=== PATIENT | female | born 1945 | race Caucasian/White ===

== ENCOUNTER → 2016-11-17 | Outpatient (REF) | payer MEDICARE ==
[~2016-11-17] MED LIST: ACET65TA OR; AGGR1CAP PO; AGGRCAP OR; ALBU83IN INH; ASCO25TA PO; ASPI81TA83 OR; Amlodipine Besylate PO; BISO10TA2 OR; BISO10TA6 PO; CALCIUM+VIT D PO; CALCTAB43 PO; CLAR1TAB2 PO; CLONIDINE PO; COLA100C PO; CRES20TA PO; DIOV160T5 OR; DIOV160T6 PO; DOXY100T OR; ECON0.05 TOP; FURO40TA2 OR; INSULADS SC; INSULANT SC; INVO300T PO; K-TA10TA2 PO; KLOR10TA OR; LASI20TA PO; LEVO175T19 PO; LEVO175T3 OR; LORATIDINE PO; MECL25CH PO; METFORMIN PO; NICO21DI4 TD; NORV5TAB OR; NORV5TAB PO; NYST10CR TOP; PRIL40CA OR; PRIL40CA PO; ROBIMIS PO; ROSU10TA OR; SPIR25TA2 PO
[2016-11-17 19:18] LABS: CALCIUM LEVEL 9.1 MG/DL (8.8-10.2); CREATININE FOR GFR 1.23 MG/DL (0.55-1.02); GLOMERULAR FILTRATION RATE 46.1 (>45); MAGNESIUM LEVEL 1.9 MG/DL (1.8-2.4); PHOSPHORUS LEVEL 3.4 MG/DL (2.5-4.9); POTASSIUM SERUM 3.9 MEQ/L (3.5-5.1)
[2016-11-17 19:59] LABS: MEAN CORPUSCULAR VOLUME 70.6 fl (80.0-96.0); RED CELL DISTRIBUTION WIDTH 19.1 % (11.5-14.5); WHITE BLOOD COUNT 10.4 K/mm3 (4.0-10.0)
[2016-11-18 15:23] LABS: FOLATE 19.7 NG/ML
== END ==
LOC: M LABDRAWC 16:46
PROVIDERS: ATTEND Physician Assistant
DX: D64.9 Anemia, unspecified (principal); I50.32 Chronic diastolic (congestive) heart failure; I48.0 Paroxysmal atrial fibrillation

== ENCOUNTER → 2016-11-19 | Outpatient (REF) | payer MEDICARE ==
[~2016-11-19] MED LIST changes: +ALBU17IN INH; +AMLO10TA PO; +ELIQ5TAB PO; +FURO40TA2 PO; +INSUHUMDS SC; +NITR4TASL SL; +NYST10CR EXT; +OMEP40CA2 PO; +ROBI30SU PO; +SYNT175T2 PO; +TOUJ1.2I SC; +TYLE500T78 PO
[2016-11-19 18:07] LABS: MEAN CORPUSCULAR HGB CONC 27.1 g/dl (32.0-36.5); MEAN CORPUSCULAR VOLUME 70.2 fl (80.0-96.0); RED CELL DISTRIBUTION WIDTH 19.6 % (11.5-14.5); RETIC HEMOGLOBIN CONTENT CHr 21.4 PG (24-36); RETICULOCYTE % ADVIA2120 3.2 % (0.5-1.5); WHITE BLOOD COUNT 8.7 K/mm3 (4.0-10.0)
[2016-11-19 18:56] LABS: FOLATE 23.6 NG/ML (>5.4)
[2016-11-19 18:58] LABS: PERCENT SATURATION 5.1 % (13.2-37.4)
== END ==
LOC: M SFHCCLAY 10:19
PROVIDERS: ATTEND Family Medicine
DX: D64.9 Anemia, unspecified (principal)

== ENCOUNTER → 2016-11-20 | Outpatient (CLI) | payer MEDICARE | LOC: M LAB 16:12 | PROVIDERS: ATTEND Family Medicine | DX: D50.0 Iron deficiency anemia secondary to blood loss (chronic) (principal) ==

== ENCOUNTER 2016-11-21 06:26 | Outpatient (CLI) | payer MEDICARE ==
[~2016-11-21 06:26] MED LIST changes: -ALBU17IN INH; -AMLO10TA PO; -ELIQ5TAB PO; -FURO40TA2 PO; -INSUHUMDS SC; -NITR4TASL SL; -NYST10CR EXT; -OMEP40CA2 PO; -ROBI30SU PO; -SYNT175T2 PO; -TOUJ1.2I SC; -TYLE500T78 PO
[2016-11-21] MEDS ORDERED: ACETAMINOPHEN TAB 650MG DOSE (2X325MG) PO SCH (07:01)
[2016-11-21] MEDS ORDERED: TOUJ1.2I SC (07:51)
[2016-11-21] MEDS ORDERED: INSUHUMDS SC (07:51)
[2016-11-21] MEDS ORDERED: diphenhydrAMINE 50 MG CAP PO ONE (09:00)
[2016-11-21] MEDS ORDERED: FUROSEMIDE 20 MG/2 ML VIAL (J1940) IV ONE (10:45)
[2016-11-22] MEDS ORDERED: FURO40TA2 PO (20:01)
[2016-11-22] MEDS ORDERED: SYNT175T2 PO (20:01)
[2016-11-22] MEDS ORDERED: TYLE500T78 PO (20:09)
[2016-11-22] MEDS ORDERED: NITR4TASL SL (20:09)
[2016-11-22] MEDS ORDERED: OMEP40CA2 PO (20:09)
[2016-11-22] MEDS ORDERED: ALBU17IN INH (20:09)
[2016-11-22] MEDS ORDERED: NYST10CR EXT (20:09)
[2016-11-22] MEDS ORDERED: ALBU83IN INH (20:09)
[2016-11-22] MEDS ORDERED: ELIQ5TAB PO (20:09)
[2016-11-22] MEDS ORDERED: ROBI30SU PO (20:09)
[2016-11-22] MEDS ORDERED: AMLO10TA PO (20:12)
== END 2016-11-21 13:15 | disposition home or self-care (01) ==
LOC: M INFU 06:26
PROVIDERS: ATTEND Family Medicine
DX: D50.0 Iron deficiency anemia secondary to blood loss (chronic) (principal); Z79.4 Long term (current) use of insulin; Z79.899 Other long term (current) drug therapy; Z88.8 Allergy status to other drugs, medicaments and biological substances; Z88.1 Allergy status to other antibiotic agents

== ENCOUNTER 2016-11-22 15:26 | Inpatient (IN) | payer MEDICARE ==
[~2016-11-22] VITALS: Ht 157.5 cm; Wt 100.8 kg
[~2016-11-22 15:26] MED LIST changes: +INSUHUMDS SC; +TOUJ1.2I SC
[2016-11-22 16:33] LABS: MEAN CORPUSCULAR HEMOGLOBIN 20.7 pg (27.0-33.0); MEAN CORPUSCULAR HGB CONC 28.8 g/dl (32.0-36.5); MEAN CORPUSCULAR VOLUME 71.7 fl (80.0-96.0); PLATELET COUNT, AUTOMATED 259 k/mm3 (150-450); RED CELL DISTRIBUTION WIDTH 20.5 % (11.5-14.5); WHITE BLOOD COUNT 10.8 K/mm3 (4.0-10.0)
[2016-11-22 16:49] LABS: CALCIUM LEVEL 8.3 MG/DL (8.8-10.2); CREATININE FOR GFR 1.39 MG/DL (0.55-1.02); GLOMERULAR FILTRATION RATE 39.9 (>39)
[2016-11-22 17:06] LABS: ANISOCYTOSIS 2+; HYPOCHROMASIA 1+; MICROCYTOSIS 3+
[2016-11-22 17:07] LABS: POIKILOCYTOSIS 1+; POLYCHROMASIA 1+
[2016-11-22] MEDS ORDERED: FUROSEMIDE 40 MG/4 ML VIAL (J1940) As Ordered ONE ×2 (18:42→22:32)
[2016-11-22] MEDS ORDERED: SYNT175T2 PO (20:01)
[2016-11-22] MEDS ORDERED: FURO40TA2 PO (20:01)
[2016-11-22] MEDS ORDERED: ALBU83IN INH (20:09)
[2016-11-22] MEDS ORDERED: NITR4TASL SL (20:09)
[2016-11-22] MEDS ORDERED: NYST10CR EXT (20:09)
[2016-11-22] MEDS ORDERED: OMEP40CA2 PO (20:09)
[2016-11-22] MEDS ORDERED: ELIQ5TAB PO (20:09)
[2016-11-22] MEDS ORDERED: ALBU17IN INH (20:09)
[2016-11-22] MEDS ORDERED: ROBI30SU PO (20:09)
[2016-11-22] MEDS ORDERED: TYLE500T78 PO (20:09)
[2016-11-22] MEDS ORDERED: AMLO10TA PO (20:12)
[2016-11-22] MEDS ORDERED: ONDANSETRON 4 MG TAB (S0181) PO PRN (20:15)
[2016-11-22] MEDS ORDERED: PERCOCET 5MG/325MG TAB PO PRN (20:15)
[2016-11-22] MEDS ORDERED: ONDANSETRON 4MG/2ML VIAL (J2405) IV PRN (20:15)
[2016-11-22] MEDS ORDERED: ACETAMINOPHEN TAB 650MG DOSE (2X325MG) PO PRN (20:15)
[2016-11-22 21:00] VITALS: BP 133/61
[2016-11-22] MEDS ORDERED: LORATADINE 10 MG TAB PO PRN (21:00)
[2016-11-22] MEDS ORDERED: ALBUTEROL SULFATE 2.5 MG/0.5 ML INH NEB SOLN INH PRN (21:00)
[2016-11-22] MEDS ORDERED: GLUCOSE 4 GM CHEW TABLET PO PRN (21:15)
[2016-11-22] MEDS ORDERED: GLUCAGON FOR INJ 1 MG VIAL (J1610) SC PRN (21:15)
[2016-11-22] MEDS ORDERED: DEXTROSE 50% 50 ML SYRINGE IV PRN (21:15)
[2016-11-22] MEDS ORDERED: DOCUSATE SODIUM 100 MG CAP As Ordered ONE (22:24)
[2016-11-22] MEDS ORDERED: OMEPRAZOLE 20 MG CAP As Ordered ONE (22:24)
[2016-11-22] MEDS ORDERED: APIXABAN 2.5 MG TAB (ELIQUIS) As Ordered ONE (22:25)
--- NOTE | 2016-11-22 22:28 | HPEPDOC ---
Medical History and Physical Date of Admission Nov 22, 2016 at 20:01 History and Physical HISTORY AND PHYSICAL Date of admission: 11/22/2016 PCP: Dr. Olivas Chief complaint: Just couldn't get a decent breath HPI: 71-year-old female with diabetes mellitus type 2, hypertension, diastolic CHF, possible COPD, obesity, hypothyroidism, hypercholesterolemia, history of Afib and bradycardia status post pacemaker who presented to the ER because she was having difficulty breathing. She states that she has been short of breath since last Thursday, and it keeps coming and going. She states that she was taking a nap today and laying on her right side and is quite comfortable; however, she then turned on her left side and noticed that she couldn't breathe. She attempted to use nitroglycerin and albuterol, but noticed that these did not help her breathing at all, so she decided to come to the emergency department. She states that she has noticed her breathing gets worse when she lays down, and also when she goes outside and windy situations. Additionally, any exertion seems to make her breathing more difficult. Many emergency department, she was noted to have O2 sats of 84 on room air. In addition to this shortness of breath, she has a recent history significant for new anemia. She states that she had had routine blood work with her material dispatcher this week, and got called into the office because her hemoglobin came back at 7.9. At that point, they decided to transfuse HER-2 units of PRBCs this past . She states that in between the units of blood, they gave her dose of Lasix. She says she has never previously had an issue with anemia or low blood count before. She also denies any current bleeding. She has not seen any blood, and also states that her stool has not been black or tarry- like. When asked if her breathing seemed to get worse after the blood transfusion, she stated that no, it wasn't good after the blood transfusion but was no worse than it was before. Past medical history: diabetes mellitus type 2, hypertension, diastolic CHF, possible COPD, obesity, hypothyroidism, hypercholesterolemia, history of Afib and bradycardia status post pacemaker Past surgical history: Pacemaker placement secondary to bradycardia, hysterectomy, cholecystectomy Family history: Her mother is over 90 years old and doing well. She does state that both her father and her brother suddenly of heart attacks in their 30s. Her children are both healthy. Social history: The patient quit smoking approximately 4 years ago. She denies drinking any alcohol, or using drugs. Allergies: Amlodipine, amiloride, erythromycin, gemfibrozil, by mouth glitazone , tetracycline Review of systems: General: Positive for chills. Negative for fevers Eyes:. Negative for Vision changes and ocular discharge ENT: Negative for sore throat and nose bleed Cardiovascular: Negative For chest pain and palpitations Respiratory: Positive for cough and shortness of breath GI: Positive for nausea. Negative for vomiting, diarrhea, constipation Musculoskeletal: Negative for neck and back pain Skin: Negative for rash Neuro: Negative for headache, dizziness, numbness, tingling Psych: Positive for depression. Negative for suicidal ideation. Endocrine: Positive for polyuria : Negative for dysuria. Positive for frequency Heme: Negative for bruising and bleeding Home meds: See below Physical exam: Vital signs: Blood pressure 129/60, HR 90s, temperature 98.2, O2 sat 95% on 2-1/ 2 L, RR 18 Gen.: awake, alert, no acute distress Eyes: Extraocular movements intact, normal sclera ENT: Moist mucous membranes Cardiovascular: RRR, no murmurs rubs or gallops Lungs: crackles at bilateral bases Abdomen: Soft, NT/ND, normal BS Musculoskeletal: normal range of motion Extremities: 1+ edema Neuro: alert and oriented 3, normal speech, no focal deficits Psych: Normal mood with congruent affect Labs and radiology: See below Creatinine 1.39 Hemoglobin 8.8 BNP 401 Troponin unremarkable Chest x-ray bilateral diffuse interstitial infiltrates EKG paced Assessment and plan: 71-year-old female with diabetes mellitus type 2, hypertension, diastolic CHF, possible COPD, obesity, hypothyroidism, hypercholesterolemia, history of Afib and bradycardia status post pacemaker who presented to the ER because she was having difficulty breathing. She is admitted with acute on chronic diastolic CHF , as well as anemia. 1. Acute on chronic diastolic CHF: The patient had an echo approximately 10 months ago that showed diastolic heart failure as well as moderate pulmonary hypertension, but preserved ejection fraction. At this time, her chest x-ray is consistent with pulmonary edema. We will hold her home by mouth Lasix and start her on IV Lasix twice a day, as well as follow daily weights and I's and O's. We will get a repeat echo, and trend troponins, although her initial one is negative. 2. Anemia: The patient states that she went for routine blood work with her doctor recently and was called back to the office because her hemoglobin was noted to be 7.9. She is status post transfusion of 2 units PRBCs on , with a dose of Lasix in between. Today her hemoglobin is 8.8. She denies any blood loss, or black tarry stools. We will check a fecal occult blood, as well as iron studies and B12 and folate. We will also trend her daily hemoglobins, but if her hemoglobin continues to be stable during this admission, I believe she could complete her workup for anemia as an outpatient. Of note, the patient is on eliquis for a history of A. fib prior to receiving her pacemaker. At this time, since she is not having any gross bleeding, I will continue her home eliquis. Depending on the trend of her hemoglobin, it may be worth considering backing her down to aspirin, especially since she has now had a pacemaker placed and is paced on EKG. 3. Diabetes mellitus type 2: Continue home long-acting insulin. The patient confirms that she takes 150 units every morning. Continue sliding scale insulin while in-house. 4. Acute kidney injury: The patient's creatinine is currently 1.39, and it appears that her baseline is closer to 1. She does report that she has been on an increased dose of Lasix for the last month. At this point, given her shortness of breath and pulmonary edema, I think it is necessary to diurese her , but we may expect to see some further bump in her creatinine during this diuresis. We will follow her creatinine daily and keep a close eye on her kidney function. 5. Hypertension: Continue home Norvasc and beta art. 6. Hypothyroidism: Continue home Synthroid. 7. Hyperlipidemia: Continue home statin. 8. History of A. fib and bradycardia status post pacemaker placement: The patient's EKG in the emergency room shows a ventricular pacing. She currently denies any chest pain. She is on eliquis for this prior A. fib, which we will currently continue since she is not having any gross bleeding. DVT prophylaxis: Continue home eliquis, and SCDs Dispo: admit as an inpatient to the service of Dr. Brumfield CODE STATUS: Full Code Vital Signs see above Laboratory Data Labs 24H Laboratory Tests 2 11/22/16 16:09: Anion Gap 11, Anisocytosis 2+, B-Type Natriuretic Peptide 401H, White Blood Count 10.8H, Red Blood Count 4.27, Hemoglobin 8.8L, Hematocrit 30.6L, Mean Corpuscular Volume 71.7L, Mean Corpuscular Hemoglobin 20.7L, Mean Corpuscular Hemoglobin Concent 28.8L, Red Cell Distribution Width 20.5H, Platelet Count 259 , Neutrophils (%) (Auto) , Lymphocytes (%) (Auto) , Monocytes (%) (Auto) , Eosinophils (%) (Auto) , Basophils (%) (Auto) , Neutrophils # (Auto) , Lymphocytes # (Auto) , Monocytes # (Auto) , Eosinophils # (Auto) , Basophils # ( Auto) , Blood Urea Nitrogen 18, Creatinine 1.39H, Sodium Level 139, Potassium Level 4.0, Chloride Level 104, Carbon Dioxide Level 24, Calcium Level 8.3L, Total Creatine Kinase 56, Creatine Kinase MB 2.3, Creatine Kinase MB Relative Index 4.10H, Glomerular Filtration Rate 39.9, Hypochromasia 1+, Large Unclassified Cells # , Large Unclassified Cells % , Lymphocytes (Manual) 10L, Microcytosis 3+, Monocytes (Manual) 4, Neutrophils 86H, Platelet Estimate NORMAL , Poikilocytosis 1+, Polychromasia 1+, Troponin I 0.03 11/22/16 20:35: Total Creatine Kinase 65, Creatine Kinase MB 1.5, Creatine Kinase MB Relative Index 2.30, Troponin I 0.04# 11/22/16 21:24: Bedside [facility] 399H CBC/BMP Laboratory Tests 11/22/16 16:09 Calcium Level 8.3 L, Total Creatine Kinase 56, Red Blood Count 4.27, Mean Corpuscular Volume 71.7 L, Mean Corpuscular Hemoglobin 20.7 L, Mean Corpuscular Hemoglobin Concent 28.8 L, Red Cell Distribution Width 20.5 H, Neutrophils (%) ( Auto) , Lymphocytes (%) (Auto) , Monocytes (%) (Auto) , Eosinophils (%) (Auto) , Basophils (%) (Auto) , Neutrophils # (Auto) , Lymphocytes # (Auto) , Monocytes # (Auto) , Eosinophils # (Auto) , Basophils # (Auto) FSBS Laboratory Tests Test 11/22/16 21:24 Range/Units Bedside Glucose (Misc Panel) 399 83-110 MG/DL Microbiology Microbiology 11/22/16 Blood Culture, Received Pending 11/22/16 Blood Culture, Received Pending Home Medications Scheduled (Luis A Sands) 300 Unit/Ml Inj 150 UNIT SC DAILY (Robitussin 12 Hour Cough) 30 Mg/5 Ml Myrna 30 MG PO BID Amlodipine Besylate (Norvasc) 10 Mg Tab 10 MG PO DAILY Brand only - See Comments Apixaban Base (Eliquis) 5 Mg Tab 5 MG PO BID Daily and @ 1200 Ascorbic Acid (Vitamin C) 250 Mg Tab 500 MG PO DAILY Bisoprolol Fumarate (Bisoprolol Fumarate) 10 Mg Tab 10 MG PO BID Calcium/Vitamin D (Calcium 600+D 600-400 mg-Unit) 1 Tab Tab 1 TAB PO DAILY Docusate Sodium (Colace) 100 Mg Cap 100 MG PO QHS Furosemide (Lasix) 20 Mg Tab 20 MG PO QPM @1400 Furosemide (Furosemide) 40 Mg Tab 40 MG PO DAILY Levothyroxine Sodium (Synthroid) 175 Mcg Tab 175 MCG PO QAM Nystatin (Nystatin) 100,000 Unit/Gm Cre 1 UNIT EXT BID Applied to under breast, groin and underarm Omeprazole (Omeprazole) 40 Mg Cap 40 MG PO QHS Rosuvastatin Calcium (Crestor) 20 Mg Tab 20 MG PO DAILY Scheduled PRN Acetaminophen (Tylenol Extra Strength) 500 Mg Tab 1,000 MG PO Q4H PRN PRN PAIN Albuterol Sulfate (Albuterol Sulfate) 2.5 Mg/3 Ml Nebu 2.5 MG INH Q4H PRN PRN SHORTNESS OF BREATH Albuterol Sulfate (Ventolin Hfa) 200 Puff/8 Gm Aers 2 PUFF INH Q4H PRN PRN SHORTNESS OF BREATH Insulin Human Lispro (Humalog) 1 Units/0.01 Ml Inj 1 UNITS SC BID PRN PRN per sliding scale coverage Loratadine (Claritin) 10 Mg Tab 10 MG PO DAILY PRN PRN CONGESTION Nitroglycerin (Nitrostat) 0.4 Mg Subl 0.4 MG SL Q5MP PRN PRN ANGINA Allergies Coded Allergies: Gemfibrozil (Unverified Allergy, Mild, RASH, 01/25/13) Erythromycin (Unverified Adverse Reaction, Severe, NAUSEA, 01/25/13) Pioglitazone (Unverified Adverse Reaction, Severe, SWELLING, BP INCREAE, ) Amiloride (Unverified Adverse Reaction, Intermediate, NAUSEA, 01/25/13) Tetracycline (Unverified Adverse Reaction, Intermediate, NAUSEA, 01/25/13) Amlodipine (Unverified Adverse Reaction, Unknown, Swelling, 11/22/16) Uses Brand Only JOSE Dolan Nov 22, 2016 22:28
[2016-11-22] MEDS ORDERED: HumaLOG INSULIN (NovoLOG) PER UNIT As Ordered ONE (22:32)
[2016-11-22] MEDS: FUROSEMIDE 40 MG/4 ML VIAL (J1940) IV SCH (22:35)
[2016-11-22] MEDS: APIXABAN 5 MG TAB (ELIQUIS) PO SCH (22:40)
[2016-11-22] MEDS: DOCUSATE SODIUM 100 MG CAP PO SCH (22:40)
[2016-11-22] MEDS: OMEPRAZOLE 20 MG CAP PO SCH (22:41)
[2016-11-22] MEDS: BISOPROLOL FUMARATE 10 MG TAB PO SCH (22:41)
[2016-11-22] MEDS: HumaLOG INSULIN (NovoLOG) PER UNIT SC SCH (22:42)
[2016-11-22] MEDS: NYSTATIN CREAM 15 GM EXT SCH (22:43)
[2016-11-23] VITALS (8 sets, daily range): BP systolic 119–157; BP diastolic 59–74
[2016-11-23 04:17] LABS: BASO % 0.1 % (0.0-1.0); EOS % 0.2 % (0.0-3.0); LARGE UNSTAINED CELL # 0.1 K/mm3 (0.0-0.4); LARGE UNSTAINED CELL % 0.5 % (0.0-4.0); LYMPH # 0.7 K/mm3 (1.5-4.5); MEAN CORPUSCULAR HEMOGLOBIN 20.6 pg (27.0-33.0); MEAN CORPUSCULAR HGB CONC 27.9 g/dl (32.0-36.5); MEAN CORPUSCULAR VOLUME 73.7 fl (80.0-96.0); MONO # 0.3 K/mm3 (0.0-0.8); MONO % 2.9 % (0.0-5.0); NEUTROPHILS # 8.4 K/mm3 (1.8-7.7); NEUTROPHILS % 89.3 % (36.0-66.0); PLATELET COUNT, AUTOMATED 276 k/mm3 (150-450); RED CELL DISTRIBUTION WIDTH 18.7 % (11.5-14.5); WHITE BLOOD COUNT 9.4 K/mm3 (4.0-10.0)
[2016-11-23 04:37] LABS: CALCIUM LEVEL 8.5 MG/DL (8.8-10.2); CREATININE FOR GFR 1.33 MG/DL (0.55-1.02); MAGNESIUM LEVEL 2.1 MG/DL (1.8-2.4); PERCENT SATURATION 4.2 % (13.2-37.4); POTASSIUM SERUM 4.1 MEQ/L (3.5-5.1)
[2016-11-23] MEDS: LEVOTHYROXINE 0.1 MG TAB (100 MCG) PO SCH (06:03)
[2016-11-23] MEDS: LEVOTHYROXINE 0.075 MG TAB (75 MCG) PO SCH (06:03)
[2016-11-23] MEDS ORDERED: LEVEMIR (INSULIN DETEMIR) 1 UNITS/0.01ML As Ordered ONE (08:21)
[2016-11-23] MEDS ORDERED: HumaLOG INSULIN (NovoLOG) PER UNIT As Ordered ONE (08:22)
[2016-11-23] MEDS ORDERED: APIXABAN 5 MG TAB (ELIQUIS) As Ordered ONE (08:26)
[2016-11-23] MEDS ORDERED: FUROSEMIDE 40 MG/4 ML VIAL (J1940) As Ordered ONE (08:26)
[2016-11-23] MEDS: ROSUVASTATIN 10 MG TAB (CRESTOR) PO SCH (08:31)
[2016-11-23] MEDS: FUROSEMIDE 40 MG/4 ML VIAL (J1940) IV SCH ×2 (08:31→17:54)
[2016-11-23] MEDS: ASCORBIC ACID 500 MG TAB PO SCH (08:31)
[2016-11-23] MEDS: APIXABAN 5 MG TAB (ELIQUIS) PO SCH ×2 (08:31→20:33)
[2016-11-23] MEDS: NYSTATIN CREAM 15 GM EXT SCH ×2 (08:31→20:33)
[2016-11-23] MEDS: BISOPROLOL FUMARATE 10 MG TAB PO SCH ×2 (08:33→20:33)
[2016-11-23] MEDS: HumaLOG INSULIN (NovoLOG) PER UNIT SC SCH ×4 (08:34→20:28)
[2016-11-23] MEDS ORDERED: LEVEMIR (INSULIN DETEMIR) 1 UNITS/0.01ML SC SCH (09:00)
--- NOTE | 2016-11-23 12:51 | IPNPDOC ---
Assessment/Plan Date Seen The patient was seen on 11/23/16. Family Medicine Attending Note: I saw and examined Ms. Redmond, discussed with ARSEN Sun. Agree with their note as documented. Ms. Redmond reports that her breathing is improved since she was admitted. It's not completely to baseline, but it is improving. We'll continue to diurese her. 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 Pt on exam remains decompensated. (2) Diabetes mellitus type 2 in obese Status: Chronic Response to Treatment: Stable Discussed With: Patient Problem Specific Plan: Monitor Clinically (3) CAD (coronary artery disease), [place] coronary artery Status: Chronic Response to Treatment: Stable Problem Specific Plan: Monitor Clinically Problem Text: on ASA, statin, zebeta, cont. Plan / VTE VTE Prophylaxis Ordered?: Yes Subjective Review of Systems CC/HPI Pt states that her breathing is better this morning. She reports a h/o swelling /blowing up all over when she takes generic Norvasc, takes branded at home without tolerability concern. General: Denies: Fatigue Constitutional: Denies: Chills, Fever Pulmonary: Reports: Dyspnea, Denies: Cough Cardiovascular: Denies: Chest Pain, Palpitations Gastrointestinal: Denies: Diarrhea, Nausea, Vomiting Neurological: Denies: Weakness Psych: Reports: Mood Normal Objective Physical Examination General Exam: Positive: Alert, No Acute Distress ENT Exam: Positive: Mucous membr. moist/pink Neck Exam: Positive: Supple Chest Exam: Positive: Normal air movement, Other (bibasilar crackles) Heart Exam: Positive: Normal S1, Normal S2, Rate Normal Abdomen Exam: Positive: Normal bowel sounds, Soft, Negative: Tenderness Extremity Exam: Negative: Edema Vital Signs/I&O Vital Signs Date Time Temp Pulse Resp B/P Pulse Ox O2 Delivery O2 Flow Rate FiO2 11/23/16 12:00 98.3 76 22 132/67 97 Nasal Cannula 3.0 I&O- Last 24 Hours up to 6 AM 11/23/16 06:00 Intake Total 360 ml Output Total 1600 ml Balance -1240 ml Laboratory Data Labs 24H Laboratory Tests 2 11/22/16 16:09: Anion Gap 11, Anisocytosis 2+, B-Type Natriuretic Peptide 401H, White Blood Count 10.8H, Red Blood Count 4.27, Hemoglobin 8.8L, Hematocrit 30.6L, Mean Corpuscular Volume 71.7L, Mean Corpuscular Hemoglobin 20.7L, Mean Corpuscular Hemoglobin Concent 28.8L, Red Cell Distribution Width 20.5H, Platelet Count 259 , Neutrophils (%) (Auto) , Lymphocytes (%) (Auto) , Monocytes (%) (Auto) , Eosinophils (%) (Auto) , Basophils (%) (Auto) , Neutrophils # (Auto) , Lymphocytes # (Auto) , Monocytes # (Auto) , Eosinophils # (Auto) , Basophils # ( Auto) , Blood Urea Nitrogen 18, Creatinine 1.39H, Sodium Level 139, Potassium Level 4.0, Chloride Level 104, Carbon Dioxide Level 24, Calcium Level 8.3L, Total Creatine Kinase 56, Creatine Kinase MB 2.3, Creatine Kinase MB Relative Index 4.10H, Glomerular Filtration Rate 39.9, Hypochromasia 1+, Large Unclassified Cells # , Large Unclassified Cells % , Lymphocytes (Manual) 10L, Microcytosis 3+, Monocytes (Manual) 4, Neutrophils 86H, Platelet Estimate NORMAL , Poikilocytosis 1+, Polychromasia 1+, Troponin I 0.03 11/22/16 20:35: Total Creatine Kinase 65, Creatine Kinase MB 1.5, Creatine Kinase MB Relative Index 2.30, Troponin I 0.04# 11/22/16 21:24: Bedside Glucose (Misc Panel) 399H 11/23/16 03:59: Total Creatine Kinase 85, Creatine Kinase MB 1.4, Creatine Kinase MB Relative Index 1.64, Troponin I 0.03# 11/23/16 04:00: Anion Gap 9, White Blood Count 9.4, Red Blood Count 4.62, Hemoglobin 9.5L, Hematocrit 34.0L, Mean Corpuscular Volume 73.7L, Mean Corpuscular Hemoglobin 20.6L, Mean Corpuscular Hemoglobin Concent 27.9L, Red Cell Distribution Width 18.7H, Platelet Count 276, Neutrophils (%) (Auto) 89.3H, Lymphocytes (%) (Auto) 7.0L, Monocytes (%) (Auto) 2.9, Eosinophils (%) (Auto) 0.2, Basophils (%) (Auto ) 0.1, Neutrophils # (Auto) 8.4H, Lymphocytes # (Auto) 0.7L, Monocytes # (Auto) 0.3, Eosinophils # (Auto) 0.0, Basophils # (Auto) 0.0, Blood Urea Nitrogen 22H, Creatinine 1.33H, Sodium Level 140, Potassium Level 4.1, Chloride Level 102, Carbon Dioxide Level 29, Calcium Level 8.5L, Ferritin 12, Glomerular Filtration Rate 42.0, Iron Level 18L, Large Unclassified Cells # 0.1, Large Unclassified Cells % 0.5, Magnesium Level 2.1, Total Iron Binding Capacity 428, Transferrin % Saturation 4.2L 11/23/16 11:56: Creatine Kinase MB 1.7, Creatine Kinase MB Relative Index 2.04, Total Creatine Kinase 83, Troponin I 0.04# 11/23/16 12:09: Bedside Glucose ([facility]) 294H CBC/BMP Laboratory Tests 11/22/16 16:09 Calcium Level 8.3 L, Total Creatine Kinase 56, Red Blood Count 4.27, Mean Corpuscular Volume 71.7 L, Mean Corpuscular Hemoglobin 20.7 L, Mean Corpuscular Hemoglobin Concent 28.8 L, Red Cell Distribution Width 20.5 H, Neutrophils (%) ( Auto) , Lymphocytes (%) (Auto) , Monocytes (%) (Auto) , Eosinophils (%) (Auto) , Basophils (%) (Auto) , Neutrophils # (Auto) , Lymphocytes # (Auto) , Monocytes # (Auto) , Eosinophils # (Auto) , Basophils # (Auto) 11/23/16 04:00 Calcium Level 8.5 L, Red Blood Count 4.62, Mean Corpuscular Volume 73.7 L, Mean Corpuscular Hemoglobin 20.6 L, Mean Corpuscular Hemoglobin Concent 27.9 L, Red Cell Distribution Width 18.7 H, Neutrophils (%) (Auto) 89.3 H, Lymphocytes (%) ( Auto) 7.0 L, Monocytes (%) (Auto) 2.9, Eosinophils (%) (Auto) 0.2, Basophils (% ) (Auto) 0.1, Neutrophils # (Auto) 8.4 H, Lymphocytes # (Auto) 0.7 L, Monocytes # (Auto) 0.3, Eosinophils # (Auto) 0.0, Basophils # (Auto) 0.0 FSBS Laboratory Tests Test 11/22/16 21:24 11/23/16 12:09 Range/Units Bedside Glucose (Misc Panel) 399 294 83-110 MG/DL Microbiology Microbiology 11/22/16 Blood Culture, Received Pending 11/22/16 Blood Culture, Received Pending ANDRE MONDRAGON PA-C Nov 23, 2016 12:51 Kurt Brumfield MD Nov 23, 2016 22:32
--- NOTE | 2016-11-23 14:47 | EDDOCDS ---
Physician Documentation [facility] Name: Marjorie Redmond Age: 71 yrs Sex: Female : 1945 Arrival Date: 11/22/2016 Time: 15:26 Bed Admit Hold Private MD: Disposition: 11/22/16 19:16 Hospitalization ordered by Day Vega for Inpatient Admission. Preliminary diagnosis is Shortness of breath. - Bed requested for [facility]. - Status is Inpatient Admission. bcj - Condition is Stable. - Problem is new. - Symptoms have worsened. Historical: - Allergies: Tetracycline (Upset stomach); Tramadol HCl (Vomit); Tylenol-Codeine #3 (Vomit); - Home Meds: 1. Vitamin C 500 mg Oral TbER 500 mg daily 2. bisoprolol fumarate 10 mg oral tab 1 tab once daily 3. Colace 100 mg oral cap 1 cap once daily 4. Calcium + Vitamin D 600 mg calcium- 200 unit Oral tab 600 mg daily 5. furosemide 40 mg Oral tab 40 mg in am. 20 mg in pm 6. Humalog 100 unit/mL Sub-Q soln twice a day 7. Toujeo SoloStar 300 unit/mL (1.5 mL) subcutaneous inpn 150 unit 8. levothyroxine 175 mcg Oral tab 1 tab once daily 9. Claritin 10 mg Oral tab 1 tab once daily 10. omeprazole 40 mg Oral cpDR 1 cap once daily 11. rosuvastatin 20 mg oral tab 1 tab once daily 12. amlodipine 10 mg Oral tab 1 tab once daily 13. nystatin 100,000 unit/gram Topical crea 14. albuterol sulfate 2.5 mg /3 mL (0.083 %) Nebulizer nebu as needed 15. albuterol sulfate 90 mcg/actuation Inhl HFAA - PMHx: Diabetes - IDDM: controlled; Hypertension; Hypothyroidism; CHF; Asthma; - PSHx: Gall Bladder Removal; Hysterectomy; Pacemaker Insertion; - Social history: Smoking status: Patient states former smoker of tobacco. No barriers to communication noted, Speaks appropriately for age. - Family history: Not pertinent. - : The pt / caregiver states he / she is not on anticoagulants. Home medication list is obtained from [employer] import data. - Exposure Risk Screening:: None identified. Vital Signs: 11/22 15:37 BP 137 / 63 (auto/); rs3 15:39 BP 137 / 63; Pulse 95; Resp 32; Temp 98.2(O); Pulse Ox 92% on 3 lpm NC; Weight 99.79 kg rs3 / 220 lbs; Height 5 ft. 2 in. (157.48 cm); Pain 0/10; 15:39 Pulse 98 MON; Pulse Ox 91% ; rs3 15:59 BP 146 / 63 (auto/); rs3 15:59 Pulse 96 MON; Pulse Ox 93% ; rs3 16:18 Pulse 90 MON; Pulse Ox 92% ; rs3 16:19 BP 124 / 56 (auto/); rs3 16:28 Pulse 92 MON; Pulse Ox 92% ; rs3 16:29 BP 122 / 60 (auto/); rs3 16:44 BP 114 / 53 (auto/); rs3 16:44 Pulse 88 MON; Pulse Ox 90% ; rs3 16:59 BP 140 / 63 (auto/); rs3 16:59 Pulse 88 MON; Pulse Ox 90% ; rs3 17:14 BP 132 / 63 (auto/); rs3 17:14 Pulse 88 MON; Pulse Ox 92% ; rs3 17:29 BP 136 / 60 (auto/); rs3 17:29 Pulse 86 MON; Pulse Ox 94% ; rs3 17:44 BP 116 / 59 (auto/); rs3 17:44 Pulse 86 MON; Pulse Ox 94% ; rs3 17:59 BP 129 / 62 (auto/); rs3 17:59 Pulse 90 MON; Pulse Ox 93% ; rs3 18:14 BP 138 / 55 (auto/); rs3 18:14 Pulse 90 MON; Pulse Ox 92% ; rs3 18:33 BP 141 / 61 (auto/); rs3 18:33 Pulse 90 MON; Pulse Ox 90% ; rs3 18:40 BP 136 / 63 (auto/); rs3 18:40 Pulse 92 MON; Pulse Ox 93% ; rs3 18:59 BP 130 / 60 (auto/); af2 18:59 Pulse 94 MON; Resp 22 S; Pulse Ox 95% on 2 lpm NC; af2 19:48 BP 129 / 60 (auto/); af2 19:48 Pulse 92 MON; Resp 22 S; Pulse Ox 93% on 2 lpm NC; af2 15:39 Body Mass Index 40.24 (99.79 kg, 157.48 cm) rs3 MDM: 15:35 -Blood Culture (Adults Only), peripheral from different site, or from device/port/PICC fg etc. if present ordered. 15:35 Rn Clinical Appeals/Pulse Ox/q 15 min VS ordered. fg 15:35 IV Saline Lock ordered. fg 15:35 Oxygen at 4L/Min NC or Home dosage ordered. fg 15:35 Rhythm Strip to chart ordered. fg 15:36 B-Type Natiuretic Peptide Ordered. EDMS 15:36 Basic Metabolic Profile Ordered. EDMS 15:36 CBC with Diff Ordered. EDMS 15:36 Cardiac Injury Profile Ordered. EDMS 15:36 Troponin Ordered. EDMS 15:36 -Blood Culture Ordered. EDMS 15:37 Chest, 1 View Ordered. EDMS 15:37 ECG WITH READING ER PHYS+CARDIAG ordered. EDMS 15:53 -Blood Culture (Adults Only), peripheral from different site, or from device/port/PICC deg etc. if present complete. 15:55 BLOOD CULTURES Ordered. EDMS 16:35 DIFFERENTIAL NO CHARGE Ordered. EDMS 16:35 PLATELET ESTIMATE Ordered. EDMS 18:34 Furosemide 40 mg IVP once ordered. fg 19:02 BED REQUEST+ADM ordered. EDMS 19:17 Financial registration complete. zo 19:29 [facility] [place] [facility] Payment Agreement was scanned into [employer] and attached to record. zo 20:14 CARDIAC MARKER PANEL Ordered. EDMS 20:14 CARDIAC MARKER PANEL Ordered. EDMS 20:14 CARDIAC MARKER PANEL Ordered. EDMS 20:14 CBC WITH DIFFERENTIAL Ordered. EDMS 20:14 BASIC METABOLIC PROFILE Ordered. EDMS 20:15 MAGNESIUM LEVEL Ordered. EDMS 20:15 IRON (FE) Ordered. EDMS 20:15 TOTAL IRON BINDING CAPACIT Ordered. EDMS 20:15 FERRITIN Ordered. EDMS 20:15 VITAMIN B12 LEVEL Ordered. EDMS 20:15 FOLATE Ordered. EDMS 20:17 Admission / Observation Status ordered. EDMS 20:17 ECHOCARD,DOPPLER/COLOR FLOW ordered. EDMS 20:17 NO ADDED SALT DIET ordered. EDMS 21:18 Admission / Observation Status ordered. EDMS 11/23 12:19 Fingerstick Blood Sugar Ordered. EDMS Administered Medications: 11/22 18:53 Drug: Furosemide 40 mg [furosemide 10 mg/mL injection solution (4 mL)] Route: IVP; rs3 Site: left antecubital; Signatures: Dispatcher [employer] EDMS Nayely Mariscal, [employer] Unit deg Paul Gayle RN RN Sherman Whaley Rosemary, RN RN rs3 Monica Milner RN RN Bill Mart RN RN mts Gill, Frances, MD MD The chart was reviewed and I authenticate all verbal orders and agree with the evaluation and treatment provided.Corrections: (The following items were deleted from the chart) 15:57 15:42 Allergies: Tetracycline; rs3 rs3 Attachments: 19:29 [facility] [place] Payment Agreement zo MTDD
--- NOTE | 2016-11-23 14:47 | EDDOCDS ---
Nurse's Notes [facility] Name: Marjorie Redmond Age: 71 yrs Sex: Female : 1945 Arrival Date: 11/22/2016 Time: 15:26 Bed Admit Hold Private MD: Diagnosis: Shortness of breath Presentation: 11/22 15:29 Presenting complaint: Presenting complaint: EMS states: SOB on and off since last week. rs3 worse today. Expiratory wheezes bilaterally. Duoneb treatment given x 1. Solu-Medrol 125 mg IVP given. FS BS 334. 15:32 Adult Sepsis Screening: The patient does not have new or worsening altered mentation. rs3 15:32 Acuity: AMANDA Level 3 rs3 18:53 Adult Sepsis Screening: Patient has a respiratory rate of greater than or equal to 22 rs3 (1 point). Systolic blood pressure is greater than 100. Patient has a qSOFA score of 1- Negative Sepsis Screen. Suicide/Homicide risk assessment- the patient denies having any suicidal and/or homicidal ideations and does not present with any other emotional, behavioral or mental health complaints. 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 Transition of care: patient was not received from another setting of care. 18:53 Method Of Arrival: Ambulance rs3 Triage Assessment: 15:56 General: Appears in no apparent distress. Pain: Denies pain. Respiratory: Onset: The rs3 symptoms/episode began/occurred gradually. Historical: - Allergies: Tetracycline (Upset stomach); Tramadol HCl (Vomit); Tylenol-Codeine #3 (Vomit); - Home Meds: 1. Vitamin C 500 mg Oral TbER 500 mg daily 2. bisoprolol fumarate 10 mg oral tab 1 tab once daily 3. Colace 100 mg oral cap 1 cap once daily 4. Calcium + Vitamin D 600 mg calcium- 200 unit Oral tab 600 mg daily 5. furosemide 40 mg Oral tab 40 mg in am. 20 mg in pm 6. Humalog 100 unit/mL Sub-Q soln twice a day 7. Toujeo SoloStar 300 unit/mL (1.5 mL) subcutaneous inpn 150 unit 8. levothyroxine 175 mcg Oral tab 1 tab once daily 9. Claritin 10 mg Oral tab 1 tab once daily 10. omeprazole 40 mg Oral cpDR 1 cap once daily 11. rosuvastatin 20 mg oral tab 1 tab once daily 12. amlodipine 10 mg Oral tab 1 tab once daily 13. nystatin 100,000 unit/gram Topical crea 14. albuterol sulfate 2.5 mg /3 mL (0.083 %) Nebulizer nebu as needed 15. albuterol sulfate 90 mcg/actuation Inhl HFAA - PMHx: Diabetes - IDDM: controlled; Hypertension; Hypothyroidism; CHF; Asthma; - PSHx: Gall Bladder Removal; Hysterectomy; Pacemaker Insertion; - Social history: Smoking status: Patient states former smoker of tobacco. No barriers to communication noted, Speaks appropriately for age. - Family history: Not pertinent. - : The pt / caregiver states he / she is not on anticoagulants. Home medication list is obtained from [employer] import data. - Exposure Risk Screening:: None identified. Screenin:57 Screening information is obtained from the patient. Fall risk: No risks identified. rs3 Assistance ADL's: requires no assistance with activities of daily living. Abuse/DV Screen: The patient / caregiver reports he/she is: not in a situation that causes fear, pain or injury. Nutritional screening: No deficits noted. home support is adequate. 16:19 Advance Directives: Currently, there is a health care proxy, Reynaldo Ruy. There is rs3 an active DNR order but there is no copy available at this time. Assessment: 16:13 General: Appears in no apparent distress, Behavior is appropriate for age, cooperative. rs3 Pain: Denies pain. Neurological: Level of Consciousness is awake, alert. Cardiovascular: Capillary refill < 3 seconds Heart tones S1 S2 present Rhythm is ventricular pacer. Cardiovascular: Chest pain is denied. Respiratory: Airway is patent Respiratory effort is even, Breath sounds are diminished bilaterally. Breath sounds with wheezes expiratory in left posterior lower lobe and right posterior middle lobe. Derm: Skin is pink, warm & dry. 17:30 General: Appears in no apparent distress, Behavior is appropriate for age, cooperative, rs3 Short of breath on exertion, talking and with activity. lung sounds diminished bilateral bases. on oxygen 3L/nc. sat 90% . . 18:50 General: Appears in no apparent distress, ambulated on RM. sat in 84%. RM. attending rs3 provider made aware. sob on ambulation. . 19:10 General: Appears in no apparent distress, Behavior is appropriate for age, cooperative. af2 Neurological: Level of Consciousness is awake, alert, obeys commands, Oriented to person, place, time. Cardiovascular: Rhythm is ventricular pacer Chest pain is denied. Respiratory: Airway is patent Respiratory effort is even, unlabored, Breath sounds with crackles bilaterally. in left lower lobe, right lower lobe, left posterior lower lobe and right posterior lower lobe Breath sounds are diminished bilaterally. 20:10 General: Appears in no apparent distress, Behavior is appropriate for age, cooperative. af2 Neurological: Level of Consciousness is awake, alert, obeys commands, Oriented to person, place, time. Cardiovascular: Rhythm is ventricular pacer. Respiratory: Airway is patent Respiratory effort is even, unlabored. Derm: Skin is pink, warm & dry. 20:44 General: pt updated regarding plan of care and hospital bed status, verbalizes af2 understanding of information and plan to keep pt in ED.. 20:54 General: report give to Sarah Arroyo RN. She has agreed to assume care of pt. For further af2 documentation, refer to [employer].. Vital Signs: 15:37 BP 137 / 63 (auto/); rs3 15:39 BP 137 / 63; Pulse 95; Resp 32; Temp 98.2(O); Pulse Ox 92% on 3 lpm NC; Weight 99.79 rs3 kg; Height 5 ft. 2 in. (157.48 cm); Pain 0/10; 15:39 Pulse 98 MON; Pulse Ox 91% ; rs3 15:59 BP 146 / 63 (auto/); rs3 15:59 Pulse 96 MON; Pulse Ox 93% ; rs3 16:18 Pulse 90 MON; Pulse Ox 92% ; rs3 16:19 BP 124 / 56 (auto/); rs3 16:28 Pulse 92 MON; Pulse Ox 92% ; rs3 16:29 BP 122 / 60 (auto/); rs3 16:44 BP 114 / 53 (auto/); rs3 16:44 Pulse 88 MON; Pulse Ox 90% ; rs3 16:59 BP 140 / 63 (auto/); rs3 16:59 Pulse 88 MON; Pulse Ox 90% ; rs3 17:14 BP 132 / 63 (auto/); rs3 17:14 Pulse 88 MON; Pulse Ox 92% ; rs3 17:29 BP 136 / 60 (auto/); rs3 17:29 Pulse 86 MON; Pulse Ox 94% ; rs3 17:44 BP 116 / 59 (auto/); rs3 17:44 Pulse 86 MON; Pulse Ox 94% ; rs3 17:59 BP 129 / 62 (auto/); rs3 17:59 Pulse 90 MON; Pulse Ox 93% ; rs3 18:14 BP 138 / 55 (auto/); rs3 18:14 Pulse 90 MON; Pulse Ox 92% ; rs3 18:33 BP 141 / 61 (auto/); rs3 18:33 Pulse 90 MON; Pulse Ox 90% ; rs3 18:40 BP 136 / 63 (auto/); rs3 18:40 Pulse 92 MON; Pulse Ox 93% ; rs3 18:59 BP 130 / 60 (auto/); af2 18:59 Pulse 94 MON; Resp 22 S; Pulse Ox 95% on 2 lpm NC; af2 19:48 BP 129 / 60 (auto/); af2 19:48 Pulse 92 MON; Resp 22 S; Pulse Ox 93% on 2 lpm NC; af2 15:39 Body Mass Index 40.24 (99.79 kg, 157.48 cm) rs3 Vitals: 15:39 Log In Time N/A - ambulance arrival. rs3 ED Course: 15:27 Patient visited by Nayely Mariscal, Editor Magazine. deg 15:27 Patient moved to Waiting deg 15:29 Patient moved to 18 rs3 15:31 Anna Lawrence MD is Attending Physician. fg 15:36 Triage Initiated rs3 15:45 Patient visited by Anna Lawrence MD. fg 16:10 EKG done. (by ED staff). Reviewed by Anna Lawrence MD. jrd 16:19 Maintain field IV. Dressing intact. Good blood return noted. Site clean & dry. rs3 16:35 Patient visited by Shelley Arvizu,AL. rs3 17:08 Patient visited by Shelley Arvizu,AL. rs3 18:25 Patient visited by Shelley Arvizu,AL. rs3 18:53 No procedures done that require assistance. rs3 18:53 DIFFERENTIAL NO CHARGE Sent. rs3 19:07 Alexandrea Dutton,RN is Primary Nurse. af2 19:16 Day Vega is Hospitalizing Provider. fg 19:29 [facility] Payment Agreement was scanned into [employer] and attached to record. zo 19:31 Patient name changed from Marjorie\S\\S\Ruy\S\ to Marjorie\S\ \S\Ruy. EDMS 19:36 Patient visited by Alexandrea Dutton RN. af2 20:15 Patient visited by Alexandrea Dutton RN. af2 20:31 Patient moved to Admit Hold sls1 20:45 Patient visited by Alexandrea Dutton RN. af2 20:56 Patient visited by Alexandrea Dutton RN. af2 11/23 14:13 The patient / caregiver is instructed regarding the plan of care and ED course. ttb Administered Medications: 11/22 18:53 Drug: Furosemide 40 mg [furosemide 10 mg/mL injection solution (4 mL)] Route: IVP; rs3 Site: left antecubital; Order Results: Lab Order: B-Type Natiuretic Peptide; SPEC'M 11/22/16 16:09 Test: BRAIN NATRIURETIC PEPTIDE; Value: 401; Range: <100; Abnormal: Above high normal; Units: PG/ML; Status: F Lab Order: Basic Metabolic Profile; SPEC'M 11/22/16 16:09 Test: GLUCOSE, FASTING; Value: 333; Range: 83-110; Abnormal: Above high normal; Units: MG/DL; Status: F Test: BLOOD UREA NITROGEN; Value: 18; Range: 7-18; Units: MG/DL; Status: F Test: CREATININE FOR GFR; Value: 1.39; Range: 0.55-1.02; Abnormal: Above high normal; Units: MG/DL; Status: F Test: GLOMERULAR FILTRATION RATE; Value: 39.9; Range: >39; Status: F Test: SODIUM LEVEL; Value: 139; Range: 136-145; Units: MEQ/L; Status: F Test: POTASSIUM SERUM; Value: 4.0; Range: 3.5-5.1; Units: MEQ/L; Status: F Test: CHLORIDE LEVEL; Value: 104; Range: 98-107; Units: MEQ/L; Status: F Test: CARBON DIOXIDE LEVEL; Value: 24; Range: 21-32; Units: MEQ/L; Status: F Test: ANION GAP; Value: 11; Range: 8-16; Units: MEQ/L; Status: F Test: CALCIUM LEVEL; Value: 8.3; Range: 8.8-10.2; Abnormal: Below low normal; Units: MG/DL; Status: F Test Note: ; Units are mL/min/1.73 m2 Chronic Kidney Disease Staging per NKF: Stage I & II GFR >=60 Normal to Mildly Decreased Stage III GFR 30-59 Moderately Decreased Stage IV GFR 15-29 Severely Decreased Stage V GFR <15 Very Little GFR Left ESRD GFR <15 on DISTRICT CAPTAIN Lab Order: CBC with Diff; SPEC'M 11/22/16 16:09 Test: WHITE BLOOD COUNT; Value: 10.8; Range: 4.0-10.0; Abnormal: Above high normal; Units: K/mm3; Status: F Test: RED BLOOD COUNT; Value: 4.27; Range: 4.00-5.40; Units: M/mm3; Status: F Test: HEMOGLOBIN; Value: 8.8; Range: 12.0-16.0; Abnormal: Below low normal; Units: g/dl; Status: F Test: HEMATOCRIT; Value: 30.6; Range: 36.0-47.0; Abnormal: Below low normal; Units: %; Status: F Test: MEAN CORPUSCULAR VOLUME; Value: 71.7; Range: 80.0-96.0; Abnormal: Below low normal; Units: fl; Status: F Test: MEAN CORPUSCULAR HEMOGLOBIN; Value: 20.7; Range: 27.0-33.0; Abnormal: Below low normal; Units: pg; Status: F Test: MEAN CORPUSCULAR HGB CONC; Value: 28.8; Range: 32.0-36.5; Abnormal: Below low normal; Units: g/dl; Status: F Test: RED CELL DISTRIBUTION WIDTH; Value: 20.5; Range: 11.5-14.5; Abnormal: Above high normal; Units: %; Status: F Test: PLATELET COUNT, AUTOMATED; Value: 259; Range: 150-450; Units: k/mm3; Status: F Test: NEUTROPHILS; Value: 86; Range: 35-75; Abnormal: Above high normal; Units: %; Status: F Test: LYMPHOCYTES; Value: 10; Range: 16-52; Abnormal: Below low normal; Units: %; Status: F Test: MONOCYTES; Value: 4; Range: 0-8; Units: %; Status: F Test: POLYCHROMASIA; Value: 1+; Status: F Test: HYPOCHROMASIA; Value: 1+; Status: F Test: POIKILOCYTOSIS; Value: 1+; Status: F Test: ANISOCYTOSIS; Value: 2+; Status: F Test: MICROCYTOSIS; Value: 3+; Status: F Lab Order: Cardiac Injury Profile; [facility] 11/22/16 16:09 Test: CPK CREATINE PHOSPHOKINASE; Value: 56; Range: 26-192; Units: U/L; Status: F Test: CK-MB VALUE MASS; Value: 2.3; Range: 0.0-3.6; Units: NG/ML; Status: F Test: MB/CK RELATIVE INDEX; Value: 4.10; Range: < OR =4; Abnormal: Above high normal; Status: F Test Note: ; DIAGNOSIS CRITERIA MMB ng/ml Relative Index (RI) NON-AMI < or = 5 N/A ROBERTS ZONE > 5 < or = 4 AMI > 5 > 4 Lab Order: Troponin; [facility] 11/22/16 16:09 Test: TROPONIN I; Value: 0.03; Range: < 0.10; Units: NG/ML; Status: F Test Note: ; Troponin I Reference Interval for [employer] LOCI: 99th Percentile= 0.00-0.045 ng/ml Risk Stratification: <= 0.10 ng/ml Decreased Risk for Adverse Clinical Events. 0.10-1.50 ng/ml Increased Risk for Adverse Clinical Events. Evaluation of additional criterion and/or repeat testing in 2-6 hours is suggested to rule out myocardial damage. >= 1.50 ng/ml Indicative of Myocardial Injury. Lab Order: PLATELET ESTIMATE; [facility] 11/22/16 16:09 Test: PLATELET ESTIMATE; Value: NORMAL; Range: NORMAL; Status: F Lab Order: CARDIAC MARKER PANEL; [facility] 11/22/16 20:35 Test: CPK CREATINE PHOSPHOKINASE; Value: 65; Range: 26-192; Units: U/L; Status: F Test: CK-MB VALUE MASS; Value: 1.5; Range: 0.0-3.6; Units: NG/ML; Status: F Test: MB/CK RELATIVE INDEX; Value: 2.30; Range: < OR =4; Status: F Test: TROPONIN I; Value: 0.04; Range: < 0.10; Abnormal: Delta; Units: NG/ML; Status: F Test Note: ; DIAGNOSIS CRITERIA MMB ng/ml Relative Index (RI) NON-AMI < or = 5 N/A ROBERT[place]ONE > 5 < or = 4 AMI > 5 > 4 Lab Order: CARDIAC MARKER PANEL; [facility]' 11/23/16 03:59 Test: CPK CREATINE PHOSPHOKINASE; Value: 85; Range: 26-192; Units: U/L; Status: F Test: CK-MB VALUE MASS; Value: 1.4; Range: 0.0-3.6; Units: NG/ML; Status: F Test: MB/CK RELATIVE INDEX; Value: 1.64; Range: < OR =4; Status: F Test: TROPONIN I; Value: 0.03; Range: < 0.10; Abnormal: Delta; Units: NG/ML; Status: F Test Note: ; DIAGNOSIS CRITERIA MMB ng/ml Relative Index (RI) NON-AMI < or = 5 N/A [place]ONE > 5 < or = 4 AMI > 5 > 4 Lab Order: CARDIAC MARKER PANEL; [facility] 11/23/16 11:56 Test: CPK CREATINE PHOSPHOKINASE; Value: 83; Range: 26-192; Units: U/L; Status: F Test: CK-MB VALUE MASS; Value: 1.7; Range: 0.0-3.6; Units: NG/ML; Status: F Test: MB/CK RELATIVE INDEX; Value: 2.04; Range: < OR =4; Status: F Test: TROPONIN I; Value: 0.04; Range: < 0.10; Abnormal: Delta; Units: NG/ML; Status: F Test Note: ; DIAGNOSIS CRITERIA MMB ng/ml Relative Index (RI) NON-AMI < or = 5 N/A ROBERT[place]ONE > 5 < or = 4 AMI > 5 > 4 Lab Order: CBC WITH DIFFERENTIAL; [facility]' 11/23/16 04:00 Test: WHITE BLOOD COUNT; Value: 9.4; Range: 4.0-10.0; Units: K/mm3; Status: F Test: RED BLOOD COUNT; Value: 4.62; Range: 4.00-5.40; Units: M/mm3; Status: F Test: HEMOGLOBIN; Value: 9.5; Range: 12.0-16.0; Abnormal: Below low normal; Units: g/dl; Status: F Test: HEMATOCRIT; Value: 34.0; Range: 36.0-47.0; Abnormal: Below low normal; Units: %; Status: F Test: MEAN CORPUSCULAR VOLUME; Value: 73.7; Range: 80.0-96.0; Abnormal: Below low normal; Units: fl; Status: F Test: MEAN CORPUSCULAR HEMOGLOBIN; Value: 20.6; Range: 27.0-33.0; Abnormal: Below low normal; Units: pg; Status: F Test: MEAN CORPUSCULAR HGB CONC; Value: 27.9; Range: 32.0-36.5; Abnormal: Below low normal; Units: g/dl; Status: F Test: RED CELL DISTRIBUTION WIDTH; Value: 18.7; Range: 11.5-14.5; Abnormal: Above high normal; Units: %; Status: F Test: PLATELET COUNT, AUTOMATED; Value: 276; Range: 150-450; Units: k/mm3; Status: F Test: NEUTROPHILS %; Value: 89.3; Range: 36.0-66.0; Abnormal: Above high normal; Units: %; Status: F Test: LYMPH %; Value: 7.0; Range: 24.0-44.0; Abnormal: Below low normal; Units: %; Status: F Test: MONO %; Value: 2.9; Range: 0.0-5.0; Units: %; Status: F Test: EOS %; Value: 0.2; Range: 0.0-3.0; Units: %; Status: F Test: BASO %; Value: 0.1; Range: 0.0-1.0; Units: %; Status: F Test: LARGE UNSTAINED CELL %; Value: 0.5; Range: 0.0-4.0; Units: %; Status: F Test: NEUTROPHILS #; Value: 8.4; Range: 1.8-7.7; Abnormal: Above high normal; Units: K/mm3; Status: F Test: LYMPH #; Value: 0.7; Range: 1.5-4.5; Abnormal: Below low normal; Units: K/mm3; Status: F Test: MONO #; Value: 0.3; Range: 0.0-0.8; Units: K/mm3; Status: F Test: EOS #; Value: 0.0; Range: 0.0-0.50; Units: K/mm3; Status: F Test: BASO #; Value: 0.0; Range: 0.0-0.2; Units: K/mm3; Status: F Test: LARGE UNSTAINED CELL #; Value: 0.1; Range: 0.0-0.4; Units: K/mm3; Status: F Lab Order: BASIC METABOLIC PROFILE; [facility] 04:00 Test: GLUCOSE, FASTING; Value: 339; Range: 83-110; Abnormal: Above high normal; Units: MG/DL; Status: F Test: BLOOD UREA NITROGEN; Value: 22; Range: 7-18; Abnormal: Above high normal; Units: MG/DL; Status: F Test: CREATININE FOR GFR; Value: 1.33; Range: 0.55-1.02; Abnormal: Above high normal; Units: MG/DL; Status: F Test: GLOMERULAR FILTRATION RATE; Value: 42.0; Range: >39; Status: F Test: SODIUM LEVEL; Value: 140; Range: 136-145; Units: MEQ/L; Status: F Test: POTASSIUM SERUM; Value: 4.1; Range: 3.5-5.1; Units: MEQ/L; Status: F Test: CHLORIDE LEVEL; Value: 102; Range: 98-107; Units: MEQ/L; Status: F Test: CARBON DIOXIDE LEVEL; Value: 29; Range: 21-32; Units: MEQ/L; Status: F Test: ANION GAP; Value: 9; Range: 8-16; Units: MEQ/L; Status: F Test: CALCIUM LEVEL; Value: 8.5; Range: 8.8-10.2; Abnormal: Below low normal; Units: MG/DL; Status: F Test Note: ; Units are mL/min/1.73 m2 Chronic Kidney Disease Staging per NKF: Stage I & II GFR >=60 Normal to Mildly Decreased Stage III GFR 30-59 Moderately Decreased Stage IV GFR 15-29 Severely Decreased Stage V GFR <15 Very Little GFR Left ESRD GFR <15 on [facility] CAPTAIN Lab Order: MAGNESIUM LEVEL; [facility]11/[facility]/16 04:00 Test: MAGNESIUM LEVEL; Value: 2.1; Range: 1.8-2.4; Units: MG/DL; Status: F Lab Order: TOTAL IRON BINDING CAPACIT; 11/23/16 04:00 Test: IRON (FE); Value: 18; Range: 50-170; Abnormal: Below low normal; Units: UG/DL; Status: F Test: TOTAL IRON BINDING CAPACITY; Value: 428; Range: 250-450; Units: UG/DL; Status: F Test: PERCENT SATURATION; Value: 4.2; Range: 13.2-37.4; Abnormal: Below low normal; Units: %; Status: F Lab Order: FERRITIN; 11/23/16 04:00 Test: FERRITIN; Value: 12; Range: 8-252; Units: NG/ML; Status: F Lab Order: VITAMIN B12 LEVEL; 11/23/16 04:00 Test: VITAMIN B12 LEVEL; Range: 247-911; Units: PG/ML; Status: I Lab Order: FOLATE; 11/23/16 04:00 Test: FOLATE; Range: >5.4; Units: NG/ML; Status: I Lab Order: Fingerstick Blood Sugar; 11/22/16 21:24 Test: BEDSIDE GLUCOSE; Value: 399; Range: 83-110; Abnormal: Above high normal; Units: MG/DL; Status: F Lab Order: Fingerstick Blood Sugar; [facility] 12:09 Test: BEDSIDE GLUCOSE; Value: 294; Range: 83-110; Abnormal: Above high normal; Units: MG/DL; Status: F Outcome: 19:16 Decision to Hospitalize by Provider. 11/23 14:13 Discharge Assessment: patient administered narcotics - no. The following High Risk ttb Discharge criteria are identified: None. Admitted to PCU accompanied by nurse, accompanied by tech, via stretcher. Condition: stable. No special radiology studies were completed. Property :Personal belongings accompany Pt. 14:46 Patient left the ED. [facility] Signatures: Dispatcher [employer] EDNayely Kramer, Editor Magazine Unit deg Paul Gayle RN RN vijij Sherman Stein Rosemary, RN RN rs3 Melony Farooq RN RN sls1 Monica Milner RN RN ttb Brian Donovan, [employer] SET UP TECHNICIAN jrd Alexandrea Dutton,RN RN af2 Anna Lawrence MD MD fg Corrections: (The following items were deleted from the chart) 11/22 15:36 15:29 Presenting complaint: rs3 rs3 15:57 15:42 Allergies: Tetracycline; rs3 rs3 MTDD
--- NOTE | 2016-11-23 15:41 | ECGEPIP ---
Stationary ECG Study [facility] - ED Test Date: 2016-11-22 Pat Name: DONALDO JAUREGUI Department: Room: - Gender: F Set Decorator: lexx : 1945 Requested By: LAURA Dior Order Number: [id number] Reading MD: Cassi Bass Measurements Intervals [place] Rate: 94 P: AR: 0 QRS: 138 QRSD: 174 T: 181 QT: 417 QTc: 522 Interpretive Statements ELECTRONIC VENTRICULAR PACEMAKER ABNORMAL RHYTHM ECG NSR INCREASED RATE 01/22/16 Electronically Signed On 11-23-2016 15:41:08 EST by Cassi Bass
[2016-11-23] MEDS: NORVASC PO SCH (20:33)
[2016-11-23] MEDS: OMEPRAZOLE 20 MG CAP PO SCH (20:33)
[2016-11-23] MEDS: DOCUSATE SODIUM 100 MG CAP PO SCH (20:33)
[2016-11-24 05:38] VITALS: BP 134/58
[2016-11-24 05:54] LABS: BASO # 0.1 K/mm3 (0.0-0.2); BASO % 0.8 % (0.0-1.0); EOS # 0.3 K/mm3 (0.0-0.50); EOS % 2.2 % (0.0-3.0); LARGE UNSTAINED CELL # 0.3 K/mm3 (0.0-0.4); LARGE UNSTAINED CELL % 1.8 % (0.0-4.0); LYMPH # 2.8 K/mm3 (1.5-4.5); LYMPH % 16.2 % (24.0-44.0); MEAN CORPUSCULAR HEMOGLOBIN 20.4 pg (27.0-33.0); MEAN CORPUSCULAR HGB CONC 28.6 g/dl (32.0-36.5); MEAN CORPUSCULAR VOLUME 71.4 fl (80.0-96.0); MONO % 6.4 % (0.0-5.0); NEUTROPHILS # 11.1 K/mm3 (1.8-7.7); NEUTROPHILS % 72.5 % (36.0-66.0); PLATELET COUNT, AUTOMATED 336 k/mm3 (150-450); RED CELL DISTRIBUTION WIDTH 20.7 % (11.5-14.5); WHITE BLOOD COUNT 15.3 K/mm3 (4.0-10.0)
[2016-11-24] MEDS: LEVOTHYROXINE 0.075 MG TAB (75 MCG) PO SCH (06:16)
[2016-11-24] MEDS: LEVOTHYROXINE 0.1 MG TAB (100 MCG) PO SCH (06:16)
[2016-11-24 06:21] LABS: CALCIUM LEVEL 8.8 MG/DL (8.8-10.2); CREATININE FOR GFR 1.19 MG/DL (0.55-1.02); GLOMERULAR FILTRATION RATE 47.7 (>39); MAGNESIUM LEVEL 2.3 MG/DL (1.8-2.4); POTASSIUM SERUM 3.1 MEQ/L (3.5-5.1)
[2016-11-24] MEDS: HumaLOG INSULIN (NovoLOG) PER UNIT SC SCH ×4 (07:30→19:56)
[2016-11-24 07:48] VITALS: BP 150/69
--- NOTE | 2016-11-24 08:26 | IPNPDOC ---
Assessment/Plan Date Seen The patient was seen on 11/24/16. Family Medicine Attending Note: I saw and examined Ms. Redmond today; I d/w ARSEN Shane and I agree with his note below. The patient states that she feels her leg swelling and breathing is almost back to baseline; she was weaned to room air earlier this afternoon. Will stop IV lasix and restart home regimen and monitor tonight; if O2 sats remain >90% overnight consider discharge tomorrow morning. (KES) Problems Problems: (1) Acute on chronic diastolic CHF (congestive heart failure) Status: Acute Response to Treatment: Stable, Improving Discussed With: Nurse, Patient Problem Specific Plan: Monitor Clinically, Repeat Labs Problem Text: 11/24 - On Lasix 40 mg IV BID. 11/23 - Cont with Lasix 40 mg IV BID, CHANA diet, daily weights. Pt on exam remains decompensated. (2) Diabetes mellitus type 2 in obese Status: Chronic Response to Treatment: Stable Discussed With: Patient Problem Specific Plan: Monitor Clinically Problem Text: 11/24 - BS was 55 this AM. On Levemir 150 units. On SSI. Will reduce her Levemir to 100 units. (3) CAD (coronary artery disease), [place] coronary artery Status: Chronic Response to Treatment: Stable Problem Specific Plan: Monitor Clinically Problem Text: on ASA, statin, zebeta, cont. (4) Hypokalemia Status: Acute Problem Specific Plan: Monitor Clinically, Repeat Labs Problem Text: 11/24 - K 3.1. Give KCl replacement. Plan / VTE VTE Prophylaxis Ordered?: Yes Subjective Review of Systems CC/HPI The patient is a 71-year-old female admitted with a reason for visit of Acute On Chronic Diastolic Chf;Anemia. Events since last encounter Pt states she feels tired. She states her breathing has improved. She denies CP. Constitutional: Denies: Chills, Fever Cardiovascular: Denies: Chest Pain Gastrointestinal: Denies: Abdominal Pain, Nausea, Vomiting Objective Physical Examination General Exam: Positive: Alert, No Acute Distress ENT Exam: Positive: Mucous membr. moist/pink Neck Exam: Positive: Supple Chest Exam: Positive: Normal air movement, Other (bibasilar crackles) Heart Exam: Positive: Normal S1, Normal S2, Rate Normal Abdomen Exam: Positive: Normal bowel sounds, Soft, Negative: Tenderness Extremity Exam: Negative: Edema Vital Signs/I&O Vital Signs Date Time Temp Pulse Resp B/P Pulse Ox O2 Delivery O2 Flow Rate FiO2 11/24/16 07:56 Nasal Cannula 3.0 11/24/16 07:48 96.0 80 18 150/69 99 I&O- Last 24 Hours up to 6 AM 11/24/16 06:00 Intake Total 1830 ml Output Total 1625 ml Balance 205 ml Laboratory Data Labs 24H Laboratory Tests 2 11/23/16 11:56: Creatine Kinase MB 1.7, Creatine Kinase MB Relative Index 2.04, Total Creatine Kinase 83, Troponin I 0.04# 11/23/16 12:09: Bedside Glucose (Misc Panel) 294H 11/23/16 16:58: Bedside Glucose (Misc Panel) 82L 11/23/16 20:06: Bedside Glucose (Misc Panel) 152H 11/24/16 04:59: Anion Gap 9, White Blood Count 15.3H, Red Blood Count 4.91, Hemoglobin 10.0L, Hematocrit 35.1L, Mean Corpuscular Volume 71.4L, Mean Corpuscular Hemoglobin 20.4L, Mean Corpuscular Hemoglobin Concent 28.6L, Red Cell Distribution Width 20.7H, Platelet Count 336, Neutrophils (%) (Auto) 72.5H, Lymphocytes (%) (Auto) 16.2L, Monocytes (%) (Auto) 6.4H, Eosinophils (%) (Auto) 2.2, Basophils (%) ( Auto) 0.8, Neutrophils # (Auto) 11.1H, Lymphocytes # (Auto) 2.8, Monocytes # ( Auto) 1.0H, Eosinophils # (Auto) 0.3, Basophils # (Auto) 0.1, Blood Urea Nitrogen 31H, Creatinine 1.19H, Sodium Level 144, Potassium Level 3.1#L, Chloride Level 105, Carbon Dioxide Level 30, Calcium Level 8.8, Glomerular Filtration Rate 47.7, Large Unclassified Cells # 0.3, Large Unclassified Cells % 1.8, Magnesium Level 2.3 11/24/16 05:41: Bedside Glucose (Misc Panel) 62L 11/24/16 06:41: Bedside Glucose (Misc Panel) 124H CBC/BMP Laboratory Tests 11/24/16 04:59 Calcium Level 8.8, Red Blood Count 4.91, Mean Corpuscular Volume 71.4 L, Mean Corpuscular Hemoglobin 20.4 L, Mean Corpuscular Hemoglobin Concent 28.6 L, Red Cell Distribution Width 20.7 H, Neutrophils (%) (Auto) 72.5 H, Lymphocytes (%) ( Auto) 16.2 L, Monocytes (%) (Auto) 6.4 H, Eosinophils (%) (Auto) 2.2, Basophils (%) (Auto) 0.8, Neutrophils # (Auto) 11.1 H, Lymphocytes # (Auto) 2.8, Monocytes # (Auto) 1.0 H, Eosinophils # (Auto) 0.3, Basophils # (Auto) 0.1 FSBS Laboratory Tests Test 11/23/16 12:09 11/23/16 16:58 11/23/16 20:06 11/24/16 05:41 Range/Units Bedside Glucose (Misc Panel) 294 82 152 62 83-110 MG/DL Test 11/24/16 06:41 Range/Units Bedside Glucose (Misc Panel) 124 83-110 MG/DL Microbiology Microbiology 11/22/16 Blood Culture - Preliminary, Resulted No growth after 24 hours . All specim... 11/22/16 Blood Culture - Preliminary, Resulted No growth after 24 hours . All specim... Yordan Olivo Nov 24, 2016 08:26 STEPH ESCALANTE MD Nov 24, 2016 15:55
[2016-11-24] MEDS ORDERED: POTASSIUM CHLORIDE 10 MEQ SR TABLET PO ONE (08:30)
[2016-11-24] MEDS: ROSUVASTATIN 10 MG TAB (CRESTOR) PO SCH (09:21)
[2016-11-24] MEDS: ASCORBIC ACID 500 MG TAB PO SCH (09:21)
[2016-11-24] MEDS: BISOPROLOL FUMARATE 10 MG TAB PO SCH ×2 (09:21→21:04)
[2016-11-24] MEDS: APIXABAN 5 MG TAB (ELIQUIS) PO SCH ×2 (09:22→21:04)
[2016-11-24] MEDS: NORVASC PO SCH (09:22)
[2016-11-24] MEDS: FUROSEMIDE 40 MG/4 ML VIAL (J1940) IV SCH (09:23)
[2016-11-24] MEDS: NYSTATIN CREAM 15 GM EXT SCH ×2 (09:24→21:05)
--- NOTE | 2016-11-24 11:05 | REP ---
Portable chest, single AP view, patient sitting: Comparison is 09/14/2016. There are bilateral diffuse interstitial infiltrates as an interval change. There are no pleural effusions. Cardiac size is upper normal. There is a dual-chamber pacemaker, unchanged. Impression: Diffuse bilateral interstitial infiltrates. Signed by Constantino Slater MD 11/22/2016 04:40 P
[2016-11-24 12:00] VITALS: BP 129/70
[2016-11-24] MEDS ORDERED: SLF 3 ML SYR IV PRN (12:45)
[2016-11-24 16:00] VITALS: BP 121/58
[2016-11-24] MEDS ORDERED: FUROSEMIDE 20 MG TAB PO SCH (17:00)
[2016-11-24] MEDS: SLF 3 ML SYR IV SCH ×2 (17:11→21:05)
[2016-11-24 19:50] VITALS: BP 131/64
[2016-11-24] MEDS ORDERED: LEVEMIR (INSULIN DETEMIR) 1 UNITS/0.01ML SC SCH (21:00)
[2016-11-24] MEDS: OMEPRAZOLE 20 MG CAP PO SCH (21:04)
[2016-11-24] MEDS: DOCUSATE SODIUM 100 MG CAP PO SCH (21:04)
--- NOTE | 2016-11-24 22:52 | ECHO ---
DATE OF PROCEDURE: 11/24/2016 AGE: 71 GENDER: Female HEIGHT: 62 inches WEIGHT: 220 pounds BODY SURFACE AREA: 1.99 m2 PATIENT LOCATION: Inpatient, PCU, room 3217 REFERRING PHYSICIAN: Day Vega MD INDICATION: Dyspnea. 2-D MEASUREMENTS: RV: 4.1 cm LV: 4.2 cm Septum: 1.3 cm Posterior wall: 1.3 cm Aortic root: 2.9 cm LA: 4.3 cm LVEF: 65% DOPPLER MEASUREMENTS: AV: 1.5 m/s LVOT: 0.94 m/s LVOT diameter: 1.9 cm MV-E: 86, A: 64, EA ratio 1.3 Early mitral deceleration time: 148 ms E prime: 5.8, A prime 6, E/E prime ratio: 14.5 PAWP: Estimated 117.5 mmHg PV: 1.1 m/s Pulmonary artery acceleration time: 85 ms RVSP: 41 mmHg IVC: 1.8 cm COMMENTS: Normal sinus rhythm with atrial tracking and ventricular pacing. Technically difficult study in light of the patient's body habitus, but diagnostically useful information was still obtained. Mildly dilated left atrium, but normal left ventricular size. Right heart chambers appear to be upper limits of normal to mildly dilated. LV wall thickness was mildly increased symmetrically. On real-time imaging from the parasternal and projections wall motion was symmetrical and normal to hyperkinetic. Mildly thickened mitral annulus, but normal leaflet thickness and excursion with no posterior systolic buckling. Three equal size aortic cusps with mild-moderately thickened cusp edges, but adequate cusp separation. Normal aortic root size. Pacing leads could be visualized traversing right heart structures, but no other apparent intracardiac mass or pericardial effusion. Color flow Doppler study taken from the parasternal and projections showed very mild aortic, mild mitral and mild tricuspid insufficiency. Guided continuous wave Doppler of her aortic valve showed a normal peak systolic velocity against LV outflow tract obstruction. Pulsed and continuous wave Doppler of her LV inflow tract taken from the apical four-chamber projection showed normal diastolic filling velocities against mitral stenosis. There was more prominent early diastolic/passive filling pattern. Her pulmonary artery acceleration time was currently normal. Her present estimated mean left atrial pressure using pulsed tissue Doppler of her mitral annulus showed a mean left atrial pressure estimated at mildly increased. Pulsed and continuous wave Doppler of her pulmonary trunk showed a normal peak systolic velocity against RV outflow tract obstruction. Her pulmonary artery acceleration time was abbreviated consistent with an elevated pulmonary vascular resistance. Guided continuous wave Doppler of her tricuspid valve allowed our estimation of her right ventricular systolic pressure (moderately increased). Her inferior vena cava was slightly dilated with reduced respiratory collapse suggestive of a central venous pressure of 10-15 mmHg. CONCLUSIONS: Mild concentric left ventricular hypertrophy with preserved systolic function. Mildly dilated left atrium with Doppler evidence to suggest a borderline elevated mean left atrial pressure. Borderline right heart chamber enlargement with Doppler evidence of moderate pulmonary hypertension. Slightly dilated IVC with reduced respiratory collapse suggestive an elevated central venous pressure. Aortic valvular sclerosis without stenosis and very mild insufficiency. Mild mitral annular calcification with mild insufficiency. Comparing the above test findings with those of January 20, 2016, there did not appear to be a dramatic change.
[2016-11-25 00:24] VITALS: BP 132/57
[2016-11-25 04:46] VITALS: BP 128/60
[2016-11-25] MEDS: SLF 3 ML SYR IV SCH (04:58)
[2016-11-25] MEDS: LEVOTHYROXINE 0.075 MG TAB (75 MCG) PO SCH (04:58)
[2016-11-25] MEDS: LEVOTHYROXINE 0.1 MG TAB (100 MCG) PO SCH (04:58)
[2016-11-25 05:44] LABS: BASO % 0.3 % (0.0-1.0); EOS # 0.2 K/mm3 (0.0-0.50); LARGE UNSTAINED CELL # 0.4 K/mm3 (0.0-0.4); LARGE UNSTAINED CELL % 3.5 % (0.0-4.0); LYMPH # 1.6 K/mm3 (1.5-4.5); LYMPH % 14.6 % (24.0-44.0); MEAN CORPUSCULAR HEMOGLOBIN 20.6 pg (27.0-33.0); MEAN CORPUSCULAR HGB CONC 27.6 g/dl (32.0-36.5); MEAN CORPUSCULAR VOLUME 74.9 fl (80.0-96.0); MONO # 0.9 K/mm3 (0.0-0.8); MONO % 8.5 % (0.0-5.0); NEUTROPHILS # 7.6 K/mm3 (1.8-7.7); NEUTROPHILS % 71.2 % (36.0-66.0); PLATELET COUNT, AUTOMATED 283 k/mm3 (150-450); RED CELL DISTRIBUTION WIDTH 19.2 % (11.5-14.5); WHITE BLOOD COUNT 10.7 K/mm3 (4.0-10.0)
[2016-11-25 05:45] LABS: CALCIUM LEVEL 8.4 MG/DL (8.8-10.2); CREATININE FOR GFR 1.08 MG/DL (0.55-1.02); GLOMERULAR FILTRATION RATE 53.4 (>39); MAGNESIUM LEVEL 2.1 MG/DL (1.8-2.4); POTASSIUM SERUM 3.7 MEQ/L (3.5-5.1)
[2016-11-25 05:47] LABS: ADD MORPHOLOGY? YES
[2016-11-25 06:33] LABS: MICROCYTOSIS 1+
[2016-11-25 06:34] LABS: ANISOCYTOSIS 2+; HYPOCHROMASIA 3+
[2016-11-25] MEDS: HumaLOG INSULIN (NovoLOG) PER UNIT SC SCH ×2 (07:30→12:15)
[2016-11-25 08:00] VITALS: BP 111/50
[2016-11-25] MEDS ORDERED: FUROSEMIDE 40 MG TAB PO SCH (09:00)
[2016-11-25 09:14] VITALS: BP 111/50
[2016-11-25] MEDS: APIXABAN 5 MG TAB (ELIQUIS) PO SCH (09:14)
[2016-11-25] MEDS: ROSUVASTATIN 10 MG TAB (CRESTOR) PO SCH (09:14)
[2016-11-25] MEDS: BISOPROLOL FUMARATE 10 MG TAB PO SCH (09:14)
[2016-11-25] MEDS: ASCORBIC ACID 500 MG TAB PO SCH (09:14)
[2016-11-25] MEDS: NYSTATIN CREAM 15 GM EXT SCH (09:15)
[2016-11-25] MEDS: NORVASC PO SCH (09:15)
[2016-11-25] MEDS ORDERED: TOUJ1.2I SC (11:21)
--- NOTE | 2016-11-25 12:48 | DSES ---
DATE OF ADMISSION: 11/22/2016 DATE OF DISCHARGE: BRIEF HISTORY AND PHYSICAL: The patient is a 71-year-old patient of Dr. Olivas with a history of atrial fibrillation, bradycardia, who had a pacemaker placed last December, presented to the emergency room with difficulty breathing with dyspnea on exertion and orthopnea. She had routine blood work done recently from her vehicle cost engineer that showed that she was significantly anemic with a hemoglobin of 7.9. Her outpatient primary care provider arranged for outpatient transfusion of 2 units of packed red blood cells with Lasix in between units last . She denies any gross evidence of bleeding, melena, or hematochezia. She has chronic heartburn despite being on a proton pump inhibitor (PPI). Her last colonoscopy was in 2008. PAST MEDICAL HISTORY: Is significant for diabetes mellitus type 2, hypertension, diastolic congestive heart failure, possible chronic obstructive pulmonary disease (COPD), obesity, hypothyroidism, hypercholesterolemia, history of atrial fibrillation with bradycardia status post pacemaker placement on chronic anticoagulation with Eliquis. PERTINENT LABORATORIES ON ADMISSION: White count 10.8, hemoglobin 8.8, platelets 259,000. Sodium 139, potassium 4, BUN 18, creatinine 1.39, glucose 333, CIP and troponin were negative, BNP was 401. Chest x-ray showed diffuse bilateral interstitial infiltrates. Electrocardiogram (EKG) showed electronic ventricular paced rhythm, normal sinus rhythm with a rate of 94 beats per minute. HOSPITAL COURSE: The patient was admitted for acute decompensated diastolic congestive heart failure. She was given intravenous (IV) Lasix with good diuretic response. She has been switched over to her maintenance dose of oral Lasix 40 mg in the morning and 20 mg in the afternoon. Her dyspnea has improved. Her hypoxemia resolved. She is maintaining her oxygen saturation at 92%, 93% on room air. With ambulation this morning, has minimal dyspnea, no further leg swelling. Had a followup echocardiogram showing mild concentric left ventricular hypertrophy with preserved systolic function with ejection fraction of 65%, mildly dilated left atrium with borderline elevated mean left atrial pressure, borderline right heart chamber enlargement with Doppler evidence of moderate pulmonary hypertension. She has some elevated central venous pressure, aortic valve sclerosis without stenosis and mild insufficiency, mild mitral annular calcification with mild insufficiency. No significant change compared with 01/20/2016. She will be discharged home. She has had CHF teaching, has watched the CHF video, and has been instructed to monitor her sodium intake. She is to follow a fluid restriction. Signs of CHF have been discussed with the patient. She will followup with her vehicle cost engineer as an outpatient. Acute iron-deficiency anemia. She was transfused 2 units of packed red blood cells prior to admission electively last week. She does not have any clear evidence of a bleeding source, and her occult blood times one was negative. Her hemoglobin improved some with diuresis and has remained stable. Hemoglobin is 9.4 at the time of discharge. She will followup with Dr. Olivas, who the patient tells me is already arranging for outpatient gastrointestinal (GI) referral to evaluate for GI blood loss anemia. Her last colonoscopy was in 2008 and was unremarkable. Diabetes mellitus type 2. She requires a very high dose of insulin as an outpatient, Toujeo 150 units daily, as well as Humalog insulin. However, in the hospital, on a much lower dose of Levemir, she had hypoglycemia at 64. At this point, I have sent her home on Toujeo 100 units daily, which is less than her usual home dose. She is to monitor her fingerstick blood sugars twice a day, and further adjustments of her insulin can be made as an outpatient depending on the blood sugar readings. Atrial fibrillation. Rate is controlled. She is on Eliquis for anticoagulation and has a pacer for her bradycardia. Heart rate is running in the 70s and 80s during her hospitalization. Hypothyroidism. She is stable on her usual dose of levothyroxine. DISPOSITION: She is stable for discharge home. She will followup with Dr. Olivas within a week, followup with Dr. Chen within a week. Diet: [id number], consistent-carbohydrate, 1800 mL per 24 hour fluid restriction. Activity: As tolerated. MEDICATIONS: - Her Toujeo dose has been cut down to 100 units daily. - Her amlodipine was discontinued. Otherwise, her other medicines are the same as prior to admission, which include: - acetaminophen 1000 mg every 4 hours as needed for pain - albuterol HFA two puffs every 4 hours as needed for shortness of breath - She also has a nebulizer 2.5 mg every 4 hours as needed for shortness of breath. - Eliquis 5 mg twice a day - vitamin C 500 mg daily - bisoprolol 10 mg twice a day - calcium plus D one tablet daily - Colace 100 mg at bedtime - Lasix 40 mg in the morning and 20 mg in the evening - Humalog per sliding scale as prior to admission - levothyroxine 175 mcg daily - loratadine 10 mg daily - nitroglycerin sublingual as needed - Nystatin topically twice a day - omeprazole 40 mg at bedtime - Robitussin every 12 hours as needed for cough - Crestor 20 mg daily DISCHARGE DIAGNOSES: 1. Acute diastolic congestive heart failure. 2. Acute iron-deficiency anemia. 3. Diabetes mellitus type 2, insulin requiring. 4. Hypoglycemia. 5. Chronic kidney disease. 6. Hypothyroidism.
--- NOTE | 2016-11-25 15:47 | EDDOCDS ---
Nurse's Notes [facility] Name: Marjorie Redmond Age: 71 yrs Sex: Female : 1945 Arrival Date: 11/22/2016 Time: 15:26 Bed Admit Hold Private MD: Diagnosis: Shortness of breath Presentation: 11/22 15:29 Presenting complaint: Presenting complaint: EMS states: SOB on and off since last week. rs3 worse today. Expiratory wheezes bilaterally. Duoneb treatment given x 1. Solu-Medrol 125 mg IVP given. FS BS 334. 15:32 Adult Sepsis Screening: The patient does not have new or worsening altered mentation. rs3 15:32 Acuity: AMANDA Level 3 rs3 18:53 Adult Sepsis Screening: Patient has a respiratory rate of greater than or equal to 22 rs3 (1 point). Systolic blood pressure is greater than 100. Patient has a qSOFA score of 1- Negative Sepsis Screen. Suicide/Homicide risk assessment- the patient denies having any suicidal and/or homicidal ideations and does not present with any other emotional, behavioral or mental health complaints. 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 Transition of care: patient was not received from another setting of care. 18:53 Method Of Arrival: Ambulance rs3 Triage Assessment: 15:56 General: Appears in no apparent distress. Pain: Denies pain. Respiratory: Onset: The rs3 symptoms/episode began/occurred gradually. Historical: - Allergies: Tetracycline (Upset stomach); Tramadol HCl (Vomit); Tylenol-Codeine #3 (Vomit); - Home Meds: 1. Vitamin C 500 mg Oral TbER 500 mg daily 2. bisoprolol fumarate 10 mg oral tab 1 tab once daily 3. Colace 100 mg oral cap 1 cap once daily 4. Calcium + Vitamin D 600 mg calcium- 200 unit Oral tab 600 mg daily 5. furosemide 40 mg Oral tab 40 mg in am. 20 mg in pm 6. Humalog 100 unit/mL Sub-Q soln twice a day 7. Toujeo SoloStar 300 unit/mL (1.5 mL) subcutaneous inpn 150 unit 8. levothyroxine 175 mcg Oral tab 1 tab once daily 9. Claritin 10 mg Oral tab 1 tab once daily 10. omeprazole 40 mg Oral cpDR 1 cap once daily 11. rosuvastatin 20 mg oral tab 1 tab once daily 12. amlodipine 10 mg Oral tab 1 tab once daily 13. nystatin 100,000 unit/gram Topical crea 14. albuterol sulfate 2.5 mg /3 mL (0.083 %) Nebulizer nebu as needed 15. albuterol sulfate 90 mcg/actuation Inhl HFAA - PMHx: Diabetes - IDDM: controlled; Hypertension; Hypothyroidism; CHF; Asthma; - PSHx: Gall Bladder Removal; Hysterectomy; Pacemaker Insertion; - Social history: Smoking status: Patient states former smoker of tobacco. No barriers to communication noted, Speaks appropriately for age. - Family history: Not pertinent. - : The pt / caregiver states he / she is not on anticoagulants. Home medication list is obtained from [employer] import data. - Exposure Risk Screening:: None identified. Screenin:57 Screening information is obtained from the patient. Fall risk: No risks identified. rs3 Assistance ADL's: requires no assistance with activities of daily living. Abuse/DV Screen: The patient / caregiver reports he/she is: not in a situation that causes fear, pain or injury. Nutritional screening: No deficits noted. home support is adequate. 16:19 Advance Directives: Currently, there is a health care proxy, Reynaldo Ruy. There is rs3 an active DNR order but there is no copy available at this time. Assessment: 16:13 General: Appears in no apparent distress, Behavior is appropriate for age, cooperative. rs3 Pain: Denies pain. Neurological: Level of Consciousness is awake, alert. Cardiovascular: Capillary refill < 3 seconds Heart tones S1 S2 present Rhythm is ventricular pacer. Cardiovascular: Chest pain is denied. Respiratory: Airway is patent Respiratory effort is even, Breath sounds are diminished bilaterally. Breath sounds with wheezes expiratory in left posterior lower lobe and right posterior middle lobe. Derm: Skin is pink, warm & dry. 17:30 General: Appears in no apparent distress, Behavior is appropriate for age, cooperative, rs3 Short of breath on exertion, talking and with activity. lung sounds diminished bilateral bases. on oxygen 3L/nc. sat 90% . . 18:50 General: Appears in no apparent distress, ambulated on RM. sat in 84%. RM. attending rs3 provider made aware. sob on ambulation. . 19:10 General: Appears in no apparent distress, Behavior is appropriate for age, cooperative. af2 Neurological: Level of Consciousness is awake, alert, obeys commands, Oriented to person, place, time. Cardiovascular: Rhythm is ventricular pacer Chest pain is denied. Respiratory: Airway is patent Respiratory effort is even, unlabored, Breath sounds with crackles bilaterally. in left lower lobe, right lower lobe, left posterior lower lobe and right posterior lower lobe Breath sounds are diminished bilaterally. 20:10 General: Appears in no apparent distress, Behavior is appropriate for age, cooperative. af2 Neurological: Level of Consciousness is awake, alert, obeys commands, Oriented to person, place, time. Cardiovascular: Rhythm is ventricular pacer. Respiratory: Airway is patent Respiratory effort is even, unlabored. Derm: Skin is pink, warm & dry. 20:44 General: pt updated regarding plan of care and hospital bed status, verbalizes af2 understanding of information and plan to keep pt in ED.. 20:54 General: report give to Sarah Arroyo RN. She has agreed to assume care of pt. For further af2 documentation, refer to [facility] Vital Signs: 15:37 BP 137 / 63 (auto/); rs3 15:39 BP 137 / 63; Pulse 95; Resp 32; Temp 98.2(O); Pulse Ox 92% on 3 lpm NC; Weight 99.79 rs3 kg; Height 5 ft. 2 in. (157.48 cm); Pain 0/10; 15:39 Pulse 98 MON; Pulse Ox 91% ; rs3 15:59 BP 146 / 63 (auto/); rs3 15:59 Pulse 96 MON; Pulse Ox 93% ; rs3 16:18 Pulse 90 MON; Pulse Ox 92% ; rs3 16:19 BP 124 / 56 (auto/); rs3 16:28 Pulse 92 MON; Pulse Ox 92% ; rs3 16:29 BP 122 / 60 (auto/); rs3 16:44 BP 114 / 53 (auto/); rs3 16:44 Pulse 88 MON; Pulse Ox 90% ; rs3 16:59 BP 140 / 63 (auto/); rs3 16:59 Pulse 88 MON; Pulse Ox 90% ; rs3 17:14 BP 132 / 63 (auto/); rs3 17:14 Pulse 88 MON; Pulse Ox 92% ; rs3 17:29 BP 136 / 60 (auto/); rs3 17:29 Pulse 86 MON; Pulse Ox 94% ; rs3 17:44 BP 116 / 59 (auto/); rs3 17:44 Pulse 86 MON; Pulse Ox 94% ; rs3 17:59 BP 129 / 62 (auto/); rs3 17:59 Pulse 90 MON; Pulse Ox 93% ; rs3 18:14 BP 138 / 55 (auto/); rs3 18:14 Pulse 90 MON; Pulse Ox 92% ; rs3 18:33 BP 141 / 61 (auto/); rs3 18:33 Pulse 90 MON; Pulse Ox 90% ; rs3 18:40 BP 136 / 63 (auto/); rs3 18:40 Pulse 92 MON; Pulse Ox 93% ; rs3 18:59 BP 130 / 60 (auto/); af2 18:59 Pulse 94 MON; Resp 22 S; Pulse Ox 95% on 2 lpm NC; af2 19:48 BP 129 / 60 (auto/); af2 19:48 Pulse 92 MON; Resp 22 S; Pulse Ox 93% on 2 lpm NC; af2 15:39 Body Mass Index 40.24 (99.79 kg, 157.48 cm) rs3 Vitals: 15:39 Log In Time N/A - ambulance arrival. rs3 ED Course: 15:27 Patient visited by Nayely Mariscal, Pin Drafter. deg 15:27 Patient moved to Waiting deg 15:29 Patient moved to 18 rs3 15:31 Anna Lawrence MD is Attending Physician. fg 15:36 Triage Initiated rs3 15:45 Patient visited by Anna Lawrence MD. fg 16:10 EKG done. (by ED staff). Reviewed by Anna Lawrence MD. jrd 16:19 Maintain field IV. Dressing intact. Good blood return noted. Site clean & dry. rs3 16:35 Patient visited by Shelley Arvizu,AL. rs3 17:08 Patient visited by Shelley Arvizu,AL. rs3 18:25 Patient visited by Shelley Arvizu,AL. rs3 18:53 No procedures done that require assistance. rs3 18:53 DIFFERENTIAL NO CHARGE Sent. rs3 19:07 Alexandrea Dutton,RN is Primary Nurse. af2 19:16 Day Vega is Hospitalizing Provider. fg 19:29 [facility] Payment Agreement was scanned into [employer] and attached to record. zo 19:31 Patient name changed from Marjorie\S\\S\Ruy\S\ to Marjorie\S\ \S\Ruy. EDMS 19:36 Patient visited by Alexandrea Dutton RN. af2 20:15 Patient visited by Alexandrea Dutton RN. af2 20:31 Patient moved to Admit Hold sls1 20:45 Patient visited by Alexandrea Dutton RN. af2 20:56 Patient visited by Alexandrea Dutton RN. af2 11/23 14:13 The patient / caregiver is instructed regarding the plan of care and ED course. ttb 21:03 T-Sheet-- Draft Copy was scanned into [employer] and attached to record. klr Administered Medications: 11/22 18:53 Drug: Furosemide 40 mg [furosemide 10 mg/mL injection solution (4 mL)] Route: IVP; rs3 Site: left antecubital; Order Results: Lab Order: B-Type Natiuretic Peptide; SPEC'M 11/22/16 16:09 Test: BRAIN NATRIURETIC PEPTIDE; Value: 401; Range: <100; Abnormal: Above high normal; Units: PG/ML; Status: F Lab Order: Basic Metabolic Profile; SPEC'M 11/22/16 16:09 Test: GLUCOSE, FASTING; Value: 333; Range: 83-110; Abnormal: Above high normal; Units: MG/DL; Status: F Test: BLOOD UREA NITROGEN; Value: 18; Range: 7-18; Units: MG/DL; Status: F Test: CREATININE FOR GFR; Value: 1.39; Range: 0.55-1.02; Abnormal: Above high normal; Units: MG/DL; Status: F Test: GLOMERULAR FILTRATION RATE; Value: 39.9; Range: >39; Status: F Test: SODIUM LEVEL; Value: 139; Range: 136-145; Units: MEQ/L; Status: F Test: POTASSIUM SERUM; Value: 4.0; Range: 3.5-5.1; Units: MEQ/L; Status: F Test: CHLORIDE LEVEL; Value: 104; Range: 98-107; Units: MEQ/L; Status: F Test: CARBON DIOXIDE LEVEL; Value: 24; Range: 21-32; Units: MEQ/L; Status: F Test: ANION GAP; Value: 11; Range: 8-16; Units: MEQ/L; Status: F Test: CALCIUM LEVEL; Value: 8.3; Range: 8.8-10.2; Abnormal: Below low normal; Units: MG/DL; Status: F Test Note: ; Units are mL/min/1.73 m2 Chronic Kidney Disease Staging per NKF: Stage I & II GFR >=60 Normal to Mildly Decreased Stage III GFR 30-59 Moderately Decreased Stage IV GFR 15-29 Severely Decreased Stage V GFR <15 Very Little GFR Left ESRD GFR <15 on MUSIC INTERNSHIP Lab Order: CBC with Diff; SPEC'M 11/22/16 16:09 Test: WHITE BLOOD COUNT; Value: 10.8; Range: 4.0-10.0; Abnormal: Above high normal; Units: K/mm3; Status: F Test: RED BLOOD COUNT; Value: 4.27; Range: 4.00-5.40; Units: M/mm3; Status: F Test: HEMOGLOBIN; Value: 8.8; Range: 12.0-16.0; Abnormal: Below low normal; Units: g/dl; Status: F Test: HEMATOCRIT; Value: 30.6; Range: 36.0-47.0; Abnormal: Below low normal; Units: %; Status: F Test: MEAN CORPUSCULAR VOLUME; Value: 71.7; Range: 80.0-96.0; Abnormal: Below low normal; Units: fl; Status: F Test: MEAN CORPUSCULAR HEMOGLOBIN; Value: 20.7; Range: 27.0-33.0; Abnormal: Below low normal; Units: pg; Status: F Test: MEAN CORPUSCULAR HGB CONC; Value: 28.8; Range: 32.0-36.5; Abnormal: Below low normal; Units: g/dl; Status: F Test: RED CELL DISTRIBUTION WIDTH; Value: 20.5; Range: 11.5-14.5; Abnormal: Above high normal; Units: %; Status: F Test: PLATELET COUNT, AUTOMATED; Value: 259; Range: 150-450; Units: k/mm3; Status: F Test: NEUTROPHILS; Value: 86; Range: 35-75; Abnormal: Above high normal; Units: %; Status: F Test: LYMPHOCYTES; Value: 10; Range: 16-52; Abnormal: Below low normal; Units: %; Status: F Test: MONOCYTES; Value: 4; Range: 0-8; Units: %; Status: F Test: POLYCHROMASIA; Value: 1+; Status: F Test: HYPOCHROMASIA; Value: 1+; Status: F Test: POIKILOCYTOSIS; Value: 1+; Status: F Test: ANISOCYTOSIS; Value: 2+; Status: F Test: MICROCYTOSIS; Value: 3+; Status: F Lab Order: Cardiac Injury Profile; [facility] 11/22/16 16:09 Test: CPK CREATINE PHOSPHOKINASE; Value: 56; Range: 26-192; Units: U/L; Status: F Test: CK-MB VALUE MASS; Value: 2.3; Range: 0.0-3.6; Units: NG/ML; Status: F Test: MB/CK RELATIVE INDEX; Value: 4.10; Range: < OR =4; Abnormal: Above high normal; Status: F Test Note: ; DIAGNOSIS CRITERIA MMB ng/ml Relative Index (RI) NON-AMI < or = 5 N/A ROBERT[place] ZONE > 5 < or = 4 AMI > 5 > 4 Lab Order: Troponin; [facility] 11/22/16 16:09 Test: TROPONIN I; Value: 0.03; Range: < 0.10; Units: NG/ML; Status: F Test Note: ; Troponin I Reference Interval for Icanbesponsored LOCI: 99th Percentile= 0.00-0.045 ng/ml Risk Stratification: <= 0.10 ng/ml Decreased Risk for Adverse Clinical Events. 0.10-1.50 ng/ml Increased Risk for Adverse Clinical Events. Evaluation of additional criterion and/or repeat testing in 2-6 hours is suggested to rule out myocardial damage. >= 1.50 ng/ml Indicative of Myocardial Injury. Lab Order: PL[facility]LET ESTIMATE; [facility] Test: PLATELET ESTIMATE; Value: NORMAL; Range: NORMAL; Status: F Lab Order: CARDIAC MARKER PANEL; [facility] 11/22/16 20:35 Test: CPK CREATINE PHOSPHOKINASE; Value: 65; Range: 26-192; Units: U/L; Status: F Test: CK-MB VALUE MASS; Value: 1.5; Range: 0.0-3.6; Units: NG/ML; Status: F Test: MB/CK RELATIVE INDEX; Value: 2.30; Range: < OR =4; Status: F Test: TROPONIN I; Value: 0.04; Range: < 0.10; Abnormal: Delta; Units: NG/ML; Status: F Test Note: ; DIAGNOSIS CRITERIA MMB ng/ml Relative Index (RI) NON-AMI < or = 5 N/A ROBERT[place] ZONE > 5 < or = 4 AMI > 5 > 4 Lab Order: CARDIAC MARKER PANEL; [facility] 11/23/16 03:59 Test: CPK CREATINE PHOSPHOKINASE; Value: 85; Range: 26-192; Units: U/L; Status: F Test: CK-MB VALUE MASS; Value: 1.4; Range: 0.0-3.6; Units: NG/ML; Status: F Test: MB/CK RELATIVE INDEX; Value: 1.64; Range: < OR =4; Status: F Test: TROPONIN I; Value: 0.03; Range: < 0.10; Abnormal: Delta; Units: NG/ML; Status: F Test Note: ; DIAGNOSIS CRITERIA MMB ng/ml Relative Index (RI) NON-AMI < or = 5 N/A ROBERT[place]ONE > 5 < or = 4 AMI > 5 > 4 Lab Order: CARDIAC MARKER PANEL; [facility] 11/23/16 11:56 Test: CPK CREATINE PHOSPHOKINASE; Value: 83; Range: 26-192; Units: U/L; Status: F Test: CK-MB VALUE MASS; Value: 1.7; Range: 0.0-3.6; Units: NG/ML; Status: F Test: MB/CK RELATIVE INDEX; Value: 2.04; Range: < OR =4; Status: F Test: TROPONIN I; Value: 0.04; Range: < 0.10; Abnormal: Delta; Units: NG/ML; Status: F Test Note: ; DIAGNOSIS CRITERIA MMB ng/ml Relative Index (RI) NON-AMI < or = 5 N/A ROBERT[place] ZONE > 5 < or = 4 AMI > 5 > 4 Lab Order: CBC WITH DIFFERENTIAL; [facility] 11/23/16 04:00 Test: WHITE BLOOD COUNT; Value: 9.4; Range: 4.0-10.0; Units: K/mm3; Status: F Test: RED BLOOD COUNT; Value: 4.62; Range: 4.00-5.40; Units: M/mm3; Status: F Test: HEMOGLOBIN; Value: 9.5; Range: 12.0-16.0; Abnormal: Below low normal; Units: g/dl; Status: F Test: HEMATOCRIT; Value: 34.0; Range: 36.0-47.0; Abnormal: Below low normal; Units: %; Status: F Test: MEAN CORPUSCULAR VOLUME; Value: 73.7; Range: 80.0-96.0; Abnormal: Below low normal; Units: fl; Status: F Test: MEAN CORPUSCULAR HEMOGLOBIN; Value: 20.6; Range: 27.0-33.0; Abnormal: Below low normal; Units: pg; Status: F Test: MEAN CORPUSCULAR HGB CONC; Value: 27.9; Range: 32.0-36.5; Abnormal: Below low normal; Units: g/dl; Status: F Test: RED CELL DISTRIBUTION WIDTH; Value: 18.7; Range: 11.5-14.5; Abnormal: Above high normal; Units: %; Status: F Test: PLATELET COUNT, AUTOMATED; Value: 276; Range: 150-450; Units: k/mm3; Status: F Test: NEUTROPHILS %; Value: 89.3; Range: 36.0-66.0; Abnormal: Above high normal; Units: %; Status: F Test: LYMPH %; Value: 7.0; Range: 24.0-44.0; Abnormal: Below low normal; Units: %; Status: F Test: MONO %; Value: 2.9; Range: 0.0-5.0; Units: %; Status: F Test: EOS %; Value: 0.2; Range: 0.0-3.0; Units: %; Status: F Test: BASO %; Value: 0.1; Range: 0.0-1.0; Units: %; Status: F Test: LARGE UNSTAINED CELL %; Value: 0.5; Range: 0.0-4.0; Units: %; Status: F Test: NEUTROPHILS #; Value: 8.4; Range: 1.8-7.7; Abnormal: Above high normal; Units: K/mm3; Status: F Test: LYMPH #; Value: 0.7; Range: 1.5-4.5; Abnormal: Below low normal; Units: K/mm3; Status: F Test: MONO #; Value: 0.3; Range: 0.0-0.8; Units: K/mm3; Status: F Test: EOS #; Value: 0.0; Range: 0.0-0.50; Units: K/mm3; Status: F Test: BASO #; Value: 0.0; Range: 0.0-0.2; Units: K/mm3; Status: F Test: LARGE UNSTAINED CELL #; Value: 0.1; Range: 0.0-0.4; Units: K/mm3; Status: F Lab Order: BASIC METABOLIC PROFILE; [facility] 11/23/16 04:00 Test: GLUCOSE, FASTING; Value: 339; Range: 83-110; Abnormal: Above high normal; Units: MG/DL; Status: F Test: BLOOD UREA NITROGEN; Value: 22; Range: 7-18; Abnormal: Above high normal; Units: MG/DL; Status: F Test: CREATININE FOR GFR; Value: 1.33; Range: 0.55-1.02; Abnormal: Above high normal; Units: MG/DL; Status: F Test: GLOMERULAR FILTRATION RATE; Value: 42.0; Range: >39; Status: F Test: SODIUM LEVEL; Value: 140; Range: 136-145; Units: MEQ/L; Status: F Test: POTASSIUM SERUM; Value: 4.1; Range: 3.5-5.1; Units: MEQ/L; Status: F Test: CHLORIDE LEVEL; Value: 102; Range: 98-107; Units: MEQ/L; Status: F Test: CARBON DIOXIDE LEVEL; Value: 29; Range: 21-32; Units: MEQ/L; Status: F Test: ANION GAP; Value: 9; Range: 8-16; Units: MEQ/L; Status: F Test: CALCIUM LEVEL; Value: 8.5; Range: 8.8-10.2; Abnormal: Below low normal; Units: MG/DL; Status: F Test Note: ; Units are mL/min/1.73 m2 Chronic Kidney Disease Staging per NKF: Stage I & II GFR >=60 Normal to Mildly Decreased Stage III GFR 30-59 Moderately Decreased Stage IV GFR 15-29 Severely Decreased Stage V GFR <15 Very Little GFR Left ESRD GFR <15 on MUSIC INTERNSHIP Lab Order: MAGNESIUM LEVEL; [facility] 11/23/16 04:00 Test: MAGNESIUM LEVEL; Value: 2.1; Range: 1.8-2.4; Units: MG/DL; Status: F Lab Order: TOTAL IRON BINDING CAPACIT; 11/23/16 04:00 Test: IRON (FE); Value: 18; Range: 50-170; Abnormal: Below low normal; Units: UG/DL; Status: F Test: TOTAL IRON BINDING CAPACITY; Value: 428; Range: 250-450; Units: UG/DL; Status: F Test: PERCENT SATURATION; Value: 4.2; Range: 13.2-37.4; Abnormal: Below low normal; Units: %; Status: F Lab Order: FERRITIN; [facility] 11/23/16 04:00 Test: FERRITIN; Value: 12; Range: 8-252; Units: NG/ML; Status: F Lab Order: VITAMIN B12 LEVEL; [facility] 11/23/16 04:00 Test: VITAMIN B12 LEVEL; Range: 247-911; Units: PG/ML; Status: I Lab Order: FOLATE; [facility] 11/23/16 04:00 Test: FOLATE; Range: >5.4; Units: NG/ML; Status: I Lab Order: Fingerstick Blood Sugar; [facility] 11/22/16 21:24 Test: BEDSIDE GLUCOSE; Value: 399; Range: 83-110; Abnormal: Above high normal; Units: MG/DL; Status: F Lab Order: Fingerstick Blood Sugar; [facility] 11/23/16 12:09 Test: BEDSIDE GLUCOSE; Value: 294; Range: 83-110; Abnormal: Above high normal; Units: MG/DL; Status: F Outcome: 19:16 Decision to Hospitalize by Provider. fg 11/23 14:13 Discharge Assessment: patient administered narcotics - no. The following High Risk ttb Discharge criteria are identified: None. Admitted to PCU accompanied by nurse, accompanied by tech, via stretcher. Condition: stable. No special radiology studies were completed. Property :Personal belongings accompany Pt. 14:46 Patient left the ED. [facility] Signatures: Dispatcher [employer] EDMS Nayely Mariscal, Pin Drafter Unit deg Paul Gayle, RN RN Sherman Whaley RosemaryRN RN rs3 Melony Farooq RN RN sls1 Monica Milner RN RN ttb Brian Donovan, SKI BASE TRIMMER SKI BASE TRIMMER jrd Alexandrea Dutton RN RN af2 Anna Lawrence MD MD fg Redder, Kathie klr Corrections: (The following items were deleted from the chart) 11/22 15:36 15:29 Presenting complaint: rs3 rs3 15:57 15:42 Allergies: Tetracycline; rs3 rs3 Chart Complete MTDD
--- NOTE | 2016-11-25 15:47 | EDDOCDS ---
Physician Documentation [facility] Name: Marjorie Redmond Age: 71 yrs Sex: Female : 1945 Arrival Date: 11/22/2016 Time: 15:26 Bed Admit Hold Private MD: Disposition: 11/22/16 19:16 Hospitalization ordered by Day Vega for Inpatient Admission. Preliminary diagnosis is Shortness of breath. - [facility] - Status is Inpatient Admission. bcj - Condition is Stable. - Problem is new. - Symptoms have worsened. Historical: - Allergies: Tetracycline (Upset stomach); Tramadol HCl (Vomit); Tylenol-Codeine #3 (Vomit); - Home Meds: 1. Vitamin C 500 mg Oral TbER 500 mg daily 2. bisoprolol fumarate 10 mg oral tab 1 tab once daily 3. Colace 100 mg oral cap 1 cap once daily 4. Calcium + Vitamin D 600 mg calcium- 200 unit Oral tab 600 mg daily 5. furosemide 40 mg Oral tab 40 mg in am. 20 mg in pm 6. Humalog 100 unit/mL Sub-Q soln twice a day 7. Toujeo SoloStar 300 unit/mL (1.5 mL) subcutaneous inpn 150 unit 8. levothyroxine 175 mcg Oral tab 1 tab once daily 9. Claritin 10 mg Oral tab 1 tab once daily 10. omeprazole 40 mg Oral cpDR 1 cap once daily 11. rosuvastatin 20 mg oral tab 1 tab once daily 12. amlodipine 10 mg Oral tab 1 tab once daily 13. nystatin 100,000 unit/gram Topical crea 14. albuterol sulfate 2.5 mg /3 mL (0.083 %) Nebulizer nebu as needed 15. albuterol sulfate 90 mcg/actuation Inhl HFAA - PMHx: Diabetes - IDDM: controlled; Hypertension; Hypothyroidism; CHF; Asthma; - PSHx: Gall Bladder Removal; Hysterectomy; Pacemaker Insertion; - Social history: Smoking status: Patient states former smoker of tobacco. No barriers to communication noted, Speaks appropriately for age. - Family history: Not pertinent. - : The pt / caregiver states he / she is not on anticoagulants. Home medication list is obtained from [employer] import data. - Exposure Risk Screening:: None identified. Vital Signs: 11/22 15:37 BP 137 / 63 (auto/); rs3 15:39 BP 137 / 63; Pulse 95; Resp 32; Temp 98.2(O); Pulse Ox 92% on 3 lpm NC; Weight 99.79 kg rs3 / 220 lbs; Height 5 ft. 2 in. (157.48 cm); Pain 0/10; 15:39 Pulse 98 MON; Pulse Ox 91% ; rs3 15:59 BP 146 / 63 (auto/); rs3 15:59 Pulse 96 MON; Pulse Ox 93% ; rs3 16:18 Pulse 90 MON; Pulse Ox 92% ; rs3 16:19 BP 124 / 56 (auto/); rs3 16:28 Pulse 92 MON; Pulse Ox 92% ; rs3 16:29 BP 122 / 60 (auto/); rs3 16:44 BP 114 / 53 (auto/); rs3 16:44 Pulse 88 MON; Pulse Ox 90% ; rs3 16:59 BP 140 / 63 (auto/); rs3 16:59 Pulse 88 MON; Pulse Ox 90% ; rs3 17:14 BP 132 / 63 (auto/); rs3 17:14 Pulse 88 MON; Pulse Ox 92% ; rs3 17:29 BP 136 / 60 (auto/); rs3 17:29 Pulse 86 MON; Pulse Ox 94% ; rs3 17:44 BP 116 / 59 (auto/); rs3 17:44 Pulse 86 MON; Pulse Ox 94% ; rs3 17:59 BP 129 / 62 (auto/); rs3 17:59 Pulse 90 MON; Pulse Ox 93% ; rs3 18:14 BP 138 / 55 (auto/); rs3 18:14 Pulse 90 MON; Pulse Ox 92% ; rs3 18:33 BP 141 / 61 (auto/); rs3 18:33 Pulse 90 MON; Pulse Ox 90% ; rs3 18:40 BP 136 / 63 (auto/); rs3 18:40 Pulse 92 MON; Pulse Ox 93% ; rs3 18:59 BP 130 / 60 (auto/); af2 18:59 Pulse 94 MON; Resp 22 S; Pulse Ox 95% on 2 lpm NC; af2 19:48 BP 129 / 60 (auto/); af2 19:48 Pulse 92 MON; Resp 22 S; Pulse Ox 93% on 2 lpm NC; af2 15:39 Body Mass Index 40.24 (99.79 kg, 157.48 cm) rs3 MDM: 15:35 -Blood Culture (Adults Only), peripheral from different site, or from device/port/PICC fg etc. if present ordered. 15:35 Sand Conditioner/Pulse Ox/q 15 min VS ordered. fg 15:35 IV Saline Lock ordered. fg 15:35 Oxygen at 4L/Min NC or Home dosage ordered. fg 15:35 Rhythm Strip to chart ordered. fg 15:36 B-Type Natiuretic Peptide Ordered. EDMS 15:36 Basic Metabolic Profile Ordered. EDMS 15:36 CBC with Diff Ordered. EDMS 15:36 Cardiac Injury Profile Ordered. EDMS 15:36 Troponin Ordered. EDMS 15:36 -Blood Culture Ordered. EDMS 15:37 Chest, 1 View Ordered. EDMS 15:37 ECG WITH READING ER PHYS+CARDIAG ordered. EDMS 15:53 -Blood Culture (Adults Only), peripheral from different site, or from device/port/PICC deg etc. if present complete. 15:55 BLOOD CULTURES Ordered. EDMS 16:35 DIFFERENTIAL NO CHARGE Ordered. EDMS 16:35 PLATELET ESTIMATE Ordered. EDMS 18:34 Furosemide 40 mg IVP once ordered. fg 19:02 BED REQUEST+ADM ordered. EDMS 19:17 Financial registration complete. zo 19:29 [facility] [place] Payment Agreement was scanned into [employer] and attached to record. zo 20:14 CARDIAC MARKER PANEL Ordered. EDMS 20:14 CARDIAC MARKER PANEL Ordered. EDMS 20:14 CARDIAC MARKER PANEL Ordered. EDMS 20:14 CBC WITH DIFFERENTIAL Ordered. EDMS 20:14 BASIC METABOLIC PROFILE Ordered. EDMS 20:15 MAGNESIUM LEVEL Ordered. EDMS 20:15 IRON (FE) Ordered. EDMS 20:15 TOTAL IRON BINDING CAPACIT Ordered. EDMS 20:15 FERRITIN Ordered. EDMS 20:15 VITAMIN B12 LEVEL Ordered. EDMS 20:15 FOLATE Ordered. EDMS 20:17 Admission / Observation Status ordered. EDMS 20:17 ECHOCARD,DOPPLER/COLOR FLOW ordered. EDMS 20:17 NO ADDED SALT DIET ordered. EDMS 21:18 Admission / Observation Status ordered. EDMS 11/23 12:19 Fingerstick Blood Sugar Ordered. EDMS 21:03 T-Sheet-- Draft Copy was scanned into [employer] and attached to record. klr Administered Medications: 11/22 18:53 Drug: Furosemide 40 mg [furosemide 10 mg/mL injection solution (4 mL)] Route: IVP; rs3 Site: left antecubital; Signatures: Dispatcher [employer] EDNayely Kramer, Ice Cream Man Unit deg Paul Gayle RN RN Sherman Whaley Rosemary, RN RN rs3 Monica Milner RN RN ttb Steggeman, Michele, RN RN [facility] Anna Lawrence MD MD fg Redder, Kathie klr The chart was reviewed and I authenticate all verbal orders and agree with the evaluation and treatment provided.Corrections: (The following items were deleted from the chart) 15:57 15:42 Allergies: Tetracycline; rs3 rs3 Attachments: 19:29 [facility] Payment Agreement zo 11/23 21:03 T-Sheet-- Draft Copy klr Chart Complete MTDD
--- NOTE | 2016-11-25 15:47 | EDDOCDS ---
Physician Documentation [facility] Name: Marjorie Redmond Age: 71 yrs Sex: Female : 1945 Arrival Date: 11/22/2016 Time: 15:26 Bed Admit Hold Private MD: Disposition: 11/22/16 19:16 Hospitalization ordered by Day Vega for Inpatient Admission. Preliminary diagnosis is Shortness of breath. - [facility] - Status is Inpatient Admission. bcj - Condition is Stable. - Problem is new. - Symptoms have worsened. Historical: - Allergies: Tetracycline (Upset stomach); Tramadol HCl (Vomit); Tylenol-Codeine #3 (Vomit); - Home Meds: 1. Vitamin C 500 mg Oral TbER 500 mg daily 2. bisoprolol fumarate 10 mg oral tab 1 tab once daily 3. Colace 100 mg oral cap 1 cap once daily 4. Calcium + Vitamin D 600 mg calcium- 200 unit Oral tab 600 mg daily 5. furosemide 40 mg Oral tab 40 mg in am. 20 mg in pm 6. Humalog 100 unit/mL Sub-Q soln twice a day 7. Toujeo SoloStar 300 unit/mL (1.5 mL) subcutaneous inpn 150 unit 8. levothyroxine 175 mcg Oral tab 1 tab once daily 9. Claritin 10 mg Oral tab 1 tab once daily 10. omeprazole 40 mg Oral cpDR 1 cap once daily 11. rosuvastatin 20 mg oral tab 1 tab once daily 12. amlodipine 10 mg Oral tab 1 tab once daily 13. nystatin 100,000 unit/gram Topical crea 14. albuterol sulfate 2.5 mg /3 mL (0.083 %) Nebulizer nebu as needed 15. albuterol sulfate 90 mcg/actuation Inhl HFAA - PMHx: Diabetes - IDDM: controlled; Hypertension; Hypothyroidism; CHF; Asthma; - PSHx: Gall Bladder Removal; Hysterectomy; Pacemaker Insertion; - Social history: Smoking status: Patient states former smoker of tobacco. No barriers to communication noted, Speaks appropriately for age. - Family history: Not pertinent. - : The pt / caregiver states he / she is not on anticoagulants. Home medication list is obtained from [employer] import data. - Exposure Risk Screening:: None identified. Vital Signs: 11/22 15:37 BP 137 / 63 (auto/); rs3 15:39 BP 137 / 63; Pulse 95; Resp 32; Temp 98.2(O); Pulse Ox 92% on 3 lpm NC; Weight 99.79 kg rs3 / 220 lbs; Height 5 ft. 2 in. (157.48 cm); Pain 0/10; 15:39 Pulse 98 MON; Pulse Ox 91% ; rs3 15:59 BP 146 / 63 (auto/); rs3 15:59 Pulse 96 MON; Pulse Ox 93% ; rs3 16:18 Pulse 90 MON; Pulse Ox 92% ; rs3 16:19 BP 124 / 56 (auto/); rs3 16:28 Pulse 92 MON; Pulse Ox 92% ; rs3 16:29 BP 122 / 60 (auto/); rs3 16:44 BP 114 / 53 (auto/); rs3 16:44 Pulse 88 MON; Pulse Ox 90% ; rs3 16:59 BP 140 / 63 (auto/); rs3 16:59 Pulse 88 MON; Pulse Ox 90% ; rs3 17:14 BP 132 / 63 (auto/); rs3 17:14 Pulse 88 MON; Pulse Ox 92% ; rs3 17:29 BP 136 / 60 (auto/); rs3 17:29 Pulse 86 MON; Pulse Ox 94% ; rs3 17:44 BP 116 / 59 (auto/); rs3 17:44 Pulse 86 MON; Pulse Ox 94% ; rs3 17:59 BP 129 / 62 (auto/); rs3 17:59 Pulse 90 MON; Pulse Ox 93% ; rs3 18:14 BP 138 / 55 (auto/); rs3 18:14 Pulse 90 MON; Pulse Ox 92% ; rs3 18:33 BP 141 / 61 (auto/); rs3 18:33 Pulse 90 MON; Pulse Ox 90% ; rs3 18:40 BP 136 / 63 (auto/); rs3 18:40 Pulse 92 MON; Pulse Ox 93% ; rs3 18:59 BP 130 / 60 (auto/); af2 18:59 Pulse 94 MON; Resp 22 S; Pulse Ox 95% on 2 lpm NC; af2 19:48 BP 129 / 60 (auto/); af2 19:48 Pulse 92 MON; Resp 22 S; Pulse Ox 93% on 2 lpm NC; af2 15:39 Body Mass Index 40.24 (99.79 kg, 157.48 cm) rs3 MDM: 15:35 -Blood Culture (Adults Only), peripheral from different site, or from device/port/PICC fg etc. if present ordered. 15:35 Svp Programmatic Tv/Pulse Ox/q 15 min VS ordered. fg 15:35 IV Saline Lock ordered. fg 15:35 Oxygen at 4L/Min NC or Home dosage ordered. fg 15:35 Rhythm Strip to chart ordered. fg 15:36 B-Type Natiuretic Peptide Ordered. EDMS 15:36 Basic Metabolic Profile Ordered. EDMS 15:36 CBC with Diff Ordered. EDMS 15:36 Cardiac Injury Profile Ordered. EDMS 15:36 Troponin Ordered. EDMS 15:36 -Blood Culture Ordered. EDMS 15:37 Chest, 1 View Ordered. EDMS 15:37 ECG WITH READING ER PHYS+CARDIAG ordered. EDMS 15:53 -Blood Culture (Adults Only), peripheral from different site, or from device/port/PICC deg etc. if present complete. 15:55 BLOOD CULTURES Ordered. EDMS 16:35 DIFFERENTIAL NO CHARGE Ordered. EDMS 16:35 PLATELET ESTIMATE Ordered. EDMS 18:34 Furosemide 40 mg IVP once ordered. fg 19:02 BED REQUEST+ADM ordered. EDMS 19:17 Financial registration complete. zo 19:29 [facility] [place] Payment Agreement was scanned into [employer] and attached to record. zo 20:14 CARDIAC MARKER PANEL Ordered. EDMS 20:14 CARDIAC MARKER PANEL Ordered. EDMS 20:14 CARDIAC MARKER PANEL Ordered. EDMS 20:14 CBC WITH DIFFERENTIAL Ordered. EDMS 20:14 BASIC METABOLIC PROFILE Ordered. EDMS 20:15 MAGNESIUM LEVEL Ordered. EDMS 20:15 IRON (FE) Ordered. EDMS 20:15 TOTAL IRON BINDING CAPACIT Ordered. EDMS 20:15 FERRITIN Ordered. EDMS 20:15 VITAMIN B12 LEVEL Ordered. EDMS 20:15 FOLATE Ordered. EDMS 20:17 Admission / Observation Status ordered. EDMS 20:17 ECHOCARD,DOPPLER/COLOR FLOW ordered. EDMS 20:17 NO ADDED SALT DIET ordered. EDMS 21:18 Admission / Observation Status ordered. EDMS 11/23 12:19 Fingerstick Blood Sugar Ordered. EDMS 21:03 T-Sheet-- Draft Copy was scanned into [employer] and attached to record. klr Administered Medications: 11/22 18:53 Drug: Furosemide 40 mg [furosemide 10 mg/mL injection solution (4 mL)] Route: IVP; rs3 Site: left antecubital; Signatures: Dispatcher [employer] EDNayely Kramer, Cutter Operator Unit deg Paul Gayle RN RN Sherman Whaley Rosemary, RN RN rs3 Monica Milner RN RN ttb Steggeman, Michele, RN RN [facility] Anna Lawrence MD MD fg Redder, Kathie klr The chart was reviewed and I authenticate all verbal orders and agree with the evaluation and treatment provided.Corrections: (The following items were deleted from the chart) 15:57 15:42 Allergies: Tetracycline; rs3 rs3 Attachments: 19:29 [facility] Payment Agreement zo 11/23 21:03 T-Sheet-- Draft Copy klr Chart Complete MTDD
== END 2016-11-25 13:13 | disposition home or self-care (01) | DRG 292 ==
LOC: M ED 15:26 → M ED INP 20:01 → M PCU 11-23 14:18
PROVIDERS: ADMIT Hospitalist; ATTEND Family Medicine
DX: I50.33 Acute on chronic diastolic (congestive) heart failure (principal); N17.9 Acute kidney failure, unspecified; Z68.41 Body mass index [BMI] 40.0-44.9, adult; E66.9 Obesity, unspecified; I48.91 Unspecified atrial fibrillation; E11.649 Type 2 diabetes mellitus with hypoglycemia without coma; I12.9 Hypertensive chronic kidney disease with stage 1 through stage 4 chronic kidney disease, or unspecified chronic kidney disease; Z95.0 Presence of cardiac pacemaker; J44.9 Chronic obstructive pulmonary disease, unspecified; E03.9 Hypothyroidism, unspecified; E78.00 Pure hypercholesterolemia, unspecified; Z79.01 Long term (current) use of anticoagulants; I27.89 Other specified pulmonary heart diseases; D50.9 Iron deficiency anemia, unspecified; Z79.899 Other long term (current) drug therapy; N18.9 Chronic kidney disease, unspecified; I25.10 Atherosclerotic heart disease of native coronary artery without angina pectoris; E87.6 Hypokalemia

== ENCOUNTER → 2016-11-28 | Outpatient (REF) | payer MEDICARE ==
[~2016-11-28] MED LIST changes: +ALBU17IN INH; +AMLO10TA PO; +ELIQ5TAB PO; +FURO40TA2 PO; +NITR4TASL SL; +NYST10CR EXT; +OMEP40CA2 PO; +ROBI30SU PO; +SYNT175T2 PO; +TYLE500T78 PO
[2016-11-28 18:27] LABS: MEAN CORPUSCULAR HEMOGLOBIN 20.9 pg (27.0-33.0); MEAN CORPUSCULAR HGB CONC 27.8 g/dl (32.0-36.5); RED CELL DISTRIBUTION WIDTH 19.9 % (11.5-14.5)
[2016-11-28 19:26] LABS: CALCIUM LEVEL 8.5 MG/DL (8.8-10.2); CREATININE FOR GFR 1.14 MG/DL (0.55-1.02); GLOMERULAR FILTRATION RATE 50.2 (>39); POTASSIUM SERUM 3.9 MEQ/L (3.5-5.1)
== END ==
LOC: M SFHCCLAY 11:38
PROVIDERS: ATTEND Family Medicine
DX: D50.0 Iron deficiency anemia secondary to blood loss (chronic) (principal); I50.32 Chronic diastolic (congestive) heart failure

== ENCOUNTER 2016-12-08 17:32 | Inpatient (IN) | payer MEDICARE ==
[~2016-12-08] VITALS: Ht 157.5 cm; Wt 98.5 kg
--- NOTE | 2016-12-08 18:19 | REP ---
Clinical: Acute cerebrovascular accident. Comparison: 05/17/2012. Findings: Atrophy and microvascular ischemic changes are appreciated including encephalomalacia involving the right temporal-parietal lobe consistent with prior infarction. No acute intracranial hemorrhage, mass or mass effect. No extra-axial fluid collection. Calvarium is intact. Sinuses are clear. Impression: 1. 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 2. No acute intracranial hemorrhage, infarction or trauma/injury. Signed by Hermelindo Bowie MD 12/08/2016 06:10 P
[2016-12-08 18:27] LABS: BASO % 0.3 % (0.0-1.0); EOS # 0.2 K/mm3 (0.0-0.50); EOS % 2.1 % (0.0-3.0); LARGE UNSTAINED CELL # 0.3 K/mm3 (0.0-0.4); LARGE UNSTAINED CELL % 4.1 % (0.0-4.0); LYMPH % 13.7 % (24.0-44.0); MEAN CORPUSCULAR HEMOGLOBIN 20.8 pg (27.0-33.0); MEAN CORPUSCULAR HGB CONC 27.9 g/dl (32.0-36.5); MEAN CORPUSCULAR VOLUME 74.4 fl (80.0-96.0); MONO # 0.4 K/mm3 (0.0-0.8); MONO % 5.6 % (0.0-5.0); NEUTROPHILS # 5.6 K/mm3 (1.8-7.7); NEUTROPHILS % 74.1 % (36.0-66.0); PLATELET COUNT, AUTOMATED 401 k/mm3 (150-450); RED CELL DISTRIBUTION WIDTH 19.8 % (11.5-14.5); WHITE BLOOD COUNT 7.5 K/mm3 (4.0-10.0)
--- NOTE | 2016-12-08 18:27 | REP ---
Clinical: Cerebrovascular accident . Comparison: 11/22/2016 . Findings: The mediastinum and cardiac silhouette are stable and within normal limits for portable technique. The lung weaver are clear without acute consolidation, effusion, or pneumothorax. Skeletal structures are intact. Impression: Normal portable chest x-ray Signed by Hermelindo Bowie MD 12/08/2016 06:19 P
[2016-12-08 18:29] LABS: ADD MORPHOLOGY? YES
[2016-12-08 18:33] LABS: INR 1.35
[2016-12-08 18:45] LABS: CREATININE FOR GFR 1.28 MG/DL (0.55-1.02); GLOMERULAR FILTRATION RATE 43.9 (>39); POTASSIUM SERUM 3.9 MEQ/L (3.5-5.1)
[2016-12-08 18:51] LABS: ANISOCYTOSIS 3+; HYPOCHROMASIA 1+
[2016-12-08 18:52] LABS: MICROCYTOSIS 2+
[2016-12-08] MEDS ORDERED: HumuLIN R (REGULAR) INSULIN (NovoLIN R) **100U/ML** PER UNIT As Ordered ONE (19:08)
[2016-12-08] MEDS ORDERED: AMLO10TA2 PO (19:29)
[2016-12-08] MEDS ORDERED: KLOR1CAP2 PO (19:36)
[2016-12-08] MEDS ORDERED: DIPH25CA PO (19:36)
[2016-12-08] MEDS ORDERED: ASCO500T PO (19:38)
[2016-12-08] MEDS ORDERED: TOUJ1.2I SC (19:48)
[2016-12-08] MEDS ORDERED: GLUCAGON FOR INJ 1 MG VIAL (J1610) SC PRN (20:45)
[2016-12-08] MEDS ORDERED: DEXTROSE 50% 50 ML SYRINGE IV PRN (20:45)
[2016-12-08] MEDS ORDERED: ALBUTEROL SULFATE 2.5 MG/0.5 ML INH NEB SOLN INH PRN (20:45)
[2016-12-08] MEDS ORDERED: ACETAMINOPHEN 500 MG TAB PO PRN (20:45)
[2016-12-08] MEDS ORDERED: GLUCOSE 4 GM CHEW TABLET PO PRN (20:45)
[2016-12-08] MEDS ORDERED: ALBUTEROL 90 MCG/ACT 8GM HFA INHALER INH PRN (20:45)
[2016-12-08] MEDS ORDERED: ONDANSETRON 4MG/2ML VIAL (J2405) IV PRN (20:45)
[2016-12-08] MEDS ORDERED: ACETAMINOPHEN TAB 650MG DOSE (2X325MG) PO PRN (20:45)
[2016-12-08] MEDS ORDERED: NITROGLYCERIN 0.4 MG SUBL TABLET SL PRN (20:45)
[2016-12-08] MEDS ORDERED: ASCORBIC ACID 500 MG TAB PO SCH (21:00)
--- NOTE | 2016-12-08 22:27 | HPEPDOC ---
General Date of Admission Dec 08, 2016 at 20:39 Chief Complaint The patient is a 71-year-old female admitted with a reason for visit of Stroke- Like Symptoms. History of Present Illness 71-year-old female with past Meckel history of diabetes mellitus type 2, hypertension, diastolic CHF, COPD, obesity, hypothyroidism, hypercholesterolemia , history of Afib on anticoagulation, TIA, and bradycardia status post pacemaker presented to ER after she noticed that she had right upper extremity weakness and numbness lasting. The patient states that the symptoms began 4 PM this afternoon/evening. During this time, the patient denied any other focal neurological deficits, slurring of speech, visual blurriness, or any other acute symptoms. She subsequently presented to the ER for further evaluation and management. A CT scan of the head revealed no acute findings. The patient was seen in the ER within 3 hours of her initial presentation, and was evaluated by Dr. Rojas of [facility] neurology by tele-medicine. The patient was noted to have a NIHSS score of 1, with most of her weakness, and numbness/tingling resolved. The patient was not deemed a candidate for TPA. Given the patient's history of anemia, possibly of GI origin, and the patient already being on an anticoagulant, the patient was not recommended aspirin. At this time, the patient has no other acute complaints of fevers, chills, chest pain, shortness of breath, lightheadedness/dizziness, abdominal pain, or any nausea/vomiting/ diarrhea. The patient will be admitted under the service of the [facility] physicians, who will begin to follow the patient at 7 AM on 12/09/2016. Home Medications Scheduled (Shameka Montilla) 10 Meq Cap 10 MEQ PO BID (Reported) MORNING AND NOON (Luis A Sands) 300 Unit/Ml Inj 150 UNIT SC DAILY (Reported) Amlodipine Besylate (Amlodipine Besylate) 10 Mg Tab 10 MG PO DAILY (Reported) BRAND NAME ONLY!!! Apixaban Base (Eliquis) 5 Mg Tab 5 MG PO BID (Reported) Ascorbic Acid (Ascorbic Acid) 500 Mg Tab 500 MG PO QPM (Reported) DINNERTIME Bisoprolol Fumarate (Bisoprolol Fumarate) 10 Mg Tab 10 MG PO BID (Reported) Calcium/Vitamin D (Calcium 600+D 600-400 mg-Unit) 1 Tab Tab 1 TAB PO DAILY ( Reported) Diphenhydramine HCl (Diphenhydramine HCl) 25 Mg Cap 25 MG PO DAILY (Reported) Docusate Sodium (Colace) 100 Mg Cap 100 MG PO QHS (Reported) Furosemide (Lasix) 20 Mg Tab 20 MG PO QPM (Reported) @1400 Furosemide (Furosemide) 40 Mg Tab 40 MG PO DAILY (Reported) Insulin Human Lispro (Humalog) 1 Units/0.01 Ml Inj 0 SC AC (Reported) PER SLIDING SCALE Levothyroxine Sodium (Synthroid) 175 Mcg Tab 175 MCG PO QAM (Reported) Omeprazole (Omeprazole) 40 Mg Cap 40 MG PO QHS (Reported) Rosuvastatin (Crestor) 10 Mg Tab 40 MG PO QHS Scheduled PRN Acetaminophen (Tylenol Extra Strength) 500 Mg Tab 1,000 MG PO Q4H PRN PRN PAIN ( Reported) Albuterol Sulfate (Albuterol Sulfate) 2.5 Mg/3 Ml Nebu 2.5 MG INH Q4H PRN PRN SHORTNESS OF BREATH (Reported) Albuterol Sulfate (Ventolin Hfa) 200 Puff/8 Gm Aers 2 PUFF INH Q4H PRN PRN SHORTNESS OF BREATH (Reported) Nitroglycerin (Nitrostat) 0.4 Mg Subl 0.4 MG SL Q5MP PRN PRN ANGINA (Reported) Allergies Coded Allergies: Gemfibrozil (Unverified Allergy, Mild, RASH, 01/25/13) Erythromycin (Unverified Adverse Reaction, Severe, NAUSEA, 01/25/13) Pioglitazone (Unverified Adverse Reaction, Severe, SWELLING, BP INCREAE, ) Amiloride (Unverified Adverse Reaction, Intermediate, NAUSEA, 01/25/13) Tetracycline (Unverified Adverse Reaction, Intermediate, NAUSEA, 01/25/13) Amlodipine (Unverified Adverse Reaction, Unknown, Swelling, 11/22/16) Uses Brand Only Norvasc Past Medical History Medical History As noted in HPI. Surgical History Pacemaker placement secondary to bradycardia, hysterectomy, cholecystectomy Family History Her mother is over 90 years old and doing well. She does state that both her father and her brother suddenly of heart attacks in their 30s. Her children are both healthy Social History The patient quit smoking approximately 4 years ago. She denies drinking any alcohol, or using drugs Review of Symptoms Other systems 10 point review of systems negative unless otherwise specified in HPI. Physical Examination General Exam: Positive: Alert, Cooperative, No Acute Distress Eye Exam: Positive: Conjunctiva & lids normal, EOMI, PERRLA ENT Exam: Positive: Atraumatic, Mucous membr. moist/pink Chest Exam: Positive: Clear to auscultation, Normal air movement Heart Exam: Positive: Normal S1, Normal S2, Rate Normal Abdomen Exam: Positive: Soft, Negative: Tenderness Extremity Exam: Positive: Swelling (2+ pitting edema from his bilaterally), Negative: Tenderness Neuro Exam: Positive: Cranial Nerves 3-12 NL, Normal Speech, Normal Tone, Reflexes 2+, Sensation Intact (mild decrease in sensation to palpation of the right upper extremity.), Strength at 5/5 X4 ext Vital Signs As noted in EMR Laboratory Data Labs 24H Laboratory Tests 2 12/08/16 18:16: Bedside Glucose (Misc Panel) 446H 12/08/16 18:17: Activated Partial Thromboplast Time 32.4, Anion Gap 11, Anisocytosis 3+, White Blood Count 7.5, Red Blood Count 4.46, Hemoglobin 9.3L, Hematocrit 33.2L, Mean Corpuscular Volume 74.4L, Mean Corpuscular Hemoglobin 20.8L, Mean Corpuscular Hemoglobin Concent 27.9L, Red Cell Distribution Width 19.8H, Platelet Count 401 , Neutrophils (%) (Auto) 74.1H, Lymphocytes (%) (Auto) 13.7L, Monocytes (%) ( Auto) 5.6H, Eosinophils (%) (Auto) 2.1, Basophils (%) (Auto) 0.3, Neutrophils # (Auto) 5.6, Lymphocytes # (Auto) 1.0L, Monocytes # (Auto) 0.4, Eosinophils # ( Auto) 0.2, Basophils # (Auto) 0.0, Blood Urea Nitrogen 15, Creatinine 1.28H, Sodium Level 134L, Potassium Level 3.9, Chloride Level 99, Carbon Dioxide Level 24, Calcium Level 9.0, Glomerular Filtration Rate 43.9, Hypochromasia 1+, Large Unclassified Cells # 0.3, Large Unclassified Cells % 4.1H, Microcytosis 2+, Platelet Estimate NORMAL, Prothromb Time International Ratio 1.35, Prothrombin Time 16.8H 2/13/17 20:16: Bedside Glucose (Misc Panel) 292H 12/08/16 21:13: Bedside Glucose (Misc Panel) 265H CBC/BMP Laboratory Tests 12/08/16 18:17 Calcium Level 9.0, Red Blood Count 4.46, Mean Corpuscular Volume 74.4 L, Mean Corpuscular Hemoglobin 20.8 L, Mean Corpuscular Hemoglobin Concent 27.9 L, Red Cell Distribution Width 19.8 H, Neutrophils (%) (Auto) 74.1 H, Lymphocytes (%) ( Auto) 13.7 L, Monocytes (%) (Auto) 5.6 H, Eosinophils (%) (Auto) 2.1, Basophils (%) (Auto) 0.3, Neutrophils # (Auto) 5.6, Lymphocytes # (Auto) 1.0 L, Monocytes # (Auto) 0.4, Eosinophils # (Auto) 0.2, Basophils # (Auto) 0.0 Plan / VTE VTE Prophylaxis Ordered?: Yes Plan Plan Right upper extremitiy weakness, numbness/tingling, rule out CVA We will admit the patient to telemetry CT scan of the head without any acute findings Patient with nearly completely resolved symptoms in the ER, NIHSS Score of 1 Evaluated by of [facility] Neurology via Telemedicine--> TPA not indicated Given that the patient already on Eliquis, and there is an underlying concern of possible anemia from GI source, no aspirin recommend at this time Will add atorvastatin to the patient's regimen Patient unable to get an MRI as she does have a pacemaker Patient did have a 2-D echocardiogram done recently We will order an ultrasound of the carotids Continue with neurological checks Continue to monitor on telemetry Microcytic Anemia Hemoglobin appears to be stable at this time The patient does have an appointment scheduled with Dr. Ren on 12/16 for possible EGD/colonoscopy for further evaluation of anemia Diabetes mellitus type 2 Continue home long-acting insulin The patient confirms that she takes 150 units every morning. We will keep her on 100 units of Levemir here, as that did show to adequately control her blood sugar levels on her last admission here. Continue sliding scale insulin while in-house. Hypertension Will hold BP meds for now to allow for permissive hypertension Hypothyroidism Continue home Synthroid. Hyperlipidemia Continue home statin. History of A. fib and bradycardia status post pacemaker placement EKG noted to be in paced rhythm Heart rate well controlled Continue Eliquis DVT prophylaxis: Continue home eliquis Dispo: We will admit under the service of [facility] physician group, Dr. Cotton who will begin to follow the patient on 12/09/16 at 7 AM. CODE STATUS: Full Code RAO LOCKE MD Dec 08, 2016 22:26
[2016-12-09] VITALS (7 sets, daily range): BP systolic 150–164; BP diastolic 65–77
--- NOTE | 2016-12-09 00:50 | EDDOCDS ---
Nurse's Notes [facility] Name: Marjorie Redmond Age: 71 yrs Sex: Female : 1945 Arrival Date: 12/08/2016 Time: 17:32 Bed 1 Private MD: Pepe Olivas D Diagnosis: Cerebral ischemia;Anemia in other chronic diseases classified elsewhere;Hyperglycemia, unspecified Presentation: 12/08 17:37 Presenting complaint: Patient states: pt presents with c/numbness and tingling right dls arm onset at 1630 pt denies pain recently discharged from [facility] with CHF . Pt states no viscera washer right hand denies deficit right leg speech is clear denies headache or chest pain. The last date and time the patient was known to be well was was at 16:00 on December 08, 2016. Adult Sepsis Screening: The patient does not have new or worsening altered mentation. Patient's respiratory rate is less than 22. Systolic blood pressure is greater than 100. Patient has a qSOFA score of 0- Negative Sepsis Screen. Suicide/Homicide risk assessment- the patient denies having any suicidal and/or homicidal ideations and does not present with any other emotional, behavioral or mental health complaints. Status: Patient is not a attendant self service store or dependent. Transition of care: patient was not received from another setting of care. 17:37 Acuity: AMANDA Level 2 dls 17:37 Method Of Arrival: Wheelchair dls 17:41 Presenting complaint: Patient states: Pt states hx right sided stroke. dls 17:51 Red Flag criteria, patient assessed and taken directly to a bed. dls 12/09 00:45 No acute neurological deficit is noted. mv5 Triage Assessment: 12/08 17:44 The onset of the patients symptoms was more than three hours ago. General: Appears well dls developed, Behavior is cooperative. Pain: Denies pain. 12/09 00:45 Neurological: Level of Consciousness is awake, alert, Oriented to person, place, time, mv5 Reports weakness. Historical: - Allergies: Tetracycline (Upset stomach); Tramadol HCl (Vomit); Tylenol-Codeine #3 (Vomit); Gemfibrozil (Rash); amiloride (nausea); Erythromycin (Upset stomach); Actos (wt gain); Januvia (nausea); Vicodin (confusion and nausea); SULFA (SULFONAMIDES) (abnormal kidney function); indapamide (Rash); Keflex (nausea); Amoxil (Rash); - Home Meds: 1. albuterol sulfate 2.5 mg /3 mL (0.083 %) Inhl nebu as needed 2. albuterol sulfate 90 mcg/actuation Inhl HFAA 3. amlodipine 10 mg Oral tab 1 tab once daily 4. bisoprolol fumarate 10 mg oral tab 1 tab once daily 5. Colace 100 mg oral cap 1 cap once daily 6. furosemide 40 mg Oral tab 40 mg in am. 20 mg in pm 7. Humalog 100 unit/mL Sub-Q soln twice a day 8. levothyroxine 175 mcg Oral tab 1 tab once daily 9. nystatin 100,000 unit/gram Topical crea 10. omeprazole 40 mg Oral cpDR 1 cap once daily 11. rosuvastatin 20 mg oral tab 1 tab once daily 12. Toujeo SoloStar 300 unit/mL (1.5 mL) subcutaneous inpn 150 unit 13. Vitamin C 500 mg Oral TbER 500 mg daily 14. Calcium + Vitamin D 600/400mg Oral tab 600 mg daily 15. Claritin 10 mg Oral tab 1 tab twice a day 16. Crestor 20 mg Oral tab 1 tab once daily 17. meclizine 25 mg Oral tab 3 times per day prn 18. Eliquis 5 mg oral tab 1 tab 2 times per day 19. Norvasc 10 mg Oral tab 1 tab once daily 20. potassium chloride 10 mEq Oral cpER 1 cap 2 times per day 21. Nitrostat 0.4 mg SL subl 22. Zebeta 10 mg oral tab twice a day - PMHx: Asthma; CHF; Diabetes - IDDM: controlled; Hypertension; Hypothyroidism; Hypercholesterolemia; Lyme Disease; stage 3 kidney disease; Stroke; Anemia; CAD; a fib; mitral and aortiv valve disorder; - PSHx: Hysterectomy; Cholecystectomy; Pacemaker Insertion; - Social history: Smoking status: Patient/guardian denies using No barriers to communication noted, The patient speaks fluent Kiswahili. - Family history: Not pertinent. - : The pt / caregiver states he / she is on anticoagulants: Eliquis Home medication list is obtained from [employer] import data. - Exposure Risk Screening:: None identified. Screenin/13 18:19 Screening information is obtained from the patient. Fall risk: No risks identified. srm Assistance ADL's: requires no assistance with activities of daily living. Abuse/DV Screen: The patient / caregiver reports he/she is: not in a situation that causes fear, pain or injury. Nutritional screening: No deficits noted. Advance Directives: Currently, there is no health care proxy. There is no active DNR order. home support is adequate. Assessment: 17:56 Neurological: Level of Consciousness is awake, alert, Oriented to person, place, time, srm [employer] Operator are equal bilaterally Weakness in right arm(s) leg(s) Speech is normal, Facial symmetry appears normal. 18:25 General: Appears in no apparent distress, Behavior is appropriate for age, cooperative. srm Neurological: Level of Consciousness is awake, alert, [employer] Operator are equal bilaterally right arm feels heavy in upper part of arm. has full use of right arm . 18:27 General: telemed with [facility] neurologist . [facility] 18:48 General: right arm feels less heavy on arrival. pt now able to hold onto side rail [facility] where as she couldn't on arrival to bed. . EENT: No deficits noted. Cardiovascular: Capillary refill < 3 seconds in bilateral fingers. Respiratory: No deficits noted. GI: No deficits noted. 19:19 General: Appears in no apparent distress, Behavior is cooperative, pleasant. mv5 Neurological: Level of Consciousness is awake, alert, Oriented to person, place, time, pt able to ENGEL.. Speech is normal, Facial symmetry appears normal. Cardiovascular: Capillary refill < 3 seconds. Respiratory: No deficits noted. Derm: Skin is pink, warm & dry. 20:30 General: Appears in no apparent distress, Behavior is cooperative, pleasant. mv5 Neurological: Level of Consciousness is awake, alert, Oriented to person, place, time, [employer]ar[employer] Operator are equal bilaterally Moves all extremities. Gait is steady, Speech is normal, Facial symmetry appears normal. Cardiovascular: Rhythm is Not pacing all beats. Derm: Skin is pink, warm & dry. 21:22 General: Appears in no apparent distress, comfortable, Behavior is cooperative, mv5 pleasant. Neurological: Level of Consciousness is awake, alert, Oriented to person, place, time, Speech is normal, Facial symmetry appears normal. Cardiovascular: Rhythm is Respiratory: Airway is patent Respiratory effort is even, unlabored, Respiratory pattern is regular, symmetrical. Derm: Skin is pink, warm & dry. 21:58 General: Appears in no apparent distress. Neurological: Level of Consciousness is mv5 awake, alert, Oriented to person, place, time, [employer] Operator are weak on right Speech is normal, Facial symmetry appears normal. Cardiovascular: Rhythm is intermittent. Respiratory: Airway is patent Respiratory effort is even, unlabored, Respiratory pattern is regular, symmetrical. Derm: Skin is pink, warm & dry. 22:38 General: Appears in no apparent distress. Neurological: Level of Consciousness is mv5 awake, alert, Oriented to person, place, time, [employer] Operator are weak on right Moves all extremities. Speech is normal, Facial symmetry appears normal. Cardiovascular: Rhythm is Respiratory: Airway is patent Respiratory effort is even, unlabored, Respiratory pattern is regular, symmetrical. Derm: Skin is pink, warm & dry. 23:31 General: Appears in no apparent distress, comfortable. Neurological: Level of mv5 Consciousness is awake, alert, Oriented to person, place, time, Moves all extremities. Speech is normal, Facial symmetry appears normal. Respiratory: Airway is patent Respiratory effort is even, unlabored, Respiratory pattern is regular, symmetrical. Derm: Skin is pink, warm & dry. 12/09 00:40 General: Appears in no apparent distress. Neurological: Level of Consciousness is mv5 awake, alert, Oriented to person, place, time, Moves all extremities. Weakness in right arm(s) Speech is normal, Facial symmetry appears normal. Respiratory: Airway is patent Respiratory effort is even, unlabored, Respiratory pattern is regular, symmetrical. Derm: Skin is pink, warm & dry. Vital Signs: 12/08 17:33 BP 156 / 69; Pulse 88; Resp 18 S; Temp 97.8(O); Pulse Ox 96% on R/A; Weight 100.24 kg gr2 (R); Height 5 ft. 2 in. (157.48 cm) (R); Pain 4/10; 18:21 Weight 93.9 kg (M); srm 18:36 BP 155 / 69 (auto/); mv5 18:37 Pulse 79 MON; Pulse Ox 95% ; mv5 18:51 BP 175 / 72 (auto/); mv5 18:52 Pulse 86 MON; Pulse Ox 93% ; mv5 19:06 BP 144 / 63 (auto/); mv5 19:07 Pulse 78 MON; Pulse Ox 96% ; mv5 20:06 BP 217 / 133 (auto/); mv5 20:07 Pulse 80 MON; Pulse Ox 95% ; mv5 20:21 BP 228 / 98 (auto/); mv5 20:22 Pulse 78 MON; Pulse Ox 95% ; mv5 20:36 BP 215 / 93 (auto/); mv5 20:37 Pulse 78 MON; Pulse Ox 95% ; mv5 21:04 BP 136 / 62 (auto/); Pulse 79; Resp 18; Pulse Ox 95% on R/A; mv5 21:06 BP 149 / 66 (auto/); mv5 21:07 Pulse 78 MON; Pulse Ox 95% ; mv5 21:21 BP 148 / 67 (auto/); mv5 21:22 Pulse 78 MON; Pulse Ox 94% ; mv5 21:58 BP 143 / 84; Pulse 86; Resp 20; Temp 99.8(TE); Pulse Ox 96% ; mv5 21:58 BP 166 / 75 (auto/); mv5 21:59 Pulse 83 MON; Pulse Ox 94% ; mv5 22:13 BP 159 / 71 (auto/); mv5 22:14 Pulse 80 MON; Pulse Ox 93% ; mv5 22:28 BP 161 / 73 (auto/); mv5 22:29 Pulse 81 MON; Pulse Ox 92% ; mv5 23:13 BP 168 / 76 (auto/); mv5 23:14 Pulse 87 MON; Pulse Ox 93% ; mv5 02/14 00:40 BP 126 / 64; Pulse 93; Resp 18; Temp 99.1(T); Pulse Ox 93% on R/A; mv5 12/08 18:21 Body Mass Index 37.86 (93.90 kg, 157.48 cm) srm Vitals: 12/08 17:33 Log In Time: December 08, 2016 at 17:33. RN notified that patient meets Red Flag gr2 criteria. 20:17 Glucose Measurement Glucose Measurement D-stick in Triage- Hyperglycemia. mv5 ED Course: 17:33 Patient visited by Jose German. gr2 17:33 Pepe Olivas is Private Physician. gr2 17:33 Patient moved to Waiting gr2 17:36 Patient visited by Jose German. gr2 17:37 Patient moved to Pre RCE gr2 17:41 Triage Initiated dls 17:48 EKG done. (by ED staff). Reviewed by Delicia Cook MD. ar3 17:49 Patient moved to 1 kcs 17:55 Delicia Cook MD is Attending Physician. ml 17:55 Patient visited by Delicia Cook MD. ml 18:19 The patient / caregiver is instructed regarding the plan of care and ED course. Patient srm has correct armband on for positive identification. Placed in gown. Bed in low position. Call light in reach. Side rails up X2. manager monitoring on. Pulse ox on. NIBP on. on arrival. 18:19 Inserted saline lock: 20 gauge in left hand and blood collected. The patient tolerated srm the procedure well. 18:20 Basic Metabolic Profile Sent. srm 18:20 CBC with Diff Sent. srm 18:20 Partial Thromboplastin Time Sent. srm 18:20 Prothrombin Time Profile\E\INR Sent. srm 18:21 Patient visited by Alexia Lujan RN. srm 18:26 Patient visited by Alexia Lujan RN. srm 18:37 [facility] Payment Agreement was scanned into [employer] and attached to record. gjb 18:41 Patient name changed from Marjorie\S\\S\Redmond\S\ to Marjorie\S\ \S\Redmond. EDMS 18:42 CT Head Without Contrast Returned. EDMS 18:42 Chest, 1 View Returned. EDMS 18:49 Patient visited by Alexia Lujan RN. srm 18:51 Patient visited by Faby Ward PCA. ar3 19:00 Amena Jack,AL is Primary Nurse. mv5 19:01 Primary Nurse role handed off by Amena Jack,AL mv5 19:02 Amena Jack,RN is Primary Nurse. mv5 19:15 Farhad Adams is Hospitalizing Provider. ml 19:18 Patient visited by Amena Jack,AL. mv5 19:35 Pt ambulated to the bathroom without assistance. Tolerated well. cln 19:36 Patient visited by Edwina Awad, HAYDEN. cln 21:22 Patient visited by Amena Jack,AL. mv5 21:33 Patient moved to Ultrasound dmg 21:58 Patient moved to 1 dmg 12/09 00:40 No procedures done that require assistance. mv5 Administered Medications: 12/08 19:14 Drug: Insulin Regular Human 9 units [insulin regular human 100 unit/mL injection mv5 solution (0.09 mL)] {Co-Signature: loree Huerta RN).} Route: IVP; Site: left forearm; 19:53 Follow up: Response: No Adverse Reaction mv5 Point of Care Testing: Blood Glucose: 18:20 Blood Glucose: 446 mg/dL; srm 20:17 Blood Glucose: 292 mg/dL; mv5 21:14 Blood Glucose: 265 mg/dL; mv5 22:45 Blood Glucose: 243 mg/dL; mv5 23:31 Blood Glucose: 276 mg/dL; mv5 Ranges: Order Results: Lab Order: Basic Metabolic Profile; [facility] 12/08/16 18:17 Test: GLUCOSE, FASTING; Value: 428; Range: 83-110; Abnormal: Above upper panic limits; Units: MG/DL; Status: F Test: BLOOD UREA NITROGEN; Value: 15; Range: 7-18; Units: MG/DL; Status: F Test: CREATININE FOR GFR; Value: 1.28; Range: 0.55-1.02; Abnormal: Above high normal; Units: MG/DL; Status: F Test: GLOMERULAR FILTRATION RATE; Value: 43.9; Range: >39; Status: F Test: SODIUM LEVEL; Value: 134; Range: 136-145; Abnormal: Below low normal; Units: MEQ/L; Status: F Test: POTASSIUM SERUM; Value: 3.9; Range: 3.5-5.1; Units: MEQ/L; Status: F Test: CHLORIDE LEVEL; Value: 99; Range: 98-107; Units: MEQ/L; Status: F Test: CARBON DIOXIDE LEVEL; Value: 24; Range: 21-32; Units: MEQ/L; Status: F Test: ANION GAP; Value: 11; Range: 8-16; Units: MEQ/L; Status: F Test: CALCIUM LEVEL; Value: 9.0; Range: 8.8-10.2; Units: MG/DL; Status: F Test Note: ; Units are mL/min/1.73 m2 Chronic Kidney Disease Staging per NKF: Stage I & II GFR >=60 Normal to Mildly Decreased Stage III GFR 30-59 Moderately Decreased Stage IV GFR 15-29 Severely Decreased Stage V GFR <15 Very Little GFR Left ESRD GFR <15 on RUBBER MIXER Lab Order: CBC with Diff; SPEC'M 12/08/16 18:17 Test: WHITE BLOOD COUNT; Value: 7.5; Range: 4.0-10.0; Units: K/mm3; Status: F Test: RED BLOOD COUNT; Value: 4.46; Range: 4.00-5.40; Units: M/mm3; Status: F Test: HEMOGLOBIN; Value: 9.3; Range: 12.0-16.0; Abnormal: Below low normal; Units: g/dl; Status: F Test: HEMATOCRIT; Value: 33.2; Range: 36.0-47.0; Abnormal: Below low normal; Units: %; Status: F Test: MEAN CORPUSCULAR VOLUME; Value: 74.4; Range: 80.0-96.0; Abnormal: Below low normal; Units: fl; Status: F Test: MEAN CORPUSCULAR HEMOGLOBIN; Value: 20.8; Range: 27.0-33.0; Abnormal: Below low normal; Units: pg; Status: F Test: MEAN CORPUSCULAR HGB CONC; Value: 27.9; Range: 32.0-36.5; Abnormal: Below low normal; Units: g/dl; Status: F Test: RED CELL DISTRIBUTION WIDTH; Value: 19.8; Range: 11.5-14.5; Abnormal: Above high normal; Units: %; Status: F Test: PLATELET COUNT, AUTOMATED; Value: 401; Range: 150-450; Units: k/mm3; Status: F Test: NEUTROPHILS %; Value: 74.1; Range: 36.0-66.0; Abnormal: Above high normal; Units: %; Status: F Test: LYMPH %; Value: 13.7; Range: 24.0-44.0; Abnormal: Below low normal; Units: %; Status: F Test: MONO %; Value: 5.6; Range: 0.0-5.0; Abnormal: Above high normal; Units: %; Status: F Test: EOS %; Value: 2.1; Range: 0.0-3.0; Units: %; Status: F Test: BASO %; Value: 0.3; Range: 0.0-1.0; Units: %; Status: F Test: LARGE UNSTAINED CELL %; Value: 4.1; Range: 0.0-4.0; Abnormal: Above high normal; Units: %; Status: F Test: NEUTROPHILS #; Value: 5.6; Range: 1.8-7.7; Units: K/mm3; Status: F Test: LYMPH #; Value: 1.0; Range: 1.5-4.5; Abnormal: Below low normal; Units: K/mm3; Status: F Test: MONO #; Value: 0.4; Range: 0.0-0.8; Units: K/mm3; Status: F Test: EOS #; Value: 0.2; Range: 0.0-0.50; Units: K/mm3; Status: F Test: BASO #; Value: 0.0; Range: 0.0-0.2; Units: K/mm3; Status: F Test: LARGE UNSTAINED CELL #; Value: 0.3; Range: 0.0-0.4; Units: K/mm3; Status: F Lab Order: Partial Thromboplastin Time; [facility] 12/08/16 18:17 Test: PARTIAL THROMBOPLASTIN TIME; Value: 32.4; Range: 26.6-37.1; Units: SECONDS; Status: F Lab Order: Prothrombin Time Profile\E\INR; [facility] 12/08/16 18:17 Test: PROTHROMBIN TIME; Value: 16.8; Range: 12.3-14.5; Abnormal: Above high normal; Units: SECONDS; Status: F Test: INR; Value: 1.35; Status: F Test Note: ; THERAPUTIC HUMAN INR VALUES INDICATIONS NORMAL RANGES PROPHYLAXIS/TREATMENT OF: VENOUS THROMBOSIS 2.0-3.0 PULMONARY EMBOLISM 2.0-3.0 PREVENTION OF SYSTEMIC EMBOLISM FROM: TISSUE HEART VALVES 2.0-3.0 ACUTE MYOCARDIAL INFARCTION 2.0-3.0 VALVULAR HEART DISEASE 2.0-3.0 ATRIAL FIBRILLATION 2.0-3.0 MECHANICAL VALVES(HIGH RISK) 2.5-3.5 RECURRENT MYOCARDIAL INFARCTION 2.5-3.5 Lab Order: Type & Screen; [facility] 12/08/16 18:17 Test: BLOOD TYPE; Value: ON; Status: F Test: AB SCREEN GEL MANUAL; Value: POSITIVE; Status: F Test: ANTIGEN IDENTIFICATION; Value: ...; Status: F Lab Order: Fingerstick Blood Sugar; [facility] 12/08/16 18:16 Test: BEDSIDE GLUCOSE; Value: 446; Range: 83-110; Abnormal: Above high normal; Units: MG/DL; Status: F Lab Order: RBC MORPH PROF NO CHARGE; 12/08/16 18:17 Test: PLATELET ESTIMATE; Range: NORMAL; Status: I Test: HYPOCHROMASIA; Value: 1+; Status: F Test: ANISOCYTOSIS; Value: 3+; Status: F Test: MICROCYTOSIS; Value: 2+; Status: F Test: PLATELET ESTIMATE; Value: NORMAL; Range: NORMAL; Status: F Lab Order: ANTIBODY IDENTIFICATION; 12/08/16 18:17 Test: ANTIBODY IDENTIFICATION; Value: Anti-E; Status: F Lab Order: Fingerstick Blood Sugar; [facility] 12/08/16 20:16 Test: BEDSIDE GLUCOSE; Value: 292; Range: 83-110; Abnormal: Above high normal; Units: MG/DL; Status: F Test Note: ; Doctor Notified Lab Order: Fingerstick Blood Sugar; 12/08/16 21:13 Test: BEDSIDE GLUCOSE; Value: 265; Range: 83-110; Abnormal: Above high normal; Units: MG/DL; Status: F Lab Order: Fingerstick Blood Sugar; [facility] 12/08/16 22:44 Test: BEDSIDE GLUCOSE; Value: 243; Range: 83-110; Abnormal: Above high normal; Units: MG/DL; Status: F Lab Order: Fingerstick Blood Sugar; [facility] 12/08/16 23:30 Test: BEDSIDE GLUCOSE; Value: 276; Range: 83-110; Abnormal: Above high normal; Units: MG/DL; Status: F Radiology Order: CT Head Without Contrast Test: CT Head Without Contrast REASON FOR EXAMINATION: CVA <4.5hrs; Clinical: Acute cerebrovascular accident.; ; Comparison: 05/17/2012.; ; Findings:; Atrophy and microvascular ischemic changes are appreciated including; encephalomalacia involving the right temporal-parietal lobe consistent with prior; infarction. No acute intracranial hemorrhage, mass or mass effect. No; extra-axial fluid collection. Calvarium is intact. Sinuses are clear.; ; Impression:; 1. Atrophy and microvascular ischemic changes with evidence for old right; infarction.; 2. No acute intracranial hemorrhage, infarction or trauma/injury.; ; ; Signed by; Hermelindo Bowie MD 12/08/2016 06:10 P; Radiology Order: Chest, 1 View Test: Chest, 1 View REASON FOR EXAMINATION: cva; Clinical: Cerebrovascular accident .; ; Comparison: 11/22/2016 .; ; Findings:; The mediastinum and cardiac silhouette are stable and within normal limits for; portable technique. The lung weaver are clear without acute consolidation,; effusion, or pneumothorax. Skeletal structures are intact.; ; Impression:; Normal portable chest x-ray; ; ; Signed by; Hermelindo Bowie MD 12/08/2016 06:19 P; Outcome: 19:15 Decision to Hospitalize by Provider. 12/09 00:40 Discharge Assessment: Patient awake and alert. Oriented to person, place and time. mv5 Patient verbalized understanding of disposition instructions. Patient Right arm weakness patient administered narcotics - no. The following High Risk Discharge criteria are identified: None. Admitted to PCU accompanied by nurse, accompanied by tech, via stretcher, on monitor, with chart. Condition: stable. CT Study completed. Admission hand-off: Report called to SB[facility] received by PCU community action workerjaneen fraser RN will reeive pt. Property :Personal belongings accompany Pt. 00:49 Patient left the ED. oct Signatures: Dispatcher [employer] EDMS Delicia Cook MD MD ml Sleeman, Kacey, RN RN kcs Michelson, Staci, RN RN srm Newman, AL Hester RN, Debra, RN RN dls Gunn, Deanne dmg Rabon, Alicia, PACK WORKER PACK WORKER ar3 Jose German gr2 Esha Multani Crystal, PACK WORKER PACK WORKER Amena Feldman RN RN 5 Viv ralph Corrections: (The following items were deleted from the chart) 12/08 18:47 17:43 Home Meds: Calcium + Vitamin D 600 mg calcium- 200 unit Oral tab 600 mg daily; [facility] 18:47 17:43 Home Meds: Claritin 10 mg Oral tab 1 tab once daily; dls srm 19:27 18:20 TYPE & SCREEN+BBK sent. srm EDMS MTDD
--- NOTE | 2016-12-09 00:50 | EDDOCDS ---
Physician Documentation [facility] Name: Marjorie Redmond Age: 71 yrs Sex: Female : 1945 Arrival Date: 12/08/2016 Time: 17:32 Bed 1 Private MD: Pepe Olivas D Disposition: 12/08 19:14 Critical Care:. ml Disposition: 12/08/16 19:15 Hospitalization ordered by Farhad Adams for Inpatient Admission. Preliminary diagnosis are Cerebral ischemia, Anemia in other chronic diseases classified elsewhere, Hyperglycemia, unspecified. - [facility]. - Status is Inpatient Admission. loree - Condition is Stable. - Problem is new. - Symptoms are unchanged. Historical: - Allergies: Tetracycline (Upset stomach); Tramadol HCl (Vomit); Tylenol-Codeine #3 (Vomit); Gemfibrozil (Rash); amiloride (nausea); Erythromycin (Upset stomach); Actos (wt gain); Januvia (nausea); Vicodin (confusion and nausea); SULFA (SULFONAMIDES) (abnormal kidney function); indapamide (Rash); Keflex (nausea); Amoxil (Rash); - Home Meds: 1. albuterol sulfate 2.5 mg /3 mL (0.083 %) Inhl nebu as needed 2. albuterol sulfate 90 mcg/actuation Inhl HFAA 3. amlodipine 10 mg Oral tab 1 tab once daily 4. bisoprolol fumarate 10 mg oral tab 1 tab once daily 5. Colace 100 mg oral cap 1 cap once daily 6. furosemide 40 mg Oral tab 40 mg in am. 20 mg in pm 7. Humalog 100 unit/mL Sub-Q soln twice a day 8. levothyroxine 175 mcg Oral tab 1 tab once daily 9. nystatin 100,000 unit/gram Topical crea 10. omeprazole 40 mg Oral cpDR 1 cap once daily 11. rosuvastatin 20 mg oral tab 1 tab once daily 12. Toujeo SoloStar 300 unit/mL (1.5 mL) subcutaneous inpn 150 unit 13. Vitamin C 500 mg Oral TbER 500 mg daily 14. Calcium + Vitamin D 600/400mg Oral tab 600 mg daily 15. Claritin 10 mg Oral tab 1 tab twice a day 16. Crestor 20 mg Oral tab 1 tab once daily 17. meclizine 25 mg Oral tab 3 times per day prn 18. Eliquis 5 mg oral tab 1 tab 2 times per day 19. Norvasc 10 mg Oral tab 1 tab once daily 20. potassium chloride 10 mEq Oral cpER 1 cap 2 times per day 21. Nitrostat 0.4 mg SL subl 22. Zebeta 10 mg oral tab twice a day - PMHx: Asthma; CHF; Diabetes - IDDM: controlled; Hypertension; Hypothyroidism; Hypercholesterolemia; Lyme Disease; stage 3 kidney disease; Stroke; Anemia; CAD; a fib; mitral and aortiv valve disorder; - PSHx: Hysterectomy; Cholecystectomy; Pacemaker Insertion; - Social history: Smoking status: Patient/guardian denies using No barriers to communication noted, The patient speaks fluent [place]. - Family history: Not pertinent. - : The pt / caregiver states he / she is on anticoagulants: Eliquis Home medication list is obtained from [employer] import data. - Exposure Risk Screening:: None identified. Vital Signs: 17:33 BP 156 / 69; Pulse 88; Resp 18 S; Temp 97.8(O); Pulse Ox 96% on R/A; Weight 100.24 kg / gr2 220.99 lbs (R); Height 5 ft. 2 in. (157.48 cm) (R); Pain 4/10; 18:21 Weight 93.9 kg / 207.01 lbs (M); srm 18:36 BP 155 / 69 (auto/); mv5 18:37 Pulse 79 MON; Pulse Ox 95% ; mv5 18:51 BP 175 / 72 (auto/); mv5 18:52 Pulse 86 MON; Pulse Ox 93% ; mv5 19:06 BP 144 / 63 (auto/); mv5 19:07 Pulse 78 MON; Pulse Ox 96% ; mv5 20:06 BP 217 / 133 (auto/); mv5 20:07 Pulse 80 MON; Pulse Ox 95% ; mv5 20:21 BP 228 / 98 (auto/); mv5 20:22 Pulse 78 MON; Pulse Ox 95% ; mv5 20:36 BP 215 / 93 (auto/); mv5 20:37 Pulse 78 MON; Pulse Ox 95% ; mv5 21:04 BP 136 / 62 (auto/); Pulse 79; Resp 18; Pulse Ox 95% on R/A; mv5 21:06 BP 149 / 66 (auto/); mv5 21:07 Pulse 78 MON; Pulse Ox 95% ; mv5 21:21 BP 148 / 67 (auto/); mv5 21:22 Pulse 78 MON; Pulse Ox 94% ; mv5 21:58 BP 143 / 84; Pulse 86; Resp 20; Temp 99.8(TE); Pulse Ox 96% ; mv5 21:58 BP 166 / 75 (auto/); mv5 21:59 Pulse 83 MON; Pulse Ox 94% ; mv5 22:13 BP 159 / 71 (auto/); mv5 22:14 Pulse 80 MON; Pulse Ox 93% ; mv5 22:28 BP 161 / 73 (auto/); mv5 22:29 Pulse 81 MON; Pulse Ox 92% ; mv5 23:13 BP 168 / 76 (auto/); mv5 23:14 Pulse 87 MON; Pulse Ox 93% ; mv5 02 00:40 BP 126 / 64; Pulse 93; Resp 18; Temp 99.1(T); Pulse Ox 93% on R/A; mv5 12/08 18:21 Body Mass Index 37.86 (93.90 kg, 157.48 cm) srm MDM: 12/08 17:54 ECG WITH READING ER PHYS+CARDIAG ordered. EDMS 17:56 Consult [facility]: Telemedicine Stroke Attending ordered. ml 17:56 RN interventions must not delay CT ordered. ml 17:56 Solar Energy Consultant And Designer/Pulse Ox/q 15 min VS ordered. ml 17:56 Accucheck ordered. ml 17:56 IV Saline Lock ordered. ml 17:56 Neuro VS q 15 Minutes ordered. ml 17:56 Patient must be on CC stretcher and weighed via bed scale ordered. ml 17:56 Rhythm Strip to chart ordered. ml 17:56 Stroke assessment pack to bedside ordered. ml 17:58 Chest, 1 View Ordered. EDMS 17:59 Basic Metabolic Profile Ordered. EDMS 17:59 CBC with Diff Ordered. EDMS 17:59 Partial Thromboplastin Time Ordered. EDMS 17:59 Prothrombin Time Profile\E\INR Ordered. EDMS 17:59 CT Head Without Contrast Ordered. EDMS 18:23 Fingerstick Blood Sugar Ordered. EDMS 18:27 Consult [facility]: Telemedicine Stroke Attending complete. srm 18:31 RBC MORPH PROF NO CHARGE Ordered. EDMS 18:37 [facility] Payment Agreement was scanned into [employer]) and attached to record. b 18:37 Financial registration complete. gjb 18:38 BED REQUEST+ADM ordered. EDMS 18:41 CBC with Diff Reviewed. ml 18:41 Prothrombin Time Profile\E\INR Reviewed. ml 18:41 Fingerstick Blood Sugar Reviewed. ml 18:41 Partial Thromboplastin Time Reviewed. ml 18:44 CT Head Without Contrast Reviewed. ml 18:44 Chest, 1 View Reviewed. ml 18:52 Insulin Regular Human 9 units IVP once ordered. ml 18:52 Accucheck hourly ordered. ml 20:23 ANTIBODY IDENTIFICATION Ordered. EDMS 20:34 Fingerstick Blood Sugar Ordered. EDMS 20:49 Duplex,carotid (complete) Ordered. EDMS 20:51 Admission / Observation Status ordered. EDMS 20:51 CONSISTENT CARBOHYDRATES ordered. EDMS 20:51 BASIC METABOLIC PROFILE Ordered. EDMS 20:51 MAGNESIUM LEVEL Ordered. EDMS 20:51 COMPLETE BLOOD COUNT Ordered. EDMS 21:21 Fingerstick Blood Sugar Ordered. EDMS Point of Care Testing: Blood Glucose: 18:20 Blood Glucose: 446 mg/dL; srm 20:17 Blood Glucose: 292 mg/dL; mv5 21:14 Blood Glucose: 265 mg/dL; mv5 22:45 Blood Glucose: 243 mg/dL; mv5 23:31 Blood Glucose: 276 mg/dL; mv5 Ranges: Administered Medications: 19:14 Drug: Insulin Regular Human 9 units [insulin regular human 100 unit/mL injection mv5 solution (0.09 mL)] {Co-Signature: loree (Viv Huerta RN).} Route: IVP; Site: left forearm; 19:53 Follow up: Response: No Adverse Reaction mv5 Critical Care Time: 19:14 Critical care time: Bedside Care: 90 minutes, Consultation: 10 minutes. Total time: 100 ml minutes Signatures: Dispatcher [employer] EDVA Delicia Cook MD MD ml Michelson, Staci, RN Viv Fuentes RN RN jan Scott, Debra, RN RN dls Mike Rubin, Ship Pilot Unit ml3 Esha Multani Megan RN mv5 Viv ralph The chart was reviewed and I authenticate all verbal orders and agree with the evaluation and treatment provided.Corrections: (The following items were deleted from the chart) 18:47 17:43 Home Meds: Calcium + Vitamin D 600 mg calcium- 200 unit Oral tab 600 mg daily; dlssrm 18:47 17:43 Home Meds: Claritin 10 mg Oral tab 1 tab once daily; dls srm 19:27 17:59 TYPE & SCREEN+BBK ordered. EDMS EDMS Attachments: 18:37 [facility] [place] thanh MTDD
[2016-12-09] MEDS: DOCUSATE SODIUM 100 MG CAP PO SCH ×2 (01:21→21:31)
[2016-12-09] MEDS: HumaLOG INSULIN (NovoLOG) PER UNIT SC SCH ×5 (01:21→21:29)
[2016-12-09] MEDS: OMEPRAZOLE 20 MG CAP PO SCH ×2 (01:22→21:31)
[2016-12-09] MEDS: LEVOTHYROXINE 0.15 MG TAB (150 MCG) PO SCH (05:56)
[2016-12-09] MEDS: LEVOTHYROXINE 0.025 MG TAB (25 MCG) PO SCH (05:56)
[2016-12-09 06:04] LABS: MEAN CORPUSCULAR HEMOGLOBIN 20.8 pg (27.0-33.0); MEAN CORPUSCULAR HGB CONC 28.3 g/dl (32.0-36.5); MEAN CORPUSCULAR VOLUME 73.5 fl (80.0-96.0); RED CELL DISTRIBUTION WIDTH 20.5 % (11.5-14.5); WHITE BLOOD COUNT 7.8 K/mm3 (4.0-10.0)
[2016-12-09 06:18] LABS: CALCIUM LEVEL 8.7 MG/DL (8.8-10.2); CREATININE FOR GFR 1.02 MG/DL (0.55-1.02); POTASSIUM SERUM 3.4 MEQ/L (3.5-5.1)
--- NOTE | 2016-12-09 08:06 | ECGEPIP ---
Stationary ECG Study [facility] - ED Test Date: 2016-12-08 Pat Name: DONALDO JAUREGUI Department: Room: - Gender: F Gas Singer: jazlyn : 1945 Requested By: Delicia Cook Order Number: [id number] Reading MD: Cassi Bass Measurements Intervals [place] Rate: 82 P: 47 MT: 159 QRS: 113 QRSD: 171 T: 131 QT: 433 QTc: 506 Interpretive Statements ELECTRONIC ATRIAL PACEMAKER ELECTRONIC VENTRICULAR PACEMAKER SIMILAR 01/22/16 Electronically Signed On 12-09-2016 8:06:36 EST by Cassi Bass
--- NOTE | 2016-12-09 08:44 | REP ---
CAROTID DUPLEX ULTRASOUND: 12/08/2016. Comparison: 05/18/2012. Clinical history: CVA. Weakness. Findings: Right common carotid artery shows some intimal thickening. There is some mixed plaque at the bulb, proximal ICA and ECA in small amounts. The left common carotid artery shows some intimal thickening. There is moderate to severe plaque at the bulb and proximal ICA. Some plaque also in the proximal ECA with mixed soft and calcific components. RIGHT LEFT CCA Systolic 1.07 m/s 0.98 m/s ICA Systolic 0.91 m/s 1.97 m/s ICA Diastolic 0.13 m/s 0.31 m/s ECA Systolic 1.51 m/s 1.64 m/s ICA/CCA Ratio 0.85 2.0 Normal direction bilateral flow seen in both vertebral arteries. The Doppler waveform analysis shows spectral broadening and filling in of the systolic window in the proximal left ICA. Less spectral broadening mid and distal ICA on that left side. On the right side, the Doppler tracings show less spectral broadening without significant filling in of the systolic window. Impression: 1. Left-sided severe carotid stenosis, 50 - 69% narrowing. This is hemodynamically significant but not critical. Fairly extensive mixed plaque at the bulb, proximal ICA and ECA. Less plaque and stenosis in the mid to distal left ICA. 2. Less than 50% stenosis of the right ICA. 3. Bilateral cranial direction of flow of the vertebral arteries. Signed by Rodrigo Shen MD 12/09/2016 08:59 A
[2016-12-09] MEDS: NYSTATIN 100,000 UNITS/GM TOPICAL PWD 15 GM TOP SCH ×2 (09:00→21:31)
[2016-12-09] MEDS ORDERED: ATORVASTATIN 20 MG TAB PO SCH (09:00)
[2016-12-09] MEDS ORDERED: LEVEMIR (INSULIN DETEMIR) 1 UNITS/0.01ML SC SCH ×3 (09:00)
[2016-12-09] MEDS: TOUJEO SQ SCH (09:00)
[2016-12-09] MEDS: diphenhydrAMINE 25 MG CAP PO SCH (09:02)
[2016-12-09] MEDS: FUROSEMIDE 40 MG TAB PO SCH (09:03)
[2016-12-09] MEDS: APIXABAN 5 MG TAB (ELIQUIS) PO SCH ×2 (09:03→21:31)
[2016-12-09] MEDS ORDERED: ISOVUE-370 76% 100ML VIAL (Q9967) As Ordered ONE (10:58)
[2016-12-09] MEDS ORDERED: POTASSIUM CHLORIDE 10 MEQ SR TABLET PO ONE (11:00)
--- NOTE | 2016-12-09 11:13 | IPNPDOC ---
Subjective General Date Seen The patient was seen on 12/09/16. Subjective Chief Complaint/HPI The patient is a 71-year-old female admitted with a reason for visit of Stroke- Like Symptoms. Events since last encounter Seen this morning at the bedside in PCU. She reports her RUE weakness and incoordination is slightly improved since admission but that it is still persistent. No other sx. General: Reports: Normal Appetite, Denies: Chills, Fatigue, Malaise, Night Sweats Eyes: Denies: Pain, Vision change ENT: Denies: Dysphagia, Ear Pain, Head Aches Skin: Denies: Breakdown, Lesions, Rash Pulmonary: Denies: Cough, Dyspnea Cardiovascular: Denies: Chest Pain, Lt Headedness, Orthopnea, Palpitations, Paroxysmal Noc. Dyspnea Neurological: Reports: Incoordination, Weakness (rue), Denies: Change in speech, Confusion (rue), Numbness Psych: Reports: Mood Normal, Denies: Depression, Memory Issues Objective Physical Examination General Exam: Positive: Alert, Cooperative, No Acute Distress Eye Exam: Positive: Conjunctiva & lids normal, EOMI, PERRLA ENT Exam: Positive: Atraumatic, Mucous membr. moist/pink Chest Exam: Positive: Clear to auscultation, Normal air movement Heart Exam: Positive: Normal S1, Normal S2, Rate Normal Abdomen Exam: Positive: Soft, Negative: Tenderness Extremity Exam: Positive: Swelling (2+ pitting edema from his bilaterally), Negative: Tenderness Neuro Exam: Positive: Cranial Nerves 3-12 NL, Normal Gait, Normal Speech, Normal Tone, Reflexes 2+, Sensation Intact (mild decrease in sensation to palpation of the right upper extremity.), Strength at 5/5 X4 ext (slightly decreased RUE strength with elbow extension and flexion compared to LUE. Hand purchasing and fiscal clerk symmetric) Assessment /Plan Problems Problems: (1) Stroke-like symptoms Status: Acute Problem Text: Symptoms slowly improving. Initial head CT neg. Carotid u/s c Left-sided severe carotid stenosis, 50 - 69% narrowing. She's anticoagulated c eliquis already. CT angio scheduled for today, not a candidate for MRI 2/2 pacemaker. Echo today. She's established c Chen/Antecol-- will likely involve them tomorrow for further recs regarding CEA candidacy. PT ordered. Crestor 20 is home statin regimen, will increase to 40. (2) Diabetes mellitus type 2 in obese Status: Chronic Problem Text: Shes on 150U Toujeo at home, non-formulary. Switched to levemir ( 100) and SSI for hypoglycemia on admission. FSBG have been elevated since, so will increase to 60U bid. CHO consistent diet. (3) Iron deficiency anemia Status: Chronic Response to Treatment: Worse Problem Text: Worsening over the past year or so. Possibly GI source. She's scheduled for upper/lower endoscopies on 12/16, will touch base c Dr. Ren regarding postponing until after CEA. Oral FeSO4 causes constipation, per pt. We 'll give venofer x 2 and monitor. (4) Hypokalemia Status: Acute Problem Text: Related to diuretic therapy. Repleted orally. Mg WNL. Recheck tomorrow. (5) Hypertension Status: Chronic Problem Text: Home meds on hold for permissive hypertension in the setting of stroke-like sx (6) Sinus node dysfunction Status: Chronic Problem Text: Pacemaker in place. Plan/VTE VTE Prophylaxis Ordered?: Yes Plan Therapy: PT VS, I&O, 24H, Fishbone Vital Signs/I&O Vital Signs Date Time Temp Pulse Resp B/P Pulse Ox O2 Delivery O2 Flow Rate FiO2 12/09/16 08:00 97.8 83 18 152/71 94 Room Air I&O- Last 24 Hours up to 6 AM 12/09/16 06:00 Intake Total 180 ml Output Total 175 ml Balance 5 ml Laboratory Data 24H LABS Laboratory Tests 2 12/08/16 18:16: Bedside Glucose (Misc Panel) 446H 12/08/16 18:17: Activated Partial Thromboplast Time 32.4, Anion Gap 11, Anisocytosis 3+, White Blood Count 7.5, Red Blood Count 4.46, Hemoglobin 9.3L, Hematocrit 33.2L, Mean Corpuscular Volume 74.4L, Mean Corpuscular Hemoglobin 20.8L, Mean Corpuscular Hemoglobin Concent 27.9L, Red Cell Distribution Width 19.8H, Platelet Count 401 , Neutrophils (%) (Auto) 74.1H, Lymphocytes (%) (Auto) 13.7L, Monocytes (%) ( Auto) 5.6H, Eosinophils (%) (Auto) 2.1, Basophils (%) (Auto) 0.3, Neutrophils # (Auto) 5.6, Lymphocytes # (Auto) 1.0L, Monocytes # (Auto) 0.4, Eosinophils # ( Auto) 0.2, Basophils # (Auto) 0.0, Blood Urea Nitrogen 15, Creatinine 1.28H, Sodium Level 134L, Potassium Level 3.9, Chloride Level 99, Carbon Dioxide Level 24, Calcium Level 9.0, Glomerular Filtration Rate 43.9, Hypochromasia 1+, Large Unclassified Cells # 0.3, Large Unclassified Cells % 4.1H, Microcytosis 2+, Platelet Estimate NORMAL, Prothromb Time International Ratio 1.35, Prothrombin Time 16.8H 12/08/16 20:16: Bedside Glucose (Misc Panel) 292H 12/08/16 21:13: Bedside Glucose (Misc Panel) 265H 12/08/16 22:44: Bedside Glucose (Misc Panel) 243H 12/08/16 23:30: Bedside Glucose (Misc Panel) 276H 12/09/16 05:44: Anion Gap 9, Blood Urea Nitrogen 14, Creatinine 1.02, Sodium Level 139, Potassium Level 3.4L, Chloride Level 103, Carbon Dioxide Level 27, Calcium Level 8.7L, Glomerular Filtration Rate 57.0, Magnesium Level 2.0 CBC/BMP Laboratory Tests 12/08/16 18:17 Calcium Level 9.0, Red Blood Count 4.46, Mean Corpuscular Volume 74.4 L, Mean Corpuscular Hemoglobin 20.8 L, Mean Corpuscular Hemoglobin Concent 27.9 L, Red Cell Distribution Width 19.8 H, Neutrophils (%) (Auto) 74.1 H, Lymphocytes (%) ( Auto) 13.7 L, Monocytes (%) (Auto) 5.6 H, Eosinophils (%) (Auto) 2.1, Basophils (%) (Auto) 0.3, Neutrophils # (Auto) 5.6, Lymphocytes # (Auto) 1.0 L, Monocytes # (Auto) 0.4, Eosinophils # (Auto) 0.2, Basophils # (Auto) 0.0 12/09/16 05:44 Calcium Level 8.7 L, Red Blood Count 4.05, Mean Corpuscular Volume 73.5 L, Mean Corpuscular Hemoglobin 20.8 L, Mean Corpuscular Hemoglobin Concent 28.3 L, Red Cell Distribution Width 20.5 H STANISLAW WESLEY DO Dec 09, 2016 11:13
--- NOTE | 2016-12-09 12:23 | REP ---
CT ANGIO HEAD: HISTORY: Infarction. CONTRAST: Isovue 370, 75 mL. There is no aneurysm or arteriovenous malformation. Calcified atherosclerotic plaques are present in the cavernous internal carotid arteries and distal left vertebral artery. There is no significant stenosis. Very distal branches of the right middle cerebral artery are not seen. This is secondary to a previous right temporoparietal lobe infarction. Major intracranial vessels are patent. The vertebral arteries are equal in size. IMPRESSION: 1. There is no aneurysm or arteriovenous malformation. 2. Atherosclerotic disease as described above. Signed by Diego Brito MD 12/09/2016 12:24 P
[2016-12-09] MEDS: FUROSEMIDE 20 MG TAB PO SCH (17:20)
[2016-12-10 03:14] VITALS: BP 146/63
[2016-12-10 05:46] LABS: CALCIUM LEVEL 8.9 MG/DL (8.8-10.2); CREATININE FOR GFR 0.99 MG/DL (0.55-1.02); POTASSIUM SERUM 3.1 MEQ/L (3.5-5.1)
[2016-12-10 05:50] LABS: MEAN CORPUSCULAR HEMOGLOBIN 20.9 pg (27.0-33.0); MEAN CORPUSCULAR HGB CONC 28.6 g/dl (32.0-36.5); RED CELL DISTRIBUTION WIDTH 20.5 % (11.5-14.5); WHITE BLOOD COUNT 8.3 K/mm3 (4.0-10.0)
[2016-12-10] MEDS: LEVOTHYROXINE 0.025 MG TAB (25 MCG) PO SCH (06:22)
[2016-12-10] MEDS: LEVOTHYROXINE 0.15 MG TAB (150 MCG) PO SCH (06:22)
[2016-12-10] MEDS: HumaLOG INSULIN (NovoLOG) PER UNIT SC SCH ×4 (07:30→21:00)
[2016-12-10] MEDS: LEVEMIR (INSULIN DETEMIR) 1 UNITS/0.01ML SC SCH ×2 (07:50→21:34)
[2016-12-10] MEDS: TOUJEO SQ SCH (07:50)
[2016-12-10 08:00] VITALS: BP 144/71
[2016-12-10 08:13] LABS: CONTROL LINE HPYORI INT CTR LINE PRESENT
[2016-12-10] MEDS: FUROSEMIDE 40 MG TAB PO SCH (08:39)
[2016-12-10] MEDS: APIXABAN 5 MG TAB (ELIQUIS) PO SCH ×2 (08:39→20:38)
[2016-12-10] MEDS: diphenhydrAMINE 25 MG CAP PO SCH (08:39)
[2016-12-10] MEDS: NYSTATIN 100,000 UNITS/GM TOPICAL PWD 15 GM TOP SCH ×2 (08:40→20:39)
[2016-12-10] MEDS ORDERED: IRON SUCROSE 75 MG in NS 100 ML IV SCH ×2 (09:00→17:00)
[2016-12-10] MEDS ORDERED: IRON SUCROSE 25 MG in NS 50 ML IV SCH ×2 (09:00→16:00)
[2016-12-10] MEDS ORDERED: IRON SUCROSE 100 MG/5 ML INJ (J1756) IV SCH (09:00)
--- NOTE | 2016-12-10 09:34 | IPNPDOC ---
Subjective General Date Seen The patient was seen on 12/10/16. Subjective Chief Complaint/HPI The patient is a 71-year-old female admitted with a reason for visit of Stroke- Like Symptoms. Events since last encounter Seen and evaluated this morning in the PCU. She's reporting continued improvement in her RUE weakness. Glucose this AM was 70 but recovered to 110s subsequently, w/o intervention. She's currently NPO for UGI today and hasn't eaten since 2300. As such AM levemir was held. General: Reports: Normal Appetite, Denies: Chills, Fatigue, Malaise, Night Sweats Constitutional: Denies: Chills, Fever, Night Sweats Eyes: Denies: Pain, Vision change Skin: Denies: Breakdown, Lesions, Rash Pulmonary: Denies: Cough, Dyspnea Cardiovascular: Denies: Chest Pain, Lt Headedness, Orthopnea, Palpitations, Paroxysmal Noc. Dyspnea Gastrointestinal: Reports: Nausea, Denies: Abdominal Pain, Constipation, Diarrhea, Vomiting Neurological: Reports: Weakness (RUE- improved since admission), Denies: Change in speech, Confusion, Numbness Psych: Reports: Mood Normal, Denies: Depression, Memory Issues Objective Physical Examination General Exam: Positive: Alert, Cooperative, No Acute Distress Eye Exam: Positive: Conjunctiva & lids normal, EOMI, PERRLA ENT Exam: Positive: Atraumatic, Mucous membr. moist/pink Chest Exam: Positive: Clear to auscultation, Normal air movement Heart Exam: Positive: Normal S1, Normal S2, Rate Normal Abdomen Exam: Positive: Soft, Negative: Tenderness Extremity Exam: Positive: Swelling (2+ pitting edema from his bilaterally), Negative: Tenderness Neuro Exam: Positive: Cranial Nerves 3-12 NL, Normal Gait, Normal Speech, Normal Tone, Reflexes 2+, Sensation Intact (mild decrease in sensation to palpation of the right upper extremity.), Strength at 5/5 X4 ext ( Hand manager mobility symmetric) Assessment /Plan Problems Problems: (1) Stroke-like symptoms Status: Acute Problem Text: Symptoms slowly improving. Initial head CT neg. Carotid u/s c Left-sided severe carotid stenosis, 50 - 69% narrowing. She's anticoagulated c eliquis already. CT angio scheduled for today, not a candidate for MRI 2/2 pacemaker. Echo report pending. CT angio of neck for further objective data on carotid stenosis; will likely need referral to vascular sx for CEA upon dc. PT ordered. Crestor 20 is home statin regimen, has been increased to 40 upon admission. (2) Diabetes mellitus type 2 in obese Status: Chronic Problem Text: Shes on 150U Toujeo at home, non-formulary. Switched to levemir 60 BID. She did have a low glucose on BMP this AM, so her AM dose of levemir was held. She's been NPO since 0000 for upper GI eval today. We'll monitor FSBG q1hr until study is performed today. She's euvolemic on exam and making good urine output, so will hold off on initiation of D5NS for now. Reinstitute levemir once diet is resumed. (3) Iron deficiency anemia Status: Chronic Response to Treatment: Worse Problem Text: Worsening over the past year or so. Possibly GI source. She's scheduled for upper/lower endoscopies on 12/16. In light of recent presumed stroke, this will likely be postponed. Her h/h continues to slowly deteriorate, so we'll evaluate for possible upper GI bleed c upper GI series today. Oral FeSO4 causes constipation, per pt. We'll give venofer x 2 and monitor h/h. (4) Hypokalemia Status: Acute Problem Text: Related to diuretic therapy. Repleted orally. Mg WNL. Recheck tomorrow. (5) Hypertension Status: Chronic Response to Treatment: Stable Problem Text: Home meds on hold for permissive hypertension in the setting of stroke-like sx. BPs have been acceptable. (6) Sinus node dysfunction Status: Chronic Problem Text: Pacemaker in place. Plan/VTE VTE Prophylaxis Ordered?: Yes Plan Therapy: PT Family Medicine Attending Note: Patient seen and examined this afternoon; I discussed her care this morning with Stanislaw Wesley DO and I agree with his note above. Patient reports that right hand weakness and dexterity has significantly improved over the course of the day; manager mobility strength is 4+/5 and fine motor movements are improved. Echocardiogram was unchanged from prior. CTA of neck shows mild stenosis of 10% of R ICA and 15% in L ICA, so it is unlikely that vascular intervention will be needed. In terms of her anemia, H/ H is stable today and she continues to receive venofer. Recommend outpatient panendoscopy, though this may need to be delayed with recent presumed CVA. K+ was low today and was repleted. (KES) VS, I&O, 24H, Fishbone Vital Signs/I&O Vital Signs Date Time Temp Pulse Resp B/P Pulse Ox O2 Delivery O2 Flow Rate FiO2 12/10/16 08:00 97.5 103 18 144/71 93 Room Air I&O- Last 24 Hours up to 6 AM 12/10/16 06:00 Intake Total 1440 ml Output Total 1050 ml Balance 390 ml Laboratory Data 24H LABS Laboratory Tests 2 12/09/16 11:38: Bedside Glucose (Misc Panel) 276H 12/09/16 16:31: Bedside Glucose (Misc Panel) 113H 12/10/16 04:55: Anion Gap 9, Blood Urea Nitrogen 15, Creatinine 0.99, Sodium Level 141, Potassium Level 3.1L, Chloride Level 103, Carbon Dioxide Level 29, Calcium Level 8.9, Glomerular Filtration Rate 59.0 CBC/BMP Laboratory Tests 12/10/16 04:55 Calcium Level 8.9, Red Blood Count 4.34, Mean Corpuscular Volume 73.0 L, Mean Corpuscular Hemoglobin 20.9 L, Mean Corpuscular Hemoglobin Concent 28.6 L, Red Cell Distribution Width 20.5 H STANISLAW WESLEY, Dec 10, 2016 09:34 STEPH ESCALANTE MD Dec 10, 2016 15:52
[2016-12-10] MEDS ORDERED: E-Z-GAS II EFFERVESCENT PACKET (SODIUM BICARB./CITRIC ACID/SIMETHICONE) As Ordered ONE (10:01)
[2016-12-10] MEDS ORDERED: E-Z-PAQUE 96% w/w SUSP 176GM BTL As Ordered ONE (10:01)
[2016-12-10] MEDS ORDERED: E-Z-HD 98% w/w 340GM SUSP BTL As Ordered ONE (10:01)
--- NOTE | 2016-12-10 10:11 | ECHO ---
DATE OF PROCEDURE: 12/09/2016 AGE: 71 GENDER: Female HEIGHT: 62 inches WEIGHT: 220 pounds BODY SURFACE AREA: 1.99 meters squared INPATIENT PCU: Room 3226 REFERRING PHYSICIAN: Licha Norris, Nurse Practitioner INDICATIONS: TIA MEASUREMENTS: 2-D measurements: RV - 3.8 cm LV -3.7 cm Septum 1.3 cm Posterior wall 1.3 cm Aortic root 2.9 cm LA - 4.0 cm LVEF 65% Doppler measurements: AV - 1.4 meters per second LVOT - 0.94 meters per second LVOT diameter 1.8 cm MV - E 81, A 92, EA ratio 0.9 Early mitral deceleration time 137 milliseconds E prime 3.7, A prime 7, E/E prime ratio 21.9 PV - 1.1 meters per second Pulmonary artery acceleration time 95 milliseconds RVSP 36 mmHg IVC - 1.6 cm COMMENTS: Consistent, AV sequentially paced rhythm with LVBD QRS configuration. Somewhat technically challenging in light of the patient's body habitus but diagnostically useful information was still obtained. Mildly dilated left atrium but normal left ventricular size. Right heart chamber sizes were upper limits of normal. LV wall thickness was mildly increased symmetrically. On real-time imaging from the parasternal and apical projections wall motion was symmetrical and hyperkinetic. Despite right ventricular pacing. There was no septal wall motion abnormality. Mitral annular calcification with slightly thickened leaflet edges but adequate leaflet excursion and no posterior systolic buckling. Three equal size aortic cusps with mildly thickened cusp edges. Normal aortic root size. Pacing leads could be visualized traversing right heart structures but no other apparent intracardiac mass. No pericardial effusion. Color flow Doppler study taken from the parasternal and apical projection showed trace to very mild aortic, very mild mitral and mild tricuspid insufficiency. Guided continuous wave Doppler of her aortic valve showed a normal peak systolic velocity against LV outflow tract obstruction. Pulsed and continuous wave Doppler of her LV inflow tract taken from the apical four-chamber projection showed normal diastolic filling velocities against mitral stenosis. There was more prominent late diastolic / atrial dependent filling pattern consistent with a degree of impaired LV diastolic function. Her current estimated mean left atrial pressure was at least mildly elevated at 21.9 mmHg. Pulsed and continuous wave Doppler of her pulmonary trunk showed a normal peak systolic velocity against RV outflow tract obstruction. Her pulmonary artery acceleration time was abbreviated consistent with an elevated pulmonary vascular resistance. Guided continuous wave Doppler of her tricuspid valve allowed our estimation of her right ventricular systolic pressure (mildly increased). Her inferior vena cava was of normal size with normal respiratory collapse against right heart failure. Unable to clearly detect an intracardiac source of embolic material. Aortic valvular sclerosis without stenosis and only very mild insufficiency. Mild degenerative changes of her mitral valvular apparatus without inflow tract obstruction and only very mild insufficiency. Mild concentric left ventricle hypertrophy with hyperkinetic wall motion. Mildly dilated left atrium with Doppler evidence of an impairment of LV diastolic function and at least mildly elevated mean left atrial pressure. Normal right heart chamber sizes with Doppler evidence of at least mild pulmonary retention. Normal IVC size and collapse against an elevated central venous pressure. Comparing the above test findings with those of January 20, 2016 and November 24, 2016. There was no significant change.
[2016-12-10] MEDS ORDERED: POTASSIUM CHLORIDE 10 MEQ SR TABLET PO ONE (11:00)
[2016-12-10] MEDS ORDERED: ISOVUE-370 76% 100ML VIAL (Q9967) As Ordered ONE (13:00)
[2016-12-10 14:00] VITALS: BP 136/74
--- NOTE | 2016-12-10 15:23 | REP ---
CT ANGIO NECK: HISTORY: Carotid stenosis. CONTRAST: Isovue 370, 75 mL. Calcified atherosclerotic plaque is present at the origins of the right external and internal carotid arteries. There is mild stenosis of 10% of the right internal carotid artery at its origin. The origin of the right external carotid artery is normal. Calcified atherosclerotic plaque is present at the origins of the left external and internal carotid arteries. There is mild stenosis of 15% of the left internal carotid artery at its origin. There is mild stenosis of 10% of the left external carotid artery at its origin. Calcified atherosclerotic plaques are present in the cavernous and supraclinoid internal carotid arteries. The plaques produce at least mild stenosis. A calcified atherosclerotic plaque is present in the distal left vertebral artery at the C1-2 level. This produces at least mild stenosis. Calcified atherosclerotic plaques are present at the origins of the subclavian and left common carotid arteries. There is no significant stenosis. IMPRESSION: 1. Mild stenosis of 10% of the right internal carotid artery at its origin. 2. Mild stenosis of 15% of the left internal carotid artery at its origin. Signed by Diego Brito MD 12/10/2016 03:49 P
[2016-12-10 16:00] VITALS: BP 128/79
--- NOTE | 2016-12-10 16:57 | REP ---
UPPER GI AIR CONTRAST AND SMALL BOWEL FOLLOW-THROUGH: The procedure was performed under the direct supervision of Dr. Taylor. The images were reviewed with Dr. Taylor. The rasper machine operator film shows no organomegaly or pathological masses. The intestinal gas pattern is nonspecific. There are surgical clips noted in the right upper quadrant. Liquid barium and gas producing granules were given in the erect position as well as liquid barium in the prone oblique position in order to perform a double contrast upper GI examination. Additionally liquid barium was given at the end of the examination in order to perform a small bowel follow-through. The oral and pharyngeal stages of deglutition are unremarkable. During esophageal transport there are tertiary waves demonstrated. There is no esophagitis, stricture, mucosal ring, or hiatal hernia. Gastroesophageal reflux is not demonstrated on this examination. The stomach palmer are normally outlined. The rugal fold are smooth and regular. There is no gastritis, neoplasm or ulcer disease. The duodenal palmer are normally outlined. The mucosal folds are smooth and regular. There is no duodenitis, pancreatitis, peptic ulcer disease, or neoplasm. The visualized portion of the proximal small bowel appears normal in course and caliber. The barium column was followed through the small bowel to the level of the terminal ileum. Small bowel transit time was approximately 1 hour and 35 minutes. During fluoroscopy gentle palpation shows all loops are freely movable and pliable. There are no fixed or angulated loops. The small bowel mucosal pattern is normal in course and caliber. There is no transition to suggest a partial small bowel obstruction. Spot filming of terminal ileum shows it to be unremarkable. IMPRESSION: There are tertiary waves demonstrated. Otherwise unremarkable double contrast upper GI and small bowel follow through examination. 3 minutes and 13 seconds of fluoroscopy time was utilized for this procedure. Reviewed by LON Santillan 12/11/2016 04:35 PEdited and Signed by Constantino Taylor MD 12/12/2016 06:23 P
[2016-12-10] MEDS: FUROSEMIDE 20 MG TAB PO SCH (17:03)
[2016-12-10 20:00] VITALS: BP 153/69
[2016-12-10] MEDS: DOCUSATE SODIUM 100 MG CAP PO SCH (20:37)
[2016-12-10] MEDS: OMEPRAZOLE 20 MG CAP PO SCH (20:38)
[2016-12-10] MEDS ORDERED: ROSUVASTATIN 10 MG TAB (CRESTOR) PO SCH (21:00)
[2016-12-10] MEDS ORDERED: POTASSIUM CHLORIDE 10 MEQ SR TABLET PO SCH (21:00)
[2016-12-10 23:59] VITALS: BP 171/73
[2016-12-11] VITALS (7 sets, daily range): BP systolic 126–160; BP diastolic 48–71
--- NOTE | 2016-12-11 01:50 | EDDOCDS ---
Physician Documentation [facility] Name: Marjorie Redmond Age: 71 yrs Sex: Female : 1945 Arrival Date: 12/08/2016 Time: 17:32 Bed 1 Private MD: Pepe Olivas D Disposition: 12/08 19:14 Critical Care:. ml Disposition: 12/08/16 19:15 Hospitalization ordered by Farhad Adams for Inpatient Admission. Preliminary diagnosis are Cerebral ischemia, Anemia in other chronic diseases classified elsewhere, Hyperglycemia, unspecified. - [facility] - Status is Inpatient Admission. loree - Condition is Stable. - Problem is new. - Symptoms are unchanged. Historical: - Allergies: Tetracycline (Upset stomach); Tramadol HCl (Vomit); Tylenol-Codeine #3 (Vomit); Gemfibrozil (Rash); amiloride (nausea); Erythromycin (Upset stomach); Actos (wt gain); Januvia (nausea); Vicodin (confusion and nausea); SULFA (SULFONAMIDES) (abnormal kidney function); indapamide (Rash); Keflex (nausea); Amoxil (Rash); - Home Meds: 1. albuterol sulfate 2.5 mg /3 mL (0.083 %) Inhl nebu as needed 2. albuterol sulfate 90 mcg/actuation Inhl HFAA 3. amlodipine 10 mg Oral tab 1 tab once daily 4. bisoprolol fumarate 10 mg oral tab 1 tab once daily 5. Colace 100 mg oral cap 1 cap once daily 6. furosemide 40 mg Oral tab 40 mg in am. 20 mg in pm 7. Humalog 100 unit/mL Sub-Q soln twice a day 8. levothyroxine 175 mcg Oral tab 1 tab once daily 9. nystatin 100,000 unit/gram Topical crea 10. omeprazole 40 mg Oral cpDR 1 cap once daily 11. rosuvastatin 20 mg oral tab 1 tab once daily 12. Toujeo SoloStar 300 unit/mL (1.5 mL) subcutaneous inpn 150 unit 13. Vitamin C 500 mg Oral TbER 500 mg daily 14. Calcium + Vitamin D 600/400mg Oral tab 600 mg daily 15. Claritin 10 mg Oral tab 1 tab twice a day 16. Crestor 20 mg Oral tab 1 tab once daily 17. meclizine 25 mg Oral tab 3 times per day prn 18. Eliquis 5 mg oral tab 1 tab 2 times per day 19. Norvasc 10 mg Oral tab 1 tab once daily 20. potassium chloride 10 mEq Oral cpER 1 cap 2 times per day 21. Nitrostat 0.4 mg SL subl 22. Zebeta 10 mg oral tab twice a day - PMHx: Asthma; CHF; Diabetes - IDDM: controlled; Hypertension; Hypothyroidism; Hypercholesterolemia; Lyme Disease; stage 3 kidney disease; Stroke; Anemia; CAD; a fib; mitral and aortiv valve disorder; - PSHx: Hysterectomy; Cholecystectomy; Pacemaker Insertion; - Social history: Smoking status: Patient/guardian denies using No barriers to communication noted, The patient speaks fluent Botswanan. - Family history: Not pertinent. - : The pt / caregiver states he / she is on anticoagulants: Eliquis Home medication list is obtained from [employer] import data. - Exposure Risk Screening:: None identified. Vital Signs: 17:33 BP 156 / 69; Pulse 88; Resp 18 S; Temp 97.8(O); Pulse Ox 96% on R/A; Weight 100.24 kg / gr2 220.99 lbs (R); Height 5 ft. 2 in. (157.48 cm) (R); Pain 4/10; 18:21 Weight 93.9 kg / 207.01 lbs (M); srm 18:36 BP 155 / 69 (auto/); mv5 18:37 Pulse 79 MON; Pulse Ox 95% ; mv5 18:51 BP 175 / 72 (auto/); mv5 18:52 Pulse 86 MON; Pulse Ox 93% ; mv5 19:06 BP 144 / 63 (auto/); mv5 19:07 Pulse 78 MON; Pulse Ox 96% ; mv5 20:06 BP 217 / 133 (auto/); mv5 20:07 Pulse 80 MON; Pulse Ox 95% ; mv5 20:21 BP 228 / 98 (auto/); mv5 20:22 Pulse 78 MON; Pulse Ox 95% ; mv5 20:36 BP 215 / 93 (auto/); mv5 20:37 Pulse 78 MON; Pulse Ox 95% ; mv5 21:04 BP 136 / 62 (auto/); Pulse 79; Resp 18; Pulse Ox 95% on R/A; mv5 21:06 BP 149 / 66 (auto/); mv5 21:07 Pulse 78 MON; Pulse Ox 95% ; mv5 21:21 BP 148 / 67 (auto/); mv5 21:22 Pulse 78 MON; Pulse Ox 94% ; mv5 21:58 BP 143 / 84; Pulse 86; Resp 20; Temp 99.8(TE); Pulse Ox 96% ; mv5 21:58 BP 166 / 75 (auto/); mv5 21:59 Pulse 83 MON; Pulse Ox 94% ; mv5 22:13 BP 159 / 71 (auto/); mv5 22:14 Pulse 80 MON; Pulse Ox 93% ; mv5 22:28 BP 161 / 73 (auto/); mv5 22:29 Pulse 81 MON; Pulse Ox 92% ; mv5 23:13 BP 168 / 76 (auto/); mv5 23:14 Pulse 87 MON; Pulse Ox 93% ; mv5 02 00:40 BP 126 / 64; Pulse 93; Resp 18; Temp 99.1(T); Pulse Ox 93% on R/A; mv5 12/08 18:21 Body Mass Index 37.86 (93.90 kg, 157.48 cm) srm MDM: 12/08 17:54 ECG WITH READING ER PHYS+CARDIAG ordered. EDMS 17:[address] [facility]: Telemedicine Stroke Attending ordered. ml 17:56 RN interventions must not delay CT ordered. ml 17:56 Oil Well Drilling Manager/Pulse Ox/q 15 min VS ordered. ml 17:56 Accucheck ordered. ml 17:56 IV Saline Lock ordered. ml 17:56 Neuro VS q 15 Minutes ordered. ml 17:56 Patient must be on CC stretcher and weighed via bed scale ordered. ml 17:56 Rhythm Strip to chart ordered. ml 17:56 Stroke assessment pack to bedside ordered. ml 17:58 Chest, 1 View Ordered. EDMS 17:59 Basic Metabolic Profile Ordered. EDMS 17:59 CBC with Diff Ordered. EDMS 17:59 Partial Thromboplastin Time Ordered. EDMS 17:59 Prothrombin Time Profile\E\INR Ordered. EDMS 17:59 CT Head Without Contrast Ordered. EDMS 18:23 Fingerstick Blood Sugar Ordered. EDMS 18:[address] [facility]: Telemedicine Stroke Attending complete. srm 18:31 RBC MORPH PROF NO CHARGE Ordered. EDMS 18:37 [facility] Payment Agreement was scanned into [employer] and attached to record. b 18:37 Financial registration complete. gjb 18:38 BED REQUEST+ADM ordered. EDMS 18:41 CBC with Diff Reviewed. ml 18:41 Prothrombin Time Profile\E\INR Reviewed. ml 18:41 Fingerstick Blood Sugar Reviewed. ml 18:41 Partial Thromboplastin Time Reviewed. ml 18:44 CT Head Without Contrast Reviewed. ml 18:44 Chest, 1 View Reviewed. ml 18:52 Insulin Regular Human 9 units IVP once ordered. ml 18:52 Accucheck hourly ordered. ml 20:23 ANTIBODY IDENTIFICATION Ordered. EDMS 20:34 Fingerstick Blood Sugar Ordered. EDMS 20:49 Duplex,carotid (complete) Ordered. EDMS 20:51 Admission / Observation Status ordered. EDMS 20:51 CONSISTENT CARBOHYDRATES ordered. EDMS 20:51 BASIC METABOLIC PROFILE Ordered. EDMS 20:51 MAGNESIUM LEVEL Ordered. EDMS 20:51 COMPLETE BLOOD COUNT Ordered. EDMS 21:21 Fingerstick Blood Sugar Ordered. EDMS 12/09 11:43 T-Sheet-- Draft Copy was scanned into [employer] and attached to record. gb 11:44 ECG/EKG was scanned into [employer] and attached to record. gb 11:44 Other: STROKE SCALE was scanned into [employer] and attached to record. gb 11:45 Radiology Report was scanned into [employer] and attached to record. gb Point of Care Testing: Blood Glucose: 12/08 18:20 Blood Glucose: 446 mg/dL; srm 20:17 Blood Glucose: 292 mg/dL; mv5 21:14 Blood Glucose: 265 mg/dL; mv5 22:45 Blood Glucose: 243 mg/dL; mv5 23:31 Blood Glucose: 276 mg/dL; mv5 Ranges: Administered Medications: 19:14 Drug: Insulin Regular Human 9 units [insulin regular human 100 unit/mL injection mv5 solution (0.09 mL)] {Co-Signature: loree (Viv Huerta RN).} Route: IVP; Site: left forearm; 19:53 Follow up: Response: No Adverse Reaction mv5 Critical Care Time: 19:14 Critical care time: Bedside Care: 90 minutes, Consultation: 10 minutes. Total time: 100 ml minutes Signatures: Dispatcher [employer] EDMS Delicia Cook MD MD ml Alexia Lujan RN RN srm Huerta, [place] Hester RN, Debra, RN RN [facility] Daisy Talamantes, Reg Reg gb Scottie, Mike, Intake Coordinator Unit ml3 Esha Multani Megan RN mv5 Viv ralph The chart was reviewed and I authenticate all verbal orders and agree with the evaluation and treatment provided.Corrections: (The following items were deleted from the chart) 18:47 17:43 Home Meds: Calcium + Vitamin D 600 mg calcium- 200 unit Oral tab 600 mg daily; dlssrm 18:47 17:43 Home Meds: Claritin 10 mg Oral tab 1 tab once daily; dls srm 19:27 17:59 TYPE & SCREEN+BBK ordered. EDMS EDMS Attachments: 18:37 [facility] Payment Agreement gjb 12/09 11:43 T-Sheet-- Draft Copy gb 11:44 ECG/EKG Chart Complete MTDD
--- NOTE | 2016-12-11 01:50 | EDDOCDS ---
Physician Documentation [facility] Name: Marjorie Redmond Age: 71 yrs Sex: Female : 1945 Arrival Date: 12/08/2016 Time: 17:32 Bed 1 Private MD: Pepe Olivas D Disposition: 12/08 19:14 Critical Care:. ml Disposition: 12/08/16 19:15 Hospitalization ordered by Farhad Adams for Inpatient Admission. Preliminary diagnosis are Cerebral ischemia, Anemia in other chronic diseases classified elsewhere, Hyperglycemia, unspecified. - [facility] - Status is Inpatient Admission. loree - Condition is Stable. - Problem is new. - Symptoms are unchanged. Historical: - Allergies: Tetracycline (Upset stomach); Tramadol HCl (Vomit); Tylenol-Codeine #3 (Vomit); Gemfibrozil (Rash); amiloride (nausea); Erythromycin (Upset stomach); Actos (wt gain); Januvia (nausea); Vicodin (confusion and nausea); SULFA (SULFONAMIDES) (abnormal kidney function); indapamide (Rash); Keflex (nausea); Amoxil (Rash); - Home Meds: 1. albuterol sulfate 2.5 mg /3 mL (0.083 %) Inhl nebu as needed 2. albuterol sulfate 90 mcg/actuation Inhl HFAA 3. amlodipine 10 mg Oral tab 1 tab once daily 4. bisoprolol fumarate 10 mg oral tab 1 tab once daily 5. Colace 100 mg oral cap 1 cap once daily 6. furosemide 40 mg Oral tab 40 mg in am. 20 mg in pm 7. Humalog 100 unit/mL Sub-Q soln twice a day 8. levothyroxine 175 mcg Oral tab 1 tab once daily 9. nystatin 100,000 unit/gram Topical crea 10. omeprazole 40 mg Oral cpDR 1 cap once daily 11. rosuvastatin 20 mg oral tab 1 tab once daily 12. Toujeo SoloStar 300 unit/mL (1.5 mL) subcutaneous inpn 150 unit 13. Vitamin C 500 mg Oral TbER 500 mg daily 14. Calcium + Vitamin D 600/400mg Oral tab 600 mg daily 15. Claritin 10 mg Oral tab 1 tab twice a day 16. Crestor 20 mg Oral tab 1 tab once daily 17. meclizine 25 mg Oral tab 3 times per day prn 18. Eliquis 5 mg oral tab 1 tab 2 times per day 19. Norvasc 10 mg Oral tab 1 tab once daily 20. potassium chloride 10 mEq Oral cpER 1 cap 2 times per day 21. Nitrostat 0.4 mg SL subl 22. Zebeta 10 mg oral tab twice a day - PMHx: Asthma; CHF; Diabetes - IDDM: controlled; Hypertension; Hypothyroidism; Hypercholesterolemia; Lyme Disease; stage 3 kidney disease; Stroke; Anemia; CAD; a fib; mitral and aortiv valve disorder; - PSHx: Hysterectomy; Cholecystectomy; Pacemaker Insertion; - Social history: Smoking status: Patient/guardian denies using No barriers to communication noted, The patient speaks fluent Palauan. - Family history: Not pertinent. - : The pt / caregiver states he / she is on anticoagulants: Eliquis Home medication list is obtained from [employer] import data. - Exposure Risk Screening:: None identified. Vital Signs: 17:33 BP 156 / 69; Pulse 88; Resp 18 S; Temp 97.8(O); Pulse Ox 96% on R/A; Weight 100.24 kg / gr2 220.99 lbs (R); Height 5 ft. 2 in. (157.48 cm) (R); Pain 4/10; 18:21 Weight 93.9 kg / 207.01 lbs (M); srm 18:36 BP 155 / 69 (auto/); mv5 18:37 Pulse 79 MON; Pulse Ox 95% ; mv5 18:51 BP 175 / 72 (auto/); mv5 18:52 Pulse 86 MON; Pulse Ox 93% ; mv5 19:06 BP 144 / 63 (auto/); mv5 19:07 Pulse 78 MON; Pulse Ox 96% ; mv5 20:06 BP 217 / 133 (auto/); mv5 20:07 Pulse 80 MON; Pulse Ox 95% ; mv5 20:21 BP 228 / 98 (auto/); mv5 20:22 Pulse 78 MON; Pulse Ox 95% ; mv5 20:36 BP 215 / 93 (auto/); mv5 20:37 Pulse 78 MON; Pulse Ox 95% ; mv5 21:04 BP 136 / 62 (auto/); Pulse 79; Resp 18; Pulse Ox 95% on R/A; mv5 21:06 BP 149 / 66 (auto/); mv5 21:07 Pulse 78 MON; Pulse Ox 95% ; mv5 21:21 BP 148 / 67 (auto/); mv5 21:22 Pulse 78 MON; Pulse Ox 94% ; mv5 21:58 BP 143 / 84; Pulse 86; Resp 20; Temp 99.8(TE); Pulse Ox 96% ; mv5 21:58 BP 166 / 75 (auto/); mv5 21:59 Pulse 83 MON; Pulse Ox 94% ; mv5 22:13 BP 159 / 71 (auto/); mv5 22:14 Pulse 80 MON; Pulse Ox 93% ; mv5 22:28 BP 161 / 73 (auto/); mv5 22:29 Pulse 81 MON; Pulse Ox 92% ; mv5 23:13 BP 168 / 76 (auto/); mv5 23:14 Pulse 87 MON; Pulse Ox 93% ; mv5 02 00:40 BP 126 / 64; Pulse 93; Resp 18; Temp 99.1(T); Pulse Ox 93% on R/A; mv5 12/08 18:21 Body Mass Index 37.86 (93.90 kg, 157.48 cm) srm MDM: 12/08 17:54 ECG WITH READING ER PHYS+CARDIAG ordered. EDMS 17:56 Consult [facility]: Telemedicine Stroke Attending ordered. ml 17:56 RN interventions must not delay CT ordered. ml 17:56 Procurement Services Manager/Pulse Ox/q 15 min VS ordered. ml 17:56 Accucheck ordered. ml 17:56 IV Saline Lock ordered. ml 17:56 Neuro VS q 15 Minutes ordered. ml 17:56 Patient must be on CC stretcher and weighed via bed scale ordered. ml 17:56 Rhythm Strip to chart ordered. ml 17:56 Stroke assessment pack to bedside ordered. ml 17:58 Chest, 1 View Ordered. EDMS 17:59 Basic Metabolic Profile Ordered. EDMS 17:59 CBC with Diff Ordered. EDMS 17:59 Partial Thromboplastin Time Ordered. EDMS 17:59 Prothrombin Time Profile\E\INR Ordered. EDMS 17:59 CT Head Without Contrast Ordered. EDMS 18:23 Fingerstick Blood Sugar Ordered. EDMS 18:27 Consult [facility]: Telemedicine Stroke Attending complete. srm 18:31 RBC MORPH PROF NO CHARGE Ordered. EDMS 18:37 [facility] Payment Agreement was scanned into [employer] and attached to record. b 18:37 Financial registration complete. gjb 18:38 BED REQUEST+ADM ordered. EDMS 18:41 CBC with Diff Reviewed. ml 18:41 Prothrombin Time Profile\E\INR Reviewed. ml 18:41 Fingerstick Blood Sugar Reviewed. ml 18:41 Partial Thromboplastin Time Reviewed. ml 18:44 CT Head Without Contrast Reviewed. ml 18:44 Chest, 1 View Reviewed. ml 18:52 Insulin Regular Human 9 units IVP once ordered. ml 18:52 Accucheck hourly ordered. ml 20:23 ANTIBODY IDENTIFICATION Ordered. EDMS 20:34 Fingerstick Blood Sugar Ordered. EDMS 20:49 Duplex,carotid (complete) Ordered. EDMS 20:51 Admission / Observation Status ordered. EDMS 20:51 CONSISTENT CARBOHYDRATES ordered. EDMS 20:51 BASIC METABOLIC PROFILE Ordered. EDMS 20:51 MAGNESIUM LEVEL Ordered. EDMS 20:51 COMPLETE BLOOD COUNT Ordered. EDMS 21:21 Fingerstick Blood Sugar Ordered. EDMS 12/09 11:43 T-Sheet-- Draft Copy was scanned into [employer] and attached to record. gb 11:44 ECG/EKG was scanned into [employer] and attached to record. gb 11:44 Other: STROKE SCALE was scanned into [employer] and attached to record. gb 11:45 Radiology Report was scanned into [employer] and attached to record. gb Point of Care Testing: Blood Glucose: 12/08 18:20 Blood Glucose: 446 mg/dL; srm 20:17 Blood Glucose: 292 mg/dL; mv5 21:14 Blood Glucose: 265 mg/dL; mv5 22:45 Blood Glucose: 243 mg/dL; mv5 23:31 Blood Glucose: 276 mg/dL; mv5 Ranges: Administered Medications: 19:14 Drug: Insulin Regular Human 9 units [insulin regular human 100 unit/mL injection mv5 solution (0.09 mL)] {Co-Signature: loree (Viv Huerta RN).} Route: IVP; Site: left forearm; 19:53 Follow up: Response: No Adverse Reaction mv5 Critical Care Time: 19:14 Critical care time: Bedside Care: 90 minutes, Consultation: 10 minutes. Total time: 100 ml minutes Signatures: Dispatcher [employer] EDMS Delicia Cook MD MD ml Alexia Lujan RN RN srm Huerta, AL Hester RN, Debra, RN RN [facility] Daisy Talamantes, Reg Reg gb Scottie, Mike, Juice Packaging Machines Setter Unit ml3 Esha Multani Megan RN mv5 Viv ralph The chart was reviewed and I authenticate all verbal orders and agree with the evaluation and treatment provided.Corrections: (The following items were deleted from the chart) 18:47 17:43 Home Meds: Calcium + Vitamin D 600 mg calcium- 200 unit Oral tab 600 mg daily; dlssrm 18:47 17:43 Home Meds: Claritin 10 mg Oral tab 1 tab once daily; dls srm 19:27 17:59 TYPE & SCREEN+BBK ordered. EDMS EDMS Attachments: 18:37 [facility] Payment Agreement gjb 12/09 11:43 T-Sheet-- Draft Copy gb 11:44 ECG/EKG Chart Complete MTDD
--- NOTE | 2016-12-11 01:50 | EDDOCDS ---
Nurse's Notes [facility] Name: Marjorie Redmond Age: 71 yrs Sex: Female : 1945 Arrival Date: 12/08/2016 Time: 17:32 Bed 1 Private MD: Pepe Olivas D Diagnosis: Cerebral ischemia;Anemia in other chronic diseases classified elsewhere;Hyperglycemia, unspecified Presentation: 12/08 17:37 Presenting complaint: Patient states: pt presents with c/numbness and tingling right dls arm onset at 1630 pt denies pain recently discharged from [facility] with CHF . Pt states no chronometer repairer right hand denies deficit right leg speech is clear denies headache or chest pain. The last date and time the patient was known to be well was was at 16:00 on December 08, 2016. Adult Sepsis Screening: The patient does not have new or worsening altered mentation. Patient's respiratory rate is less than 22. Systolic blood pressure is greater than 100. Patient has a qSOFA score of 0- Negative Sepsis Screen. Suicide/Homicide risk assessment- the patient denies having any suicidal and/or homicidal ideations and does not present with any other emotional, behavioral or mental health complaints. 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 Transition of care: patient was not received from another setting of care. 17:37 Acuity: AMANDA Level 2 dls 17:37 Method Of Arrival: Wheelchair dls 17:41 Presenting complaint: Patient states: Pt states hx right sided stroke. dls 17:51 Red Flag criteria, patient assessed and taken directly to a bed. dls 12/09 00:45 No acute neurological deficit is noted. mv5 Triage Assessment: 12/08 17:44 The onset of the patients symptoms was more than three hours ago. General: Appears well dls developed, Behavior is cooperative. Pain: Denies pain. 12/09 00:45 Neurological: Level of Consciousness is awake, alert, Oriented to person, place, time, mv5 Reports weakness. Historical: - Allergies: Tetracycline (Upset stomach); Tramadol HCl (Vomit); Tylenol-Codeine #3 (Vomit); Gemfibrozil (Rash); amiloride (nausea); Erythromycin (Upset stomach); Actos (wt gain); Januvia (nausea); Vicodin (confusion and nausea); SULFA (SULFONAMIDES) (abnormal kidney function); indapamide (Rash); Keflex (nausea); Amoxil (Rash); - Home Meds: 1. albuterol sulfate 2.5 mg /3 mL (0.083 %) Inhl nebu as needed 2. albuterol sulfate 90 mcg/actuation Inhl HFAA 3. amlodipine 10 mg Oral tab 1 tab once daily 4. bisoprolol fumarate 10 mg oral tab 1 tab once daily 5. Colace 100 mg oral cap 1 cap once daily 6. furosemide 40 mg Oral tab 40 mg in am. 20 mg in pm 7. Humalog 100 unit/mL Sub-Q soln twice a day 8. levothyroxine 175 mcg Oral tab 1 tab once daily 9. nystatin 100,000 unit/gram Topical crea 10. omeprazole 40 mg Oral cpDR 1 cap once daily 11. rosuvastatin 20 mg oral tab 1 tab once daily 12. Toujeo SoloStar 300 unit/mL (1.5 mL) subcutaneous inpn 150 unit 13. Vitamin C 500 mg Oral TbER 500 mg daily 14. Calcium + Vitamin D 600/400mg Oral tab 600 mg daily 15. Claritin 10 mg Oral tab 1 tab twice a day 16. Crestor 20 mg Oral tab 1 tab once daily 17. meclizine 25 mg Oral tab 3 times per day prn 18. Eliquis 5 mg oral tab 1 tab 2 times per day 19. Norvasc 10 mg Oral tab 1 tab once daily 20. potassium chloride 10 mEq Oral cpER 1 cap 2 times per day 21. Nitrostat 0.4 mg SL subl 22. Zebeta 10 mg oral tab twice a day - PMHx: Asthma; CHF; Diabetes - IDDM: controlled; Hypertension; Hypothyroidism; Hypercholesterolemia; Lyme Disease; stage 3 kidney disease; Stroke; Anemia; CAD; a fib; mitral and aortiv valve disorder; - PSHx: Hysterectomy; Cholecystectomy; Pacemaker Insertion; - Social history: Smoking status: Patient/guardian denies using No barriers to communication noted, The patient speaks fluent Uzbek. - Family history: Not pertinent. - : The pt / caregiver states he / she is on anticoagulants: Eliquis Home medication list is obtained from [employer] import data. - Exposure Risk Screening:: None identified. Screenin/13 18:19 Screening information is obtained from the patient. Fall risk: No risks identified. srm Assistance ADL's: requires no assistance with activities of daily living. Abuse/DV Screen: The patient / caregiver reports he/she is: not in a situation that causes fear, pain or injury. Nutritional screening: No deficits noted. Advance Directives: Currently, there is no health care proxy. There is no active DNR order. home support is adequate. 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 18:25 General: Appears in no apparent distress, Behavior is appropriate for age, cooperative. srm Neurological: Level of Consciousness is awake, alert, Home Economics Teacher are equal bilaterally right arm feels heavy in upper part of arm. has full use of right arm . 18:27 General: telemed with [facility] neurologist . [facility] 18:48 General: right arm feels less heavy on arrival. pt now able to hold onto side rail [facility] where as she couldn't on arrival to bed. . EENT: No deficits noted. Cardiovascular: Capillary refill < 3 seconds in bilateral fingers. Respiratory: No deficits noted. GI: No deficits noted. 19:19 General: Appears in no apparent distress, Behavior is cooperative, pleasant. mv5 Neurological: Level of Consciousness is awake, alert, Oriented to person, place, time, pt able to ENGEL.. Speech is normal, Facial symmetry appears normal. Cardiovascular: Capillary refill < 3 seconds. Respiratory: No deficits noted. Derm: Skin is pink, warm & dry. 20:30 General: Appears in no apparent distress, Behavior is cooperative, pleasant. mv5 Neurological: Level of Consciousness is awake, alert, Oriented to person, place, time, Home Economics Teacher are equal bilaterally Moves all extremities. Gait is steady, Speech is normal, Facial symmetry appears normal. Cardiovascular: Rhythm is Not pacing all beats. Derm: Skin is pink, warm & dry. 21:22 General: Appears in no apparent distress, comfortable, Behavior is cooperative, mv5 pleasant. Neurological: Level of Consciousness is awake, alert, Oriented to person, place, time, Speech is normal, Facial symmetry appears normal. Cardiovascular: Rhythm is Respiratory: Airway is patent Respiratory effort is even, unlabored, Respiratory pattern is regular, symmetrical. Derm: Skin is pink, warm & dry. 21:58 General: Appears in no apparent distress. Neurological: Level of Consciousness is mv5 awake, alert, Oriented to person, place, time, Home Economics Teacher are weak on right Speech is normal, Facial symmetry appears normal. Cardiovascular: Rhythm is intermittent. Respiratory: Airway is patent Respiratory effort is even, unlabored, Respiratory pattern is regular, symmetrical. Derm: Skin is pink, warm & dry. 22:38 General: Appears in no apparent distress. Neurological: Level of Consciousness is mv5 awake, alert, Oriented to person, place, time, Home Economics Teacher are weak on right Moves all extremities. Speech is normal, Facial symmetry appears normal. Cardiovascular: Rhythm is Respiratory: Airway is patent Respiratory effort is even, unlabored, Respiratory pattern is regular, symmetrical. Derm: Skin is pink, warm & dry. 23:31 General: Appears in no apparent distress, comfortable. Neurological: Level of mv5 Consciousness is awake, alert, Oriented to person, place, time, Moves all extremities. Speech is normal, Facial symmetry appears normal. Respiratory: Airway is patent Respiratory effort is even, unlabored, Respiratory pattern is regular, symmetrical. Derm: Skin is pink, warm & dry. 12/09 00:40 General: Appears in no apparent distress. Neurological: Level of Consciousness is mv5 awake, alert, Oriented to person, place, time, Moves all extremities. Weakness in right arm(s) Speech is normal, Facial symmetry appears normal. Respiratory: Airway is patent Respiratory effort is even, unlabored, Respiratory pattern is regular, symmetrical. Derm: Skin is pink, warm & dry. Vital Signs: 12/08 17:33 BP 156 / 69; Pulse 88; Resp 18 S; Temp 97.8(O); Pulse Ox 96% on R/A; Weight 100.24 kg gr2 (R); Height 5 ft. 2 in. (157.48 cm) (R); Pain 4/10; 18:21 Weight 93.9 kg (M); srm 18:36 BP 155 / 69 (auto/); mv5 18:37 Pulse 79 MON; Pulse Ox 95% ; mv5 18:51 BP 175 / 72 (auto/); mv5 18:52 Pulse 86 MON; Pulse Ox 93% ; mv5 19:06 BP 144 / 63 (auto/); mv5 19:07 Pulse 78 MON; Pulse Ox 96% ; mv5 20:06 BP 217 / 133 (auto/); mv5 20:07 Pulse 80 MON; Pulse Ox 95% ; mv5 20:21 BP 228 / 98 (auto/); mv5 20:22 Pulse 78 MON; Pulse Ox 95% ; mv5 20:36 BP 215 / 93 (auto/); mv5 20:37 Pulse 78 MON; Pulse Ox 95% ; mv5 21:04 BP 136 / 62 (auto/); Pulse 79; Resp 18; Pulse Ox 95% on R/A; mv5 21:06 BP 149 / 66 (auto/); mv5 21:07 Pulse 78 MON; Pulse Ox 95% ; mv5 21:21 BP 148 / 67 (auto/); mv5 21:22 Pulse 78 MON; Pulse Ox 94% ; mv5 21:58 BP 143 / 84; Pulse 86; Resp 20; Temp 99.8(TE); Pulse Ox 96% ; mv5 21:58 BP 166 / 75 (auto/); mv5 21:59 Pulse 83 MON; Pulse Ox 94% ; mv5 22:13 BP 159 / 71 (auto/); mv5 22:14 Pulse 80 MON; Pulse Ox 93% ; mv5 22:28 BP 161 / 73 (auto/); mv5 22:29 Pulse 81 MON; Pulse Ox 92% ; mv5 23:13 BP 168 / 76 (auto/); mv5 23:14 Pulse 87 MON; Pulse Ox 93% ; mv5 02/14 00:40 BP 126 / 64; Pulse 93; Resp 18; Temp 99.1(T); Pulse Ox 93% on R/A; mv5 12/08 18:21 Body Mass Index 37.86 (93.90 kg, 157.48 cm) srm Vitals: 12/08 17:33 Log In Time: December 08, 2016 at 17:33. RN notified that patient meets Red Flag gr2 criteria. 20:17 Glucose Measurement Glucose Measurement D-stick in Triage- Hyperglycemia. mv5 ED Course: 17:33 Patient visited by Jose German. gr2 17:33 Pepe Olivas is Private Physician. gr2 17:33 Patient moved to Waiting gr2 17:36 Patient visited by Jose German. gr2 17:37 Patient moved to Pre RCE gr2 17:41 Triage Initiated dls 17:48 EKG done. (by ED staff). Reviewed by Delicia Cook MD. ar3 17:49 Patient moved to 1 kcs 17:55 Delicia Cook MD is Attending Physician. ml 17:55 Patient visited by Delicia Cook MD. ml 18:19 The patient / caregiver is instructed regarding the plan of care and ED course. Patient srm has correct armband on for positive identification. Placed in gown. Bed in low position. Call light in reach. Side rails up X2. monitoring manager on. Pulse ox on. NIBP on. on arrival. 18:19 Inserted saline lock: 20 gauge in left hand and blood collected. The patient tolerated srm the procedure well. 18:20 Basic Metabolic Profile Sent. srm 18:20 CBC with Diff Sent. srm 18:20 Partial Thromboplastin Time Sent. srm 18:20 Prothrombin Time Profile\E\INR Sent. srm 18:21 Patient visited by Alexia Lujan RN. srm 18:26 Patient visited by Alexia Lujan RN. srm 18:37 [facility] Payment Agreement was scanned into [employer] and attached to record. gjb 18:41 Patient name changed from Marjorie\S\\S\Redmond\S\ to Marjorie\S\ \S\Redmond. EDMS 18:42 CT Head Without Contrast Returned. EDMS 18:42 Chest, 1 View Returned. EDMS 18:49 Patient visited by Alexia Lujan RN. srm 18:51 Patient visited by Faby Ward PCA. ar3 19:00 Amena Jack,AL is Primary Nurse. mv5 19:01 Primary Nurse role handed off by Amena Jack,AL mv5 19:02 Amena Jack,RN is Primary Nurse. mv5 19:15 Farhad Adams is Hospitalizing Provider. ml 19:18 Patient visited by Amena Jack,AL. mv5 19:35 Pt ambulated to the bathroom without assistance. Tolerated well. cln 19:36 Patient visited by Edwina Awad PCA. cln 21:22 Patient visited by Amena Jack,AL. mv5 21:33 Patient moved to Ultrasound dmg 21:58 Patient moved to 1 dmg 12/09 00:40 No procedures done that require assistance. mv5 11:43 T-Sheet-- Draft Copy was scanned into [employer] and attached to record. gb 11:44 ECG/EKG was scanned into [employer] and attached to record. gb 11:44 Other: STROKE SCALE was scanned into [employer] and attached to record. gb 11:45 Radiology Report was scanned into [employer] and attached to record. gb Administered Medications: 12/08 19:14 Drug: Insulin Regular Human 9 units [insulin regular human 100 unit/mL injection mv5 solution (0.09 mL)] {Co-Signature: loree (Viv Huerta RN).} Route: IVP; Site: left forearm; 19:53 Follow up: Response: No Adverse Reaction mv5 Point of Care Testing: Blood Glucose: 18:20 Blood Glucose: 446 mg/dL; srm 20:17 Blood Glucose: 292 mg/dL; mv5 21:14 Blood Glucose: 265 mg/dL; mv5 22:45 Blood Glucose: 243 mg/dL; mv5 23:31 Blood Glucose: 276 mg/dL; mv5 Ranges: Order Results: Lab Order: Basic Metabolic Profile; [facility] 12/08/16 18:17 Test: GLUCOSE, FASTING; Value: 428; Range: 83-110; Abnormal: Above upper panic limits; Units: MG/DL; Status: F Test: BLOOD UREA NITROGEN; Value: 15; Range: 7-18; Units: MG/DL; Status: F Test: CREATININE FOR GFR; Value: 1.28; Range: 0.55-1.02; Abnormal: Above high normal; Units: MG/DL; Status: F Test: GLOMERULAR FILTRATION RATE; Value: 43.9; Range: >39; Status: F Test: SODIUM LEVEL; Value: 134; Range: 136-145; Abnormal: Below low normal; Units: MEQ/L; Status: F Test: POTASSIUM SERUM; Value: 3.9; Range: 3.5-5.1; Units: MEQ/L; Status: F Test: CHLORIDE LEVEL; Value: 99; Range: 98-107; Units: MEQ/L; Status: F Test: CARBON DIOXIDE LEVEL; Value: 24; Range: 21-32; Units: MEQ/L; Status: F Test: ANION GAP; Value: 11; Range: 8-16; Units: MEQ/L; Status: F Test: CALCIUM LEVEL; Value: 9.0; Range: 8.8-10.2; Units: MG/DL; Status: F Test Note: ; Units are mL/min/1.73 m2 Chronic Kidney Disease Staging per NKF: Stage I & II GFR >=60 Normal to Mildly Decreased Stage III GFR 30-59 Moderately Decreased Stage IV GFR 15-29 Severely Decreased Stage V GFR <15 Very Little GFR Left ESRD GFR <15 on STATE EPIDEMIOLOGIST Lab Order: CBC with Diff; SPEC'M 12/08/16 18:17 Test: WHITE BLOOD COUNT; Value: 7.5; Range: 4.0-10.0; Units: K/mm3; Status: F Test: RED BLOOD COUNT; Value: 4.46; Range: 4.00-5.40; Units: M/mm3; Status: F Test: HEMOGLOBIN; Value: 9.3; Range: 12.0-16.0; Abnormal: Below low normal; Units: g/dl; Status: F Test: HEMATOCRIT; Value: 33.2; Range: 36.0-47.0; Abnormal: Below low normal; Units: %; Status: F Test: MEAN CORPUSCULAR VOLUME; Value: 74.4; Range: 80.0-96.0; Abnormal: Below low normal; Units: fl; Status: F Test: MEAN CORPUSCULAR HEMOGLOBIN; Value: 20.8; Range: 27.0-33.0; Abnormal: Below low normal; Units: pg; Status: F Test: MEAN CORPUSCULAR HGB CONC; Value: 27.9; Range: 32.0-36.5; Abnormal: Below low normal; Units: g/dl; Status: F Test: RED CELL DISTRIBUTION WIDTH; Value: 19.8; Range: 11.5-14.5; Abnormal: Above high normal; Units: %; Status: F Test: PLATELET COUNT, AUTOMATED; Value: 401; Range: 150-450; Units: k/mm3; Status: F Test: NEUTROPHILS %; Value: 74.1; Range: 36.0-66.0; Abnormal: Above high normal; Units: %; Status: F Test: LYMPH %; Value: 13.7; Range: 24.0-44.0; Abnormal: Below low normal; Units: %; Status: F Test: MONO %; Value: 5.6; Range: 0.0-5.0; Abnormal: Above high normal; Units: %; Status: F Test: EOS %; Value: 2.1; Range: 0.0-3.0; Units: %; Status: F Test: BASO %; Value: 0.3; Range: 0.0-1.0; Units: %; Status: F Test: LARGE UNSTAINED CELL %; Value: 4.1; Range: 0.0-4.0; Abnormal: Above high normal; Units: %; Status: F Test: NEUTROPHILS #; Value: 5.6; Range: 1.8-7.7; Units: K/mm3; Status: F Test: LYMPH #; Value: 1.0; Range: 1.5-4.5; Abnormal: Below low normal; Units: K/mm3; Status: F Test: MONO #; Value: 0.4; Range: 0.0-0.8; Units: K/mm3; Status: F Test: EOS #; Value: 0.2; Range: 0.0-0.50; Units: K/mm3; Status: F Test: BASO #; Value: 0.0; Range: 0.0-0.2; Units: K/mm3; Status: F Test: LARGE UNSTAINED CELL #; Value: 0.3; Range: 0.0-0.4; Units: K/mm3; Status: F Lab Order: Partial Thromboplastin Time; SPEC' 12/08/16 18:17 Test: PARTIAL THROMBOPLASTIN TIME; Value: 32.4; Range: 26.6-37.1; Units: SECONDS; Status: F Lab Order: Prothrombin Time Profile\E\INR; SPEC' 12/08/16 18:17 Test: PROTHROMBIN TIME; Value: 16.8; Range: 12.3-14.5; Abnormal: Above high normal; Units: SECONDS; Status: F Test: INR; Value: 1.35; Status: F Test Note: ; THERAPUTIC HUMAN INR VALUES INDICATIONS NORMAL RANGES PROPHYLAXIS/TREATMENT OF: VENOUS THROMBOSIS 2.0-3.0 PULMONARY EMBOLISM 2.0-3.0 PREVENTION OF SYSTEMIC EMBOLISM FROM: TISSUE HEART VALVES 2.0-3.0 ACUTE MYOCARDIAL INFARCTION 2.0-3.0 VALVULAR HEART DISEASE 2.0-3.0 ATRIAL FIBRILLATION 2.0-3.0 MECHANICAL VALVES(HIGH RISK) 2.5-3.5 RECURRENT MYOCARDIAL INFARCTION 2.5-3.5 Lab Order: Type & Screen; 12/08/16 18:17 Test: BLOOD TYPE; Value: ON; Status: F Test: AB SCREEN GEL MANUAL; Value: POSITIVE; Status: F Test: ANTIGEN IDENTIFICATION; Value: ...; Status: F Lab Order: Fingerstick Blood Sugar; 12/08/16 18:16 Test: BEDSIDE GLUCOSE; Value: 446; Range: 83-110; Abnormal: Above high normal; Units: MG/DL; Status: F Lab Order: RBC MORPH PROF NO CHARGE; 12/08/16 18:17 Test: PLATELET ESTIMATE; Range: NORMAL; Status: I Test: HYPOCHROMASIA; Value: 1+; Status: F Test: ANISOCYTOSIS; Value: 3+; Status: F Test: MICROCYTOSIS; Value: 2+; Status: F Test: PLATELET ESTIMATE; Value: NORMAL; Range: NORMAL; Status: F Lab Order: ANTIBODY IDENTIFICATION; 12/08/16 18:17 Test: ANTIBODY IDENTIFICATION; Value: Anti-E; Status: F Lab Order: Fingerstick Blood Sugar; 12/08/16 20:16 Test: BEDSIDE GLUCOSE; Value: 292; Range: 83-110; Abnormal: Above high normal; Units: MG/DL; Status: F Test Note: ; Doctor Notified Lab Order: Fingerstick Blood Sugar; 12/08/16 21:13 Test: BEDSIDE GLUCOSE; Value: 265; Range: 83-110; Abnormal: Above high normal; Units: MG/DL; Status: F Lab Order: Fingerstick Blood Sugar; 12/08/16 22:44 Test: BEDSIDE GLUCOSE; Value: 243; Range: 83-110; Abnormal: Above high normal; Units: MG/DL; Status: F Lab Order: Fingerstick Blood Sugar; 12/08/16 23:30 Test: BEDSIDE GLUCOSE; Value: 276; Range: 83-110; Abnormal: Above high normal; Units: MG/DL; Status: F Radiology Order: CT Head Without Contrast Test: CT Head Without Contrast REASON FOR EXAMINATION: CVA <4.5hrs; Clinical: Acute cerebrovascular accident.; ; Comparison: 05/17/2012.; ; Findings:; Atrophy and microvascular ischemic changes are appreciated including; encephalomalacia involving the right temporal-parietal lobe consistent with prior; infarction. No acute intracranial hemorrhage, mass or mass effect. No; extra-axial fluid collection. Calvarium is intact. Sinuses are clear.; ; Impression:; 1. Atrophy and microvascular ischemic changes with evidence for old right; infarction.; 2. No acute intracranial hemorrhage, infarction or trauma/injury.; ; ; Signed by; Hermelindo Bowie MD 12/08/2016 06:10 P; Radiology Order: Chest, 1 View Test: Chest, 1 View REASON FOR EXAMINATION: cva; Clinical: Cerebrovascular accident .; ; Comparison: 11/22/2016 .; ; Findings:; The mediastinum and cardiac silhouette are stable and within normal limits for; portable technique. The lung weaver are clear without acute consolidation,; effusion, or pneumothorax. Skeletal structures are intact.; ; Impression:; Normal portable chest x-ray; ; ; Signed by; Hermelindo Bowie MD 12/08/2016 06:19 P; Outcome: 19:15 Decision to Hospitalize by Provider. 12/09 00:40 Discharge Assessment: Patient awake and alert. Oriented to person, place and time. mv5 Patient verbalized understanding of disposition instructions. Patient Right arm weakness patient administered narcotics - no. The following High Risk Discharge criteria are identified: None. Admitted to PCU accompanied by nurse, accompanied by tech, via stretcher, on monitor, with chart. Condition: stable. CT Study completed. Admission hand-off: Report called to SBAR received by PCU unit secyjaneen fraser RN will reeive pt. Property :Personal belongings accompany Pt. 00:49 Patient left the ED. loree Signatures: Dispatcher [employer] EDMS Delicia Cook MD MD ml Sleeman, Kacey, RN RN kcs Michelson, Staci, RN RN srm Newman, Jill New, RN RN jan Scott, Debra, RN RN dls Gunn, Deanne dmg Barnhardt, Daisy, Reg Reg gb Ed, Faby, ARMOR SENIOR SERGEANT ARMOR SENIOR SERGEANT ar3 Jose German gr2 Esha Multani Crystal, ARMOR SENIOR SERGEANT ARMOR SENIOR SERGEANT Amena FeldmanRN RN mv5 Viv Huerta RN loree Corrections: (The following items were deleted from the chart) 12/08 18:47 17:43 Home Meds: Calcium + Vitamin D 600 mg calcium- 200 unit Oral tab 600 mg daily; dlssrm 18:47 17:43 Home Meds: Claritin 10 mg Oral tab 1 tab once daily; dls srm 19:27 18:20 TYPE & SCREEN+BBK sent. srm EDMS Chart Complete MTDD
[2016-12-11] MEDS: LEVOTHYROXINE 0.025 MG TAB (25 MCG) PO SCH (05:28)
[2016-12-11] MEDS: LEVOTHYROXINE 0.15 MG TAB (150 MCG) PO SCH (05:28)
[2016-12-11 06:12] LABS: MEAN CORPUSCULAR HEMOGLOBIN 20.6 pg (27.0-33.0); MEAN CORPUSCULAR HGB CONC 27.9 g/dl (32.0-36.5); MEAN CORPUSCULAR VOLUME 73.9 fl (80.0-96.0); RED CELL DISTRIBUTION WIDTH 20.9 % (11.5-14.5); WHITE BLOOD COUNT 8.3 K/mm3 (4.0-10.0)
[2016-12-11 06:29] LABS: ANION GAP 8 MEQ/L (8-16); BLOOD UREA NITROGEN 15 MG/DL (7-18); CARBON DIOXIDE LEVEL 29 MEQ/L (21-32); CHLORIDE LEVEL 106 MEQ/L (98-107); CREATININE FOR GFR 0.94 MG/DL (0.55-1.02); GLOMERULAR FILTRATION RATE > 60.0 (>39); GLUCOSE, FASTING 68 MG/DL (83-110); POTASSIUM SERUM 3.4 MEQ/L (3.5-5.1); SODIUM LEVEL 143 MEQ/L (136-145)
[2016-12-11] MEDS: HumaLOG INSULIN (NovoLOG) PER UNIT SC SCH ×2 (07:23→12:35)
[2016-12-11] MEDS ORDERED: ROSU10TA PO (08:08)
[2016-12-11] MEDS ORDERED: POTASSIUM CHLORIDE 10 MEQ SR TABLET PO ONE (08:15)
--- NOTE | 2016-12-11 08:16 | DS.PDOC ---
Discharge Summary General Date of Admission Dec 08, 2016 at 20:39 Date of Discharge Primary Care Physician: Pepe Olivas MD Attending Physician: Elkin Cotton M.D. Specialist/Consultants Involve Dr. Rojas of [facility] Neurology via Telemedicine Discharge Summary PROCEDURES PERFORMED DURING STAY: 1. Echocardiogram 2. Carotid duplex 3. CTA Carotids 4. Head CT/CTA 5. Upper GI COMPLICATIONS/CHIEF COMPLAINT: Stroke-Like Symptoms ADMISSION DIAGNOSES: 1. Stroke Symptoms 2/2 cerebral microvascular atherosclerosis. 2. Diastolic CHF, Chronic 3. . DISCHARGE DIAGNOSES: 1. . 2. . 3. . HISTORY OF PRESENT ILLNESS: 71-year-old female with past Meckel history of diabetes mellitus type 2, hypertension, diastolic CHF, COPD, obesity, hypothyroidism, hypercholesterolemia, history of Afib on anticoagulation, TIA, and bradycardia status post pacemaker presented to ER after she noticed that she had right upper extremity weakness and numbness lasting. The patient states that the symptoms began 4 PM this afternoon/evening. During this time, the patient denied any other focal neurological deficits, slurring of speech, visual blurriness, or any other acute symptoms. She subsequently presented to the ER for further evaluation and management. A CT scan of the head revealed no acute findings. The patient was seen in the ER within 3 hours of her initial presentation, and was evaluated by Dr. Rojas of [facility] neurology by tele- medicine. The patient was noted to have a NIHSS score of 1, with most of her weakness, and numbness/tingling resolved. The patient was not deemed a candidate for TPA. Given the patient's history of anemia, possibly of GI origin , and the patient already being on an anticoagulant, the patient was not recommended aspirin. At this time, the patient has no other acute complaints of fevers, chills, chest pain, shortness of breath, lightheadedness/dizziness, abdominal pain, or any nausea/vomiting/diarrhea. HOSPITAL COURSE: Patient was admitted for DISCHARGE MEDICATIONS: Please see below. ALLERGIES: Please see below. PHYSICAL EXAMINATION ON DISCHARGE: VITAL SIGNS: Please see below. GENERAL: HEENT: NECK: CARDIOVASCULAR EXAMINATION: RESPIRATORY EXAMINATION: ABDOMINAL EXAMINATION: EXTREMITIES: SKIN: NEUROLOGICAL EXAMINATION: PSYCHIATRIC EXAMINATION: LABORATORY DATA: Please see below. IMAGING: VTE Prophylaxis ordered?: DISCHARGE CONDITION: [Stable]. DISPOSITION: . ACTIVITY: . DIET: . ITEMS TO FOLLOWUP ON OUTPATIENT: 1. . 2. . 3. . DISCHARGE PLAN AND INSTRUCTIONS: 1. . 2. . 3. . TIME SPENT ON DISCHARGE: Greater than 45 minutes. Vital Signs/I&Os Vital Signs Date Time Temp Pulse Resp B/P Pulse Ox O2 Delivery O2 Flow Rate FiO2 12/11/16 04:00 97.5 99 18 126/71 94 Room Air I&O- Last 24 Hours up to 6 AM 12/11/16 06:00 Intake Total 1535.00 ml Output Total 1050 ml Balance 485.00 ml Laboratory Data Labs 24H Laboratory Tests 2 12/10/16 08:48: Bedside Glucose (Misc Panel) 103 12/10/16 13:43: Bedside Glucose (Misc Panel) 135H 12/10/16 16:51: Bedside Glucose (Misc Panel) 245H 12/10/16 20:33: Bedside Glucose (Misc Panel) 248H 12/11/16 05:51: Anion Gap 8, Blood Urea Nitrogen 15, Creatinine 0.94, Sodium Level 143, Potassium Level 3.4L, Chloride Level 106, Carbon Dioxide Level 29, Calcium Level 9.0, Glomerular Filtration Rate > 60.0 CBC/BMP Laboratory Tests 12/11/16 05:51 Calcium Level 9.0, Red Blood Count 4.26, Mean Corpuscular Volume 73.9 L, Mean Corpuscular Hemoglobin 20.6 L, Mean Corpuscular Hemoglobin Concent 27.9 L, Red Cell Distribution Width 20.9 H FSBS Laboratory Tests Test 12/10/16 08:48 12/10/16 13:43 12/10/16 16:51 12/10/16 20:33 Range/Units Bedside Glucose (Misc Panel) 103 135 245 248 83-110 MG/DL Medications Scheduled (Klor-Con Sprinkle) 10 Meq Cap 10 MEQ PO BID MORNING AND NOON (Toucat Solostar) 300 Unit/Ml Inj 150 UNIT SC DAILY Amlodipine Besylate (Amlodipine Besylate) 10 Mg Tab 10 MG PO DAILY BRAND NAME ONLY!!! Apixaban Base (Eliquis) 5 Mg Tab 5 MG PO BID Ascorbic Acid (Ascorbic Acid) 500 Mg Tab 500 MG PO QPM DINNERTIME Bisoprolol Fumarate (Bisoprolol Fumarate) 10 Mg Tab 10 MG PO BID Calcium/Vitamin D (Calcium 600+D 600-400 mg-Unit) 1 Tab Tab 1 TAB PO DAILY Diphenhydramine HCl (Diphenhydramine HCl) 25 Mg Cap 25 MG PO DAILY Docusate Sodium (Colace) 100 Mg Cap 100 MG PO QHS Furosemide (Lasix) 20 Mg Tab 20 MG PO QPM @1400 Furosemide (Furosemide) 40 Mg Tab 40 MG PO DAILY Insulin Human Lispro (Humalog) 1 Units/0.01 Ml Inj 0 SC AC PER SLIDING SCALE Levothyroxine Sodium (Synthroid) 175 Mcg Tab 175 MCG PO QAM Omeprazole (Omeprazole) 40 Mg Cap 40 MG PO QHS Rosuvastatin (Crestor) 10 Mg Tab 40 MG PO QHS Scheduled PRN Acetaminophen (Tylenol Extra Strength) 500 Mg Tab 1,000 MG PO Q4H PRN PRN PAIN Albuterol Sulfate (Albuterol Sulfate) 2.5 Mg/3 Ml Nebu 2.5 MG INH Q4H PRN PRN SHORTNESS OF BREATH Albuterol Sulfate (Ventolin Hfa) 200 Puff/8 Gm Aers 2 PUFF INH Q4H PRN PRN SHORTNESS OF BREATH Nitroglycerin (Nitrostat) 0.4 Mg Subl 0.4 MG SL Q5MP PRN PRN ANGINA Allergies Coded Allergies: Gemfibrozil (Unverified Allergy, Mild, RASH, 01/25/13) Erythromycin (Unverified Adverse Reaction, Severe, NAUSEA, 01/25/13) Pioglitazone (Unverified Adverse Reaction, Severe, SWELLING, BP INCREAE, ) Amiloride (Unverified Adverse Reaction, Intermediate, NAUSEA, 01/25/13) Tetracycline (Unverified Adverse Reaction, Intermediate, NAUSEA, 01/25/13) Amlodipine (Unverified Adverse Reaction, Unknown, Swelling, 11/22/16) Uses Brand Only [facility] STANISLAW WESLEY DO Dec 11, 2016 08:16
[2016-12-11] MEDS: TOUJEO SQ SCH (09:00)
[2016-12-11] MEDS: FUROSEMIDE 40 MG TAB PO SCH (09:02)
[2016-12-11] MEDS: APIXABAN 5 MG TAB (ELIQUIS) PO SCH (09:02)
[2016-12-11] MEDS: diphenhydrAMINE 25 MG CAP PO SCH (09:02)
[2016-12-11] MEDS: NYSTATIN 100,000 UNITS/GM TOPICAL PWD 15 GM TOP SCH (09:05)
[2016-12-11] MEDS ORDERED: IRON SUCROSE 25 MG in NS 50 ML IV SCH (10:00)
[2016-12-11] MEDS: LEVEMIR (INSULIN DETEMIR) 1 UNITS/0.01ML SC SCH (10:33)
[2016-12-11] MEDS ORDERED: IRON SUCROSE 75 MG in NS 100 ML IV SCH (11:00)
--- NOTE | 2016-12-17 08:04 | DSES ---
DATE OF ADMISSION: 12/08/2016 DATE OF DISCHARGE: 12/11/2016 PRIMARY CARE PHYSICIAN: Dr. Olivas. CONSULTATIONS INVOLVED DURING THIS ADMISSION: Dr. Rojas of [facility] Neurology via telemedicine. CHIEF COMPLAINT: Stroke-like symptom. PRIMARY DISCHARGE DIAGNOSES: 1. Transient ischemic attack with right-sided symptoms. 2. Intracranial small-vessel disease. 3. Iron-deficiency anemia. SECONDARY DIAGNOSES AT DISCHARGE: 1. Diabetes, type 2, insulin-dependent. 2. Hypertension. 3. Hypothyroidism. 4. Dyslipidemia. 5. Atrial fibrillation on chronic anticoagulation. PROCEDURES PERFORMED: 1. CT head. 2. Carotid duplex ultrasound. 3. CT angiography of the brain. 4. Carotid CT angiography. 5. Upper GI and small bowel follow through x-ray. HOSPITAL COURSE: Marjorie was admitted to the PCU for telemetry monitoring and frequent neurologic checks after she was evaluated in the emergency room via telemedicine by Dr. Rojas of [facility] in [place], it was felt that considering that the patient's symptoms had all but resolved by the time of presentation and that she was already providing anticoagulation for atrial fibrillation, she was not a candidate for TPA and therefore was not a suitable candidate for transfer. An echocardiogram was obtained upon admission, however, the report was pending at discharge. She received physical therapy and occupational therapy and was cleared for safe home placement. Her symptoms markedly improved and resolved throughout the admission. She had had a previous diagnosis of iron-deficiency anemia with probable GI source and was scheduled for a workup on 12/16/2016 that was to consist of an upper and lower endoscopy performed by Dr. Ren, however, during this admission, her hemoglobin and hematocrit did get worse with of hemoglobin of 8.4 on the day after admission. She did receive three Venofer transfusion as she was found to be iron deficient. Moreover, she underwent an upper GI with evaluation with small bowel follow through to assess for potential upper GI sources of bleed, that was unremarkable. She did undergo workup with H pylori antigen, antibodies that were also negative. Her hemoglobin/hematocrit were stable at discharge. Her home statin of Crestor was maximized during this admission and her diabetes was managed with Levemir 60 units twice daily in addition to sliding scale coverage. Her home insulin regimen consisted of 150 units of Toujeo each day however this non-formulary and not available in the hospital. The remainder of her chronic medical conditions were treated as per her home regimen and she did not experienced any complications with regards to them. PHYSICAL EXAMINATION ON DISCHARGE: Vitals: Temperature 98.3 degrees Fahrenheit, pulse 99, respiratory rate 18, blood pressure 142/56, oxygen saturation 95% in room air. Weight at discharge 98.5 kg. General: She is resting comfortably in her bed in no acute distress. Conversive and pleasant. HEENT: Normocephalic, atraumatic. Pupils equal and reactive to light and accommodation. Extraocular muscles intact. Mucous membranes are moist. Neck: No thyromegaly or carotid bruit. Cardiovascular system: Regular rate and rhythm. No rubs, murmurs or gallops. Lungs: Clear bilaterally. Abdomen is obese but soft, nontender. Extremities: 2+ pitting edema bilaterally symmetric pretibial. Skin: Warm and well-perfused. Capillary refill less than 3 seconds. Neuro: Cranial nerves III-XII intact bilaterally. Normal speech, tone and reflexes are 2+ symmetric. Sensation intact and symmetric. Muscle strength as tested symmetric and intact. LABORATORY FINDINGS: CBC: White blood cell 8.3, hemoglobin 8.8, hematocrit 31.4 platelets 458. Basic metabolic profile: Sodium 143, potassium 3.4 before oral repletion, chloride 106, bicarb 29, BUN 15, creatinine 0.94, glucose 150. Serology H. Pylori, IgG antibody negative. H. Pylori IgM antibody less than 9 which is negative. IMAGING STUDIES: 1. 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 No acute intracranial hemorrhage, infarct or trauma. 2. Chest x-ray obtained in the emergency room, portable, unremarkable. 3. Carotid duplex ultrasound which demonstrated left-sided severe carotid stenosis with 50-69% narrowing which is considered hemodynamically significant but not critical. Fairly extensive mixed plaque at the bulb, proximal ICA and ECA, less plaque and stenosis mid to distal left ICA, less than 50% stenosis in the right ICA. 4. Carotid CTA. Mild stenosis of 10% of the right internal carotid artery at its origin and mild stenosis of 15% of the left internal carotid artery at its origin. 5. Upper GI air contrast and small bowel follow through demonstrates tertiary waves, otherwise unremarkable double contrast upper GI and small bowel follow through examination. DISCHARGE MEDICATIONS - acetaminophen 500 mg 2 tablets by mouth every 4 hours as needed for pain - albuterol 2.5 mg/3 mL every 4 hours of needed for shortness of breath - amlodipine 10 mg daily, must be brand name - Eliquis 5 mg by mouth twice daily - vitamin C 500 mg by mouth with dinner - bisoprolol 10 mg by mouth twice daily - calcium 600 mg/vitamin D 400 mg one tablet daily - diphenhydramine 25 mg by mouth daily Colace 100 mL by mouth daily at bedtime - Lasix 20 mg every 1400 hours - Lasix 40 mg by mouth daily - insulin lispro 1 unit/0.1 mL subcutaneously per sliding scale - Klor-Con sprinkle 10 mg by mouth twice daily at morning and noon - Synthroid 135 mcg by mouth every morning - Nitrostat 0.4 mg sublingual every 5 minutes as needed chest pain - omeprazole 40 mg by mouth daily at bedtime - Crestor 40 mg daily at bedtime #30 - Toujeo SoloStar 300 units/mL, 150 units subcutaneously daily DISCHARGE INSTRUCTIONS: The patient is discharged home with instructions to follow up with Dr. Olivas in 1 week and neurology in 1-2 weeks for further workup of her symptoms and to recheck that they have not recurred. Her diet is a carbohydrate consistent as previously tolerated and activity is as previously tolerated as well. She is encouraged to contact the with surgery office, Dr. Ren, to discuss whether or not he would like to postpone her upper and lower endoscopy considering her recent admission for stroke like symptoms and transient ischemic attack (TIA). Concerning signs and symptoms which would prompt more expedient evaluation in the office or emergency department were discussed with the patient and she did demonstrate understanding. Questions were answered prior to her discharge. My preceptor for this patient encounter was Dr. Cotton. The preceptor was physically present in the building during the encounter and was fully available. As needed, all aspects of the patient interview, examination, medical decision making process, and medical care plan development were reviewed and approved by the preceptor. The preceptor is aware and concurs with the plan as stated in the body of this note and will attest to such by his/her cosignature.
== END 2016-12-11 14:50 | disposition home or self-care (01) | DRG 69 ==
LOC: M ED 17:32 → M ED INP 20:39 → M PCU 12-09 00:53
PROVIDERS: ADMIT Internal Medicine; ATTEND Family Medicine
DX: G45.9 Transient cerebral ischemic attack, unspecified (principal); I50.32 Chronic diastolic (congestive) heart failure; R20.0 Anesthesia of skin; D50.9 Iron deficiency anemia, unspecified; E11.9 Type 2 diabetes mellitus without complications; I11.0 Hypertensive heart disease with heart failure; M62.81 Muscle weakness (generalized); E03.9 Hypothyroidism, unspecified; E78.5 Hyperlipidemia, unspecified; E87.6 Hypokalemia; E66.9 Obesity, unspecified; I48.91 Unspecified atrial fibrillation; I49.5 Sick sinus syndrome; Z95.0 Presence of cardiac pacemaker; Z79.4 Long term (current) use of insulin; Z79.899 Other long term (current) drug therapy; Z79.01 Long term (current) use of anticoagulants; Z87.891 Personal history of nicotine dependence; Z88.1 Allergy status to other antibiotic agents; Z88.8 Allergy status to other drugs, medicaments and biological substances; Z68.37 Body mass index [BMI] 37.0-37.9, adult

== ENCOUNTER → 2016-12-12 | Outpatient (REF) | payer MEDICARE ==
[~2016-12-12] MED LIST changes: +AMLO10TA2 PO; +ASCO500T PO; +DIPH25CA PO; +KLOR1CAP2 PO; +ROSU10TA PO
[2016-12-12 17:58] LABS: CREATININE FOR GFR 1.35 MG/DL (0.55-1.02); GLOMERULAR FILTRATION RATE 41.3 (>39); PHOSPHORUS LEVEL 2.6 MG/DL (2.5-4.9); POTASSIUM SERUM 4.2 MEQ/L (3.5-5.1)
[2016-12-12 18:01] LABS: MEAN CORPUSCULAR HEMOGLOBIN 20.7 pg (27.0-33.0); MEAN CORPUSCULAR HGB CONC 27.4 g/dl (32.0-36.5); MEAN CORPUSCULAR VOLUME 75.6 fl (80.0-96.0); WHITE BLOOD COUNT 12.8 K/mm3 (4.0-10.0)
== END ==
LOC: M SFHCCLAY 12:32
PROVIDERS: ATTEND Family Medicine
DX: E87.6 Hypokalemia (principal); D50.0 Iron deficiency anemia secondary to blood loss (chronic)

== ENCOUNTER → 2017-01-08 | Outpatient (REF) | payer MEDICARE ==
[2017-01-08 11:34] LABS: MEAN CORPUSCULAR HEMOGLOBIN 22.5 pg (27.0-33.0); MEAN CORPUSCULAR HGB CONC 28.8 g/dl (32.0-36.5); MEAN CORPUSCULAR VOLUME 77.9 fl (80.0-96.0); WHITE BLOOD COUNT 9.3 K/mm3 (4.0-10.0)
[2017-01-08 12:09] LABS: CREATININE FOR GFR 1.19 MG/DL (0.55-1.02); GLOMERULAR FILTRATION RATE 47.7 (>39); POTASSIUM SERUM 3.5 MEQ/L (3.5-5.1)
== END ==
LOC: M SFHCCLAY 09:13
PROVIDERS: ATTEND Family Medicine
DX: D50.9 Iron deficiency anemia, unspecified (principal)

== ENCOUNTER → 2017-06-25 | Outpatient (REF) | payer MEDICARE ==
[~2017-06-25] MED LIST changes: -CALCTAB43 PO; +CALCTAB74 PO; -COLA100C PO; +COLA100C5 PO; +CRES10TA32 PO; -ECON0.05 TOP; +ECON1CRE TOP; +MECL1CHW2 PO; -MECL25CH PO; -ROSU10TA PO
[2017-06-25 19:58] LABS: CALCIUM LEVEL 8.9 MG/DL (8.8-10.2); CREATININE FOR GFR 1.09 MG/DL (0.55-1.02); FREE T4 1.7 NG/DL (0.76-1.46); GLOMERULAR FILTRATION RATE 52.8 (>39)
== END ==
LOC: M SFHCCLAY 08:10
PROVIDERS: ATTEND Family Medicine
DX: I11.9 Hypertensive heart disease without heart failure (principal); E11.22 Type 2 diabetes mellitus with diabetic chronic kidney disease

== ENCOUNTER → 2017-07-29 | Outpatient (REF) | payer MEDICARE ==
[2017-07-29 17:43] LABS: MEAN CORPUSCULAR HEMOGLOBIN 21.3 pg (27.0-33.0); MEAN CORPUSCULAR HGB CONC 29.1 g/dl (32.0-36.5); RED CELL DISTRIBUTION WIDTH 17.4 % (11.5-14.5); WHITE BLOOD COUNT 7.9 10^3/uL (4.0-10.0)
[2017-07-29 17:52] LABS: MEAN CORPUSCULAR VOLUME 73.2 fl (80.0-96.0)
[2017-07-29 19:34] LABS: ALBUMIN/GLOBULIN RATIO 0.6 (1.00-1.93); BILIRUBIN,DIRECT 0.2 MG/DL (0.0-0.2); BILIRUBIN,TOTAL 0.4 MG/DL (0.2-1.0); MAGNESIUM LEVEL 1.9 MG/DL (1.8-2.4)
== END ==
LOC: M LABDRAWC 16:08
PROVIDERS: ATTEND Physician Assistant
DX: E78.00 Pure hypercholesterolemia, unspecified (principal); I25.10 Atherosclerotic heart disease of native coronary artery without angina pectoris; I48.0 Paroxysmal atrial fibrillation

== ENCOUNTER → 2017-09-14 | Outpatient (CLI) | payer MEDICARE ==
--- NOTE | 2017-09-14 10:37 | REP ---
Clinical: Pain. Technique: Neutral and frog lateral views of the right hip. Comparison: 12/29/2015. Findings: Medial joint space narrowing and subtle increase sclerosis to the acetabular roof suggests mild degenerative change. No acute fracture dislocation. No periarticular calcifications. Impression: Mild degenerative changes. Signed by Hermelindo Bowie MD 09/14/2017 10:28 A
== END ==
LOC: M CLY 09:57
PROVIDERS: ATTEND Family Medicine
DX: M16.11 Unilateral primary osteoarthritis, right hip (principal)

== ENCOUNTER → 2017-10-29 | Outpatient (REF) | payer MEDICARE ==
[2017-10-29 13:05] LABS: ALBUMIN 3.2 GM/DL (3.2-5.2); ANION GAP 9 MEQ/L (8-16); BLOOD UREA NITROGEN 15 MG/DL (7-18); CALCIUM LEVEL 9.1 MG/DL (8.8-10.2); CARBON DIOXIDE LEVEL 27 MEQ/L (21-32); CHLORIDE LEVEL 105 MEQ/L (98-107); CREATININE FOR GFR 0.89 MG/DL (0.55-1.02); GLOMERULAR FILTRATION RATE > 60.0 (>39); GLUCOSE, FASTING 125 MG/DL (83-110); MAGNESIUM LEVEL 2.1 MG/DL (1.8-2.4); POTASSIUM SERUM 3.8 MEQ/L (3.5-5.1); SODIUM LEVEL 141 MEQ/L (136-145)
== END ==
LOC: M LABDRAWC 11:30
DX: Z00.00 Encounter for general adult medical examination without abnormal findings (principal)
CPT/HCPCS: 83735

== ENCOUNTER → 2017-12-03 | Outpatient (REF) | payer MEDICARE ==
[2017-12-03 12:38] LABS: ANION GAP 9 MEQ/L (8-16); BLOOD UREA NITROGEN 16 MG/DL (7-18); CALCIUM LEVEL 9.1 MG/DL (8.8-10.2); CARBON DIOXIDE LEVEL 26 MEQ/L (21-32); CHLORIDE LEVEL 105 MEQ/L (98-107); CREATININE FOR GFR 1.01 MG/DL (0.55-1.30); FREE T4 1.22 NG/DL (0.76-1.46); GLOMERULAR FILTRATION RATE 57.5 (>39); GLUCOSE, FASTING 225 MG/DL (70-100); POTASSIUM SERUM 4.2 MEQ/L (3.5-5.1); SODIUM LEVEL 140 MEQ/L (136-145)
[2017-12-03 12:42] LABS: ESTIMATED AVERAGE GLUCOSE 260 MG/DL (60-110); HEMOGLOBIN A1c 10.7 %
== END ==
LOC: M SFHCCLAY 09:57
DX: E11.22 Type 2 diabetes mellitus with diabetic chronic kidney disease (principal); N18.3 Chronic kidney disease, stage 3 (moderate); E03.9 Hypothyroidism, unspecified
CPT/HCPCS: 84443

== ENCOUNTER → 2017-12-03 | Outpatient (CLI) | payer MEDICARE | LOC: M CLY 10:23 | DX: M54.12 Radiculopathy, cervical region (principal); E11.22 Type 2 diabetes mellitus with diabetic chronic kidney disease; N18.3 Chronic kidney disease, stage 3 (moderate); E03.9 Hypothyroidism, unspecified | CPT/HCPCS: 72050; 84443 ==

== ENCOUNTER → 2018-01-28 | Outpatient (REF) | payer MEDICARE ==
[2018-01-28 11:44] LABS: HEMOGLOBIN 12.5 g/dl (12.0-15.5); MEAN CORPUSCULAR HEMOGLOBIN 23.4 pg (27.0-33.0); MEAN CORPUSCULAR HGB CONC 28.4 g/dl (32.0-36.5); MEAN CORPUSCULAR VOLUME 82.2 fl (80.0-96.0); PLATELET COUNT, AUTOMATED 296 10^3/uL (150-450); RED BLOOD COUNT 5.35 10^6/uL (4.00-5.40); RED CELL DISTRIBUTION WIDTH 23.1 % (11.5-14.5); WHITE BLOOD COUNT 8.1 10^3/uL (4.0-10.0)
[2018-01-28 12:21] LABS: ALBUMIN 2.9 GM/DL (3.2-5.2); ANION GAP 10 MEQ/L (8-16); BLOOD UREA NITROGEN 12 MG/DL (7-18); CARBON DIOXIDE LEVEL 28 MEQ/L (21-32); CHLORIDE LEVEL 104 MEQ/L (98-107); GLOMERULAR FILTRATION RATE > 60.0 (>39); GLUCOSE, FASTING 102 MG/DL (70-100); PHOSPHORUS LEVEL 4.4 MG/DL (2.5-4.9); POTASSIUM SERUM 3.6 MEQ/L (3.5-5.1); SODIUM LEVEL 142 MEQ/L (136-145)
== END ==
LOC: M LABDRAWC 11:08
DX: I25.10 Atherosclerotic heart disease of native coronary artery without angina pectoris (principal); I48.0 Paroxysmal atrial fibrillation
CPT/HCPCS: 80069

== ENCOUNTER → 2018-02-16 | Outpatient (CLI) | payer MEDICARE ==
[~2018-02-16] MED LIST changes: -ACET65TA OR; -AGGR1CAP PO; -AGGRCAP OR; -ALBU17IN INH; -ALBU83IN INH; -AMLO10TA PO; -AMLO10TA2 PO; -ASCO25TA PO; -ASCO500T PO; -ASPI81TA83 OR; -Amlodipine Besylate PO; -BISO10TA2 OR; -BISO10TA6 PO; -CALCIUM+VIT D PO; -CALCTAB74 PO; -CLAR1TAB2 PO; -CLONIDINE PO; -COLA100C5 PO; +CONRAY-43 43% 50ML VIAL (Q9960) As Ordered; -CRES10TA32 PO; -CRES20TA PO; -DIOV160T5 OR; -DIOV160T6 PO; -DIPH25CA PO; -DOXY100T OR; -ECON1CRE TOP; -ELIQ5TAB PO; -FURO40TA2 OR; -FURO40TA2 PO; -INSUHUMDS SC; -INSULADS SC; -INSULANT SC; -INVO300T PO; -K-TA10TA2 PO; -KLOR10TA OR; -KLOR1CAP2 PO; -LASI20TA PO; -LEVO175T19 PO; -LEVO175T3 OR; -LORATIDINE PO; -MECL1CHW2 PO; -METFORMIN PO; -NICO21DI4 TD; -NITR4TASL SL; -NORV5TAB OR; -NORV5TAB PO; -NYST10CR EXT; -NYST10CR TOP; -OMEP40CA2 PO; -PRIL40CA OR; -PRIL40CA PO; +PROHANCE 279.3MG/ML 5ML VIAL (A9576) As Ordered; -ROBI30SU PO; -ROBIMIS PO; -ROSU10TA OR; -SPIR25TA2 PO; -SYNT175T2 PO; -TOUJ1.2I SC; -TYLE500T78 PO
== END ==
LOC: M RADPRO 09:34
DX: M51.06 Intervertebral disc disorders with myelopathy, lumbar region (principal); M48.061 Spinal stenosis, lumbar region without neurogenic claudication
CPT/HCPCS: 72131

== ENCOUNTER → 2018-03-09 | Outpatient (REF) | payer MEDICARE ==
[2018-03-10 12:19] LABS: HEMATOCRIT 47.1 % (36.0-47.0); HEMOGLOBIN 14.4 g/dl (12.0-15.5); MEAN CORPUSCULAR HEMOGLOBIN 26.8 pg (27.0-33.0); MEAN CORPUSCULAR HGB CONC 30.6 g/dl (32.0-36.5); MEAN CORPUSCULAR VOLUME 87.5 fl (80.0-96.0); PLATELET COUNT, AUTOMATED 189 10^3/uL (150-450); RED BLOOD COUNT 5.38 10^6/uL (4.00-5.40); WHITE BLOOD COUNT 8.9 10^3/uL (4.0-10.0)
[2018-03-10 12:27] LABS: ANION GAP 5 MEQ/L (8-16); BLOOD UREA NITROGEN 14 MG/DL (7-18); CALCIUM LEVEL 9.3 MG/DL (8.8-10.2); CARBON DIOXIDE LEVEL 29 MEQ/L (21-32); CHLORIDE LEVEL 102 MEQ/L (98-107); CREATININE FOR GFR 1.03 MG/DL (0.55-1.30); GLOMERULAR FILTRATION RATE 56.2 (>39); GLUCOSE, FASTING 366 MG/DL (70-100); MAGNESIUM LEVEL 1.9 MG/DL (1.8-2.4); POTASSIUM SERUM 4.1 MEQ/L (3.5-5.1); SODIUM LEVEL 136 MEQ/L (136-145)
== END ==
LOC: M LABDRAWC 03-10 11:47
DX: I25.10 Atherosclerotic heart disease of native coronary artery without angina pectoris (principal); I50.32 Chronic diastolic (congestive) heart failure; I48.0 Paroxysmal atrial fibrillation
CPT/HCPCS: 83735

== ENCOUNTER → 2018-03-12 | Outpatient (REF) | payer MEDICARE ==
[2018-03-12 13:40] LABS: ESTIMATED AVERAGE GLUCOSE 183 MG/DL (60-110)
== END ==
LOC: M SFHCCLAY 09:03
DX: E11.29 Type 2 diabetes mellitus with other diabetic kidney complication (principal)
CPT/HCPCS: 83036

== ENCOUNTER → 2018-06-16 | Outpatient (REF) | payer MEDICARE ==
[2018-06-16 17:23] LABS: HEMATOCRIT 44.3 % (36.0-47.0); HEMOGLOBIN 14.3 g/dl (12.0-15.5); MEAN CORPUSCULAR HEMOGLOBIN 29.9 pg (27.0-33.0); MEAN CORPUSCULAR HGB CONC 32.3 g/dl (32.0-36.5); MEAN CORPUSCULAR VOLUME 92.5 fl (80.0-96.0); PLATELET COUNT, AUTOMATED 240 10^3/uL (150-450); RED BLOOD COUNT 4.79 10^6/uL (4.00-5.40); WHITE BLOOD COUNT 8.2 10^3/uL (4.0-10.0)
[2018-06-16 17:41] LABS: ANION GAP 8 MEQ/L (8-16); BLOOD UREA NITROGEN 16 MG/DL (7-18); CALCIUM LEVEL 9.1 MG/DL (8.8-10.2); CARBON DIOXIDE LEVEL 28 MEQ/L (21-32); CHLORIDE LEVEL 105 MEQ/L (98-107); CREATININE FOR GFR 0.88 MG/DL (0.55-1.30); GLOMERULAR FILTRATION RATE > 60.0 (>39); GLUCOSE, FASTING 168 MG/DL (70-100); MAGNESIUM LEVEL 2.3 MG/DL (1.8-2.4); POTASSIUM SERUM 4.2 MEQ/L (3.5-5.1); SODIUM LEVEL 141 MEQ/L (136-145)
== END ==
LOC: M LABDRAWC 16:35
DX: I50.32 Chronic diastolic (congestive) heart failure (principal); I48.0 Paroxysmal atrial fibrillation
CPT/HCPCS: 83735

== ENCOUNTER → 2018-06-23 | Outpatient (REF) | payer MEDICARE ==
[2018-06-23 11:58] LABS: ESTIMATED AVERAGE GLUCOSE 171 MG/DL (60-110); HEMOGLOBIN A1c 7.6 %
== END ==
LOC: M SFHCCLAY 09:46
DX: E11.22 Type 2 diabetes mellitus with diabetic chronic kidney disease (principal)
CPT/HCPCS: 83036

== ENCOUNTER → 2018-11-16 | Outpatient (REF) | payer MEDICARE ==
[~2018-11-16] MED LIST changes: +ACET65TA OR; +AGGR1CAP PO; +AGGRCAP OR; +ALBU17IN INH; +ALBU83IN INH; +AMLO10TA PO; +AMLO10TA5 PO; +ASCO25TA PO; +ASCO500T PO; +ASPI81TA83 OR; +Amlodipine Besylate PO; +BISO10TA2 OR; +BISO10TA6 PO; +CALCIUM+VIT D PO; +CALCTAB74 PO; +CLAR1TAB2 PO; +CLONIDINE PO; +COLA100C5 PO; -CONRAY-43 43% 50ML VIAL (Q9960) As Ordered; +CRES10TA32 PO; +CRES20TA PO; +DIOV160T5 OR; +DIOV160T6 PO; +DIPH25CA PO; +DOXY100T OR; +ECON1CRE TOP; +ELIQ5TAB PO; +FURO40TA2 OR; +FURO40TA2 PO; +INSUHUMDS SC; +INSULADS SC; +INSULANT SC; +INVO300T PO; +K-TA10TA2 PO; +KLOR10TA OR; +KLOR1CAP2 PO; +LASI20TA3 PO; +LEVO175T19 PO; +LEVO175T3 OR; +LORATIDINE PO; +MECL1CHW2 PO; +METFORMIN PO; +NICO21DI4 TD; +NITR4TASL SL; +NORV5TAB OR; +NORV5TAB PO; +NYST10CR EXT; +NYST10CR TOP; +OMEP40CA2 PO; +PRIL40CA OR; +PRIL40CA PO; -PROHANCE 279.3MG/ML 5ML VIAL (A9576) As Ordered; +ROBI30SU PO; +ROBIMIS PO; +ROSU10TA OR; +SPIR-10 PO; +SYNT175T2 PO; +TOUJ1.2I SC; +TYLE500T78 PO
[2018-11-16 16:59] LABS: BLOOD UREA NITROGEN 13 MG/DL (7-18); CARBON DIOXIDE LEVEL 27 MEQ/L (21-32); CHLORIDE LEVEL 104 MEQ/L (98-107); CREATININE FOR GFR 0.91 MG/DL (0.55-1.30); GLOMERULAR FILTRATION RATE > 60.0 (>39); GLUCOSE, FASTING 193 MG/DL (70-100); POTASSIUM SERUM 4.4 MEQ/L (3.5-5.1); SODIUM LEVEL 139 MEQ/L (136-145)
[2018-11-16 17:20] LABS: CHOLESTEROL RISK RATIO 3.048 (<5)
[2018-11-16 17:31] LABS: MAU/CREAT RATIO 334.9 MCG/MG (0.0-30.0)
[2018-11-16 17:42] LABS: HEMOGLOBIN A1c 8.6 %
== END ==
LOC: M SFHCCLAY 12:08
PROVIDERS: ATTEND Family Medicine
DX: E11.9 Type 2 diabetes mellitus without complications (principal); I50.32 Chronic diastolic (congestive) heart failure; E03.9 Hypothyroidism, unspecified

== ENCOUNTER → 2019-02-03 | Outpatient (REF) | payer MEDICARE ==
[~2019-02-03] MED LIST changes: +AGGR1CAP OR; -AGGRCAP OR; -ASCO25TA PO; +CRES10TA PO; +CRES10TA32 OR; -CRES10TA32 PO; -CRES20TA PO; +CRES20TA2 PO; +MECL1CHW PO; -MECL1CHW2 PO; +NYST100029 TOP; -NYST10CR TOP; -ROSU10TA OR; +VITA1TAB23 PO
== END ==
LOC: M SFHCPLAZ 18:16
PROVIDERS: ATTEND Dermatology
DX: C44.612 Basal cell carcinoma of skin of right upper limb, including shoulder (principal); C44.719 Basal cell carcinoma of skin of left lower limb, including hip; D04.72 Carcinoma in situ of skin of left lower limb, including hip; L57.0 Actinic keratosis

== ENCOUNTER → 2019-03-29 | Outpatient (REF) | payer MEDICARE | LOC: M SFHCPLAZ 17:27 | PROVIDERS: ATTEND Dermatology | DX: C44.729 Squamous cell carcinoma of skin of left lower limb, including hip (principal) ==

== ENCOUNTER → 2019-05-05 | Outpatient (REF) | payer MEDICARE ==
[~2019-05-05] MED LIST changes: -BISO10TA6 PO; +BISO10TA7 PO
== END ==
LOC: M SFHCPLAZ 18:07
PROVIDERS: ATTEND Dermatology
DX: C44.719 Basal cell carcinoma of skin of left lower limb, including hip (principal); L57.0 Actinic keratosis

== ENCOUNTER → 2019-05-10 | Outpatient (REF) | payer MEDICARE | LOC: M SFHCPLAZ 12:48 | PROVIDERS: ATTEND Dermatology | DX: L57.0 Actinic keratosis (principal); D23.72 Other benign neoplasm of skin of left lower limb, including hip ==

== ENCOUNTER → 2019-05-16 | Outpatient (REF) | payer MEDICARE ==
[2019-05-16 11:38] LABS: BLOOD UREA NITROGEN 17 MG/DL (7-18); CALCIUM LEVEL 8.6 MG/DL (8.8-10.2); CARBON DIOXIDE LEVEL 29 MEQ/L (21-32); CHLORIDE LEVEL 107 MEQ/L (98-107); CREATININE FOR GFR 0.91 MG/DL (0.55-1.30); GLOMERULAR FILTRATION RATE > 60.0 (>39); GLUCOSE, FASTING 202 MG/DL (70-100); POTASSIUM SERUM 4.4 MEQ/L (3.5-5.1); SODIUM LEVEL 140 MEQ/L (136-145)
[2019-05-16 11:47] LABS: HEMOGLOBIN A1c 7.7 %
== END ==
LOC: M SFHCCLAY 08:56
PROVIDERS: ATTEND Family Medicine
DX: I50.32 Chronic diastolic (congestive) heart failure (principal); E11.9 Type 2 diabetes mellitus without complications

== ENCOUNTER → 2019-07-05 | Outpatient (REF) | payer MEDICARE ==
[~2019-07-05] MED LIST changes: +BISO10TA10 PO; -BISO10TA7 PO; -DIPH25CA PO; +DIPH25CA32 PO; -ECON1CRE TOP; +ECON1CRE36 TOP
[2019-07-05 17:33] LABS: HEMATOCRIT 36.8 % (36.0-47.0); HEMOGLOBIN 10.2 g/dl (12.0-15.5); MEAN CORPUSCULAR HEMOGLOBIN 23.5 pg (27.0-33.0); MEAN CORPUSCULAR HGB CONC 27.7 g/dl (32.0-36.5); MEAN CORPUSCULAR VOLUME 84.8 fl (80.0-96.0); PLATELET COUNT, AUTOMATED 308 10^3/uL (150-450); RED BLOOD COUNT 4.34 10^6/uL (4.00-5.40); WHITE BLOOD COUNT 7.8 10^3/uL (4.0-10.0)
[2019-07-05 17:41] LABS: CREATININE FOR GFR 1.17 MG/DL (0.55-1.30); GLOMERULAR FILTRATION RATE 48.4 (>39); POTASSIUM SERUM 3.3 MEQ/L (3.5-5.1)
== END ==
LOC: M SFHCCLAY 08:51
PROVIDERS: ATTEND Family Medicine
DX: I50.33 Acute on chronic diastolic (congestive) heart failure (principal); J45.909 Unspecified asthma, uncomplicated

== ENCOUNTER → 2019-07-19 | Outpatient (REF) | payer MEDICARE ==
[2019-07-19 20:11] LABS: CALCIUM LEVEL 8.7 MG/DL (8.8-10.2); CREATININE FOR GFR 1.11 MG/DL (0.55-1.30); GLOMERULAR FILTRATION RATE 51.4 (>39); POTASSIUM SERUM 3.9 MEQ/L (3.5-5.1)
== END ==
LOC: M LAB REF 19:31
PROVIDERS: ATTEND Family Medicine
DX: I11.9 Hypertensive heart disease without heart failure (principal); I48.91 Unspecified atrial fibrillation; D64.9 Anemia, unspecified; J44.9 Chronic obstructive pulmonary disease, unspecified; E11.9 Type 2 diabetes mellitus without complications

== ENCOUNTER → 2019-08-02 | Outpatient (REF) | payer MEDICARE | LOC: M SFHCPLAZ 09:46 | PROVIDERS: ATTEND Dermatology | DX: C44.729 Squamous cell carcinoma of skin of left lower limb, including hip (principal); C44.41 Basal cell carcinoma of skin of scalp and neck ==

== ENCOUNTER → 2019-09-07 | Outpatient (REF) | payer MEDICARE ==
[~2019-09-07] MED LIST changes: -OMEP40CA2 PO; +OMEP40CA97 PO
== END ==
LOC: M LAB REF 09:11
PROVIDERS: ATTEND Dermatology
DX: Z94.5 Skin transplant status (principal)

== ENCOUNTER → 2019-09-14 | Outpatient (REF) | payer MEDICARE ==
[2019-09-14 16:27] LABS: ALBUMIN 3.2 GM/DL (3.2-5.2); CALCIUM LEVEL 9.4 MG/DL (8.8-10.2); CREATININE FOR GFR 0.99 MG/DL (0.55-1.30); GLOMERULAR FILTRATION RATE 58.7 (>39); POTASSIUM SERUM 4.4 MEQ/L (3.5-5.1)
[2019-09-14 16:29] LABS: BASO # 0.1 10^3/uL (0.0-0.2); BASO % 0.7 % (0.0-1.0); EOS # 0.3 10^3/uL (0.0-0.5); EOS % 3.6 % (0.0-3.0); HEMATOCRIT 46.7 % (36.0-47.0); HEMOGLOBIN 14.5 g/dl (12.0-15.5); LYMPH % 10.8 % (24.0-44.0); MEAN CORPUSCULAR HEMOGLOBIN 28.4 pg (27.0-33.0); MEAN CORPUSCULAR VOLUME 91.6 fl (80.0-96.0); MONO # 0.9 10^3/uL (0.0-0.8); NEUTROPHILS # 7.2 10^3/uL (1.5-8.5); NEUTROPHILS % 75.6 % (36.0-66.0); PLATELET COUNT, AUTOMATED 206 10^3/uL (150-450); WHITE BLOOD COUNT 9.6 10^3/uL (4.0-10.0)
== END ==
LOC: M SFHCCLAY 10:43
PROVIDERS: ATTEND Family Medicine
DX: E11.22 Type 2 diabetes mellitus with diabetic chronic kidney disease (principal); D50.0 Iron deficiency anemia secondary to blood loss (chronic)

== ENCOUNTER → 2019-12-05 | Outpatient (REF) | payer MEDICARE ==
[~2019-12-05] MED LIST changes: +ACET-861 PO; +ALDA50TA2 PO; -BISO10TA10 PO; +BISO10TA14 PO; +CARD40TA PO; +CEFD300CAP PO; +CLAR10CA3 PO; +CRES40TA PO; +DILT60TA PO; +DOCU100C16 PO; -ECON1CRE36 TOP; +ECON1CRE8 TOP; +FERR1TAB8 PO; +IPRA0.00 IN; +IPRA0.00 INH; +LORA-243 PO; +MECL-86 PO; +METF500T13 PO; +MUSCCRE9 TOP; +NYST1POW9 TOP; +PANT-23 PO; +POTA1TAB14 PO; +PROAAER10 INH; +PROT1TAB2 PO; +SPIR50TA4 PO; +SYMB80INH INH; +TIZA4TAB4 PO; +VENTAER INH; +VITA500C24 PO; +[UNRECOGNIZED DRUG - OTHER] XX
[2019-12-05 13:18] LABS: HEMATOCRIT 48.8 % (36.0-47.0); MEAN CORPUSCULAR HEMOGLOBIN 28.2 pg (27.0-33.0); MEAN CORPUSCULAR HGB CONC 30.7 g/dl (32.0-36.5); MEAN CORPUSCULAR VOLUME 91.9 fl (80.0-96.0); PLATELET COUNT, AUTOMATED 217 10^3/uL (150-450); RED BLOOD COUNT 5.31 10^6/uL (4.00-5.40); WHITE BLOOD COUNT 10.9 10^3/uL (4.0-10.0)
[2019-12-05 14:11] LABS: CALCIUM LEVEL 9.9 MG/DL (8.8-10.2); CREATININE FOR GFR 2.05 MG/DL (0.55-1.30); FREE T4 1.47 NG/DL (0.76-1.46); GLOMERULAR FILTRATION RATE 25.3 (>39); POTASSIUM SERUM 4.8 MEQ/L (3.5-5.1); THYROID STIMULATING HORMONE 0.491 uIU/ML (0.358-3.740)
== END ==
LOC: M SFHCCLAY 08:46
PROVIDERS: ATTEND Family Medicine
DX: E03.9 Hypothyroidism, unspecified (principal); E11.9 Type 2 diabetes mellitus without complications

== ENCOUNTER → 2019-12-13 | Outpatient (REF) | payer MEDICARE ==
[~2019-12-13] MED LIST changes: -ACET-861 PO; -IPRA0.00 INH; -LORA-243 PO; -NYST1POW9 TOP; -PROAAER10 INH; -PROT1TAB2 PO; -SPIR50TA4 PO
[2019-12-13 11:58] LABS: CALCIUM LEVEL 9.9 MG/DL (8.8-10.2); CREATININE FOR GFR 1.55 MG/DL (0.55-1.30); GLOMERULAR FILTRATION RATE 34.9 (>39); POTASSIUM SERUM 4.7 MEQ/L (3.5-5.1)
== END ==
LOC: M SFHCCLAY 09:10
PROVIDERS: ATTEND Family Medicine
DX: E11.22 Type 2 diabetes mellitus with diabetic chronic kidney disease (principal)

== ENCOUNTER → 2019-12-21 | Outpatient (REF) | payer MEDICARE ==
[2019-12-21 17:10] LABS: HEMATOCRIT 45.3 % (36.0-47.0); HEMOGLOBIN 14.1 g/dl (12.0-15.5); MEAN CORPUSCULAR HEMOGLOBIN 28.6 pg (27.0-33.0); MEAN CORPUSCULAR HGB CONC 31.1 g/dl (32.0-36.5); MEAN CORPUSCULAR VOLUME 91.9 fl (80.0-96.0); PLATELET COUNT, AUTOMATED 221 10^3/uL (150-450); RED BLOOD COUNT 4.93 10^6/uL (4.00-5.40); WHITE BLOOD COUNT 11.4 10^3/uL (4.0-10.0)
[2019-12-21 17:30] LABS: ALBUMIN 3.6 GM/DL (3.2-5.2); BILIRUBIN,TOTAL 0.5 MG/DL (0.2-1.0); CALCIUM LEVEL 9.2 MG/DL (8.8-10.2); CREATININE FOR GFR 1.4 MG/DL (0.55-1.30); FREE T4 1.67 NG/DL (0.76-1.46); GLOMERULAR FILTRATION RATE 39.2 (>39); POTASSIUM SERUM 4.4 MEQ/L (3.5-5.1); THYROID STIMULATING HORMONE 0.158 uIU/ML (0.358-3.740); TOTAL PROTEIN 8.1 GM/DL (6.4-8.2)
== END ==
LOC: M SFHCCLAY 11:31
PROVIDERS: ATTEND Family Medicine
DX: E11.9 Type 2 diabetes mellitus without complications (principal); E03.9 Hypothyroidism, unspecified; I50.33 Acute on chronic diastolic (congestive) heart failure; K74.60 Unspecified cirrhosis of liver

== ENCOUNTER 2019-12-28 03:01 | Inpatient (IN) | payer MEDICARE ==
[~2019-12-28] VITALS: Ht 157.5 cm; Wt 90.5 kg
[2019-12-28] MEDS ORDERED: SPIR-10 PO (03:29)
[2019-12-28] MEDS ORDERED: ACETAMINOPHEN 500 MG TAB PO ONE (03:45)
[2019-12-28 03:59] LABS: BASO # 0.1 10^3/uL (0.0-0.2); BASO % 0.3 % (0.0-1.0); EOS # 0.2 10^3/uL (0.0-0.5); HEMATOCRIT 44.9 % (36.0-47.0); HEMOGLOBIN 14.4 g/dl (12.0-15.5); LYMPH # 0.7 10^3/uL (1.5-5.0); LYMPH % 3.9 % (24.0-44.0); MEAN CORPUSCULAR HEMOGLOBIN 29.1 pg (27.0-33.0); MEAN CORPUSCULAR HGB CONC 32.1 g/dl (32.0-36.5); MEAN CORPUSCULAR VOLUME 90.7 fl (80.0-96.0); MONO # 1.1 10^3/uL (0.0-0.8); MONO % 6.4 % (0.0-5.0); NEUTROPHILS # 15.3 10^3/uL (1.5-8.5); PLATELET COUNT, AUTOMATED 209 10^3/uL (150-450); RED BLOOD COUNT 4.95 10^6/uL (4.00-5.40); WHITE BLOOD COUNT 17.4 10^3/uL (4.0-10.0)
[2019-12-28 04:28] LABS: BLOOD UREA NITROGEN 26 MG/DL (7-18); CALCIUM LEVEL 9.2 MG/DL (8.8-10.2); CARBON DIOXIDE LEVEL 28 MEQ/L (21-32); CHLORIDE LEVEL 102 MEQ/L (98-107); CK-MB VALUE MASS 1.6 NG/ML (<3.6); CPK CREATINE PHOSPHOKINASE 93 U/L (26-192); CREATININE FOR GFR 1.52 MG/DL (0.55-1.30); GLOMERULAR FILTRATION RATE 35.7 (>39); GLUCOSE, FASTING 139 MG/DL (70-100); MB/CK RELATIVE INDEX 1.72 (< OR =4); SODIUM LEVEL 136 MEQ/L (136-145); TROPONIN I < 0.02 NG/ML (< 0.10)
[2019-12-28 04:29] LABS: INFLUENZA A AMPLIFICATION NEGATIVE (NEGATIVE); INFLUENZA B AMPLIFICATION NEGATIVE (NEGATIVE)
[2019-12-28] MEDS ORDERED: ERTAPENEM SODIUM 1 GM in NS MINI-BAG PLUS 50 ML IV ONE (05:15)
[2019-12-28] MEDS ORDERED: NS 1,000 ML IV ONE (05:15)
[2019-12-28] MEDS ORDERED: VANCOMYCIN HCL 1,000 MG, VIAL MATE ADAPTER 1 EACH in D5W 250 ML IV ONE (05:15)
[2019-12-28] MEDS ORDERED: SODIUM CHLORIDE 0.9% 1000ML IV STA (05:35)
[2019-12-28 05:37] LABS: APPEARANCE, URINE CLEAR (CLEAR); BACTERIA, URINE AUTO NEGATIVE (NEGATIVE); BILIRUBIN, URINE AUTO NEGATIVE (NEGATIVE); BLOOD, URINE BLOOD NEGATIVE (NEGATIVE); COLOR, URINE YELLOW (YELLOW); GLUCOSE, URINE (UA) AUTO NEGATIVE (NEGATIVE); KETONE, URINE AUTO NEGATIVE (NEGATIVE); LEUKOCYTE ESTERASE, URINE AUTO NEGATIVE (NEGATIVE); NITRITE, URINE AUTO NEGATIVE (NEGATIVE); PROTEIN, URINE AUTO 1+ mg/dL (NEGATIVE); RBC, URINE AUTO 5 /HPF (0-3); SPECIFIC GRAVITY URINE AUTO 1.017 (1.002-1.035); SQUAMOUS EPITHELIAL CELL UR AU 0 /HPF (0-6); WBC, URINE AUTO 1 /HPF (0-3)
[2019-12-28] MEDS ORDERED: MAALOX 30 ML SUSP *UDC PO PRN (05:45)
--- NOTE | 2019-12-28 05:46 | REPVR ---
PROCEDURE INFORMATION: Exam: CT Chest Without Contrast Exam date and time: 12/28/2019 4:42 AM Age: 74 years old Clinical indication: Dyspnea; Patient HX: General illness; Additional info: Dysp/elev creat TECHNIQUE: Imaging protocol: Computed tomography of the chest without contrast. 3D rendering: MIP and/or 3D reconstructed images were created by the technologist. Radiation optimization: All CT scans at this facility use at least one of these dose optimization techniques: automated exposure control; mA and/or kV adjustment per patient size (includes targeted exams where dose is matched to clinical indication); or iterative reconstruction. COMPARISON: CT ANGIO CHEST 10/21/2019 10:13 PM FINDINGS: Tubes, catheters and devices: Pacemaker in position from the left. Lungs: Mild patchy bilateral pulmonary infiltrates and minimal scattered fibro-atelectatic change, greatest in the right base. Noncalcified nodule in the posterolateral right upper lobe measuring 8 mm which is similar to the prior study. For patients at low risk (minimal or absent history of smoking and of other known risk factors), recommend CT at 6-12 months, then consider CT at 18-24 months. For patients at high risk (history of smoking or of other known risk factors), recommend CT at 6-12 months, then CT at 18-24 months. (MacMahon, et al., Fleischner Society, 2017). Pleural space: Unremarkable. No pneumothorax. No pleural effusion. Heart: Coronary artery calcifications are present. Pulmonary arteries: The main pulmonary artery measures 35 mm. Aorta: The ascending thoracic aorta measures 31 mm. Lymph nodes: Unremarkable. No enlarged lymph nodes. Liver: Nodular surface of the liver. Gallbladder and bile ducts: Status post cholecystectomy. Spleen: Borderline splenomegaly. Bones/joints: Unremarkable. No acute fracture. Soft tissues: Unremarkable. IMPRESSION: 1. 8 mm nodule in the right upper lobe which is similar to 10/21/2019. For patients at low risk (minimal or absent history of smoking and of other known risk factors), recommend CT at 6-12 months, then consider CT at 18-24 months. For patients at high risk (history of smoking or of other known risk factors), recommend CT at 6-12 months, then CT at 18-24 months. (MacMahon, et al., Fleischner Society, 2017). 2. Mild patchy bilateral pulmonary infiltrates and minimal scattered fibro-atelectatic change which is greatest in the right base and similar to the prior study. 3. Status post cholecystectomy. 4. Hepatic cirrhosis with borderline splenomegaly. Electronically signed by: Reynaldo Gerardo On 12/28/2019 05:45:52 AM
[2019-12-28] MEDS ORDERED: DILT60TA PO (06:26)
[2019-12-28] MEDS ORDERED: NYST1POW9 TOP (06:26)
[2019-12-28] MEDS ORDERED: PROAAER10 INH (06:26)
[2019-12-28] MEDS ORDERED: ACET-861 PO (06:26)
[2019-12-28] MEDS ORDERED: PROT1TAB2 PO (06:26)
[2019-12-28] MEDS ORDERED: SPIR50TA4 PO (06:26)
[2019-12-28] MEDS ORDERED: LORA-243 PO (06:26)
[2019-12-28] MEDS ORDERED: IPRA0.00 INH (06:26)
--- NOTE | 2019-12-28 06:38 | HPEPDOC ---
[facility] Medical History & Physical Date of Admission Dec 28, 2019 Date of Service: Dec 28, 2019 Primary Care Physician: Pepe Olivas MD Attending Physician: RAKESH PINEDA MD History and Physical TIME OF SERVICE: 6 AM CHIEF COMPLAINT: Short of breath HISTORY OF PRESENT ILLNESS: This is a 74-year-old female who presents with shortness of breath for 2-3 days that is worse with exertion and associated with fevers, chills, and runny nose. She denies having muscle aches, context, sick contacts, vomiting or diarrhea. Per discussion with Dr. Fraser on arrival in the ER, her temperature is 100.2, and O2 sats were 90% on 3 L, which is her baseline; chest CT showed bilateral pulmonary infiltrates therefore, she was given vancomycin and Invanz for possible pneumonia. EKG showed ventricular paced rhythm , heart rate of 130, while her troponin was within normal limits. REVIEW OF SYSTEMS: 12 point review of systems negative except as listed in HPI PAST MEDICAL/ SURGICAL HISTORY: Chronic hypertension COPD Chronic oxygen-dependent respiratory failure (3 L). History of CVA Chronic Systolic CHF Hypothyroidism Atrial fibrillation GERD Osteoporosis. Hepatic steatosis History of Lyme's disease. Pacemaker placement. Status post resection of basal cell carcinoma. Status post resection of squamous cell carcinoma. SOCIAL HISTORY: She quit smoking FAMILY HISTORY: Her mother had CHF ALLERGIES: Please see below. HOME MEDICATIONS: Please see below. PHYSICAL EXAMINATION: Vital Signs Date Time Temp Pulse Resp B/P (MAP) Pulse Ox O2 Delivery O2 Flow Rate FiO2 12/28/19 03:12 134/99 (111) 12/28/19 03:16 128 90 12/28/19 03:16 102.8 32 GEN: well nourished / well developed/ NAD INTEGUMENT: She is not flushed or jaundice HEENT:NCAT / lips are not cyanotic / she does not pursed lip breathing / trachea midline / NC in place / maximal laryngeal height is bout 4cm / mucus membranes moist and pink / sclera anicteric CVS: RRR/ 80 on pulses are intact LUNGS: not able to speak full sentences without stopping to take a breath / using accessory muscles / there is decreased respiratory expansion/ she has and expiratory wheezing / forced expiratory time is > 9 sec ABDOMEN: MSK/EXTREMITIES: She doesn't have finger nail clubbing/ range of motion intact in all 4 extremities /NEURO: CN 2-12 are grossly intact / speech is not dysarthr ic / she does not have asterixis PSYCH: alert and oriented to person place and time/ able to understand and follow all commands LABORATORY DATA: IMAGING: Chest X-ray shows multiple pulmonary vascular congestion, but the final read is pending CT chest " IMPRESSION: 1. 8 mm nodule in the right upper lobe which is similar to 10/21/2019. For patients at low risk (minimal or absent history of smoking and of other known risk factors), recommend CT at 6-12 months, then consider CT at 18-24 months. For patients at high risk (history of smoking or of other known risk factors), recommend CT at 6-12 months, then CT at 18-24 months. (Kurt et al., Fleischner Society, 2017). 2. Mild patchy bilateral pulmonary infiltrates and minimal scattered fibro-atelectatic change which is greatest in the right base and similar to the prior study. 3. Status post cholecystectomy. 4 . Hepatic cirrhosis with borderline splenomegaly. " MICROBIOLOGY: Please see below. ASSESSMENT: Ms. Redmond is a 74-year-old with a past medical history of HTN, A.fib, COPD, oxygen-dependent respiratory failure, CVA, systolic CHF, hypothyroidism, GERD, osteoporosis, hepatic steatosis, pacemaker placement, was admitted for evaluation of shortness of breath, possibly due to pneumonia, acute CHF, acute COPD and FRED. PLAN: 1. Dyspnea Possibly due to pneumonia. She also appears to be in acute CHF and acute COPD Plan: Admit to PCU/treat pneumonia, COPD and CHF. 2. Sepsis secondary to pneumonia SIRS criteria include Temp >101 / HR >90 / / WBC >12 / >RR 20 She is complaining of dry cough and runny nose. Based on CT findings. She may have multifocal pneumonia Plan: telemetry / follow-up lactic acid / continuous pulse ox & supplemental O2/ continue vancomycin and Invanz/ will not give additional IV fluids to avoid worsening her fluid overload/f/u blood cx, MRSA, Legionella, Mycoplasma, and respiratory panel sputum Cx / Acetaminophen PRN for fever / target MAP 65 to / f/u Is and Os with target UOP of atleast 0.5 ml/kg/H / target serum glucose 140-180 while acutely ill 3. Acute CHF Possibly due to upper respiratory tract infection. Chest x-ray did show some congestion Plan: elevate head of bed to 30 degrees/ f/u Is/OS, daily weights, fluid restriction to 2L or 67oz, salt restriction to 2G / BNP should be measured upon admission and before discharge for prognostic purposes because high levels and levels that dont trend down are linked with increased mortality and rehosp italization / trend trops Troponin /will give one dose of IV lasix now and then resume her home dose c/w spironolactone/ avoid NSAIDs 4. Acute COPD Plan: supplemental O2 /Solu-Medrol now/ Dunebs Q6H, Albuterol Q4HP, Prednisone + PPI /antibiotics 5. Acute Renal Failure Possibly due to cardiorenal syndrome Plan: Is/Os, daily weights / IVF / f/u ulytes for FEUrea / renal US / not give IV fluids to avoid worsening congestion 6. Type II IDDM - Plan: diabetic diet / f/u accuchecks & A1C / hypoglycemia protocol / sliding scale insulin / currently the medical record is showing that she takes Toujeo 190 units daily along with toujeo 150 units daily, we'll wait for the pharmacy to reconcile her insulin prior to resuming the long acting insulin 7. History of CVA - Plan: statin 8. Hypothyroidism - Plan: levothyroxine 9. Afib - Plan: eliquis 10. Obesity with BMI 37.4, complicates care 11.Pulmonary Nodule - Plan:f/u w PCP for surveillance DVT PROPHYLAXIS: n/a bc she is on eliquis DISPOSITION: home after more than 2 midnight's stay Home Medications Scheduled Apixaban (Eliquis) 5 Mg Tablet, 5 MG PO BID Ascorbic Acid (Ascorbic Acid) 500 Mg Tab, 500 MG PO QPM DINNERTIME Budesonide/Formoterol (Symbicort 80-4.5 Mcg Inhaler) 6.9 Gm Hfa.aer.ad, 2 PUFF INH BID Diltiazem Hcl (Diltiazem HCl) 60 Mg Tablet, 60 MG PO TID Docusate Sodium (Docusate Sodium) 100 Mg Capsule, 100 MG PO QHS Ferrous Sulfate (Ferrous Sulfate) 325 Mg Tablet, 325 MG PO TID Furosemide (Furosemide) 40 Mg Tablet, 40 MG PO DAILY Insulin Glargine,Hum.rec.anlog (Toujeo Solostar) 300 Unit/Ml Inj, 150 UNIT SC DAILY Insulin Glargine,Hum.rec.anlog (Luis A Meekostjazlyn) 300 Unit/1 Ml Insuln.pen, 190 UNIT SC DAILY Ipratropium/Albuterol Sulfate (Iprat-Albut 0.5-3(2.5) mg/3 ml) 3 Ml Ampul.neb, 3 ML INH TID Loratadine (Loratadine) 10 Mg Tablet, 10 MG PO DAILY Pantoprazole Sodium (Protonix) 40 Mg Tablet.dr, 40 MG PO DAILY Rosuvastatin Calcium (Crestor) 40 Mg Tablet, 40 MG PO DAILY Spironolactone (Spironolactone) 50 Mg Tablet, 25 MG PO BID Scheduled PRN Acetaminophen (Acetaminophen) 500 Mg Tablet, 1,000 MG PO Q6H PRN for PAIN / FEVER Albuterol Sulfate (Proair Hfa) 8.5 Gm Hfa.aer.ad, 2 PUFF INH Q4H PRN for SHORTNESS OF BREATH Meclizine HCl (Meclizine HCl) 25 Mg Tablet, 25 MG PO TID PRN for DIZZINESS Nitroglycerin (Nitrostat) 0.4 Mg Subl, 0.4 MG SL NITRO PRN for CHEST PAIN Nystatin (Nystatin Powder) 15 Gm Powder, 1 DOSE TOP BID PRN for RASH UNDER BREASTS AND STOMACH FOLDS Allergies Coded Allergies: gemfibrozil (Verified Allergy, Intermediate, rash, 12/28/19) indapamide (Verified Allergy, Intermediate, rash, 12/28/19) tiotropium (Verified Allergy, Intermediate, rash, 12/28/19) amlodipine (Verified Allergy, Unknown, 12/28/19) amoxicillin (Verified Adverse Reaction, Mild, reddened skin/ HAS TOLERATED ZOSYN, 12/30/19) cephalexin (Verified Adverse Reaction, Mild, nausea, 12/28/19) hydrocodone (Verified Adverse Reaction, Mild, nausea, 12/28/19) Sulfa (Sulfonamide Antibiotics) (Verified Adverse Reaction, Unknown, FRED, 12/28/19) amiloride (Verified Adverse Reaction, Unknown, nausea, 12/28/19) canagliflozin (Verified Adverse Reaction, Unknown, DKA, 12/28/19) clindamycin (Verified Adverse Reaction, Unknown, gi upset, 12/28/19) codeine (Verified Adverse Reaction, Unknown, n/v, 12/28/19) doxycycline (Verified Adverse Reaction, Unknown, n/v, 12/28/19) erythromycin base (Verified Adverse Reaction, Unknown, gi upset, 12/28/19) lorazepam (Verified Adverse Reaction, Unknown, hallucinations, 12/28/19) morphine (Verified Adverse Reaction, Unknown, n/v, 12/28/19) pioglitazone (Verified Adverse Reaction, Unknown, edema; wieght gain, 12/28/19) sitagliptin (Verified Adverse Reaction, Unknown, nausea, 12/28/19) tetracycline (Verified Adverse Reaction, Unknown, gi, 12/28/19) A-FIB/CHADSVASC A-FIB History Current/History of A-Fib/PAF?: Yes Current PO Anticoag Therapy: Yes RAKESH PINEDA MD Dec 28, 2019 06:38
[2019-12-28] MEDS ORDERED: NITROGLYCERIN 0.4 MG SUBL TABLET SL PRN (06:45)
[2019-12-28] MEDS ORDERED: MECLIZINE 25 MG TABLET PO PRN (06:45)
--- NOTE | 2019-12-28 06:52 | REPVR ---
PROCEDURE INFORMATION: Exam: US Retroperitoneal Limited, Kidneys Exam date and time: 12/28/2019 6:37 AM Age: 74 years old Clinical indication: Abnormal findings; Abnormal lab test; Abnormal kidney function lab tests; Additional info: Raymundo TECHNIQUE: Imaging protocol: Real-time ultrasound of the retroperitoneum with image documentation. Examination was focused on the kidneys. COMPARISON: CT ABD/PEL W/IV CONTRAST ONLY 10/21/2019 10:13 PM FINDINGS: Right kidney: The right kidney measures 10.9 cm in its cephalocaudad dimension and 5.3 x 5.4 cm in diameter. Probable extrarenal pelvis measuring 1.9 x 1.8 x 2.4 cm. No mass, cyst or hydronephrosis. Left kidney: The left kidney measures 11.5 cm in its cephalocaudad dimension and 4.8 x 4.7 cm in diameter. No mass, cyst or hydronephrosis. Bladder: Kaplan catheter in the bladder which is decompressed. IMPRESSION: 1. Right extrarenal pelvis. 2. Otherwise negative renal sonogram. 3. Kaplan catheter in the bladder. Electronically signed by: Reynaldo Gerardo On 12/28/2019 06:51:59 AM
[2019-12-28] MEDS ORDERED: methylPREDNISolone INJ 125 MG/2 ML VIAL (J2930) IV STA (06:54)
--- NOTE | 2019-12-28 06:57 | PHACANCOPD ---
PHARMACY VANCOMYCIN DOSING Pt Demographics Demographics Patient Age:74 , Weight:92.730 , Gender: female Adjusted Body Weight Date: 12/28/19, Adjusted Body Weight: [67] Kg Vancomycin Vancomycin indication: PNA Vancomycin Target Ranges: 15-20 mcg/ml Vancomycin Load Y/N: No Load Dose Date Time Vancomycin Load Dose: Date: Time: Vancomycin Dose Date: 12/28/19. Current Vancomycin Dose: [1GM@5:30,THEN 1GM Q18@2000] Intermittent Dosing?: No Labs Micro Microbiology 12/28/19 Blood Culture, Received Pending 12/28/19 Blood Culture, Received Pending Creatinine Clearance Date:12/28/19. Creatinine Clearance: [34.9].CALCULATED Assessment and Plan Maintaining Current Dose?: Yes Reason for dose change: No Dose Change Pharmacist Note Pharmacist Note Date: 12/28/19. Pharmacist note:[id number] ADMITTED W/PNA,62",92.73 KG,MULTIPLE ALLERGIES:SULFA,PCN,TETRACYCLINE,DOXY,ERYTHROMYCIN.CEPHALEXIN. SCR=1.52,CRCL=34.9,MRSA PCR ORDERED,.VANCOMYCIN 1 GM ORDERED IN ED@5:30, THEN WILL BEGIN 1 GRAM IV Q18H @20:00 TODAY,fIRST TROUGH IS SCHEDULED FOR 12/28@1300(PRIOR TO THE 3RD DOSE).PATIENT IS ALSO ON ERTAPENEM 1 GRAM IV Q24H. J[facility] Dec 28, 2019 06:57
[2019-12-28] MEDS ORDERED: ALBUTEROL SULFATE 2.5 MG/0.5 ML INH NEB SOLN NEB PRN (07:00)
--- NOTE | 2019-12-28 07:24 | REP ---
Portable chest x-ray: Single view. History: Dyspnea and cough. Comparison chest x-ray: November 01, 2019. Findings: Right hemidiaphragm remains quite elevated. There is plate-like atelectasis above it in the right lower lobe. A bipolar pacemaker is seen in the right heart via the left side. There are clips in right upper quadrant of the abdomen. Heart is not felt to be enlarged. Pulmonary vasculature is not increased. No infiltrate or pleural effusion is seen. Impression: Pacemaker in place. Elevated right hemidiaphragm. Plate-like atelectasis right base. Otherwise no acute disease. Electronically Signed by Tim Rothman MD 12/28/2019 07:15 A
[2019-12-28] MEDS ORDERED: NS 1,000 ML IV SCH (07:30)
[2019-12-28 07:34] LABS: NT-PRO BNP 150 PG/ML (<125)
[2019-12-28] MEDS: IPRATROPIUM 0.5MG/ALBUTEROL 2.5MG INH SOL UD 3ML (DUONEB)(J7620) NEB SCH ×3 (07:44→20:19)
[2019-12-28] MEDS ORDERED: FUROSEMIDE 100MG/10ML VIAL (J1940) IV ONE (07:45)
[2019-12-28] MEDS: ROSUVASTATIN 10 MG TAB (CRESTOR) PO SCH (08:43)
[2019-12-28] MEDS: APIXABAN 5 MG TAB (ELIQUIS) PO SCH ×2 (08:43→21:32)
[2019-12-28] MEDS: DOCUSATE SODIUM 100 MG CAP PO SCH ×2 (08:43→21:32)
[2019-12-28] MEDS: SPIRONOLACTONE 25 MG TAB PO SCH ×2 (08:43→17:06)
[2019-12-28] MEDS: PANTOPRAZOLE 40MG TAB (PROTONIX) PO SCH (08:43)
[2019-12-28] MEDS: ACETAMINOPHEN TAB 650MG DOSE (2X325MG) PO PRN (08:50)
[2019-12-28] MEDS ORDERED: HEPARIN SOD (PORCINE) 5000UNITS/ML VIAL (J1644 PER 1000UNITS) SC SCH (09:00)
[2019-12-28 10:12] LABS: HEMOGLOBIN A1c 8.5 %
[2019-12-28 12:40] VITALS: BP 122/60
[2019-12-28 16:00] VITALS: BP 127/62
[2019-12-28] MEDS ORDERED: GLUCOSE 4 GM CHEW TABLET PO PRN (16:30)
[2019-12-28] MEDS ORDERED: DEXTROSE 50% 50 ML SYRINGE IV PRN (16:30)
[2019-12-28] MEDS ORDERED: GLUCAGON FOR INJ 1 MG VIAL (J1610) SC PRN (16:30)
[2019-12-28] MEDS: HumaLOG INSULIN (NovoLOG) PER UNIT SC SCH ×2 (17:06→21:32)
[2019-12-28] MEDS ORDERED: LevoFLOXacin IV 500 MG in IV 1 EA IV ONE (17:45)
--- NOTE | 2019-12-28 18:21 | IPN ---
DATE: 12/28/2019 Marjorie was admitted by the hospitalist earlier this morning with pneumonia. She has mild patchy bilateral infiltrates on CT scan of the chest. She has multiple antibiotic allergies and is currently on ertapenem. She was on vancomycin but we discontinued this when PCR came back negative. Flu screen was negative. She reportedly has gram-positive cocci in chains on two simultaneous blood cultures. I reviewed her allergy list which is quite impressive. Antibiotic allergies include PENICILLIN, CEPHALOSPORINS, SULFA, CLINDAMYCIN (gastrointestinal upset), DOXYCYCLINE (gastrointestinal upset). I do not see a quinolone allergy listed. She has type 2 diabetes under fair control. Hemoglobin A1c is 8.5%. She has chronic kidney disease, stage III. Her glomerular filtration rate (GFR) is 35-40. Hemoglobin A1c is 8.5 which is improved from 9 in August 2019. I reviewed her office record. Last seen on 12/21/2019. I noted a history of type 2 diabetes, hypertensive heart disease, hyperlipidemia, hypothyroidism, osteoporosis, some skin cancers which were non-melanoma, chronic obstructive pulmonary disease (COPD), coronary artery disease with three cardiac stents, history of a pacemaker. She underwent a transesophageal echocardiogram by Dr. Monzon for group B Streptococcus bacteremia 10/27/2019. No vegetations were found. Ejection fraction 50% to 55%, trace aortic regurgitation. Office medication list was reviewed: - furosemide 40 mg daily - Eliquis 5 mg twice a day - Crestor 40 mg daily - Protonix 40 mg daily - Claritin 10 mg daily - Symbicort 80/4.5 two puffs twice a day - meclizine 25 mg three times a day as needed - vitamin C - nystatin cream - albuterol inhaler two puffs every four hours as needed - Toujeo 190 units daily - Nitrostat as needed - oxygen three liters nasal cannula continuous - DuoNebs three times a day - diltiazem 60 mg three times a day - levothyroxine 150 mcg daily - spironolactone 50 mg daily She was also taking iron but it was discontinued due to constipation. Her office allergy list was reviewed to confirm there is (not yet) a quinolone allergy documented that she has experiences. PHYSICAL EXAMINATION: VITAL SIGNS: Blood pressure 127/62, pulse 94, respiratory rate 18, 91% oxygen saturation. GENERAL APPEARANCE: She is lying comfortably in bed, in no distress, speaking in full sentences without dyspnea. HEENT: Unremarkable. LUNGS: Clear, decreased breath sounds. HEART: Regular rate and rhythm, 1/6 systolic ejection murmur. ABDOMEN: Soft, nontender. No masses. Trace peripheral edema. LABORATORY DATA: Sodium 136, potassium 4, BUN 26, creatinine 1.5, glucose 139. White count 17,000, hemoglobin 14.4, platelets 209. IMAGING: As summarized above. Blood cultures were initially positive for gram-positive cocci in chains. IMPRESSION: 1. Pneumonia. She is currently on ertapenem. I am going to change this to Levaquin 500 mg IV daily. Dose adjusted for renal function. 2. Gram-positive bacteremia on two blood cultures. Repeat blood cultures are pending. She grew out group B Streptococcus on two separate blood cultures September 2019. Transesophageal echocardiogram showed no vegetations. 3. Diabetes. Sliding scale insulin with fingerstick blood sugars ordered. Coverage based upon results of this. 4. Chronic obstructive pulmonary disease (COPD) exacerbation secondary to pneumonia. Nebulized bronchodilators have been ordered. Antibiotics as above. She received one dose of Solu-Medrol 125 mg IV and she is currently on prednisone 40 mg daily. 5. Hypertension. Antihypertensives have been ordered. 6. Hyperlipidemia. Continue rosuvastatin 40 mg daily. 7. Hypothyroidism. Continue levothyroxine 150 mcg daily. Laboratory in November 2019 suggested some mild hyperthyroidism. I will recheck thyroid laboratories though they will now be affected by her steroid therapy.
[2019-12-28 20:00] VITALS: BP 119/66
[2019-12-28] MEDS ORDERED: VANCOMYCIN HCL 1,000 MG, VIAL MATE ADAPTER 1 EACH in D5W 250 ML IV SCH (20:00)
[2019-12-28 23:59] VITALS: BP 104/50
[2019-12-29] MEDS: IPRATROPIUM 0.5MG/ALBUTEROL 2.5MG INH SOL UD 3ML (DUONEB)(J7620) NEB SCH ×4 (03:27→20:59)
[2019-12-29 04:00] VITALS: BP 134/66
[2019-12-29] MEDS ORDERED: ERTAPENEM SODIUM 1 GM in NS MINI-BAG PLUS 50 ML IV SCH (06:00)
[2019-12-29 06:03] LABS: MEAN CORPUSCULAR HEMOGLOBIN 29.7 pg (27.0-33.0); MEAN CORPUSCULAR HGB CONC 32.5 g/dl (32.0-36.5); MEAN CORPUSCULAR VOLUME 91.3 fl (80.0-96.0); PLATELET COUNT, AUTOMATED 177 10^3/uL (150-450); RED BLOOD COUNT 4.38 10^6/uL (4.00-5.40); WHITE BLOOD COUNT 19.7 10^3/uL (4.0-10.0)
[2019-12-29 06:43] LABS: CALCIUM LEVEL 9.2 MG/DL (8.8-10.2); CREATININE FOR GFR 1.32 MG/DL (0.55-1.30); FREE T4 0.81 NG/DL (0.76-1.46); MAGNESIUM LEVEL 2.3 MG/DL (1.8-2.4); POTASSIUM SERUM 4.2 MEQ/L (3.5-5.1); THYROID STIMULATING HORMONE 0.683 uIU/ML (0.358-3.740)
--- NOTE | 2019-12-29 06:50 | ECGEPIP ---
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
[2019-12-29 08:00] VITALS: BP 133/64
[2019-12-29] MEDS: HumaLOG INSULIN (NovoLOG) PER UNIT SC SCH ×4 (08:49→20:32)
[2019-12-29] MEDS: APIXABAN 5 MG TAB (ELIQUIS) PO SCH ×2 (08:50→20:32)
[2019-12-29] MEDS: predniSONE 20 MG TAB PO SCH (08:50)
[2019-12-29] MEDS: PANTOPRAZOLE 40MG TAB (PROTONIX) PO SCH (08:50)
[2019-12-29] MEDS: ROSUVASTATIN 10 MG TAB (CRESTOR) PO SCH (08:50)
[2019-12-29] MEDS: DOCUSATE SODIUM 100 MG CAP PO SCH ×2 (08:51→20:32)
[2019-12-29] MEDS: SPIRONOLACTONE 25 MG TAB PO SCH ×2 (08:53→17:05)
[2019-12-29] MEDS ORDERED: FUROSEMIDE 40 MG TAB PO SCH (09:00)
--- NOTE | 2019-12-29 09:19 | IPNPDOC ---
Subjective Date Seen The patient was seen on 12/29/19. Subjective Chief Complaint/HPI FRED, PNEUMONIA, SEPSIS Events since last encounter Admitted for pneumonia, sepsis. states breathing is slowly improving. Currently on baseline oxygen of 3LNC. She has diuresed 1600 ml since yesterday. Constitutional: Denies: Chills, Fever, Night Sweats ENT: Denies: Head Aches, Ear Pain, Dysphagia Skin: Denies: Rash, Lesions, Breakdown Pulmonary: Reports: Dyspnea, Cough Cardiovascular: Reports: Edema; Denies: Chest Pain, Palpitations, Orthopnea, Paroxysmal Noc. Dyspnea, Lt Headedness Gastrointestinal: Denies: Nausea, Vomiting, Abdominal Pain, Diarrhea, Constipation Psych: Reports: Mood Normal; Denies: Depression, Memory Issues Objective Physical Examination General Exam: Positive: Alert, No Acute Distress Eye Exam: Positive: PERRLA, Conjunctiva & lids normal, EOMI; Negative: Sclera icteric Neck Exam: Positive: Supple; Negative: JVD, thyromegaly Chest Exam: Positive: Clear to auscultation, Normal air movement, Rales Heart Exam: Positive: Rate Normal, Regular Rhythm, Normal S1, Normal S2; Negative: Murmurs, Rubs Telemetry: Positive: No significant arrhythmia Abdomen Exam: Positive: Normal bowel sounds, Soft; Negative: Tenderness, Hepatospenomegaly Psych Exam: Positive: Mental status NL, Mood NL, Oriented x 3 Assessment /Plan Problems (1) FRED (acute kidney injury) Status: Acute Problem Text: baseline 1.2. Improved Cr of 1.3 today (2) Pneumonia Status: Acute Problem Text: On IV levaquin. respiratory panel negative. (3) Sepsis Status: Acute (4) Hypoxia Status: Chronic Problem Text: on baseline oxygen needs of 3LNC (5) CAD (coronary artery disease) Status: Chronic Response to Treatment: Stable Problem Text: Continue Rosuvastatin (6) Lung nodule Onset Date: ~ 09/2019 Status: Chronic Problem Text: unchanged per CT report. (7) Cirrhosis Status: Chronic (8) HTN (hypertension) Status: Chronic (9) Diabetes mellitus type 2 in obese Status: Chronic Problem Text: carb consistent diet. RISS per protocol (10) Atrial fibrillation Status: Chronic Problem Text: on home dose of anti-coag (11) CHF (congestive heart failure) Status: Chronic Problem Text: bibasilar rales. Increase furosemide to 40 mg po bid from daily. Continue Spironolactone Plan/VTE VTE Prophylaxis Ordered?: Yes VS, I&O, 24H, Fishbone Vital Signs/I&O Vital Signs Date Time Temp Pulse Resp B/P (MAP) Pulse Ox O2 Delivery O2 Flow Rate FiO2 12/29/19 08:51 95 133/64 12/29/19 08:00 97.8 20 92 Nasal Cannula 4.0 I&O- Last 24 Hours up to 6 AM 12/29/19 06:00 Intake Total 0 ml Output Total 1600 ml Balance -1600 ml Laboratory Data 24H LABS Laboratory Tests 2 12/28/19 11:07: Methicillin-Resist S.aureus DNA PCR NOT DETECTED 12/28/19 16:47: Bedside Glucose (Misc Panel) 212H 12/28/19 20:16: Bedside Glucose (Misc Panel) 258H 12/29/19 05:44: Nucleated Red Blood Cells % (auto) 0.0, Anion Gap 5L, Glomerular Filtration Rate 42.0, Calcium Level 9.2, Magnesium Level 2.3, Thyroid Stimulating Hormone (TSH) 0.683, Free Thyroxine 0.81 CBC/BMP Laboratory Tests 12/29/19 05:44 Microbiology Microbiology 12/28/19 Blood Culture, Received Pending 12/28/19 Blood Culture - Preliminary, Resulted No growth after 24 hours . All specim... 12/28/19 Blood Culture - Preliminary, Resulted 12/28/19 Blood Culture - Preliminary, Resulted Licha Norris [facility] Dec 29, 2019 09:19
[2019-12-29 12:00] VITALS: BP 137/98
[2019-12-29 15:50] VITALS: BP 144/66
[2019-12-29] MEDS ORDERED: FLUCONAZOLE 100 MG TAB PO ONE (17:00)
[2019-12-29] MEDS: cefTRIAXone SOD 2 GM in D5W MINI-BAG PLUS 50 ML IV SCH (17:06)
[2019-12-29] MEDS: FUROSEMIDE 40 MG TAB PO SCH (17:06)
[2019-12-29] MEDS: NYSTATIN 100,000 UNITS/GM TOPICAL PWD 15 GM TOP SCH (17:15)
[2019-12-29] MEDS ORDERED: LevoFLOXacin IV 250 MG in IV 1 EA IV SCH (18:00)
[2019-12-29 20:00] VITALS: BP 130/70
[2019-12-29 22:57] VITALS: BP 168/82
[2019-12-30 02:00] VITALS: BP 148/88
[2019-12-30] MEDS: IPRATROPIUM 0.5MG/ALBUTEROL 2.5MG INH SOL UD 3ML (DUONEB)(J7620) NEB SCH ×4 (02:24→18:40)
[2019-12-30 06:00] VITALS: BP 150/84
[2019-12-30 06:18] LABS: HEMATOCRIT 39.3 % (36.0-47.0); HEMOGLOBIN 12.8 g/dl (12.0-15.5); MEAN CORPUSCULAR HEMOGLOBIN 29.5 pg (27.0-33.0); MEAN CORPUSCULAR HGB CONC 32.6 g/dl (32.0-36.5); MEAN CORPUSCULAR VOLUME 90.6 fl (80.0-96.0); PLATELET COUNT, AUTOMATED 184 10^3/uL (150-450); RED BLOOD COUNT 4.34 10^6/uL (4.00-5.40); WHITE BLOOD COUNT 14.9 10^3/uL (4.0-10.0)
[2019-12-30 06:36] LABS: C REACTIVE PROTEIN QUANTITATIV 5.01 MG/DL (0.00-0.30); CALCIUM LEVEL 9.3 MG/DL (8.8-10.2); CREATININE FOR GFR 1.41 MG/DL (0.55-1.30); GLOMERULAR FILTRATION RATE 38.9 (>39)
[2019-12-30] MEDS: DOCUSATE SODIUM 100 MG CAP PO SCH ×2 (08:23→20:54)
[2019-12-30] MEDS: APIXABAN 5 MG TAB (ELIQUIS) PO SCH ×2 (08:24→20:53)
[2019-12-30] MEDS: FUROSEMIDE 40 MG TAB PO SCH ×2 (08:24→17:31)
[2019-12-30] MEDS: PANTOPRAZOLE 40MG TAB (PROTONIX) PO SCH (08:24)
[2019-12-30] MEDS: ROSUVASTATIN 10 MG TAB (CRESTOR) PO SCH (08:24)
[2019-12-30] MEDS: predniSONE 20 MG TAB PO SCH (08:24)
[2019-12-30] MEDS: SPIRONOLACTONE 25 MG TAB PO SCH ×2 (08:26→17:32)
[2019-12-30] MEDS: NYSTATIN 100,000 UNITS/GM TOPICAL PWD 15 GM TOP SCH (08:29)
[2019-12-30] MEDS: HumaLOG INSULIN (NovoLOG) PER UNIT SC SCH ×4 (08:32→20:57)
[2019-12-30] MEDS: MOM 30ML SUSPENSION UDC PO PRN (08:32)
--- NOTE | 2019-12-30 08:39 | IPNPDOC ---
Subjective Date Seen The patient was seen on 12/30/19. Subjective Chief Complaint/HPI Pt this morning without new concerns. She states that she is feeling better, she is getting out of bed and going to the bathroom without difficulty. She hasn't had a BM since admission. General: Denies: Fatigue Constitutional: Denies: Chills, Fever ENT: Denies: Head Aches Pulmonary: Denies: Dyspnea, Cough Cardiovascular: Denies: Chest Pain, Palpitations Gastrointestinal: Denies: Nausea, Vomiting, Diarrhea Neurological: Denies: Weakness Psych: Reports: Mood Normal Objective Physical Examination General Exam: Positive: Alert, No Acute Distress Neck Exam: Positive: Supple; Negative: JVD, thyromegaly Chest Exam: Positive: Clear to auscultation, Normal air movement; Negative: Rales Heart Exam: Positive: Rate Normal, Regular Rhythm, Normal S1, Normal S2; Negative: Murmurs, Rubs Telemetry: Positive: No significant arrhythmia Abdomen Exam: Positive: Normal bowel sounds, Soft; Negative: Tenderness, Hepatospenomegaly Extremity Exam: Negative: Edema Skin Exam: Positive: Other skin issue (area on RLE demarcated with slightly erythema, no significant warmth) Psych Exam: Positive: Mental status NL, Mood NL, Oriented x 3 Assessment /Plan Problems (1) Erysipelas of right lower extremity Status: Acute Response to Treatment: Stable Problem Specific Plan: Monitor Clinically, Repeat Labs Problem Text: Blood culture x2 GBS, repeat x 2 Neg, on IV rocephin, initially on Levaquin, cased d/w [facility] 12/29/2019. (2) Pneumonia Status: Acute Problem Text: Blood culture x2 GBS, repeat x 2 Neg, on IV rocephin, initially on Levaquin (3) FRED (acute kidney injury) Status: Acute Problem Text: baseline 1.2, at 1.4 today, cont to follow. (4) Sepsis Status: Acute Response to Treatment: Stable Problem Text: Pressures stable, HR improved, BP stable, WBC trending down. (5) Hypoxia Status: Chronic Problem Text: on baseline oxygen needs of 3LNC (6) CAD (coronary artery disease) Status: Chronic Response to Treatment: Stable Problem Text: Continue Rosuvastatin (7) Lung nodule Onset Date: ~ 09/2019 Status: Chronic Problem Text: unchanged per CT report. (8) Cirrhosis Status: Chronic (9) HTN (hypertension) Status: Chronic (10) Diabetes mellitus type 2 in obese Status: Chronic Problem Text: carb consistent diet. RISS per protocol (11) Atrial fibrillation Status: Chronic Problem Text: on home dose of anti-coag (12) CHF (congestive heart failure) Status: Chronic Problem Text: bibasilar rales. Increase furosemide to 40 mg po bid from daily. Continue Spironolactone Plan/VTE VTE Prophylaxis Ordered?: Yes VS, I&O, 24H, Fishbone Vital Signs/I&O Vital Signs Date Time Temp Pulse Resp B/P (MAP) Pulse Ox O2 Delivery O2 Flow Rate FiO2 12/30/19 06:00 97.1 88 18 150/84 (106) 94 Nasal Cannula 3.0 I&O- Last 24 Hours up to 6 AM 12/30/19 06:00 Intake Total 1315 ml Output Total 2375 ml Balance -1060 ml Laboratory Data 24H LABS Laboratory Tests 2 12/29/19 11:51: Bedside Glucose (Misc Panel) 368H 12/29/19 16:39: Bedside Glucose (Misc Panel) 432H 12/29/19 20:21: Bedside Glucose (Misc Panel) 448H 12/30/19 05:38: Nucleated Red Blood Cells % (auto) 0.0, Anion Gap 4L, Glomerular Filtration Rate 38.9L, Calcium Level 9.3, C-Reactive Protein, Quantitative 5.01H CBC/BMP Laboratory Tests 12/30/19 05:38 Microbiology Microbiology 12/28/19 Blood Culture - Preliminary, Resulted No growth after 24 hours . All specim... 12/28/19 Blood Culture - Preliminary, Resulted No growth after 24 hours . All specim... 12/28/19 Blood Culture - Final, Complete Strep Agalactiae Group B 12/28/19 Blood Culture - Final, Complete Strep Agalactiae Group B ANDRE MONDRAGON PA-C Dec 30, 2019 08:39
[2019-12-30 10:00] VITALS: BP 164/80
[2019-12-30 14:00] VITALS: BP 140/70
[2019-12-30] MEDS: cefTRIAXone SOD 2 GM in D5W MINI-BAG PLUS 50 ML IV SCH (14:39)
[2019-12-30 18:00] VITALS: BP 146/69
--- NOTE | 2019-12-30 21:32 | CR ---
DATE OF CONSULTATION: 12/29/2019 HISTORY OF PRESENT ILLNESS: Marjorie Redmond is a 74-year-old female with a history of cerebrovascular accident (CVA), chronic systolic congestive heart failure and recent hospitalization for bacteremia, who presented to the emergency room (ER) on 12/28/2019 with shortness of breath times 2-3 days, worse with exertion, with associated fevers, chills and runny nose. The patient reports that she does not remember much surrounding the events that lead to her coming to the hospital and that her daughter was the one who brought her. She states that since her discharge for her previous hospitalization on 11/02/2019, she has been doing well and has been following up with her primary care physician, Dr. Pepe Olivas, but recently, she noticed she has been having fevers and chills. Of note, her last hospitalization was for pneumonia, where she was treated empirically with Zosyn. On that hospitalization, her blood cultures grew group B Streptococcus and her antibiotic regimen was as follows: From 10/21/2019 to 10/25/2019, she was on Zosyn. When her blood cultures grew group B Streptococcus, she underwent a transesophageal echocardiogram, which was negative for endocarditis, and she was switched to Rocephin from 10/25/2019 to 10/28/2019. When she continued to have fevers and elevated white blood cell count, she was switched again back to Zosyn, and she was treated with Zosyn from 10/28/2019 to 11/02/2019. Therefore, she had a total of nine days of Zosyn and four days of Rocephin. On this hospitalization, when she was first admitted, she was put on vancomycin and ertapenem, which was then switched to Levaquin. Today, the patient reports that she feels fine. She does not notice any shortness of breath. She is able to get up out of bed and walk. She has a urinary catheter, which limits her movement, but otherwise she does not feel like she has had any other fevers or chills. She has no nausea, vomiting or diarrhea or constipation, and no abdominal pain. Infectious disease was called for management of blood cultures times two, resulting on 12/28/2019 growing, again, group B Streptococcus. PAST MEDICAL HISTORY: Includes: 1. Chronic hypertension. 2. Chronic obstructive pulmonary disease (COPD) on 3 liters of home oxygen. 3. History of cerebrovascular accident (CVA). 4. Chronic systolic congestive heart failure. 6. Hyperthyroidism. 7. Atrial fibrillation. 8. Gastroesophageal reflux disease (GERD). 9. Osteoporosis. 10. Hepatic steatosis. 11. Hepatic cirrhosis. 12. History of Lyme disease. SURGICAL HISTORY: Includes: 1. Pacemaker placement. 2. Stents placed. 3. Resection for basal cell carcinoma. 4. 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 SOCIAL HISTORY: She is a former smoker. She quit smoking several years ago. She lives with her daughter. She does not drink alcohol or do any other drugs. FAMILY HISTORY: Her mother has congestive heart failure (CHF). ALLERGIES: As recorded in the chart, her allergies are: SULFA DRUGS, GEMFIBROZIL, INDAPAMIDE, TIOTROPIUM, AMOXICILLIN, AMLODIPINE, CEPHALEXIN, HYDROCODONE, AMILORIDE, CANAGLIFLOZIN, CLINDAMYCIN, CODEINE, DOXYCYCLINE, ERYTHROMYCIN, LORAZEPAM, MORPHINE, PIOGLITAZONE, SITAGLIPTIN, TETRACYCLINE. HOME MEDICATIONS: - acetaminophen 1000 mg every 6 hours as needed for pain - albuterol two puffs inhaled every 4 hours as needed for shortness of breath - Eliquis 5 mg by mouth twice a day - ascorbic acid 500 mg by mouth every evening - Symbicort two puffs inhaled twice a day - diltiazem 60 mg by mouth three times a day - docusate 100 mg by mouth at bedtime - ferrous sulfate 325 mg by mouth three times a day - pyroxamide 40 mg by mouth daily - Toujeo SoloStar 150 units subcutaneous daily; also 190 units subcutaneous daily - ipratropium/albuterol 3 mL inhaled three times a day - loratadine 10 mg by mouth daily - meclizine 25 mg by mouth three times a day as needed for dizziness - Nystatin one dose topical twice a day for rash - Protonix 40 mg by mouth daily - Crestor 40 mg by mouth daily - spironolactone 25 mg by mouth twice a day OBJECTIVE: VITAL SIGNS: Temperature 98.0, with a maximum temperature (T-max) in the last 24 hours of 102.8, pulse is 110, respiratory rate is 14, blood pressure is 144/66, pulse oximetry is 92% on 4 liters nasal cannula. GENERAL: She is laying in bed. She was calm, cooperative, pleasant, no acute distress. HEAD: Normocephalic, atraumatic. Pupils were equal, round and reactive to light and her extraocular movements are intact. She has moist mucous membranes. NECK: Supple with no thyromegaly and no lymphadenopathy. CHEST: She has even chest rise. LUNGS: Clear to auscultation bilaterally with scattered wheezes throughout, but no other adventitious breath sounds are appreciated. HEART: She is irregularly irregular with no discernable murmurs, rubs or gallops and normal S1 and normal S2. ABDOMEN: Soft and nontender to palpation. No masses. No organomegaly. Positive bowel sounds. EXTREMITIES: Her right lower extremity is acutely red up to the midcalf. She reports that it is somewhat painful to the touch. It is very warm and tender. Left lower extremity has scars from previous surgeries and removal of skin cancer. She has a urinary catheter in place. NEUROLOGIC: Cranial nerves II-XII are intact with no obvious focal deficits. LYMPHATICS: She has no enlarged lymph nodes in the cervical, supraclavicular, posterior auricular and femoral chains. SKIN: Rash as described previously. PSYCHIATRIC: She is awake, alert and oriented times three. Very pleasant and talkative. LABORATORY DATA: Her complete blood count (CBC) today demonstrates a white blood cell count of 19.7 which is up from 17.4 yesterday, hemoglobin 13, hematocrit of 40 and a platelet count of 177. Her chemistries demonstrate a sodium of 137, a potassium of 4.2, carbon dioxide of 27, BUN of 31 and creatinine 1.32 down from 1.52 yesterday. Her lactic acid was 1.6. Her magnesium was 2.3. Her TSH was 0.683 and her Free T4 was 0.81. She had her urine checked, which was negative for any infection. Her methicillin-resistant Staphylococcus aureus (MRSA) screen was negative. Her influenza screen was negative. Her mycoplasma pneumonia, IgG and IgM are pending. MICROBIOLOGY: She had two venous blood cultures drawn on 12/28/2019, which both resulted with group B Streptococcus agalactiae. Then she had two other blood cultures drawn, which were negative for any pathogens. IMAGING: She did have a chest CT on 12/28/2019 with the findings of: 1. An 8mm nodule in the right upper lobe which is similar to previous. 2. Mild, patchy bilateral pulmonary infiltrates and minimal scattered fibro atelectatic change, which is greater in the right base and similar to the prior study. 3. Status post cholecystectomy. 4. Hepatic cirrhosis with borderline splenomegaly. ASSESSMENT: Recurrent group B Streptococcus bacteremia, most likely from erysipelas of the right leg. PLAN: Given that this patient has previously been treated for group B Streptococcus on the dates and with the antibiotics outlined in the history of present illness (HPI), we feel that the patient will need further antibiotic treatment with Rocephin. One of the most common causes of group B Streptococcus bacteremia is skin and soft tissue infection. Therefore, this has manifested in her right lower extremity on exam. The patient reports that when she gets sick, her right lower extremity gets very red, hot and painful to the touch and this is most likely from erysipelas. Endocarditis is less likely, as the patient had a transesophageal echocardiogram done on 10/27/2019, which had negative findings for endocarditis. It is to our expectation that the patient would present much sicker than she is now if she had a missed endocarditis or pacemaker line infection. Therefore, we have switched the patient's antibiotic from Levaquin to Rocephin, as her group B Streptococcus was sensitive to this antibiotic and she is to continue this treatment for the time being. We will continue to follow the patient and we are happy to answer any questions in the meantime. BEKAH
[2019-12-30 22:00] VITALS: BP 156/87
[2019-12-31 00:07] LABS: MYCOPLASMA PNEUMONIAE IgG 310 U/mL (0-99); MYCOPLASMA PNEUMONIAE IgM <770 U/mL (0-769)
[2019-12-31] MEDS: IPRATROPIUM 0.5MG/ALBUTEROL 2.5MG INH SOL UD 3ML (DUONEB)(J7620) NEB SCH ×4 (01:39→18:16)
[2019-12-31 02:00] VITALS: BP 144/64
[2019-12-31 06:00] VITALS: BP 153/79
[2019-12-31 06:41] LABS: HEMATOCRIT 42.8 % (36.0-47.0); HEMOGLOBIN 13.7 g/dl (12.0-15.5); MEAN CORPUSCULAR HEMOGLOBIN 28.7 pg (27.0-33.0); MEAN CORPUSCULAR VOLUME 89.7 fl (80.0-96.0); PLATELET COUNT, AUTOMATED 204 10^3/uL (150-450); RED BLOOD COUNT 4.77 10^6/uL (4.00-5.40); WHITE BLOOD COUNT 10.8 10^3/uL (4.0-10.0)
[2019-12-31 07:08] LABS: C REACTIVE PROTEIN QUANTITATIV 2.02 MG/DL (0.00-0.30); CALCIUM LEVEL 9.3 MG/DL (8.8-10.2); CREATININE FOR GFR 1.39 MG/DL (0.55-1.30); GLOMERULAR FILTRATION RATE 39.6 (>39); POTASSIUM SERUM 3.9 MEQ/L (3.5-5.1)
[2019-12-31] MEDS: HumaLOG INSULIN (NovoLOG) PER UNIT SC SCH ×4 (08:54→21:23)
[2019-12-31] MEDS: ROSUVASTATIN 10 MG TAB (CRESTOR) PO SCH (08:55)
[2019-12-31] MEDS: DOCUSATE SODIUM 100 MG CAP PO SCH ×2 (08:55→21:24)
[2019-12-31] MEDS: FUROSEMIDE 40 MG TAB PO SCH ×2 (08:55→16:37)
[2019-12-31] MEDS: PANTOPRAZOLE 40MG TAB (PROTONIX) PO SCH (08:55)
[2019-12-31] MEDS: SPIRONOLACTONE 25 MG TAB PO SCH ×2 (08:56→16:37)
[2019-12-31] MEDS: predniSONE 20 MG TAB PO SCH (08:56)
[2019-12-31] MEDS: APIXABAN 5 MG TAB (ELIQUIS) PO SCH ×2 (08:56→21:24)
[2019-12-31] MEDS: NYSTATIN 100,000 UNITS/GM TOPICAL PWD 15 GM TOP SCH (08:57)
--- NOTE | 2019-12-31 09:18 | IPN ---
DATE: 12/30/2019 DATE OF Marjorie states that she is doing well. She has a mild cough today and usually she does not have a cough in spite of having chronic obstructive pulmonary disease (COPD) and being on chronic O2. She denies any nausea, vomiting or diarrhea. No abdominal pain. MEDICATIONS - Furosemide 40 mg by mouth twice a day - Rocephin 2 grams IV every 24, currently day #2 - Prednisone 40 mg by mouth daily LABORATORY DATA White count 14.9, hemoglobin 12.8, hematocrit 39.3, platelets 184. Sodium 135, potassium 4, chloride 103, bicarb 28, BUN 38, creatinine 1.41, glucose 311, calcium 9.3, CRP 5.01. Blood cultures two sets were positive for group B strep on 12/27 at 03:41 and 6 hours later blood cultures were negative. IMAGING STUDIES: Renal ultrasound showed right extrarenal pelvis, negative sonogram. Kaplan catheter in the bladder. Chest x-ray: Mild patchy bilateral pulmonary infiltrates and fibroatelectatic changes, hepatic cirrhosis, borderline splenomegaly. PHYSICAL EXAMINATION: Temperature 97.4, pulse 104, respirations 16, blood pressure 140/70, O2 sat 88% on 3 liters nasal cannula. Heart: Normal S1, S2. No murmurs, rubs or gallops appreciated. Lungs: Diminished breath sounds bilaterally. Abdomen: Obese, soft, nontender. No heptosplenomegaly. Extremities: +1 ankle edema bilaterally. Right leg has erythema anteriorly along the kan all the way to the ankle with minimal tenderness today. No purulent discharge. No open lesions. She had a toenail middle third toe that was cut short and was bleeding from her pedicure. IMPRESSION 1. Recurrent group B strep bacteremia. First episode was September 2019; second episode December 28, 2019 with a negative ADRIANA on first admission. The patient responded to antibiotic immediately and had negative cultures within 6 hours. After presentation the patient developed erythema and erysipelas of the right leg. I suspect this is bacteremia and not endocarditis. 2. History of congestive heart failure and COPD. The patient does not have pneumonia; does not need to be on droplet isolation. I would recommend also discontinuing prednisone. 3. Diabetes with glucoses ranging between 233 and 448. PLAN Continue with IV Rocephin 2 grams every 24 hours. Consider discontinuing prednisone. If patient continues clinically improving I would consider switching her to Pen-Vee K 500 mg by mouth four times a day for 10 days. She needs to followup in my office in 7 to 10 days. I may consider keeping her on suppressive therapy for recurrent group B Streptococcus bacteremia.
--- NOTE | 2019-12-31 09:20 | IPNPDOC ---
Subjective Date Seen The patient was seen on 12/31/19. Subjective Chief Complaint/HPI minimal cough, no trouble breathing. right leg minimal discomfort. no chills no malaise. worried about steroid effect on her glucose Constitutional: Denies: Chills ENT: Denies: Head Aches Skin: Reports: Rash (right kan, less red) Pulmonary: Denies: Dyspnea Cardiovascular: Denies: Chest Pain, Palpitations Gastrointestinal: Denies: Nausea, Vomiting, Abdominal Pain Genitourinary: Denies: Dysuria, Frequency Endocrine: Denies: Polydipsia Neurological: Denies: Weakness Psych: Reports: Mood Normal Objective Physical Examination General Exam: Positive: Alert, No Acute Distress Neck Exam: Positive: Supple; Negative: JVD, thyromegaly Chest Exam: Positive: Clear to auscultation, Normal air movement; Negative: Rales Heart Exam: Positive: Rate Normal, Regular Rhythm, Normal S1, Normal S2; Negative: Murmurs, Rubs Telemetry: Positive: No significant arrhythmia Abdomen Exam: Positive: Normal bowel sounds, Soft; Negative: Tenderness, Hepatospenomegaly Extremity Exam: Negative: Edema Skin Exam: Positive: Other skin issue (less red than 2 days ago. minimal tenderness to touch, no palpable induration) Psych Exam: Positive: Mental status NL, Mood NL, Oriented x 3 Assessment /Plan Problems (1) Erysipelas of right lower extremity Status: Acute Response to Treatment: Stable Problem Specific Plan: Monitor Clinically, Repeat Labs Problem Text: 12/30: group B strep. cellulitis and septicemia. continue Rocephin. ? source. she seems to be improving. she has actinic keratoses that disrupt her skin and make possible entry path for the organism. also had nail trimmed on middle toe on the affected leg. Blood culture x2 GBS, repeat x 2 Neg, on IV rocephin, initially on Levaquin, kishore d/w Abdifatah 12/29/2019. (2) Pneumonia Status: Acute Problem Text: 12/30: CXR negative, CT showing some patchy infiltrates that are essentially unchanged from before, suggesting a chronic lung problem rather than acute pneumonia, especially since she had not been experiencing cough on presentation. Blood culture x2 GBS, repeat x 2 Neg, on IV rocephin, initially on Levaquin (3) FRED (acute kidney injury) Status: Acute Problem Text: baseline 1.2, at 1.4 today, cont to follow. (4) Sepsis Status: Acute Response to Treatment: Stable, Improving Problem Text: Pressures stable, HR improved, BP stable, WBC trending down. (5) Hypoxia Status: Chronic Response to Treatment: Stable Problem Text: on baseline oxygen needs of 3LNC (6) CAD (coronary artery disease) Status: Chronic Response to Treatment: Stable Problem Text: Continue Rosuvastatin (7) Lung nodule Onset Date: ~ 09/2019 Status: Chronic Problem Text: unchanged per CT report. (8) Cirrhosis Status: Chronic Response to Treatment: Stable (9) HTN (hypertension) Status: Chronic (10) Diabetes mellitus type 2 in obese Status: Chronic Problem Text: 12/30 elimination of steroid should improve control. carb consistent diet. RISS per protocol (11) Atrial fibrillation Status: Chronic Problem Text: on home dose of anti-coag (12) CHF (congestive heart failure) Status: Chronic Problem Text: bibasilar rales. Increase furosemide to 40 mg po bid from daily. Continue Spironolactone Plan/VTE VTE Prophylaxis Ordered?: Yes VS, I&O, 24H, Fishbone Vital Signs/I&O Vital Signs Date Time Temp Pulse Resp B/P (MAP) Pulse Ox O2 Delivery O2 Flow Rate FiO2 12/31/19 08:56 153/79 12/31/19 06:00 97.7 83 16 92 Nasal Cannula 2.0 I&O- Last 24 Hours up to 6 AM 12/31/19 05:59 Intake Total 1190 ml Output Total 2000 ml Balance -810 ml Laboratory Data 24H LABS Laboratory Tests 2 12/30/19 11:24: Bedside Glucose (Misc Panel) 233H 12/30/19 17:05: Bedside Glucose (Misc Panel) 426H 12/30/19 20:36: Bedside Glucose (Misc Panel) 494H 12/31/19 06:23: Nucleated Red Blood Cells % (auto) 0.0, Anion Gap 5L, Glomerular Filtration Rate 39.6, Calcium Level 9.3, C-Reactive Protein, Quantitative 2.02H CBC/BMP Laboratory Tests 12/31/19 06:23 Microbiology Microbiology 12/28/19 Blood Culture - Preliminary, Resulted No Growth after 48 hours. All Specime... 12/28/19 Blood Culture - Preliminary, Resulted No Growth after 72 hours. All specime... 12/28/19 Blood Culture - Final, Complete Strep Agalactiae Group B 12/28/19 Blood Culture - Final, Complete Strep Agalactiae Group B Pepe Olivas MD Dec 31, 2019 09:19
--- NOTE | 2019-12-31 09:50 | REP ---
Chest x-ray: Two views. History: Cough. Infiltrate on CT. Comparison chest CT study December 28, 2019. Comparison portable chest x-ray December 28, 2019. Findings: A bipolar pacemaker remains in place. Right hemidiaphragm is elevated as before. Mild cardiomegaly is observed. There is plate-like atelectasis in the right middle lobe and in the left base. Pulmonary vasculature is cephalized. No definite infiltrate is seen. Impression: Cardiomegaly and cephalization, mild CHF pattern. Plate-like atelectasis in both bases. Right hemidiaphragm is elevated. A pacemaker in place. Electronically Signed by Tim Rothman MD 12/31/2019 03:11 P
[2019-12-31 14:00] VITALS: BP 157/68
[2019-12-31] MEDS: cefTRIAXone SOD 2 GM in D5W MINI-BAG PLUS 50 ML IV SCH (14:09)
[2019-12-31 22:00] VITALS: BP 152/89
[2020-01-01] MEDS ORDERED: HumaLOG INSULIN (NovoLOG) PER UNIT SC ONE (00:15)
[2020-01-01] MEDS: IPRATROPIUM 0.5MG/ALBUTEROL 2.5MG INH SOL UD 3ML (DUONEB)(J7620) NEB SCH ×4 (01:40→19:59)
[2020-01-01 02:00] VITALS: BP 157/84
[2020-01-01 06:00] VITALS: BP 116/60
[2020-01-01 06:33] LABS: HEMATOCRIT 44.1 % (36.0-47.0); HEMOGLOBIN 14.2 g/dl (12.0-15.5); MEAN CORPUSCULAR HEMOGLOBIN 28.7 pg (27.0-33.0); MEAN CORPUSCULAR HGB CONC 32.2 g/dl (32.0-36.5); MEAN CORPUSCULAR VOLUME 89.3 fl (80.0-96.0); PLATELET COUNT, AUTOMATED 219 10^3/uL (150-450); RED BLOOD COUNT 4.94 10^6/uL (4.00-5.40); WHITE BLOOD COUNT 10.7 10^3/uL (4.0-10.0)
[2020-01-01 07:00] LABS: CALCIUM LEVEL 9.5 MG/DL (8.8-10.2); CREATININE FOR GFR 1.49 MG/DL (0.55-1.30); GLOMERULAR FILTRATION RATE 36.5 (>39); POTASSIUM SERUM 3.5 MEQ/L (3.5-5.1)
[2020-01-01] MEDS: LEVEMIR (INSULIN DETEMIR) 1 UNITS/0.01ML SC SCH ×2 (09:43→21:00)
[2020-01-01] MEDS: HumaLOG INSULIN (NovoLOG) PER UNIT SC SCH ×4 (09:44→21:01)
[2020-01-01] MEDS: SPIRONOLACTONE 25 MG TAB PO SCH ×2 (09:44→17:34)
[2020-01-01] MEDS: PANTOPRAZOLE 40MG TAB (PROTONIX) PO SCH (09:45)
[2020-01-01] MEDS: ROSUVASTATIN 10 MG TAB (CRESTOR) PO SCH (09:45)
[2020-01-01] MEDS: APIXABAN 5 MG TAB (ELIQUIS) PO SCH ×2 (09:46→21:00)
[2020-01-01] MEDS: FUROSEMIDE 40 MG TAB PO SCH ×2 (09:46→17:34)
[2020-01-01] MEDS: DOCUSATE SODIUM 100 MG CAP PO SCH ×2 (09:46→21:00)
[2020-01-01] MEDS: NYSTATIN 100,000 UNITS/GM TOPICAL PWD 15 GM TOP SCH (09:47)
--- NOTE | 2020-01-01 12:20 | IPNPDOC ---
Subjective Date Seen The patient was seen on 01/01/20. Subjective Chief Complaint/HPI sugars have been high. Constitutional: Denies: Chills, Fever Eyes: Denies: Pain ENT: Denies: Head Aches Skin: Reports: Rash (less red on right kan) Pulmonary: Denies: Dyspnea, Cough Cardiovascular: Denies: Chest Pain Gastrointestinal: Denies: Nausea, Abdominal Pain Genitourinary: Denies: Dysuria Hematologic: Denies: Bruising Endocrine: Denies: Polydipsia Musculoskeletal: Denies: Neck Pain Neurological: Denies: Weakness, Numbness Psych: Reports: Mood Normal Objective Physical Examination General Exam: Positive: Alert, No Acute Distress Neck Exam: Positive: Supple; Negative: JVD, thyromegaly Chest Exam: Positive: Clear to auscultation, Normal air movement; Negative: Rales Heart Exam: Positive: Rate Normal, Regular Rhythm, Normal S1, Normal S2; Negative: Murmurs, Rubs Telemetry: Positive: No significant arrhythmia Abdomen Exam: Positive: Normal bowel sounds, Soft; Negative: Tenderness, Hepatospenomegaly Extremity Exam: Negative: Edema Skin Exam: Positive: Other skin issue (even less redness than yesterday. rash is nearly gone.) Psych Exam: Positive: Mental status NL, Mood NL, Oriented x 3 Assessment /Plan Problems (1) Erysipelas of right lower extremity Status: Acute Response to Treatment: Stable Problem Specific Plan: Monitor Clinically, Repeat Labs Problem Text: 12/31 skin improving rapidly. she had colonoscopy about a year ago at [facility] where a polyp was removed but specimen was not retrieved. 12/30: group B strep. cellulitis and septicemia. continue Rocephin. ? source. she seems to be improving. she has actinic keratoses that disrupt her skin and make possible entry path for the organism. also had nail trimmed on middle toe on the affected leg. Blood culture x2 GBS, repeat x 2 Neg, on IV rocephin, initially on Levaquin, shayd d/w Abdifatah 12/29/2019. (2) Pneumonia Status: Resolved Problem Text: 12/30: CXR negative, CT showing some patchy infiltrates that are essentially unchanged from before, suggesting a chronic lung problem rather than acute pneumonia, especially since she had not been experiencing cough on presentation. Blood culture x2 GBS, repeat x 2 Neg, on IV rocephin, initially on Levaquin (3) FRED (acute kidney injury) Status: Acute Problem Text: baseline 1.2, at 1.4 today, cont to follow. (4) Sepsis Status: Resolved Response to Treatment: Stable, Improving Problem Text: Pressures stable, HR improved, BP stable, WBC trending down. (5) Hypoxia Status: Chronic Response to Treatment: Stable Problem Text: on baseline oxygen needs of 3LNC (6) CAD (coronary artery disease) Status: Chronic Response to Treatment: Stable Problem Text: Continue Rosuvastatin (7) Lung nodule Onset Date: ~ 09/2019 Status: Chronic Problem Text: unchanged per CT report. (8) Cirrhosis Status: Chronic Response to Treatment: Stable Problem Text: secondary to KING (9) HTN (hypertension) Status: Chronic Response to Treatment: Stable (10) Diabetes mellitus type 2 in obese Status: Chronic Problem Text: 12/31 added Levemir. Her outpatient Toujeo dose is 190 units daily. 12/30 elimination of steroid should improve control. carb consistent diet. RISS per protocol (11) Atrial fibrillation Status: Chronic Problem Text: on home dose of anti-coag (12) CHF (congestive heart failure) Status: Chronic Problem Text: 12/31 minimal basilar rales. Creatinine is up a little but seems to be tolerating fairly well. bibasilar rales. Increase furosemide to 40 mg po bid from daily. Continue Spironolactone Plan/VTE VTE Prophylaxis Ordered?: Yes VS, I&O, 24H, Fishbone Vital Signs/I&O Vital Signs Date Time Temp Pulse Resp B/P (MAP) Pulse Ox O2 Delivery O2 Flow Rate FiO2 01/01/20 09:45 116/60 01/01/20 06:00 96.7 58 20 98 Nasal Cannula 2.0 I&O- Last 24 Hours up to 6 AM 01/01/20 06:00 Intake Total 1260 ml Output Total 2300 ml Balance -1040 ml Laboratory Data 24H LABS Laboratory Tests 2 12/31/19 17:01: Bedside Glucose (Misc Panel) 391H 12/31/19 21:28: Bedside Glucose Confirm (Misc) 552*H 12/31/19 23:35: Bedside Glucose (Misc Panel) 483H 01/01/20 06:05: Nucleated Red Blood Cells % (auto) 0.0, Anion Gap 5L, Glomerular Filtration Rate 36.5L, Calcium Level 9.5 CBC/BMP Laboratory Tests 01/01/20 06:05 Microbiology Microbiology 12/28/19 Blood Culture - Preliminary, Resulted No Growth after 72 hours. All specime... 12/28/19 Blood Culture - Preliminary, Resulted No Growth after 72 hours. All specime... 12/28/19 Blood Culture - Final, Complete Strep Agalactiae Group B 12/28/19 Blood Culture - Final, Complete Strep Agalactiae Group B Pepe Olivas MD Jan 01, 2020 12:20
[2020-01-01] MEDS: cefTRIAXone SOD 2 GM in D5W MINI-BAG PLUS 50 ML IV SCH (13:11)
[2020-01-01 14:00] VITALS: BP 147/67
[2020-01-01 22:00] VITALS: BP 121/63
[2020-01-02] MEDS: IPRATROPIUM 0.5MG/ALBUTEROL 2.5MG INH SOL UD 3ML (DUONEB)(J7620) NEB SCH ×4 (01:57→20:07)
[2020-01-02 06:00] VITALS: BP 112/56
[2020-01-02 06:43] LABS: HEMATOCRIT 46.5 % (36.0-47.0); HEMOGLOBIN 15.1 g/dl (12.0-15.5); MEAN CORPUSCULAR HEMOGLOBIN 28.9 pg (27.0-33.0); MEAN CORPUSCULAR HGB CONC 32.5 g/dl (32.0-36.5); MEAN CORPUSCULAR VOLUME 88.9 fl (80.0-96.0); PLATELET COUNT, AUTOMATED 223 10^3/uL (150-450); RED BLOOD COUNT 5.23 10^6/uL (4.00-5.40); WHITE BLOOD COUNT 11.1 10^3/uL (4.0-10.0)
[2020-01-02 07:11] LABS: C REACTIVE PROTEIN QUANTITATIV 0.56 MG/DL (0.00-0.30); CALCIUM LEVEL 9.4 MG/DL (8.8-10.2); CREATININE FOR GFR 1.44 MG/DL (0.55-1.30); POTASSIUM SERUM 3.3 MEQ/L (3.5-5.1)
[2020-01-02] MEDS: SPIRONOLACTONE 25 MG TAB PO SCH ×2 (08:46→17:47)
[2020-01-02] MEDS: FUROSEMIDE 40 MG TAB PO SCH ×2 (08:46→17:46)
[2020-01-02] MEDS: DOCUSATE SODIUM 100 MG CAP PO SCH ×2 (08:46→22:05)
[2020-01-02] MEDS: APIXABAN 5 MG TAB (ELIQUIS) PO SCH ×2 (08:46→22:05)
[2020-01-02] MEDS: ROSUVASTATIN 10 MG TAB (CRESTOR) PO SCH (08:46)
[2020-01-02] MEDS: PANTOPRAZOLE 40MG TAB (PROTONIX) PO SCH (08:46)
[2020-01-02] MEDS: HumaLOG INSULIN (NovoLOG) PER UNIT SC SCH ×4 (08:47→22:04)
[2020-01-02] MEDS: NYSTATIN 100,000 UNITS/GM TOPICAL PWD 15 GM TOP SCH (08:48)
[2020-01-02] MEDS: LEVEMIR (INSULIN DETEMIR) 1 UNITS/0.01ML SC SCH ×2 (08:48→22:04)
--- NOTE | 2020-01-02 10:54 | IPNPDOC ---
Subjective Date Seen The patient was seen on 01/02/20. Subjective Chief Complaint/HPI Pt states that she feels lethargc today, low energy, difficulty getting to the bathroom, because she feels like all her strength is gone. She reports sleeping well last night a good appetite this morning. She wants to know when she will be changed to Pen VK bc ID told her she would start that and stay here for a couple more days. General: Reports: Fatigue Constitutional: Denies: Chills, Fever ENT: Denies: Head Aches Pulmonary: Denies: Dyspnea, Cough Cardiovascular: Denies: Chest Pain, Palpitations Gastrointestinal: Denies: Nausea, Vomiting, Diarrhea Neurological: Reports: Weakness Psych: Reports: Mood Normal Objective Physical Examination General Exam: Positive: Alert, No Acute Distress Neck Exam: Positive: Supple; Negative: JVD Chest Exam: Positive: Clear to auscultation, Normal air movement; Negative: Rales Heart Exam: Positive: Rate Normal, Regular Rhythm, Normal S1, Normal S2; Negative: Murmurs, Rubs Telemetry: Positive: No significant arrhythmia Abdomen Exam: Positive: Normal bowel sounds, Soft; Negative: Tenderness, Hepatospenomegaly Extremity Exam: Negative: Edema Psych Exam: Positive: Mental status NL, Mood NL, Oriented x 3 Assessment /Plan Problems (1) Erysipelas of right lower extremity Status: Acute Response to Treatment: Stable Problem Specific Plan: Monitor Clinically, Repeat Labs Problem Text: 01/01 Change from Rocephin to PenVK today, x 10 days, if she does OK, plan for home tomorrow, pt is aware. 12/31 skin improving rapidly. she had colonoscopy about a year ago at [facility] where a polyp was removed but specimen was not retrieved. 12/30: group B strep. cellulitis and septicemia. continue Rocephin. ? source. she seems to be improving. she has actinic keratoses that disrupt her skin and make possible entry path for the organism. also had nail trimmed on middle toe on the affected leg. Blood culture x2 GBS, repeat x 2 Neg, on IV rocephin, initially on Levaquin, cased d/w Abdifatah 12/29/2019. (2) Pneumonia Status: Resolved Problem Text: 12/30: CXR negative, CT showing some patchy infiltrates that are essentially unchanged from before, suggesting a chronic lung problem rather than acute pneumonia, especially since she had not been experiencing cough on presentation. Blood culture x2 GBS, repeat x 2 Neg, on IV rocephin, initially on Levaquin (3) FRED (acute kidney injury) Status: Resolved Problem Text: baseline 1.2, at 1.4 today, cont to follow. (4) Sepsis Status: Resolved Response to Treatment: Stable, Improving Problem Text: Pressures stable, HR improved, BP stable, WBC trending down. (5) Hypoxia Status: Chronic Response to Treatment: Stable Problem Text: on baseline oxygen needs of 3LNC (6) CAD (coronary artery disease) Status: Chronic Response to Treatment: Stable Problem Text: Continue Rosuvastatin (7) Lung nodule Onset Date: ~ 09/2019 Status: Chronic Problem Text: unchanged per CT report. (8) Cirrhosis Status: Chronic Response to Treatment: Stable Problem Text: secondary to KING (9) HTN (hypertension) Status: Chronic Response to Treatment: Stable (10) Diabetes mellitus type 2 in obese Status: Chronic Problem Text: 12/31 added Levemir. Her outpatient Toujeo dose is 190 units daily. 12/30 elimination of steroid should improve control. carb consistent diet. RISS per protocol (11) Atrial fibrillation Status: Chronic Problem Text: on home dose of anti-coag (12) CHF (congestive heart failure) Status: Chronic Problem Text: 12/31 minimal basilar rales. Creatinine is up a little but seems to be tolerating fairly well. bibasilar rales. Increase furosemide to 40 mg po bid from daily. Continue Spironolactone Plan/VTE VTE Prophylaxis Ordered?: Yes VS, [facility]O Vital Signs Date Time Temp Pulse Resp B/P (MAP) Pulse Ox O2 Delivery O2 Flow Rate FiO2 01/02/20 08:51 102 122/74 01/02/20 06:00 96.6 18 98 Nasal Cannula 2.0 I&O- Last 24 Hours up to 6 AM 01/02/20 06:00 Intake Total 1200 ml Output Total 1800 ml Balance -600 ml Laboratory Data 24H LABS Laboratory Tests 2 01/02/20 06:21: Nucleated Red Blood Cells % (auto) 0.0, Anion Gap 7L, Glomerular Filtration Rate 38.0L, Calcium Level 9.4, C-Reactive Protein, Quantitative 0.56H CBC/BMP Laboratory Tests 01/02/20 06:21 Microbiology Microbiology 12/28/19 Blood Culture - Final, Complete NO GROWTH AFTER 5 DAYS 12/28/19 Blood Culture - Final, Complete NO GROWTH AFTER 5 DAYS 12/28/19 Blood Culture - Final, Complete Strep Agalactiae Group B 12/28/19 Blood Culture - Final, Complete Strep Agalactiae Group B ANDRE MONDRAGON PA-C Jan 02, 2020 10:54
[2020-01-02] MEDS ORDERED: POTASSIUM CHLORIDE 10 MEQ SR TABLET PO ONE (11:00)
[2020-01-02] MEDS: PENICILLIN V POTASSIUM 500 MG TAB PO SCH ×3 (13:13→22:05)
[2020-01-02 14:00] VITALS: BP 101/63
[2020-01-02 22:00] VITALS: BP 143/80
[2020-01-02] MEDS: MOM 30ML SUSPENSION UDC PO PRN (22:04)
[2020-01-03] MEDS: IPRATROPIUM 0.5MG/ALBUTEROL 2.5MG INH SOL UD 3ML (DUONEB)(J7620) NEB SCH ×4 (01:55→20:03)
[2020-01-03 06:00] VITALS: BP 106/56
[2020-01-03 07:01] LABS: HEMOGLOBIN 15.2 g/dl (12.0-15.5); MEAN CORPUSCULAR HEMOGLOBIN 28.4 pg (27.0-33.0); MEAN CORPUSCULAR HGB CONC 31.7 g/dl (32.0-36.5); MEAN CORPUSCULAR VOLUME 89.7 fl (80.0-96.0); PLATELET COUNT, AUTOMATED 237 10^3/uL (150-450); RED BLOOD COUNT 5.35 10^6/uL (4.00-5.40); WHITE BLOOD COUNT 15.8 10^3/uL (4.0-10.0)
[2020-01-03 07:20] LABS: CALCIUM LEVEL 9.3 MG/DL (8.8-10.2); CREATININE FOR GFR 1.53 MG/DL (0.55-1.30); GLOMERULAR FILTRATION RATE 35.4 (>39)
[2020-01-03] MEDS: DOCUSATE SODIUM 100 MG CAP PO SCH ×2 (09:14→21:04)
[2020-01-03] MEDS: HumaLOG INSULIN (NovoLOG) PER UNIT SC SCH ×4 (09:14→21:05)
[2020-01-03] MEDS: LEVEMIR (INSULIN DETEMIR) 1 UNITS/0.01ML SC SCH ×2 (09:14→21:04)
[2020-01-03] MEDS: FUROSEMIDE 40 MG TAB PO SCH ×2 (09:15→16:32)
[2020-01-03] MEDS: PANTOPRAZOLE 40MG TAB (PROTONIX) PO SCH (09:15)
[2020-01-03] MEDS: APIXABAN 5 MG TAB (ELIQUIS) PO SCH ×2 (09:15→21:04)
[2020-01-03] MEDS: SPIRONOLACTONE 25 MG TAB PO SCH ×2 (09:15→16:33)
[2020-01-03] MEDS: ROSUVASTATIN 10 MG TAB (CRESTOR) PO SCH (09:16)
[2020-01-03] MEDS: PENICILLIN V POTASSIUM 500 MG TAB PO SCH ×4 (09:16→21:03)
[2020-01-03] MEDS: POTASSIUM CHLORIDE 10 MEQ SR TABLET PO SCH (09:16)
[2020-01-03] MEDS: NYSTATIN 100,000 UNITS/GM TOPICAL PWD 15 GM TOP SCH (09:17)
--- NOTE | 2020-01-03 10:22 | IPNPDOC ---
Subjective Date Seen The patient was seen on 01/03/20. Subjective Chief Complaint/HPI Pt this morning states that she is alright, not feeling as well as she did over the weekend, but slighly better than yesterday. She is up and moving around without difficulty. General: Denies: Fatigue Constitutional: Denies: Chills, Fever Pulmonary: Denies: Dyspnea, Cough Cardiovascular: Denies: Chest Pain, Palpitations Gastrointestinal: Denies: Nausea, Vomiting, Diarrhea Neurological: Denies: Weakness Psych: Reports: Mood Normal Objective Physical Examination General Exam: Positive: Alert, No Acute Distress Neck Exam: Positive: Supple; Negative: JVD Chest Exam: Positive: Clear to auscultation, Normal air movement; Negative: Rales Heart Exam: Positive: Rate Normal, Regular Rhythm, Normal S1, Normal S2; Negative: Murmurs, Rubs Telemetry: Positive: No significant arrhythmia Abdomen Exam: Positive: Normal bowel sounds, Soft; Negative: Tenderness, Hepatospenomegaly Extremity Exam: Negative: Edema Psych Exam: Positive: Mental status NL, Mood NL, Oriented x 3 Assessment /Plan Problems (1) Erysipelas of right lower extremity Status: Acute Response to Treatment: Stable Problem Specific Plan: Monitor Clinically, Repeat Labs Problem Text: 01/02 She was changed to Pen VK yesterday, WBC increased from 11.1 to 15.8, she is without a change in her symptoms, repeat in AM, if trending down, OK for home, if it rises further will need to request Dr Gardiner to reassess. 01/01 Change from Rocephin to PenVK today, x 10 days, if she does OK, plan for home tomorrow, pt is aware. 12/31 skin improving rapidly. she had colonoscopy about a year ago at [facility] where a polyp was removed but specimen was not retrieved. 12/30: group B strep. cellulitis and septicemia. continue Rocephin. ? source. she seems to be improving. she has actinic keratoses that disrupt her skin and make possible entry path for the organism. also had nail trimmed on middle toe on the affected leg. Blood culture x2 GBS, repeat x 2 Neg, on IV rocephin, initially on Levaquinkishore d/w Abdifatah 12/29/2019. (2) Pneumonia Status: Resolved Problem Text: 12/30: CXR negative, CT showing some patchy infiltrates that are essentially unchanged from before, suggesting a chronic lung problem rather than acute pneumonia, especially since she had not been experiencing cough on presentation. Blood culture x2 GBS, repeat x 2 Neg, on IV rocephin, initially on Levaquin (3) FRED (acute kidney injury) Status: Resolved Problem Text: baseline 1.2, at 1.4 today, cont to follow. (4) Sepsis Status: Resolved Response to Treatment: Stable, Improving Problem Text: Pressures stable, HR improved, BP stable, WBC trending down. (5) Hypoxia Status: Chronic Response to Treatment: Stable Problem Text: on baseline oxygen needs of 3LNC (6) CAD (coronary artery disease) Status: Chronic Response to Treatment: Stable Problem Text: Continue Rosuvastatin (7) Lung nodule Onset Date: ~ 09/2019 Status: Chronic Problem Text: unchanged per CT report. (8) Cirrhosis Status: Chronic Response to Treatment: Stable Problem Text: secondary to KING (9) HTN (hypertension) Status: Chronic Response to Treatment: Stable (10) Diabetes mellitus type 2 in obese Status: Chronic Problem Text: 12/31 added Levemir. Her outpatient Toujeo dose is 190 units daily. 12/30 elimination of steroid should improve control. carb consistent diet. RISS per protocol (11) Atrial fibrillation Status: Chronic Problem Text: on home dose of anti-coag (12) CHF (congestive heart failure) Status: Chronic Problem Text: 12/31 minimal basilar rales. Creatinine is up a little but seems to be tolerating fairly well. bibasilar rales. Increase furosemide to 40 mg po bid from daily. Continue S pironolactone Plan/VTE VTE Prophylaxis Ordered?: Yes VS, I&O, 24H, Fishbone Vital Signs/I&O Vital Signs Date Time Temp Pulse Resp B/P (MAP) Pulse Ox O2 Delivery O2 Flow Rate FiO2 01/03/20 09:15 92 106/56 01/03/20 06:00 97.0 20 96 Nasal Cannula 2.0 I&O- Last 24 Hours up to 6 AM 01/03/20 05:59 Intake Total 1680 ml Output Total 1150 ml Balance 530 ml Laboratory Data 24H LABS Laboratory Tests 2 01/02/20 11:14: Bedside Glucose (Misc Panel) 413H 01/02/20 15:27: Bedside Glucose (Misc Panel) 347H 01/02/20 21:33: Bedside Glucose (Misc Panel) 300H 01/03/20 06:33: Nucleated Red Blood Cells % (auto) 0.0, Anion Gap 5L, Glomerular Filtration Rate 35.4L, Calcium Level 9.3 CBC/BMP Laboratory Tests 01/03/20 06:33 Microbiology Microbiology 12/28/19 Blood Culture - Final, Complete NO GROWTH AFTER 5 DAYS 12/28/19 Blood Culture - Final, Complete NO GROWTH AFTER 5 DAYS 12/28/19 Blood Culture - Final, Complete Strep Agalactiae Group B 12/28/19 Blood Culture - Final, Complete Strep Agalactiae Group B ANDRE MONDRAGON PA-C Jan 03, 2020 10:22
--- NOTE | 2020-01-03 13:47 | IPN ---
DATE: 01/02/2020 Mrs. Redmond seems to be doing well. She has no complaints. She states her lower extremity redness and pain have resolved. She is not febrile. Temperature is 97.6, pulse 94, respirations 20. Blood pressure 101/63, O2 saturation 98% on 2 liters nasal cannula. Heart: Normal S1, S2. No murmurs. Lungs are clear. No wheezes, rales, or rhonchi. Abdomen: Obese, soft, nontender. Extremities: Trace edema lower extremities. Mild erythema anterior kan bilaterally. Cellulitis has resolved. IMPRESSION: Group B streptococcus bacteremia on 12/28/2019 due to recurrent erysipelas right leg. No clubbing or cyanosis. No evidence of tenia pedis. Skin has actinic keratosis and history of skin cancers that have been excised, but mostly from the left leg. MEDICATIONS: Currently day #1 of penicillin VK 500 mg by mouth four times a day. She has received a total of 4 days of intravenous (IV) Rocephin. PLAN: To discharge patient home tomorrow Pen VK 500 mg by mouth four times a day, total of 10 days. I would suggest, since she has had two episodes of group B streptococcus bacteremia, to keep her on Pen VK 500 mg twice a day after she finishes treatment for chronic suppressive therapy for recurrent erysipelas. I will see her in my office in 2-3 weeks in followup.
[2020-01-03 14:00] VITALS: BP 138/71
[2020-01-03 15:47] LABS: C REACTIVE PROTEIN QUANTITATIV 0.7 MG/DL (0.00-0.30)
[2020-01-03] MEDS ORDERED: SODIUM CHLORIDE NASAL 0.65% SPRAY BTL (OCEAN) PRN (21:30)
[2020-01-03 22:00] VITALS: BP 158/90
[2020-01-04] MEDS: ACETAMINOPHEN TAB 650MG DOSE (2X325MG) PO PRN ×3 (00:27→21:56)
[2020-01-04] MEDS: IPRATROPIUM 0.5MG/ALBUTEROL 2.5MG INH SOL UD 3ML (DUONEB)(J7620) NEB SCH ×4 (02:00→18:21)
[2020-01-04 06:00] VITALS: BP 118/75
[2020-01-04 07:03] LABS: HEMATOCRIT 48.4 % (36.0-47.0); HEMOGLOBIN 15.5 g/dl (12.0-15.5); MEAN CORPUSCULAR HEMOGLOBIN 28.5 pg (27.0-33.0); PLATELET COUNT, AUTOMATED 237 10^3/uL (150-450); RED BLOOD COUNT 5.44 10^6/uL (4.00-5.40); WHITE BLOOD COUNT 16.3 10^3/uL (4.0-10.0)
[2020-01-04 07:21] LABS: CALCIUM LEVEL 9.3 MG/DL (8.8-10.2); CREATININE FOR GFR 1.68 MG/DL (0.55-1.30); GLOMERULAR FILTRATION RATE 31.8 (>39); POTASSIUM SERUM 4.2 MEQ/L (3.5-5.1)
[2020-01-04] MEDS: LEVEMIR (INSULIN DETEMIR) 1 UNITS/0.01ML SC SCH ×2 (08:29→20:26)
[2020-01-04] MEDS: SPIRONOLACTONE 25 MG TAB PO SCH ×2 (08:30→16:17)
[2020-01-04] MEDS: HumaLOG INSULIN (NovoLOG) PER UNIT SC SCH ×4 (08:30→20:27)
[2020-01-04] MEDS: DOCUSATE SODIUM 100 MG CAP PO SCH ×2 (08:30→20:17)
[2020-01-04] MEDS: ROSUVASTATIN 10 MG TAB (CRESTOR) PO SCH (08:30)
[2020-01-04] MEDS: PANTOPRAZOLE 40MG TAB (PROTONIX) PO SCH (08:31)
[2020-01-04] MEDS: POTASSIUM CHLORIDE 10 MEQ SR TABLET PO SCH (08:31)
[2020-01-04] MEDS: FUROSEMIDE 40 MG TAB PO SCH (08:32)
[2020-01-04] MEDS: APIXABAN 5 MG TAB (ELIQUIS) PO SCH ×2 (08:32→20:17)
[2020-01-04] MEDS: PENICILLIN V POTASSIUM 500 MG TAB PO SCH ×4 (10:31→20:17)
[2020-01-04] MEDS: NYSTATIN 100,000 UNITS/GM TOPICAL PWD 15 GM TOP SCH (10:31)
--- NOTE | 2020-01-04 12:08 | IPNPDOC ---
Subjective Date Seen The patient was seen on 01/04/20. Subjective Chief Complaint/HPI FRED Events since last encounter Patient states she's feeling well and denies c./o. Transitioned to po PenVK with instructions for DC recommendations in Dr. Gardiner's note. Constitutional: Denies: Chills, Fever, Night Sweats Pulmonary: Reports: Dyspnea (baseline with oxygen use); Denies: Cough Cardiovascular: Denies: Chest Pain, Palpitations, Orthopnea, Paroxysmal Noc. Dyspnea, Lt Headedness Objective Physical Examination General Exam: Positive: Alert, No Acute Distress Neck Exam: Positive: Supple; Negative: JVD Chest Exam: Positive: Clear to auscultation, Normal air movement; Negative: Rales Heart Exam: Positive: Rate Normal, Regular Rhythm, Normal S1, Normal S2; Negative: Murmurs, Rubs Telemetry: Positive: No significant arrhythmia Abdomen Exam: Positive: Normal bowel sounds, Soft; Negative: Tenderness, Hepatospenomegaly Extremity Exam: Negative: Edema Psych Exam: Positive: Mental status NL, Mood NL, Oriented x 3 Assessment /Plan Problems (1) Erysipelas of right lower extremity Status: Acute Response to Treatment: Stable, Improving Problem Specific Plan: Monitor Clinically, Repeat Labs Problem Text: 01/04/2020: WBC16.3 today. Currently on PenVK. call placed to Dr. Gardiner: will resume Ceftriaxone and place midline. Patient hesitant to go home with lng term IV. will involve PFS for DC planning. 01/02 She was changed to Pen VK yesterday, WBC increased from 11.1 to 15.8, she is without a change in her symptoms, repeat in AM, if trending down, OK for home, if it rises further will need to request Dr Gardiner to reassess. 01/01 Change from Rocephin to PenVK today, x 10 days, if she does OK, plan for h ome tomorrow, pt is aware. 12/31 skin improving rapidly. she had colonoscopy about a year ago at [facility] where a polyp was removed but specimen was not retrieved. 12/30: group B strep. cellulitis and septicemia. continue Rocephin. ? source. she seems to be improving. she has actinic keratoses that disrupt her skin and make possible entry path for the organism. also had nail trimmed on middle toe on the affected leg. Blood culture x2 GBS, repeat x 2 Neg, on IV rocephin, initially on Levaquin, cased d/w Abdifatah 12/29/2019. (2) Pneumonia Status: Resolved Problem Text: 12/30: CXR negative, CT showing some patchy infiltrates that are essentially unchanged from before, suggesting a chronic lung problem rather than acute pneumonia, especially since she had not been experiencing cough on presentation. Blood culture x2 GBS, repeat x 2 Neg, on IV rocephin, initially on Levaquin (3) FRED (acute kidney injury) Status: Resolved Problem Text: 01/04/20: Cr. bumped to 1.6. decreased Furosemide to 20 mg po bid and repeat labs in am. baseline 1.2, at 1.4 today, cont to follow. (4) Sepsis Status: Resolved Response to Treatment: Stable, Improving Problem Text: Pressures stable, HR improved, BP stable, WBC trending down. (5) Hypoxia Status: Chronic Response to Treatment: Stable Problem Text: on baseline oxygen needs of 3LNC (6) CAD (coronary artery disease) Status: Chronic Response to Treatment: Stable Problem Text: Continue Rosuvastatin (7) Lung nodule Onset Date: ~ 09/2019 Status: Chronic Problem Text: unchanged per CT report. (8) Cirrhosis Status: Chronic Response to Treatment: Stable Problem Text: secondary to KING (9) HTN (hypertension) Status: Chronic Response to Treatment: Stable (10) Diabetes mellitus type 2 in obese Status: Chronic Problem Text: 12/31 added Levemir. Her outpatient Toujeo dose is 190 units daily. 12/30 elimination of steroid should improve control. carb consistent diet. RISS per protocol (11) Atrial fibrillation Status: Chronic Problem Text: on home dose of anti-coag (12) CHF (congestive heart failure) Status: Chronic Problem Text: 12/31 minimal basilar rales. Creatinine is up a little but seems to be tolerating fairly well. bibasilar rales. Increase furosemide to 40 mg po bid from daily. Continue Spironolactone Plan/VTE VTE Prophylaxis Ordered?: Yes VS, I&O, 24H, Fishbone Vital Signs/I&O Vital Signs Date Time Temp Pulse Resp B/P (MAP) Pulse Ox O2 Delivery O2 Flow Rate FiO2 01/04/20 10:33 104 117/76 01/04/20 08:00 2.0 01/04/20 06:00 97.8 18 98 Nasal Cannula I&O- Last 24 Hours up to 6 AM 01/04/20 06:00 Intake Total 1020 ml Output Total 1950 ml Balance -930 ml Laboratory Data 24H LABS Laboratory Tests 2 01/03/20 16:28: Bedside Glucose (Misc Panel) 276H 01/03/20 20:27: Bedside Glucose (Misc Panel) 374H 01/04/20 06:46: Nucleated Red Blood Cells % (auto) 0.0, Anion Gap 6L, Glomerular Filtration Rate 31.8L, Calcium Level 9.3 CBC/BMP Laboratory Tests 01/04/20 06:46 Microbiology Microbiology 12/28/19 Blood Culture - Final, Complete NO GROWTH AFTER 5 DAYS 12/28/19 Blood Culture - Final, Complete NO GROWTH AFTER 5 DAYS 12/28/19 Blood Culture - Final, Complete Strep Agalactiae Group B 12/28/19 Blood Culture - Final, Complete Strep Agalactiae Group B Licha Norris [facility] Jan 04, 2020 12:08
[2020-01-04 12:23] LABS: C REACTIVE PROTEIN QUANTITATIV 1.49 MG/DL (0.00-0.30)
[2020-01-04 12:39] LABS: BASO # 0.1 10^3/uL (0.0-0.2); BASO % 0.4 % (0.0-1.0); EOS # 0.5 10^3/uL (0.0-0.5); EOS % 2.7 % (0.0-3.0); LYMPH # 2.1 10^3/uL (1.5-5.0); LYMPH % 12.9 % (24.0-44.0); MONO # 1.2 10^3/uL (0.0-0.8); MONO % 7.1 % (0.0-5.0); NEUTROPHILS # 12.5 10^3/uL (1.5-8.5)
[2020-01-04 14:00] VITALS: BP 136/79
[2020-01-04] MEDS ORDERED: LIDOCAINE 1% MDV 20ML VIAL As Ordered ONE (14:00)
[2020-01-04] MEDS ORDERED: SODIUM CHLORIDE 0.9% INJ 10 ML SYR IV PRN (15:15)
[2020-01-04] MEDS ORDERED: SODIUM CHLORIDE 0.9% INJ 10 ML SYR IV SCH (15:15)
[2020-01-04] MEDS: cefTRIAXone SOD 1 GM in D5W MINI-BAG PLUS 50 ML IV SCH (15:19)
[2020-01-04] MEDS: FUROSEMIDE 20 MG TAB PO SCH (16:17)
--- NOTE | 2020-01-04 16:53 | REP ---
MIDLINE INSERTION WITH ULTRASOUND GUIDANCE: REASON FOR EXAM: IV antibiotics PROCEDURE: Midline catheter insertion under ultrasound guidance. This procedure was performed by LON Silver, under the direct supervision of Dr. Rothmna. The risks and benefits of the procedure were explained to the patient and informed consent was obtained prior to the procedure both verbally and written. Directly prior to the start of the procedure, a formal timeout was completed in the procedure room. The right basilic vein was localized using ultrasound guidance. The skin was prepped and draped in a sterile fashion. 1% lidocaine 10 mg/ml was used as a local anesthetic. Using ultrasound guidance the right basilic vein was cannulated and a 0.018 guidewire was inserted. The needle was removed and a 5.5 Montenegrin dilator and a Peel-Away sheath was inserted over the guidewire. A 5.5 Montenegrin dual lumen catheter was cut to the length of 16.5 cm. The dilator was removed and the catheter was inserted over the guidewire. The Peel-Away sheath was removed and the catheter was flushed with heparinized saline as per hospital protocol. The catheter was affixed to the skin and a sterile dressing was applied. The patient tolerated the procedure well and there were no immediate complications. Reviewed by LON Marvin 01/04/2020 04:00 P Electronically Signed by Tim Rothman MD 01/04/2020 04:43 P
[2020-01-04 22:00] VITALS: BP 164/84
[2020-01-05] MEDS: cefTRIAXone SOD 1 GM in D5W MINI-BAG PLUS 50 ML IV SCH ×2 (01:03→12:26)
[2020-01-05] MEDS: SODIUM CHLORIDE 0.9% INJ 10 ML SYR IV PRN ×2 (01:04→13:17)
[2020-01-05] MEDS: IPRATROPIUM 0.5MG/ALBUTEROL 2.5MG INH SOL UD 3ML (DUONEB)(J7620) NEB SCH ×5 (02:00→18:09)
[2020-01-05 06:00] VITALS: BP 112/70
[2020-01-05] MEDS: SODIUM CHLORIDE 0.9% INJ 10 ML SYR IV SCH ×2 (06:45→17:53)
[2020-01-05 06:54] LABS: BASO % 0.3 % (0.0-1.0); EOS # 0.4 10^3/uL (0.0-0.5); HEMATOCRIT 47.9 % (36.0-47.0); HEMOGLOBIN 15.7 g/dl (12.0-15.5); LYMPH # 1.8 10^3/uL (1.5-5.0); MEAN CORPUSCULAR HEMOGLOBIN 29.3 pg (27.0-33.0); MEAN CORPUSCULAR HGB CONC 32.8 g/dl (32.0-36.5); MEAN CORPUSCULAR VOLUME 89.5 fl (80.0-96.0); MONO % 8.2 % (0.0-5.0); NEUTROPHILS # 8.5 10^3/uL (1.5-8.5); NEUTROPHILS % 72.6 % (36.0-66.0); PLATELET COUNT, AUTOMATED 234 10^3/uL (150-450); RED BLOOD COUNT 5.35 10^6/uL (4.00-5.40); WHITE BLOOD COUNT 11.7 10^3/uL (4.0-10.0)
[2020-01-05 07:10] LABS: CALCIUM LEVEL 9.1 MG/DL (8.8-10.2); CREATININE FOR GFR 1.66 MG/DL (0.55-1.30); GLOMERULAR FILTRATION RATE 32.2 (>39); POTASSIUM SERUM 4.3 MEQ/L (3.5-5.1)
[2020-01-05] MEDS: LEVEMIR (INSULIN DETEMIR) 1 UNITS/0.01ML SC SCH ×2 (08:31→21:04)
[2020-01-05] MEDS: HumaLOG INSULIN (NovoLOG) PER UNIT SC SCH ×4 (08:31→21:04)
[2020-01-05] MEDS: POTASSIUM CHLORIDE 10 MEQ SR TABLET PO SCH (08:32)
[2020-01-05] MEDS: SPIRONOLACTONE 25 MG TAB PO SCH ×2 (08:32→17:51)
[2020-01-05] MEDS: PENICILLIN V POTASSIUM 500 MG TAB PO SCH ×2 (08:32→12:26)
[2020-01-05] MEDS: APIXABAN 5 MG TAB (ELIQUIS) PO SCH ×2 (08:33→21:04)
[2020-01-05] MEDS: NYSTATIN 100,000 UNITS/GM TOPICAL PWD 15 GM TOP SCH (08:33)
[2020-01-05] MEDS: DOCUSATE SODIUM 100 MG CAP PO SCH ×2 (08:33→21:04)
[2020-01-05] MEDS: FUROSEMIDE 20 MG TAB PO SCH ×2 (08:33→17:51)
[2020-01-05] MEDS: PANTOPRAZOLE 40MG TAB (PROTONIX) PO SCH (08:33)
[2020-01-05] MEDS: ROSUVASTATIN 10 MG TAB (CRESTOR) PO SCH (08:33)
--- NOTE | 2020-01-05 10:38 | IPNPDOC ---
Subjective Date Seen The patient was seen on 01/05/20. Subjective Chief Complaint/HPI Pt this morning without new concerns. She states that she is feeling alright. She does not want to go home until after she has completed Abx, she states that her home is not clear due to pets and therefore feels it is unsafe for her to be in the environment. General: Denies: Fatigue Constitutional: Denies: Chills, Fever Pulmonary: Denies: Dyspnea, Cough Cardiovascular: Denies: Chest Pain, Palpitations Gastrointestinal: Denies: Nausea, Vomiting, Diarrhea Psych: Reports: Anxiety; Denies: Mood Normal Objective Physical Examination General Exam: Positive: Alert, No Acute Distress Neck Exam: Positive: Supple; Negative: JVD Chest Exam: Positive: Clear to auscultation, Normal air movement; Negative: Rales Heart Exam: Positive: Rate Normal, Regular Rhythm, Normal S1, Normal S2; Negative: Murmurs, Rubs Telemetry: Positive: No significant arrhythmia Abdomen Exam: Positive: Normal bowel sounds, Soft; Negative: Tenderness, Hepatospenomegaly Extremity Exam: Negative: Edema Psych Exam: Positive: Mental status NL, Anxiety, Oriented x 3 Assessment /Plan Problems (1) Erysipelas of right lower extremity Status: Acute Response to Treatment: Stable, Improving Problem Specific Plan: Monitor Clinically, Repeat Labs Problem Text: 01/04 Currently on rocephin with PICC, I spoke to pt about planning for home with in home infusion and nursing care, she is adamently against this and states that we can't send her to a NH either bc she doesn't have the right insurance. 01/04/2020: WBC16.3 today. Currently on PenVK. call placed to Dr. Gardiner: will resume Ceftriaxone and place midline. Patient hesitant to go home with lng term IV. will involve PFS for DC planning. 01/02 She was changed to Pen VK yesterday, WBC increased from 11.1 to 15.8, she is without a change in her symptoms, repeat in AM, if trending down, OK for home, if it rises further will need to request Dr Gardiner to reassess. 01/01 Change from Rocephin to PenVK today, x 10 days, if she does OK, plan for home tomorrow, pt is aware. 12/31 skin improving rapidly. she had colonoscopy about a year ago at [facility] where a polyp was removed but specimen was not retrieved. 12/30: group B strep. cellulitis and septicemia. continue Rocephin. ? source. she seems to be improving. she has actinic keratoses that disrupt her skin and make possible entry path for the organism. also had nail trimmed on middle toe on the affected leg. Blood culture x2 GBS, repeat x 2 Neg, on IV rocephin, initially on Levaquin, cased d/w Abdifatah 12/29/2019. (2) Pneumonia Status: Resolved Problem Text: 12/30: CXR negative, CT showing some patchy infiltrates that are essentially unchanged from before, suggesting a chronic lung problem rather than acute pneumonia, especially since she had not been experiencing cough on presentation. Blood culture x2 GBS, repeat x 2 Neg, on IV rocephin, initially on Levaquin (3) FRED (acute kidney injury) Status: Resolved Problem Text: 01/04/20: Cr. bumped to 1.6. decreased Furosemide to 20 mg po bid and repeat labs in am. baseline 1.2, at 1.4 today, cont to follow. (4) Sepsis Status: Resolved Response to Treatment: Stable, Improving Problem Text: Pressures stable, HR improved, BP stable, WBC trending down. (5) Hypoxia Status: Chronic Response to Treatment: Stable Problem Text: on baseline oxygen needs of 3LNC (6) CAD (coronary artery disease) Status: Chronic Response to Treatment: Stable Problem Text: Continue Rosuvastatin (7) Lung nodule Onset Date: ~ 09/2019 Status: Chronic Problem Text: unchanged per CT report. (8) Cirrhosis Status: Chronic Response to Treatment: Stable Problem Text: secondary to KING (9) HTN (hypertension) Status: Chronic Response to Treatment: Stable (10) Diabetes mellitus type 2 in obese Status: Chronic Problem Text: 12/31 added Levemir. Her outpatient Toujeo dose is 190 units daily. 12/30 elimination of steroid should improve control. carb consistent diet. RISS per protocol (11) Atrial fibrillation Status: Chronic Problem Text: on home dose of anti-coag (12) CHF (congestive heart failure) Status: Chronic Problem Text: 12/31 minimal basilar rales. Creatinine is up a little but seems to be tolerating fairly well. bibasilar rales. Increase furosemide to 40 mg po bid from daily. Continue Spironolactone Plan/VTE VTE Prophylaxis Ordered?: Yes VS, I&O, 24H, Fishbone Vital Signs/I&O Vital Signs Date Time Temp Pulse Resp B/P (MAP) Pulse Ox O2 Delivery O2 Flow Rate FiO2 01/05/20 08:32 102 160/88 01/05/20 06:00 98.4 20 96 Nasal Cannula 3.0 I&O- Last 24 Hours up to 6 AM0 01/05/20 06:00 Intake Total 800 ml Output Total 1525 ml Balance -725 ml Laboratory Data 24H LABS Laboratory Tests 2 01/04/20 11:28: Bedside Glucose (Misc Panel) 259H 01/04/20 16:17: Bedside Glucose (Misc Panel) 299H 01/04/20 20:13: Bedside Glucose (Misc Panel) 331H 01/05/20 06:36: Immature Granulocyte % (Auto) 0.9, Neutrophils (%) (Auto) 72.6H, Lymphocytes (%) (Auto) 15.0L, Monocytes (%) (Auto) 8.2H, Eosinophils (%) (Auto) 3.0, Basophils (%) (Auto) 0.3, Neutrophils # (Auto) 8.5, Lymphocytes # (Auto) 1.8, Monocytes # (Auto) 1.0H, Eosinophils # (Auto) 0.4, Basophils # (Auto) 0.0, Nucleated Red Blood Cells % (auto) 0.0, Anion Gap 9, Glomerular Filtration Rate 32.2L, Calcium Level 9.1 CBC/BMP Laboratory Tests 01/05/20 06:36 Microbiology Microbiology 12/28/19 Blood Culture - Final, Complete NO GROWTH AFTER 5 DAYS 12/28/19 Blood Culture - Final, Complete NO GROWTH AFTER 5 DAYS 12/28/19 Blood Culture - Final, Complete Strep Agalactiae Group B 12/28/19 Blood Culture - Final, Complete Strep Agalactiae Group B ANDRE MONDRAGON PA-C Jan 05, 2020 10:38
[2020-01-05 14:00] VITALS: BP 138/79
[2020-01-05] MEDS: ACETAMINOPHEN TAB 650MG DOSE (2X325MG) PO PRN ×2 (18:04→23:10)
--- NOTE | 2020-01-05 20:51 | IPN ---
DATE: 01/05/2020 Mrs. Redmond is anxious and does not want to go home. She thinks she gets better care in the hospital. She has no pain in her lower extremity but complains of pain in her right wrist. In the past 24 hours no nausea, vomiting or diarrhea. No fever or chills. She was switched back to Rocephin as she had an increasing white count. Yesterday her white count was up to 16.3; today was down to 11.7, hemoglobin 50.7, hematocrit 47.9, platelets 234. Sodium 133, potassium 4.3, chloride 96, bicarb 28, BUN 44, creatinine 1.6, glucose 213, calcium 9.1. MEDICATIONS Rocephin 1 gram IV every 12 hours, restarted on 01/03. She was on Pen-Vee K from 01/01 to 01/04. That was not discontinued after Rocephin was restarted. PHYSICAL EXAMINATION: Temperature is 98, pulse 97, respirations 20, blood pressure 138/79, O2 sat 96% on 3 liters nasal cannula. Heart: Normal S1, S2. No murmurs appreciated. Lungs: Diminished air entry but clear. No wheezes, rales or rhonchi. Abdomen: Obese, soft, nontender. Extremities: Trace ankle edema bilaterally with multiple skin lesions and healed scars from previous biopsies. No evidence of cellulitis. Right wrist is painful with flexion but there is no obvious effusion. IMPRESSION: 1. Group B strep bacteremia recurrent, on IV Rocephin switched back from by mouth (p.o.) penicillin due to worsening white count and increased CRP. The patient will be treated with 2 weeks of IV Rocephin then switched to Pen-Vee K twice a day to prevent recurrence. 2. Right wrist pain. Rule out metastatic complication bacteremia including a septic joint. I will obtain an ultrasound to see if there is joint fluid. Could be also gout or pseudogout or just traumatic. 3. Abnormal CT chest with infiltrate not consistent with pneumonia. Patient did not come with a cough or shortness of breath, no need for droplet isolation. 4. Continue IV Rocephin, switched dose to 2 grams once a day. I did discuss with the patient's that she needs to go home and have the antibiotic continued home. It will be a safer place for her as her daughter is capable of doing it. Suggest obtaining a wrist ultrasound tomorrow to make sure she does not have a septic wrist. Consult [facility] for home IV antibiotics. She will need seven more days of IV antibiotic until January 12. A mid line was placed today and the case has been discussed with nurse. PCP to call her daughter about discharge planning. BEKAH
[2020-01-05 22:00] VITALS: BP 129/77
[2020-01-06] MEDS: IPRATROPIUM 0.5MG/ALBUTEROL 2.5MG INH SOL UD 3ML (DUONEB)(J7620) NEB SCH ×4 (00:39→18:15)
[2020-01-06 06:00] VITALS: BP 134/66
[2020-01-06] MEDS: SODIUM CHLORIDE 0.9% INJ 10 ML SYR IV SCH ×2 (06:24→17:32)
[2020-01-06 06:46] LABS: BASO % 0.4 % (0.0-1.0); EOS # 0.3 10^3/uL (0.0-0.5); EOS % 2.6 % (0.0-3.0); HEMATOCRIT 46.5 % (36.0-47.0); HEMOGLOBIN 14.9 g/dl (12.0-15.5); LYMPH # 1.8 10^3/uL (1.5-5.0); LYMPH % 16.2 % (24.0-44.0); MEAN CORPUSCULAR HEMOGLOBIN 28.8 pg (27.0-33.0); MEAN CORPUSCULAR VOLUME 89.8 fl (80.0-96.0); MONO # 0.9 10^3/uL (0.0-0.8); MONO % 7.9 % (0.0-5.0); NEUTROPHILS # 7.8 10^3/uL (1.5-8.5); NEUTROPHILS % 72.3 % (36.0-66.0); PLATELET COUNT, AUTOMATED 234 10^3/uL (150-450); RED BLOOD COUNT 5.18 10^6/uL (4.00-5.40); WHITE BLOOD COUNT 10.8 10^3/uL (4.0-10.0)
[2020-01-06 07:15] LABS: BILIRUBIN,TOTAL 0.3 MG/DL (0.2-1.0); C REACTIVE PROTEIN QUANTITATIV 1.38 MG/DL (0.00-0.30); CALCIUM LEVEL 9.1 MG/DL (8.8-10.2); CREATININE FOR GFR 1.8 MG/DL (0.55-1.30); GLOMERULAR FILTRATION RATE 29.4 (>39); POTASSIUM SERUM 4.3 MEQ/L (3.5-5.1); TOTAL PROTEIN 7.7 GM/DL (6.4-8.2)
--- NOTE | 2020-01-06 07:37 | REP ---
Right wrist two views: There is no fracture or dislocation. Mineralization is normal. There is osteoarthritis at the thumb MCP articulation. Joint spaces are otherwise unremarkable. No calcifications or foreign bodies. Impression: No fracture or dislocation. Osteoarthritis at the thumb base. Electronically Signed by Constantino Slater MD 01/06/2020 07:27 A
[2020-01-06] MEDS: ROSUVASTATIN 10 MG TAB (CRESTOR) PO SCH (08:55)
[2020-01-06] MEDS: DOCUSATE SODIUM 100 MG CAP PO SCH ×2 (08:55→20:44)
[2020-01-06] MEDS: SPIRONOLACTONE 25 MG TAB PO SCH ×2 (08:55→16:33)
[2020-01-06] MEDS: cefTRIAXone SOD 2 GM in D5W MINI-BAG PLUS 50 ML IV SCH (08:55)
[2020-01-06] MEDS: APIXABAN 5 MG TAB (ELIQUIS) PO SCH ×2 (08:55→20:44)
[2020-01-06] MEDS: FUROSEMIDE 20 MG TAB PO SCH (08:55)
[2020-01-06] MEDS: PANTOPRAZOLE 40MG TAB (PROTONIX) PO SCH (08:55)
[2020-01-06] MEDS: POTASSIUM CHLORIDE 10 MEQ SR TABLET PO SCH (08:56)
[2020-01-06] MEDS: LEVEMIR (INSULIN DETEMIR) 1 UNITS/0.01ML SC SCH ×2 (09:04→20:45)
[2020-01-06] MEDS: HumaLOG INSULIN (NovoLOG) PER UNIT SC SCH ×4 (09:05→20:46)
[2020-01-06] MEDS: NYSTATIN 100,000 UNITS/GM TOPICAL PWD 15 GM TOP SCH (09:05)
--- NOTE | 2020-01-06 09:34 | IPNPDOC ---
Subjective Date Seen The patient was seen on 01/06/20. Subjective Chief Complaint/HPI Pt this morning states that she has some right wrist pain, she noticed it yesterday reported it to Dr Gardiner when she was seen by her. XR was ordered without acute findings. She states that the wrist feels about the same. She thinks the pain is from the bruise that she has on the underside of her wrist. She denies swelling. She is not eager to go home, but agreeable after being told yesterday by Dr Gardiner and myself that staying here for her IV abx wasn't in her best interest. General: Denies: Fatigue Constitutional: Denies: Chills, Fever ENT: Denies: Head Aches Pulmonary: Denies: Dyspnea, Cough Cardiovascular: Denies: Chest Pain, Palpitations Gastrointestinal: Denies: Nausea, Vomiting, Diarrhea Neurological: Denies: Weakness Psych: Reports: Mood Normal Objective Physical Examination General Exam: Positive: Alert, No Acute Distress ENT Exam: Positive: Mucous membr. moist/pink Neck Exam: Positive: Supple; Negative: JVD Chest Exam: Positive: Clear to auscultation, Normal air movement; Negative: Rales Heart Exam: Positive: Rate Normal, Regular Rhythm, Normal S1, Normal S2; Negative: Murmurs, Rubs Telemetry: Positive: No significant arrhythmia Abdomen Exam: Positive: Normal bowel sounds, Soft; Negative: Tenderness, Hepatospenomegaly Extremity Exam: Negative: Edema Psych Exam: Positive: Mental status NL, Oriented x 3 Assessment /Plan Problems (1) Erysipelas of right lower extremity Status: Acute Response to Treatment: Stable, Improving Problem Specific Plan: Monitor Clinically, Repeat Labs Problem Text: 01/05 Cont with IV Rocephin, anticipate that she will go home today or tomorrow with IV abx, nursing working to get this set up. 01/04 Currently on rocephin with PICC, I spoke to pt about planning for home with in home infusion and nursing care, she is adamently against this and states that we can't send her to a NH either bc she doesn't have the right insurance. 01/04/2020: WBC16.3 today. Currently on PenVK. call placed to Dr. Gardiner: will resume Ceftriaxone and place midline. Patient hesitant to go home with lng term IV. will involve PFS for DC planning. 01/02 She was changed to Pen VK yesterday, WBC increased from 11.1 to 15.8, she is without a change in her symptoms, repeat in AM, if trending down, OK for home, if it rises further will need to request Dr Gardiner to reassess. 01/01 Change from Rocephin to PenVK today, x 10 days, if she does OK, plan for home tomorrow, pt is aware. 12/31 skin improving rapidly. she had colonoscopy about a year ago at [facility] where a polyp was removed but specimen was not retrieved. 12/30: group B strep. cellulitis and septicemia. continue Rocephin. ? source. she seems to be improving. she has actinic keratoses that disrupt her skin and make possible entry path for the organism. also had nail trimmed on middle toe on the affected leg. Blood culture x2 GBS, repeat x 2 Neg, on IV rocephin, initially on Levaquin, kishore d/w Abdifatah 12/29/2019. (2) Wrist pain Status: Acute Response to Treatment: Stable Problem Specific Plan: Monitor Clinically Problem Text: Pt notes this started 01/04, XR done 01/04 was negative. [address] with DR Gardiner who wants to make sure she hasn't seeded anything from her wrist, will obtain STAT CT of the wrist. (3) Pneumonia Status: Resolved Problem Text: 12/30: CXR negative, CT showing some patchy infiltrates that are essentially unchanged from before, suggesting a chronic lung problem rather than acute pneumonia, especially since she had not been experiencing cough on presentation. Blood culture x2 GBS, repeat x 2 Neg, on IV rocephin, initially on Levaquin (4) FRED (acute kidney injury) Status: Resolved Problem Text: 01/05 Scr cont to climb slowly, 1.8 this monring, baseline 1.2- 1.4, will HOLD her Lasix for today. 01/04/20: Cr. bumped to 1.6. decreased Furosemide to 20 mg po bid and repeat labs in am. baseline 1.2, at 1.4 today, cont to follow. (5) Sepsis Status: Resolved Response to Treatment: Stable, Improving Problem Text: Pressures stable, HR improved, BP stable, WBC trending down. (6) Hypoxia Status: Chronic Response to Treatment: Stable Problem Text: on baseline oxygen needs of 3LNC (7) CAD (coronary artery disease) Status: Chronic Response to Treatment: Stable Problem Text: Continue Rosuvastatin (8) Lung nodule Onset Date: ~ 09/2019 Status: Chronic Problem Text: unchanged per CT report. (9) Cirrhosis Status: Chronic Response to Treatment: Stable Problem Text: secondary to KING (10) HTN (hypertension) Status: Chronic Response to Treatment: Stable (11) Diabetes mellitus type 2 in obese Status: Chronic Problem Text: 12/31 added Levemir. Her outpatient Toujeo dose is 190 units daily. 12/30 elimination of steroid should improve control. carb consistent diet. RISS per protocol (12) Atrial fibrillation Status: Chronic Problem Text: on home dose of anti-coag (13) CHF (congestive heart failure) Status: Chronic Problem Text: 12/31 minimal basilar rales. Creatinine is up a little but seems to be tolerating fairly well. bibasilar rales. Increase furosemide to 40 mg po bid from daily. Continue Spironolactone Plan/VTE VTE Prophylaxis Ordered?: Yes VS, I&O, 24H, Fishbone Vital Signs/I&O Vital Signs Date Time Temp Pulse Resp B/P (MAP) Pulse Ox O2 Delivery O2 Flow Rate FiO2 01/06/20 09:04 108 138/62 01/06/20 06:00 97.7 18 99 Venturi Mask 5.0 I&O- Last 24 Hours up to 6 AM 01/06/20 06:00 Intake Total 780 ml Output Total 700 ml Balance 80 ml Laboratory Data 24H LABS Laboratory Tests 2 01/05/20 12:05: Bedside Glucose (Misc Panel) 267H 01/05/20 16:31: Bedside Glucose (Misc Panel) 282H 01/05/20 20:26: Bedside Glucose (Misc Panel) 425H 01/06/20 06:15: Immature Granulocyte % (Auto) 0.6, Neutrophils (%) (Auto) 72.3H, Lymphocytes (%) (Auto) 16.2L, Monocytes (%) (Auto) 7.9H, Eosinophils (%) (Auto) 2.6, Basophils (%) (Auto) 0.4, Neutrophils # (Auto) 7.8, Lymphocytes # (Auto) 1.8, Monocytes # (Auto) 0.9H, Eosinophils # (Auto) 0.3, Basophils # (Auto) 0.0, Nucleated Red Blood Cells % (auto) 0.0, Anion Gap 6L, Glomerular Filtration Rate 29.4L, Calcium Level 9.1, Total Bilirubin 0.3, Aspartate Amino Transf (AST/SGOT) 5L, Alanine Aminotransferase (ALT/SGPT) 23, Alkaline Phosphatase 89, C-Reactive Protein, Quantitative 1.38H, Total Protein 7.7, Albumin 3.0L, Albumin/Globulin Ratio 0.64L CBC/BMP Laboratory Tests 01/06/20 06:15 Microbiology Microbiology 12/28/19 Blood Culture - Final, Complete NO GROWTH AFTER 5 DAYS 12/28/19 Blood Culture - Final, Complete NO GROWTH AFTER 5 DAYS 12/28/19 Blood Culture - Final, Complete Strep Agalactiae Group B 12/28/19 Blood Culture - Final, Complete Strep Agalactiae Group B ANDRE MONDRAGON PA-C Jan 06, 2020 09:34
--- NOTE | 2020-01-06 10:41 | REP ---
CT STUDY OF THE RIGHT WRIST WITHOUT CONTRAST: HISTORY: Pain. There is apparently a history of bacteremia. Comparison radiographs January 05, 2020. TECHNIQUE: Helical scanning is acquired and 2 mm axial high resolution images are generated. Coronal and sagittal MPR images are generated. FINDINGS: The CT study shows moderate osteoarthritis at the 1st carpometacarpal articulation with significant joint space narrowing and sclerosis. Some spurring is seen. There is mild periarticular calcification at this articulation. There is also chondrocalcinosis at the articulation between the navicula and the greater multangular. There is mild narrowing of the joint space at the 5th carpometacarpal articulation. No acute erosive changes seen. There is subtle subcortical cyst formation in the ulnar side of the lunate bone as noted radiographically. No soft tissue mass or abnormal fluid collection is seen. No other abnormality. IMPRESSION: No fracture or acute bony destructive or erosive change. Osteoarthritic changes noted as above. Electronically Signed by Tim Rothman MD 01/06/2020 11:12 A
[2020-01-06 14:00] VITALS: BP 136/77
[2020-01-06] MEDS: ACETAMINOPHEN TAB 650MG DOSE (2X325MG) PO PRN ×2 (16:33→22:12)
[2020-01-06 22:00] VITALS: BP 131/58
--- NOTE | 2020-01-06 22:14 | IPN ---
DATE: 01/06/2020 Marjorie continues complaining of a little wrist pain, but otherwise she is doing well. She has no leg pain. No fever or chills. No nausea, vomiting or diarrhea. She is anxious about going home with IV antibiotics. She is not sure her daughter will be capable of doing it. Vital signs: Temperature 98, pulse 80, respirations 19, blood pressure 136/77, O2 sat 97% on 3 liters nasal cannula. LABORATORY DATA White count is 10.8, hemoglobin 14.9, hematocrit 46.5, platelets 234, 72% neutrophils, 16% lymphocytes, 8% monocytes. Sodium 134, potassium 4.3, chloride 97, bicarb 31, BUN 47, creatinine 1.8, glucose 166, calcium 9.1, AST 5, ALT 23, alk phos 89, CRP 1.38. Wrist x-ray shows osteoarthritis. CT of the wrist also showed no evidence of effusion or infection. No fractures. IMPRESSION 1. Recurrent group B strep bacteremia with erysipelas of the right leg, on IV Rocephin for a total of 14 days since the patient worsened on by mouth (p.o.) Pen-Vee K. 2. Wrist pain, probably osteoarthritis. There is no evidence of joint effusion to be concerned of metastatic infection. 3. Severe lung disease. Oxygen dependent, stable. PLAN The patient will be discharged home tomorrow on IV Rocephin for a total of 7 days. End of therapy will be 01/12. She will have a CBC, CRP, sed rate done next week. She needs to follow up in my office in 7 to 10 days. Will need to monitor her after she is done with antibiotics for possible relapse as this is her second episode in a matter of 3 months.
[2020-01-07] MEDS: IPRATROPIUM 0.5MG/ALBUTEROL 2.5MG INH SOL UD 3ML (DUONEB)(J7620) NEB SCH ×3 (02:00→13:48)
[2020-01-07] MEDS: ACETAMINOPHEN TAB 650MG DOSE (2X325MG) PO PRN ×2 (02:41→11:45)
[2020-01-07 06:00] VITALS: BP 134/82
[2020-01-07] MEDS: SODIUM CHLORIDE 0.9% INJ 10 ML SYR IV SCH (06:28)
[2020-01-07 08:45] LABS: BASO % 0.2 % (0.0-1.0); EOS # 0.3 10^3/uL (0.0-0.5); EOS % 2.6 % (0.0-3.0); HEMATOCRIT 43.5 % (36.0-47.0); HEMOGLOBIN 14.2 g/dl (12.0-15.5); LYMPH # 1.7 10^3/uL (1.5-5.0); LYMPH % 16.1 % (24.0-44.0); MEAN CORPUSCULAR HEMOGLOBIN 29.2 pg (27.0-33.0); MEAN CORPUSCULAR HGB CONC 32.6 g/dl (32.0-36.5); MEAN CORPUSCULAR VOLUME 89.3 fl (80.0-96.0); MONO # 0.8 10^3/uL (0.0-0.8); MONO % 7.2 % (0.0-5.0); NEUTROPHILS # 7.9 10^3/uL (1.5-8.5); NEUTROPHILS % 73.5 % (36.0-66.0); PLATELET COUNT, AUTOMATED 215 10^3/uL (150-450); RED BLOOD COUNT 4.87 10^6/uL (4.00-5.40); WHITE BLOOD COUNT 10.8 10^3/uL (4.0-10.0)
[2020-01-07 09:00] LABS: CALCIUM LEVEL 8.7 MG/DL (8.8-10.2); CREATININE FOR GFR 1.56 MG/DL (0.55-1.30); GLOMERULAR FILTRATION RATE 34.6 (>39); POTASSIUM SERUM 4.5 MEQ/L (3.5-5.1)
[2020-01-07] MEDS: PANTOPRAZOLE 40MG TAB (PROTONIX) PO SCH (09:49)
[2020-01-07] MEDS: HumaLOG INSULIN (NovoLOG) PER UNIT SC SCH ×2 (09:49→11:44)
[2020-01-07] MEDS: LEVEMIR (INSULIN DETEMIR) 1 UNITS/0.01ML SC SCH (09:49)
[2020-01-07 09:50] VITALS: BP 134/82
[2020-01-07] MEDS: cefTRIAXone SOD 2 GM in D5W MINI-BAG PLUS 50 ML IV SCH (09:50)
[2020-01-07] MEDS: DOCUSATE SODIUM 100 MG CAP PO SCH (09:50)
[2020-01-07] MEDS: POTASSIUM CHLORIDE 10 MEQ SR TABLET PO SCH (09:50)
[2020-01-07] MEDS: SPIRONOLACTONE 25 MG TAB PO SCH (09:50)
[2020-01-07] MEDS: ROSUVASTATIN 10 MG TAB (CRESTOR) PO SCH (09:50)
[2020-01-07] MEDS: APIXABAN 5 MG TAB (ELIQUIS) PO SCH (09:50)
[2020-01-07] MEDS: NYSTATIN 100,000 UNITS/GM TOPICAL PWD 15 GM TOP SCH (09:51)
--- NOTE | 2020-01-07 12:39 | DS.PDOC ---
Discharge Summary General Date of Admission Dec 28, 2019 at 05:35 Date of Discharge 01/07/2020 Primary Care Physician: Pepe Olivas MD Attending Physician: Kurt Brumfield MD Specialist/Consultants Involve: Ghazala Gardiner MD Discharge Summary ADMITTING DIAGNOSES: 1. Dyspnea. 2. Sepsis secondary to pneumonia. 3. Acute congestive heart failure. 4. Acute exacerbation of COPD. 5. Acute kidney injury. 6. Type 2 diabetes. 7. History of cerebrovascular accident 8. Hypothyroidism. 9. Atrial fibrillation. 10. Obesity. 11. Pulmonary nodules. DISCHARGE DIAGNOSES: 1. Erysipelas of the right lower extremity. 2. Wrist pain. 3. Pneumonia, resolved. 4. Acute kidney injury, resolved. 5. Sepsis with history of gram-positive bacteremia, resolved. 6. Hypoxia, stable on 3 L of supplemental oxygen via nasal cannula. 7. Coronary artery disease. 8. Lung nodule, unchanged per CT report. 9. Cirrhosis, secondary to nonalcoholic steatohepatitis. 10. Hypertension. 11. Type 2 diabetes. 12. Atrial fibrillation. 13. Congestive heart failure, chronic 14. Morbid obesity, complicating care. 15. Multiple medication allergies, complicating care. PROCEDURES PERFORMED DURING STAY: Placement of midline for home IV access. ADMISSION HISTORY: Ms. Redmond presented to the [facility] emergency department with shortness of breath for 2-3 days that is worse with exertion and associated with fevers, chills, and runny nose. Please see the admission history and physical for the remaining details. HOSPITAL COURSE: Ms. Redmond was admitted with dyspnea and bilateral changes on chest x-ray. She does have some chronic findings on chest radiography and is not clear if these findings are substantially different from the previous ones. Additionally she is on a baseline of 3 L of oxygen at home. She did have an erysipelas of her right lower extremity noted and it was ultimately felt that this may be the more likely source of her infection. She has multiple medication allergies that did complicate her treatment course. She was treated with ertapenem through the emergency department. This was changed to levofloxacin when she hit the floor. However, because of a history of previous group B strep bacteremia, she was changed to IV ceftriaxone. After infectious disease consult this was modified to intravenous Pen-VK. However that did not seem to be strong enough as her white count continued to climb. Therefore the midline was placed for home IV access and she was switched back to ceftriaxone. She did have an acute kidney injury noted on admission and this resolved shortly after admission. On the day prior to discharge she developed some wrist pain. Radiography was done of her wrist to confirm there was no evidence of bacteremic seeding into her joint. Fortunately there was none. DISCHARGE CONDITION: Stable. FOLLOW-UP: Prior to discharge an appointment was scheduled with Dr. Olivas on at 11:30 AM. DIET: Consistent carbohydrate. ACTIVITY: As tolerated. DISCHARGE MEDICATIONS: Please see below. ALLERGIES: Please see below. LABORATORY DATA: Please see below. IMAGING: Multiple chest x-rays, chest CT, renal ultrasound, wrist x-ray and wrist CT. ITEMS TO FOLLOWUP ON ON OUTPATIENT: 1. Known history of lung nodules. Unchanged on the reexamination done during this admission.. TIME SPENT ON DISCHARGE: Greater than 35 minutes. Vital Signs/I&Os Vital Signs Date Time Temp Pulse Resp B/P (MAP) Pulse Ox O2 Delivery O2 Flow Rate FiO2 01/07/20 09:50 79 134/82 01/07/20 08:00 2.0 01/07/20 06:00 96.2 18 92 Nasal Cannula I&O- Last 24 Hours up to 6 AM 01/07/20 06:00 Intake Total 920 ml Output Total 1175 ml Balance -255 ml Laboratory Data Labs 24H Laboratory Tests 2 01/06/20 16:51: Bedside Glucose (Misc Panel) 326H 01/06/20 20:08: Bedside Glucose (Misc Panel) 438H 01/07/20 06:10: Bedside Glucose (Misc Panel) 195H 01/07/20 08:26: Immature Granulocyte % (Auto) 0.4, Neutrophils (%) (Auto) 73.5H, Lymphocytes (%) (Auto) 16.1L, Monocytes (%) (Auto) 7.2H, Eosinophils (%) (Auto) 2.6, Basophils (%) (Auto) 0.2, Neutrophils # (Auto) 7.9, Lymphocytes # (Auto) 1.7, Monocytes # (Auto) 0.8, Eosinophils # (Auto) 0.3, Basophils # (Auto) 0.0, Nucleated Red Blood Cells % (auto) 0.0, Anion Gap 5L, Glomerular Filtration Rate 34.6L, Calcium Level 8.7L 01/07/20 11:34: Bedside Glucose (Misc Panel) 463H CBC/BMP Laboratory Tests 01/07/20 08:26 FSBS Laboratory Tests Test 01/06/20 16:51 01/06/20 20:08 01/07/20 06:10 01/07/20 11:34 Range/Units Bedside Glucose (Misc Panel) 326 438 195 463 83-110 MG/DL Microbiology Microbiology 12/28/19 Blood Culture - Final, Complete NO GROWTH AFTER 5 DAYS 12/28/19 Blood Culture - Final, Complete NO GROWTH AFTER 5 DAYS 12/28/19 Blood Culture - Final, Complete Strep Agalactiae Group B 12/28/19 Blood Culture - Final, Complete Strep Agalactiae Group B Discharge Medications Scheduled Apixaban (Eliquis) 5 Mg Tablet, 5 MG PO BID, (Reported) Ascorbic Acid (Ascorbic Acid) 500 Mg Tab, 500 MG PO QPM, (Reported) DINNERTIME Budesonide/Formoterol (Symbicort 80-4.5 Mcg Inhaler) 6.9 Gm Hfa.aer.ad, 2 PUFF INH BID, (Reported) Diltiazem Hcl (Diltiazem HCl) 60 Mg Tablet, 60 MG PO TID, (Reported) Docusate Sodium (Docusate Sodium) 100 Mg Capsule, 100 MG PO QHS, (Reported) Ferrous Sulfate (Ferrous Sulfate) 325 Mg Tablet, 325 MG PO TID, (Reported) Furosemide (Furosemide) 40 Mg Tablet, 40 MG PO DAILY, (Reported) Insulin Glargine,Hum.rec.anlog (Toujeo Solostar) 300 Unit/Ml Inj, 150 UNIT SC DAILY, (Reported) Insulin Glargine,Hum.rec.anlog (Toujeo Solostar) 300 Unit/1 Ml Insuln.pen, 190 UNIT SC DAILY, (Reported) Ipratropium/Albuterol Sulfate (Iprat-Albut 0.5-3(2.5) mg/3 ml) 3 Ml Ampul.neb, 3 ML INH TID, (Reported) Loratadine (Loratadine) 10 Mg Tablet, 10 MG PO DAILY, (Reported) Pantoprazole Sodium (Protonix) 40 Mg Tablet.dr, 40 MG PO DAILY, (Reported) Rosuvastatin Calcium (Crestor) 40 Mg Tablet, 40 MG PO DAILY, (Reported) Spironolactone (Spironolactone) 50 Mg Tablet, 25 MG PO BID, (Reported) Scheduled PRN Acetaminophen (Acetaminophen) 500 Mg Tablet, 1,000 MG PO Q6H PRN for PAIN / FEVER, (Reported) Albuterol Sulfate (Proair Hfa) 8.5 Gm Hfa.aer.ad, 2 PUFF INH Q4H PRN for SHORTNESS OF BREATH, (Reported) Meclizine HCl (Meclizine HCl) 25 Mg Tablet, 25 MG PO TID PRN for DIZZINESS, (Reported) Nitroglycerin (Nitrostat) 0.4 Mg Subl, 0.4 MG SL NITRO PRN for CHEST PAIN, (Reported) Nystatin (Nystatin Powder) 15 Gm Powder, 1 DOSE TOP BID PRN for RASH, (Reported) UNDER BREASTS AND STOMACH FOLDS Allergies Coded Allergies: gemfibrozil (Verified Allergy, Intermediate, rash, 12/28/19) indapamide (Verified Allergy, Intermediate, rash, 12/28/19) tiotropium (Verified Allergy, Intermediate, rash, 12/28/19) amlodipine (Verified Allergy, Unknown, 12/28/19) amoxicillin (Verified Adverse Reaction, Mild, reddened skin/ HAS TOLERATED ZOSYN, 12/30/19) cephalexin (Verified Adverse Reaction, Mild, nausea, 12/28/19) hydrocodone (Verified Adverse Reaction, Mild, nausea, 12/28/19) Sulfa (Sulfonamide Antibiotics) (Verified Adverse Reaction, Unknown, FRED, 12/28/19) amiloride (Verified Adverse Reaction, Unknown, nausea, 12/28/19) canagliflozin (Verified Adverse Reaction, Unknown, DKA, 12/28/19) clindamycin (Verified Adverse Reaction, Unknown, gi upset, 12/28/19) codeine (Verified Adverse Reaction, Unknown, n/v, 12/28/19) doxycycline (Verified Adverse Reaction, Unknown, n/v, 12/28/19) erythromycin base (Verified Adverse Reaction, Unknown, gi upset, 12/28/19) lorazepam (Verified Adverse Reaction, Unknown, hallucinations, 12/28/19) morphine (Verified Adverse Reaction, Unknown, n/v, 12/28/19) pioglitazone (Verified Adverse Reaction, Unknown, edema; wieght gain, ) sitagliptin (Verified Adverse Reaction, Unknown, nausea, 12/28/19) tetracycline (Verified Adverse Reaction, Unknown, gi, 12/28/19) Kurt Brumfield MD Jan 07, 2020 12:39
== END 2020-01-07 14:12 | disposition home health service (06) | DRG 871 ==
LOC: M ED 03:01 → EDBD 03:01 → M ED INP 05:35 → ENRESERV 05:53 → M PCU 12:35 → M MSPAV 12-29 22:50
PROVIDERS: ADMIT Internal Medicine; ATTEND Family Medicine
PROC: 02HV33Z Insertion of Infusion Device into Superior Vena Cava, Percutaneous Approach (ICD-10-PCS; principal; 2020-01-04 13:53)
DX: A40.1 Sepsis due to streptococcus, group B (principal); I50.23 Acute on chronic systolic (congestive) heart failure; J18.9 Pneumonia, unspecified organism; J96.10 Chronic respiratory failure, unspecified whether with hypoxia or hypercapnia; J44.0 Chronic obstructive pulmonary disease with (acute) lower respiratory infection; J44.1 Chronic obstructive pulmonary disease with (acute) exacerbation; N17.9 Acute kidney failure, unspecified; I48.20 Chronic atrial fibrillation, unspecified; I13.0 Hypertensive heart and chronic kidney disease with heart failure and stage 1 through stage 4 chronic kidney disease, or unspecified chronic kidney disease; A46 Erysipelas; E66.9 Obesity, unspecified; R91.1 Solitary pulmonary nodule; E11.9 Type 2 diabetes mellitus without complications; E03.9 Hypothyroidism, unspecified; Z86.73 Personal history of transient ischemic attack (TIA), and cerebral infarction without residual deficits; I25.10 Atherosclerotic heart disease of native coronary artery without angina pectoris; K74.69 Other cirrhosis of liver; Z79.899 Other long term (current) drug therapy; Z79.4 Long term (current) use of insulin; Z88.8 Allergy status to other drugs, medicaments and biological substances; Z88.2 Allergy status to sulfonamides; Z88.5 Allergy status to narcotic agent; Z99.81 Dependence on supplemental oxygen; M81.0 Age-related osteoporosis without current pathological fracture; Z95.0 Presence of cardiac pacemaker; K21.9 Gastro-esophageal reflux disease without esophagitis; Z79.01 Long term (current) use of anticoagulants; Z68.37 Body mass index [BMI] 37.0-37.9, adult; Z88.0 Allergy status to penicillin; N18.3 Chronic kidney disease, stage 3 (moderate); E78.5 Hyperlipidemia, unspecified

== ENCOUNTER → 2020-01-10 | Outpatient (REF) | payer MEDICARE ==
[~2020-01-10] MED LIST changes: +ACET-861 PO; +IPRA0.00 INH; +LORA-243 PO; +NYST1POW9 TOP; +PROAAER10 INH; +PROT1TAB2 PO; +SPIR50TA4 PO
[2020-01-10 16:58] LABS: HEMATOCRIT 40.5 % (36.0-47.0); HEMOGLOBIN 13.6 g/dl (12.0-15.5); MEAN CORPUSCULAR HEMOGLOBIN 29.8 pg (27.0-33.0); MEAN CORPUSCULAR HGB CONC 33.6 g/dl (32.0-36.5); MEAN CORPUSCULAR VOLUME 88.8 fl (80.0-96.0); PLATELET COUNT, AUTOMATED 224 10^3/uL (150-450); RED BLOOD COUNT 4.56 10^6/uL (4.00-5.40); WHITE BLOOD COUNT 12.6 10^3/uL (4.0-10.0)
[2020-01-10 17:20] LABS: ERYTHROCYTE SEDIMENTATION RATE 66 mm/hr (0-30)
== END ==
LOC: M LAB REF 16:18
PROVIDERS: ATTEND Internal Medicine Infectious Disease
DX: R78.81 Bacteremia (principal)

== ENCOUNTER → 2020-04-26 | Outpatient (REF) | payer MEDICARE ==
[2020-04-26 11:45] LABS: BASO # 0.1 10^3/uL (0.0-0.2); BASO % 0.7 % (0.0-1.0); EOS # 0.3 10^3/uL (0.0-0.5); EOS % 3.4 % (0.0-3.0); HEMATOCRIT 42.8 % (36.0-47.0); HEMOGLOBIN 12.7 g/dl (12.0-15.5); LYMPH # 1.7 10^3/uL (1.5-5.0); MEAN CORPUSCULAR HEMOGLOBIN 24.8 pg (27.0-33.0); MEAN CORPUSCULAR HGB CONC 29.7 g/dl (32.0-36.5); MEAN CORPUSCULAR VOLUME 83.4 fl (80.0-96.0); MONO # 0.8 10^3/uL (0.0-0.8); MONO % 8.9 % (0.0-5.0); NEUTROPHILS # 6.2 10^3/uL (1.5-8.5); NEUTROPHILS % 67.7 % (36.0-66.0); PLATELET COUNT, AUTOMATED 220 10^3/uL (150-450); RED BLOOD COUNT 5.13 10^6/uL (4.00-5.40); WHITE BLOOD COUNT 9.1 10^3/uL (4.0-10.0)
[2020-04-26 12:01] LABS: CALCIUM LEVEL 9.2 MG/DL (8.8-10.2); CREATININE FOR GFR 1.41 MG/DL (0.55-1.30); GLOMERULAR FILTRATION RATE 38.9 (>39); POTASSIUM SERUM 3.7 MEQ/L (3.5-5.1)
[2020-04-26 12:51] LABS: HEMOGLOBIN A1c 10.6 %
== END ==
LOC: M SFHCCLAY 07:41
PROVIDERS: ATTEND Family Medicine
DX: D72.829 Elevated white blood cell count, unspecified (principal); E11.29 Type 2 diabetes mellitus with other diabetic kidney complication

== ENCOUNTER → 2020-08-16 | Outpatient (REF) | payer MEDICARE ==
[~2020-08-16] MED LIST changes: -AMLO10TA5 PO; +AMLO1TAB25 PO; +ASCO250T20 PO; -VITA1TAB23 PO
[2020-08-16 12:42] LABS: CALCIUM LEVEL 9.1 MG/DL (8.8-10.2); CREATININE FOR GFR 1.54 MG/DL (0.55-1.30); GLOMERULAR FILTRATION RATE 35.2 (>39); POTASSIUM SERUM 3.7 MEQ/L (3.5-5.1)
== END ==
LOC: M SFHCCLAY 09:10
PROVIDERS: ATTEND Family Medicine
DX: Z95.5 Presence of coronary angioplasty implant and graft (principal); I50.22 Chronic systolic (congestive) heart failure; N18.30 Chronic kidney disease, stage 3 unspecified

== ENCOUNTER → 2020-10-25 | Outpatient (REF) | payer MEDICARE ==
[2020-10-25 16:02] LABS: MEAN CORPUSCULAR HEMOGLOBIN 22.3 pg (27.0-33.0); MEAN CORPUSCULAR VOLUME 85.6 fl (80.0-96.0); PLATELET COUNT, AUTOMATED 307 10^3/uL (150-450); RED BLOOD COUNT 2.29 10^6/uL (4.00-5.40); WHITE BLOOD COUNT 13.7 10^3/uL (4.0-10.0)
[2020-10-25 16:22] LABS: HEMATOCRIT 19.6 % (36.0-47.0); HEMOGLOBIN 5.1 g/dl (12.0-15.5)
[2020-10-25 16:54] LABS: CALCIUM LEVEL 8.7 MG/DL (8.8-10.2); CREATININE FOR GFR 1.25 MG/DL (0.55-1.30); FREE T4 0.93 NG/DL (0.76-1.46); GLOMERULAR FILTRATION RATE 44.7 (>39); POTASSIUM SERUM 4.2 MEQ/L (3.5-5.1); THYROID STIMULATING HORMONE 8.71 uIU/ML (0.358-3.740)
[2020-10-25 17:25] LABS: HEMOGLOBIN A1c 6.6 %
== END ==
LOC: M SFHCCLAY 11:02
PROVIDERS: ATTEND Family Medicine
DX: I50.22 Chronic systolic (congestive) heart failure (principal); J45.909 Unspecified asthma, uncomplicated; Z79.4 Long term (current) use of insulin; E11.22 Type 2 diabetes mellitus with diabetic chronic kidney disease

== ENCOUNTER → 2020-11-30 | Outpatient (REF) | payer MEDICARE ==
[2020-11-30 15:46] LABS: HEMATOCRIT 30.9 % (36.0-47.0); HEMOGLOBIN 8.5 g/dl (12.0-15.5); MEAN CORPUSCULAR HEMOGLOBIN 26.1 pg (27.0-33.0); MEAN CORPUSCULAR HGB CONC 27.5 g/dl (32.0-36.5); MEAN CORPUSCULAR VOLUME 94.8 fl (80.0-96.0); PLATELET COUNT, AUTOMATED 185 10^3/uL (150-450); RED BLOOD COUNT 3.26 10^6/uL (4.00-5.40); WHITE BLOOD COUNT 9.6 10^3/uL (4.0-10.0)
[2020-11-30 16:15] LABS: CALCIUM LEVEL 8.7 MG/DL (8.8-10.2); CREATININE FOR GFR 1.03 MG/DL (0.55-1.30); GLOMERULAR FILTRATION RATE 55.8 (>39); POTASSIUM SERUM 4.2 MEQ/L (3.5-5.1)
[2020-12-03 07:25] LABS: PERCENT SATURATION 58.8 % (13.2-45.0)
== END ==
LOC: M SFHCCLAY 12:14
PROVIDERS: ATTEND Family Medicine
DX: D50.0 Iron deficiency anemia secondary to blood loss (chronic) (principal); I50.22 Chronic systolic (congestive) heart failure; I50.33 Acute on chronic diastolic (congestive) heart failure

== ENCOUNTER → 2020-12-01 | Outpatient (REF) | payer MEDICARE | LOC: M SFHCCLAY 11:52 | PROVIDERS: ATTEND Family Medicine | DX: D50.0 Iron deficiency anemia secondary to blood loss (chronic) (principal) ==

== ENCOUNTER → 2020-12-20 | Outpatient (CLI) | payer MEDICARE ==
[~2020-12-20] MED LIST changes: +LANTINJ4 SC; +TORS20TA2 PO
== END ==
LOC: M LABSMTC 12:12
PROVIDERS: ATTEND Anesthesiology
DX: Z01.812 Encounter for preprocedural laboratory examination (principal); Z20.822 Contact with and (suspected) exposure to COVID-19

== ENCOUNTER 2020-12-25 13:10 | Day surgery (SDC) | payer MEDICARE ==
[~2020-12-25] VITALS: Ht 157.5 cm; Wt 104.5 kg
[2020-12-25] MEDS ORDERED: ONDANSETRON 4MG/2ML VIAL IV ONE (14:05)
[2020-12-25] MEDS ORDERED: NS 1,000 ML IV ONE (14:05)
[2020-12-25] MEDS ORDERED: MIDAZOLAM INJ 2MG/2ML VIAL (J2250 PER 1MG) As Ordered ONE (14:21)
[2020-12-25] MEDS ORDERED: LIDOCAINE VISCOUS 2% SOLN 15ML UDC As Ordered ONE (14:21)
[2020-12-25] MEDS ORDERED: CETACAINE SPRAY 5GM As Ordered ONE (14:29)
[2020-12-25 15:15] VITALS: BP 143/74
--- NOTE | 2020-12-26 08:25 | T-ECHO ---
TRANSESOPHAGEAL ECHO DATE: 12/25/2020 REFERRING PHYSICIAN: Brooke Romano PA-C. INDICATIONS: 45-day post Watchman ADRIANA assessment. PREPROCEDURE DIAGNOSIS: 45-day post Watchman ADRIANA assessment. POSTPROCEDURE DIAGNOSIS: 45-day post Watchman ADRIANA assessment. PRINCIPAL CLINICAL FINDINGS: Well-seated Watchman in the left atrial appendage without thrombus. PROCEDURE PERFORMED BY: Arvind Monzon M.D. CORPORATE BANKING OFFICER: None. PROCEDURE PERFORMED: Transesophageal echocardiogram. INTRAVENOUS (IV) SEDATION: Midazolam 2.5 mg. COMPLICATIONS: None. DESCRIPTION OF PROCEDURE: The patient received a total of 2.5 mg midazolam IV for IV sedation. Rhythm appeared to be atrial fibrillation. The patient received Cetacaine spray to the back of the pharynx at the start of the procedure. The patient tolerated the procedure well without any immediate complications. Esophageal intubation was accomplished without difficulty using a Estrellita phased-array two-dimensional multiplane transesophageal echocardiogram probe. The left ventricle appeared to be normal in size and systolic function. Paradoxical septal motion was present. Preserved overall LV systolic function. LVEF 60% by visual estimate. Right ventricle was normal in systolic function and probably normal in size. Both atria appeared to be at least mildly enlarged. Watchman device was present occluding the left atrial appendage and was well-seated without gaps. No thrombus seen on the Watchman device. Atrial septum was intact anatomically and by color flow Doppler. No pericardial effusion. Aortic valve was 3-cuspid and appeared normal. Moderate mitral annular calcification appeared to be present. Moderate mitral regurgitation. Mild aortic valve sclerosis with mild aortic regurgitation. Aortic valve did not appear stenotic. Pulmonic valve was not well visualized. Tricuspid valve appeared normal. Presence of endocardial right atrial and right ventricle pacemaker leads. The distal aortic arch and descending thoracic aorta appeared unremarkable. CONCLUSIONS: 1. Well-seated Watchman device in the left atrial appendage with occlusion of the appendage. No associated thrombus. 2. Paradoxical septal motion. Preserved overall LV systolic function. No regional wall motion abnormalities of the left ventricle other than paradoxical septal motion. 3. Presence of endocardial right atrial and right ventricle pacemaker leads. 4. Mild aortic valve sclerosis with mild aortic regurgitation. 5. Moderate mitral annular calcification. Moderate mitral regurgitation.
== END 2020-12-25 15:20 | disposition home or self-care (01) ==
LOC: M SDC 13:10
PROVIDERS: ATTEND Internal Medicine Cardiovascular Disease
DX: I48.91 Unspecified atrial fibrillation (principal); Z95.5 Presence of coronary angioplasty implant and graft; I50.42 Chronic combined systolic (congestive) and diastolic (congestive) heart failure; I25.10 Atherosclerotic heart disease of native coronary artery without angina pectoris; I10 Essential (primary) hypertension; I34.8 Other nonrheumatic mitral valve disorders; E78.00 Pure hypercholesterolemia, unspecified; I27.81 Cor pulmonale (chronic); I48.0 Paroxysmal atrial fibrillation; Z95.0 Presence of cardiac pacemaker; I44.1 Atrioventricular block, second degree; I35.1 Nonrheumatic aortic (valve) insufficiency; Z87.891 Personal history of nicotine dependence; Z79.899 Other long term (current) drug therapy
CPT/HCPCS: 93312; 93320; 93325; J2250; J2405

== ENCOUNTER 2021-02-22 13:13 | Outpatient (CLI) | payer MEDICARE ==
[~2021-02-22] VITALS: Ht 157.5 cm; Wt 104.5 kg
[2021-02-22 13:15] VITALS: BP 132/78
[2021-02-22] MEDS ORDERED: hydrOXYzine 25 MG TAB PO ONE (14:00)
[2021-02-22] MEDS ORDERED: ONDANSETRON 4MG/2ML VIAL IV ONE (14:15)
== END 2021-02-22 15:30 | disposition home or self-care (01) ==
LOC: M INFU 13:13
PROVIDERS: ATTEND Family Medicine
DX: D50.0 Iron deficiency anemia secondary to blood loss (chronic) (principal); Z88.1 Allergy status to other antibiotic agents; Z88.2 Allergy status to sulfonamides; Z88.6 Allergy status to analgesic agent; Z88.8 Allergy status to other drugs, medicaments and biological substances

== ENCOUNTER 2021-02-23 11:40 | Outpatient (CLI) | payer MEDICARE ==
[2021-02-23] VITALS (7 sets, daily range): BP systolic 116–141; BP diastolic 56–70
[~2021-02-23] VITALS: Ht 157.5 cm; Wt 103.6 kg
[2021-02-23] MEDS ORDERED: SLF 3 ML SYR IV PRN (12:55)
[2021-02-23] MEDS ORDERED: ONDANSETRON 4MG/2ML VIAL IV ONE (13:00)
[2021-02-23] MEDS ORDERED: hydrOXYzine 25 MG TAB PO ONE (13:00)
[2021-02-23] MEDS ORDERED: SLF 3 ML SYR IV SCH (14:00)
[2021-02-24] MEDS ORDERED: CARV3.12 PO (11:40)
[2021-02-24] MEDS ORDERED: LISI-898 PO (11:40)
[2021-02-24] MEDS ORDERED: LEVO100T5 PO (11:40)
[2021-02-24] MEDS ORDERED: ONDA-83 PO (11:40)
[2021-02-24] MEDS ORDERED: PLAV1TAB2 PO (11:40)
[2021-02-24] MEDS ORDERED: ASPI-161 PO (11:40)
== END 2021-02-23 18:05 | disposition home or self-care (01) ==
LOC: M OPCLIPCU 11:40 → M PCU 11:42 → M OPCLIPCU 18:05
PROVIDERS: ATTEND Family Medicine
DX: D50.0 Iron deficiency anemia secondary to blood loss (chronic) (principal); Z88.1 Allergy status to other antibiotic agents; Z88.2 Allergy status to sulfonamides; Z88.6 Allergy status to analgesic agent; Z88.8 Allergy status to other drugs, medicaments and biological substances
CPT/HCPCS: 36415; 96374; J2405; P9016

== ENCOUNTER 2021-02-24 09:29 | Inpatient (IN) | payer MEDICARE ==
[2021-02-24] MEDS ORDERED: methylPREDNISolone 125MG 2ML VIAL IV ONE (09:45)
[2021-02-24] MEDS: COMBIVENT RESPIMAT 100-20MCG INHALER 4GM INH SCH ×3 (09:55→10:47)
[2021-02-24 10:24] LABS: BASO % 0.4 % (0.0-1.0); EOS # 0.2 10^3/uL (0.0-0.5); EOS % 2.3 % (0.0-3.0); HEMATOCRIT 29.3 % (36.0-47.0); HEMOGLOBIN 7.8 g/dl (12.0-15.5); LYMPH # 0.3 10^3/uL (1.5-5.0); LYMPH % 3.5 % (24.0-44.0); MEAN CORPUSCULAR HEMOGLOBIN 24.8 pg (27.0-33.0); MEAN CORPUSCULAR HGB CONC 26.6 g/dl (32.0-36.5); MONO # 0.9 10^3/uL (0.0-0.8); MONO % 10.9 % (2.0-8.0); NEUTROPHILS # 7.1 10^3/uL (1.5-8.5); NEUTROPHILS % 82.3 % (36.0-66.0); PLATELET COUNT, AUTOMATED 232 10^3/uL (150-450); RED BLOOD COUNT 3.15 10^6/uL (4.00-5.40); WHITE BLOOD COUNT 8.6 10^3/uL (4.0-10.0)
[2021-02-24 10:35] LABS: INR 1.11; PROTHROMBIN TIME 14.5 SECONDS (12.5-14.3)
[2021-02-24 10:36] LABS: PARTIAL THROMBOPLASTIN TIME 29.7 SECONDS (24.2-38.5)
--- NOTE | 2021-02-24 10:39 | REP ---
INDICATION: CHEST PAIN COMPARISON: 12/31/2019 TECHNIQUE: Portable AP view of the chest FINDINGS: Bibasilar airspace disease and small right pleural effusion. Mediastinum and cardiac silhouette are stable. Pacemaker again noted. No pneumothorax. Skeletal structures intact. IMPRESSION: Bilateral airspace disease and right pleural effusion. Differential diagnosis includes CHF/pulmonary vascular congestion and infectious process. <Electronically signed by Hermelindo Bowie > 02/24/21 [id number]
[2021-02-24 11:00] LABS: ALBUMIN 3.2 GM/DL (3.2-5.2); ALT/SGPT 13 U/L (12-78); BILIRUBIN,DIRECT 0.3 MG/DL (0.0-0.2); BLOOD UREA NITROGEN 17 MG/DL (7-18); CALCIUM LEVEL 9.5 MG/DL (8.8-10.2); CARBON DIOXIDE LEVEL 31 MEQ/L (21-32); CHLORIDE LEVEL 107 MEQ/L (98-107); CPK CREATINE PHOSPHOKINASE 63 U/L (26-192); CREATININE FOR GFR 0.92 MG/DL (0.55-1.30); FREE T4 0.91 NG/DL (0.76-1.46); GLOMERULAR FILTRATION RATE > 60.0 (>39); GLUCOSE, FASTING 102 MG/DL (70-100); LIPASE 104 U/L (73-393); MB/CK RELATIVE INDEX 3.17 (< OR =4); NT-PRO BNP 293 PG/ML (<125); SODIUM LEVEL 143 MEQ/L (136-145); TOTAL PROTEIN 7.2 GM/DL (6.4-8.2); TROPONIN I < 0.02 NG/ML (< 0.10)
[2021-02-24 11:02] LABS: RSV AMPLIFICATION NEGATIVE (NEGATIVE)
[2021-02-24] MEDS ORDERED: PLAV1TAB2 PO (11:40)
[2021-02-24] MEDS ORDERED: ONDA-83 PO (11:40)
[2021-02-24] MEDS ORDERED: LISI-898 PO (11:40)
[2021-02-24] MEDS ORDERED: CARV3.12 PO (11:40)
[2021-02-24] MEDS ORDERED: LEVO100T5 PO (11:40)
[2021-02-24] MEDS ORDERED: ASPI-161 PO (11:40)
[2021-02-24] MEDS ORDERED: ACETAMINOPHEN TAB 650MG DOSE (2X325MG) PO PRN (12:05)
[2021-02-24] MEDS ORDERED: IPRATROPIUM 0.5MG/ALBUTEROL 2.5MG INH SOL UD 3ML (DUONEB) INH PRN (12:05)
[2021-02-24] MEDS ORDERED: ALBUTEROL 90 MCG/ACT 8GM HFA INHALER INH PRN (12:05)
[2021-02-24] MEDS ORDERED: ONDANSETRON 4 MG TAB PO PRN (12:05)
[2021-02-24] MEDS ORDERED: MOM 30ML SUSPENSION UDC PO PRN (12:05)
[2021-02-24] MEDS ORDERED: DEXTROSE 50% 50 ML SYRINGE IV PRN (12:05)
[2021-02-24] MEDS ORDERED: GLUCOSE 4GM CHEW TABLET PO PRN (12:05)
[2021-02-24] MEDS ORDERED: GLUCAGON INJ 1MG VIAL SC PRN (12:05)
[2021-02-24] MEDS ORDERED: NYSTATIN 100,000 UNITS/GM TOPICAL PWD 15 GM TOP PRN (12:05)
[2021-02-24] MEDS ORDERED: NITROGLYCERIN 0.4 MG SUBL TABLET SL PRN (12:05)
--- NOTE | 2021-02-24 12:26 | HPEPDOC ---
[facility] Medical History & Physical Date of Admission February 24, 2021 Date of Service: February 24, 2021 History and Physical Chief complaint: Who presented to the emergency room with complaint of shortness of breath History of present illness: Patient is a 75-year-old female who presented to the emergency room with complaints of shortness of breath. Patient reported that over the last 1 month she has experienced anemia. She has recently had an EGD and colonoscopy completed at [facility], as well as a watchman procedure. Patient reports that the endoscopies were unrevealing. However, after her watchman procedure she was taken off of Eliquis and continue with Plavix alone given her recent stent placement 07/2020. Since then, patient has required 2 hospital visits for infusions one was 2 weeks ago and required 2 units of transfusion and once yesterday with 1 unit transfusion. Patient reported that yesterday she did not take any of her diuretics nor did she take any today. She reports that shes been experiencing progressive shortness of breath, worse with exertion. She denies any chest pain or palpitations. Has not experience any significant cough. Patient reports some nausea without vomiting. Denies any abdominal pain. Reports constipation for about 1 week duration. Denies any urinary discomfort or any recent fevers or chills. Patient reports that she hasnt taken any of her morning medications today. Past Medical History: Systolic CHF (EF: 25%) SSS s/p Pacemaker HTN DLP DLP Hx of CVA 2003 IDDM2 COPD Hypothyroidism Hx of Lyme disease Multiple skin cancers s/p resection Osteoporosis GERD Past Surgical History: Hysterectomy Cholecystectomy Multiple skin cancer resections Pacmaker Cardiac stents; 3 stents in 2017; 1 stent in 07/2020 Cataracts bilaterally Allergies: See below Medications: See below Family History: - Mother with a history of herniated discs, at the age of 95 - Father with history of heart disease, at the age of 30 Social History: - Denies the use of alcohol, or illicit drugs; patient quit smoking 16 years ago - Denies recent travel or sick contacts - Lives with daughter - 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 Crackles can be appreciated - Abdomen: Soft, Non-distended, Non-tender - Extremities: 1+ pitting edema bilaterally, No calf tenderness - Neuro: No focal motor or sensory deficit - Skin: No visible rashes Labs: See below Imaging: CXR 02/24: Bilateral airspace disease and right pleural effusion. Differential diagnosis includes CHF/pulmonary vascular congestion and infectious process. EKG: See below Assessment and Plan: Shortness of breath - likely 2/2 decompensated systolic CHF - Presented to the emergency room with complaints of shortness of breath - Physical reveals crackles at bilateral lung bases and lower extremity edema - BNP slightly elevated - Imaging noted above - Patient has reported that she has not taking any of her diuretics yesterday or today and has received a unit of blood - Will continue strict ins and outs, daily weights and fluid restrictions - Will start Furosemide 40 IV BID and continue spironolactone Right-sided pleural effusion - Will continue diuresis - See above Acute on Chronic systolic CHF (EF: 25%) - Will check ECHO Chronic anemia - Patient has received infusions as an outpatient - Denies any dark colored stools or any active bleeding - Patient has had an EGD and colonoscopy completed. However, does not want to have any additional scopes done CAD s/p stent - Most recent stent 07/2020 - c/w ASA, Rosuvastatin, Plavix SSS s/p Pacemaker HTN - BP well controlled - c/w Carvedilol / Spironolactone / Furosemide DLP - c/w Rosuvastatin Hx of CVA 2003 - c/w Rosuvastatin, ASA IDDM2 - Will start ISS - Will continue with Levemir at reduced dose Chronic COPD - No evidence of exacerbation - c/w inhaled therapy as ordered Hypothyroidism - c/w Levothyroxine Hx of Lyme disease Multiple skin cancers - s/p resection Osteoporosis GERD - c/w Protonix DVT prophylaxis - Will start TEDs/Sequentials Code status: - Patient is DNR and DNI and has a completed MOLST form Vital Signs Vital Signs Date Time Temp Pulse Resp B/P (MAP) Pulse Ox O2 Delivery O2 Flow Rate FiO2 02/24/21 12:00 140/64 (89) 02/24/21 11:59 105 93 02/24/21 10:47 99.1 02/24/21 10:31 22 Laboratory Data Labs 24H Laboratory Tests 2 02/24/21 10:05: Immature Granulocyte % (Auto) 0.6, Neutrophils (%) (Auto) 82.3H, Lymphocytes (%) (Auto) 3.5L, Monocytes (%) (Auto) 10.9H, Eosinophils (%) (Auto) 2.3, Basophils (%) (Auto) 0.4, Neutrophils # (Auto) 7.1, Lymphocytes # (Auto) 0.3L, Monocytes # (Auto) 0.9H, Eosinophils # (Auto) 0.2, Basophils # (Auto) 0.0, Nucleated Red Blood Cells % (auto) 0.0, Prothrombin Time 14.5H, Prothromb Time International Ratio 1.11, Activated Partial Thromboplast Time 29.7, POC pH (Misc Panel) 7.388, POC Base Excess (Misc Panel) 4.0H, POC Saturated Percent O2 (Misc) 91L, POC pO2 (Misc Panel) 62.0L, POC pCO2 (Misc Panel) 48.8H, POC HCO3 (Misc Panel) 29.4H, POC Total CO2 (Misc Panel) 31.0H, Anion Gap 5L, Glomerular Filtration Rate > 60.0, Calcium Level 9.5, Total Bilirubin 1.0, Direct Bilirubin 0.3H, Aspartate Amino Transf (AST/SGOT) 6L, Alanine Aminotransferase (ALT/SGPT) 13, Alkaline Phosphatase 68, Total Creatine Kinase 63, Creatine Kinase MB 2.0, Creatine Kinase MB Relative Index 3.17, Troponin I < 0.02, TL-Pzu-Q-Type Natriuretic Peptide 293H, Total Protein 7.2, Albumin 3.2, Albumin/Globulin Ratio 0.8L, Lipase 104, Thyroid Stimulating Hormone (TSH) 4.180H, Free Thyroxine 0.91, Coronavirus (COVID-19)(PCR) NEGATIVE, Influenza Type A (RT-PCR) NEGATIVE, Influenza Type B (RT-PCR) NEGATIVE, Respiratory Syncytial Virus (PCR) NEGATIVE CBC/BMP Laboratory Tests 02/24/21 10:05 Microbiology Microbiology 02/24/21 Blood Culture, Received Pending 02/24/21 Blood Culture, Received Pending Home Medications Scheduled Ascorbic Acid (Ascorbic Acid) 500 Mg Tab, 500 MG PO QHS Aspirin (Aspirin EC) 81 Mg Tablet.dr, 81 MG PO DAILY Budesonide/Formoterol (Symbicort 80-4.5 Mcg Inhaler) 6.9 Gm Hfa.aer.ad, 2 PUFF INH BID Carvedilol (Carvedilol) 3.125 Mg Tablet, 3.125 MG PO BID Clopidogrel Bisulfate (Plavix) 75 Mg Tablet, 75 MG PO DAILY Docusate Sodium (Docusate Sodium) 100 Mg Capsule, 200 MG PO QHS Insulin Glargine,Hum.rec.anlog (Toujeo Solostar) 300 Unit/Ml Inj, 180 UNIT SC DAILY Levothyroxine Sodium (Levothyroxine Sodium) 100 Mcg Tablet, 100 MCG PO DAILY Lisinopril (Lisinopril) 5 Mg Tablet, 5 MG PO DAILY Loratadine (Loratadine) 10 Mg Tablet, 10 MG PO DAILY Pantoprazole Sodium (Protonix) 40 Mg Tablet.dr, 40 MG PO QHS Rosuvastatin Calcium (Crestor) 40 Mg Tablet, 40 MG PO QHS Spironolactone (Spironolactone) 25 Mg Tablet, 12.5 MG PO DAILY Torsemide (Torsemide) 20 Mg Tablet, 20 MG PO DAILY Scheduled PRN Acetaminophen (Acetaminophen) 500 Mg Tablet, 1,000 MG PO Q6H PRN for PAIN / FEVER Albuterol Sulfate (Proair Hfa) 8.5 Gm Hfa.aer.ad, 2 PUFF INH Q4H PRN for SHORTNESS OF BREATH Ipratropium/Albuterol Sulfate (Iprat-Albut 0.5-3(2.5) mg/3 ml) 3 Ml Ampul.neb, 1 VIAL INH TID PRN for SOB/WHEEZING Meclizine HCl (Meclizine HCl) 25 Mg Tablet, 25 MG PO TID PRN for DIZZINESS Nitroglycerin (Nitrostat) 0.4 Mg Subl, 0.4 MG SL NITRO PRN for CHEST PAIN Nystatin (Nystatin Powder) 15 Gm Powder, 1 DOSE TOP BID PRN for RASH UNDER BREASTS AND STOMACH FOLDS Ondansetron HCl (Ondansetron HCl) 4 Mg Tablet, 4 MG PO Q4H PRN for NAUSEA OR VOMITING Allergies Coded Allergies: gemfibrozil (Verified Allergy, Intermediate, rash, 12/20/20) indapamide (Verified Allergy, Intermediate, rash, 12/20/20) tiotropium (Verified Allergy, Intermediate, rash, 12/20/20) amlodipine (Verified Allergy, Unknown, 12/20/20) amoxicillin (Verified Adverse Reaction, Mild, reddened skin/ HAS TOLERATED ZOSYN, 12/20/20) cephalexin (Verified Adverse Reaction, Mild, nausea, 12/20/20) hydrocodone (Verified Adverse Reaction, Mild, nausea, 12/28/19) Sulfa (Sulfonamide Antibiotics) (Verified Adverse Reaction, Unknown, FRED, 12/28/19) amiloride (Verified Adverse Reaction, Unknown, nausea, 12/28/19) canagliflozin (Verified Adverse Reaction, Unknown, DKA, 12/28/19) clindamycin (Verified Adverse Reaction, Unknown, gi upset, 12/28/19) codeine (Verified Adverse Reaction, Unknown, n/v, 12/28/19) doxycycline (Verified Adverse Reaction, Unknown, n/v, 12/28/19) erythromycin base (Verified Adverse Reaction, Unknown, gi upset, 12/28/19) lorazepam (Verified Adverse Reaction, Unknown, hallucinations, 12/28/19) morphine (Verified Adverse Reaction, Unknown, n/v, 12/28/19) pioglitazone (Verified Adverse Reaction, Unknown, edema; wieght gain, 12/28/19) sitagliptin (Verified Adverse Reaction, Unknown, nausea, 12/28/19) tetracycline (Verified Adverse Reaction, Unknown, gi, 12/28/19) JOSE ESQUIVEL MD February 24, 2021 12:26
--- NOTE | 2021-02-24 12:54 | ECGEPIP ---
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
[2021-02-24 14:47] VITALS: BP 160/71
[2021-02-24 15:56] VITALS: BP 145/77
[2021-02-24 17:48] VITALS: BP 160/74
[2021-02-24] MEDS: HumaLOG INSULIN (NovoLOG) PER UNIT SC SCH ×2 (18:14→20:56)
[2021-02-24] MEDS: CLOPIDOGREL 75 MG TAB PO SCH (18:14)
[2021-02-24] MEDS: ASPIRIN 81MG ENTERIC TABLET PO SCH (18:14)
[2021-02-24] MEDS: lisinopriL 5 MG TAB PO SCH (18:14)
[2021-02-24] MEDS: SPIRONOLACTONE 12.5MG PER 1/2 TABLET PO SCH (18:14)
[2021-02-24] MEDS: FUROSEMIDE 40MG/4ML VIAL (J1940) IV SCH (18:15)
[2021-02-24] MEDS ORDERED: SLF 3 ML SYR IV PRN (18:55)
[2021-02-24] MEDS: SYMBICORT 80/4.5MCG INHALER 6GM INH SCH (19:43)
[2021-02-24 20:00] VITALS: BP 141/71
[2021-02-24] MEDS: ROSUVASTATIN 10 MG TAB (CRESTOR) PO SCH (20:45)
[2021-02-24] MEDS: PANTOPRAZOLE 40MG TAB (PROTONIX) PO SCH (20:45)
[2021-02-24] MEDS: ASCORBIC ACID 500 MG TAB PO SCH (20:45)
[2021-02-24] MEDS: DOCUSATE SODIUM 100MG CAPSULE PO SCH (20:45)
[2021-02-24] MEDS: CARVedilol 3.125 MG TAB PO SCH (20:46)
[2021-02-24] MEDS: LEVEMIR (INSULIN DETEMIR) 1 UNITS/0.01ML SC SCH (20:47)
[2021-02-24] MEDS: SLF 3 ML SYR IV SCH (23:20)
[2021-02-25] VITALS: BP 132/63
[2021-02-25] MEDS: FUROSEMIDE 40MG/4ML VIAL (J1940) IV SCH ×2 (00:35→12:54)
[2021-02-25 04:00] VITALS: BP 121/72
[2021-02-25 06:15] LABS: BASO % 0.2 % (0.0-1.0); HEMATOCRIT 34.4 % (36.0-47.0); HEMOGLOBIN 9.4 g/dl (12.0-15.5); LYMPH # 0.6 10^3/uL (1.5-5.0); LYMPH % 6.1 % (24.0-44.0); MEAN CORPUSCULAR HEMOGLOBIN 25.1 pg (27.0-33.0); MEAN CORPUSCULAR HGB CONC 27.3 g/dl (32.0-36.5); MONO # 1.2 10^3/uL (0.0-0.8); MONO % 11.3 % (2.0-8.0); NEUTROPHILS # 8.5 10^3/uL (1.5-8.5); PLATELET COUNT, AUTOMATED 252 10^3/uL (150-450); RED BLOOD COUNT 3.74 10^6/uL (4.00-5.40); WHITE BLOOD COUNT 10.3 10^3/uL (4.0-10.0)
[2021-02-25 06:37] LABS: CALCIUM LEVEL 9.7 MG/DL (8.8-10.2); CREATININE FOR GFR 1.2 MG/DL (0.55-1.30); GLOMERULAR FILTRATION RATE 46.8 (>39); MAGNESIUM LEVEL 2.4 MG/DL (1.8-2.4); POTASSIUM SERUM 3.7 MEQ/L (3.5-5.1)
[2021-02-25] MEDS: LEVOTHYROXINE 100MCG TABLET (0.1MG) PO SCH (07:18)
[2021-02-25] MEDS: SLF 3 ML SYR IV SCH ×3 (07:19→21:16)
[2021-02-25 08:00] VITALS: BP 137/63
[2021-02-25] MEDS: SYMBICORT 80/4.5MCG INHALER 6GM INH SCH ×2 (08:36→20:06)
--- NOTE | 2021-02-25 08:48 | IPNPDOC ---
Text Note Date of Service The patient was seen on 02/25/21. NOTE Subjective: Patient is a 75-year-old female who presented to the emergency room with complaints of shortness of breath. Patient reported that over the last 1 month she has experienced anemia. She has recently had an EGD and colonoscopy completed at [facility], as well as a watchman procedure. Patient reports that the endoscopies were unrevealing. However, after her watchman procedure she was taken off of Eliquis and continue with Plavix alone given her recent stent placement 07/2020. Since then, patient has required 2 hospital visits for infusions one was 2 weeks ago and required 2 units of transfusion and once yesterday with 1 unit t ransfusion. Patient reported that on 02/23 she did not take any of her diuretics nor did she take any on the day of admission 02/24. Patient was seen and examined at the bedside. Currently patient reports that she has had an uneventful evening. She denies any chest pain, shortness breath, palpitations. She is currently on nasal cannula at 3 L, however, saturating at 96%. She denies any abdominal pain, diarrhea, or urinary discomfort. Objective: Vitals (See below) General: Lying in bed, no acute distress, comfortable, AAOx3 HEENT: NC, AT CVS: +S1S2 Lungs: Fair air entry b/l, faint crackles can be appreciated at bases. No wheezing or rhonchi Abdomen: Soft, ND, NT Extremities: Trace lower extremity edema, - Calf tenderness Imaging: CXR 02/24: Bilateral airspace disease and right pleural effusion. Differential diagnosis includes CHF/pulmonary vascular congestion and infectious process. Assessment and plan: Shortness of breath - likely 2/2 decompensated systolic CHF - Presented to the ER with complaints of shortness of breath; had reported that she had not taken diuretics for last 2 days - Physical still reveals some evidence of fluid overload - BNP slightly elevated - Imaging noted above - c/w strict ins and outs, daily weights and fluid restrictions - c/w Furosemide 40 IV BID and continue spironolactone Right-sided pleural effusion - Will continue diuresis - See above Acute on Chronic systolic CHF (EF: 25%) - Will check ECHO Acute on Chronic anemia - Patient has received infusions as an outpatient - Denies any dark colored stools or any active bleeding - Patient has had an EGD and colonoscopy completed. However, does not want to have any additional scopes done - s/p 1 unit PRBC - Hg improved higher than expected; possibly 2/2 diuresis CAD s/p stent - Most recent stent 07/2020 - c/w ASA, Rosuvastatin, Plavix SSS s/p Pacemaker HTN - BP well controlled - c/w Carvedilol / Spironolactone / Furosemide DLP - c/w Rosuvastatin Hx of CVA 2003 - c/w Rosuvastatin, ASA IDDM2 - c/w ISS and adjusted dose of Levemir (<50% of home dose) Chronic COPD - No evidence of exacerbation - c/w inhaled therapy as ordered Hypothyroidism - c/w Levothyroxine Hx of Lyme disease Multiple skin cancers - s/p resection Osteoporosis GERD - c/w Protonix DVT prophylaxis - c/w TEDs/Sequentials Code status: - Patient is DNR and DNI and has a completed MOLST form Disposition: - Anticipate discharge tomorrow VS,Barb, I+O VS, Barb, I+O Laboratory Tests 02/24/21 10:05 02/25/21 05:51 Vital Signs Date Time Temp Pulse Resp B/P (MAP) Pulse Ox O2 Delivery O2 Flow Rate FiO2 02/25/21 07:47 3.0 02/25/21 04:00 97.2 94 18 121/72 (88) 96 Nasal Cannula I&O- Last 24 Hours up to 6 AM 02/25/21 06:00 Intake Total 1430 ml Output Total 1501 ml Balance -71 ml JOSE ESQUIVEL MD February 25, 2021 08:48
[2021-02-25] MEDS: LORATADINE 10 MG TAB PO SCH (08:50)
[2021-02-25] MEDS: HumaLOG INSULIN (NovoLOG) PER UNIT SC SCH ×4 (08:50→21:00)
[2021-02-25] MEDS: SPIRONOLACTONE 12.5MG PER 1/2 TABLET PO SCH (08:50)
[2021-02-25] MEDS: LEVEMIR (INSULIN DETEMIR) 1 UNITS/0.01ML SC SCH ×2 (08:50→21:10)
[2021-02-25] MEDS: CLOPIDOGREL 75 MG TAB PO SCH (08:51)
[2021-02-25] MEDS: lisinopriL 5 MG TAB PO SCH (08:51)
[2021-02-25] MEDS: ASPIRIN 81MG ENTERIC TABLET PO SCH (08:51)
[2021-02-25] MEDS: DOCUSATE SODIUM 100MG CAPSULE PO SCH ×2 (08:51→21:11)
[2021-02-25] MEDS: CARVedilol 3.125 MG TAB PO SCH ×2 (08:52→21:12)
[2021-02-25 12:00] VITALS: BP 125/60
[2021-02-25 16:00] VITALS: BP 115/59
[2021-02-25 20:00] VITALS: BP 133/60
[2021-02-25] MEDS: NYSTATIN 100,000 UNITS/GM TOPICAL PWD 15 GM TOP SCH (21:10)
[2021-02-25] MEDS: PANTOPRAZOLE 40MG TAB (PROTONIX) PO SCH (21:11)
[2021-02-25] MEDS: ROSUVASTATIN 10 MG TAB (CRESTOR) PO SCH (21:11)
[2021-02-25] MEDS: ASCORBIC ACID 500 MG TAB PO SCH (21:12)
[2021-02-26 04:00] VITALS: BP 105/52
[2021-02-26] MEDS: SLF 3 ML SYR IV SCH ×2 (05:16→12:51)
[2021-02-26] MEDS: LEVOTHYROXINE 100MCG TABLET (0.1MG) PO SCH (05:16)
[2021-02-26 05:44] LABS: BASO # 0.1 10^3/uL (0.0-0.2); BASO % 0.8 % (0.0-1.0); EOS # 0.2 10^3/uL (0.0-0.5); EOS % 2.6 % (0.0-3.0); HEMATOCRIT 32.5 % (36.0-47.0); HEMOGLOBIN 8.9 g/dl (12.0-15.5); LYMPH # 0.9 10^3/uL (1.5-5.0); LYMPH % 11.9 % (24.0-44.0); MEAN CORPUSCULAR HEMOGLOBIN 25.2 pg (27.0-33.0); MEAN CORPUSCULAR HGB CONC 27.4 g/dl (32.0-36.5); MEAN CORPUSCULAR VOLUME 92.1 fl (80.0-96.0); MONO # 0.9 10^3/uL (0.0-0.8); MONO % 11.5 % (2.0-8.0); NEUTROPHILS # 5.6 10^3/uL (1.5-8.5); NEUTROPHILS % 72.7 % (36.0-66.0); PLATELET COUNT, AUTOMATED 239 10^3/uL (150-450); RED BLOOD COUNT 3.53 10^6/uL (4.00-5.40); WHITE BLOOD COUNT 7.7 10^3/uL (4.0-10.0)
[2021-02-26 05:59] LABS: CREATININE FOR GFR 0.99 MG/DL (0.55-1.30); GLOMERULAR FILTRATION RATE 58.4 (>39); POTASSIUM SERUM 3.3 MEQ/L (3.5-5.1)
[2021-02-26 06:00] LABS: CALCIUM LEVEL 9.7 MG/DL (8.8-10.2); MAGNESIUM LEVEL 2.2 MG/DL (1.8-2.4)
[2021-02-26] MEDS ORDERED: POTASSIUM CHLORIDE 10 MEQ SR TABLET PO ONE (07:15)
[2021-02-26] MEDS: SYMBICORT 80/4.5MCG INHALER 6GM INH SCH (07:15)
[2021-02-26] MEDS: HumaLOG INSULIN (NovoLOG) PER UNIT SC SCH ×2 (07:27→12:50)
[2021-02-26 08:00] VITALS: BP 153/61
[2021-02-26] MEDS: SPIRONOLACTONE 12.5MG PER 1/2 TABLET PO SCH (08:56)
[2021-02-26] MEDS: DOCUSATE SODIUM 100MG CAPSULE PO SCH (08:56)
[2021-02-26 08:58] VITALS: BP 153/61
[2021-02-26] MEDS: CLOPIDOGREL 75 MG TAB PO SCH (08:58)
[2021-02-26] MEDS: LORATADINE 10 MG TAB PO SCH (08:58)
[2021-02-26] MEDS: ASPIRIN 81MG ENTERIC TABLET PO SCH (08:58)
[2021-02-26] MEDS: CARVedilol 3.125 MG TAB PO SCH (08:58)
[2021-02-26] MEDS: lisinopriL 5 MG TAB PO SCH (08:58)
[2021-02-26] MEDS: NYSTATIN 100,000 UNITS/GM TOPICAL PWD 15 GM TOP SCH (08:59)
[2021-02-26] MEDS ORDERED: LEVEMIR (INSULIN DETEMIR) 1 UNITS/0.01ML SC SCH (09:00)
[2021-02-26] MEDS ORDERED: TORSEMIDE 20 MG TAB PO SCH (09:00)
[2021-02-26] MEDS ORDERED: TOUJ1.2I SC (10:01)
[2021-02-26 12:00] VITALS: BP 124/54
--- NOTE | 2021-02-26 13:23 | DS.PDOC ---
Discharge Summary General Date of Admission February 24, 2021 at 12:04 Date of Discharge 02/26/2021 Discharge Summary PROCEDURES PERFORMED DURING STAY: [None]. ADMITTING DIAGNOSES / DISCHARGE DIAGNOSES: Shortness of breath - likely 2/2 decompensated systolic CHF Right-sided pleural effusion Acute on Chronic systolic CHF (EF: 25%) Acute on Chronic anemia Blood culture (1 of 2) positive CAD s/p stent SSS s/p Pacemaker HTN DLP Hx of CVA 2003 IDDM2 Chronic COPD Chronic hypoxic respiratory failure Hypothyroidism Hx of Lyme disease Multiple skin cancers Osteoporosis GERD DVT prophylaxis COMPLICATIONS/CHIEF COMPLAINT: Shortness of breath HISTORY OF PRESENT ILLNESS: Patient is a 75-year-old female who presented to the emergency room with complaints of shortness of breath. Patient reported that over the last 1 month she has experienced anemia. She has recently had an EGD and colonoscopy co mpleted at [facility], as well as a watchman procedure. Patient reports that the endoscopies were unrevealing. However, after her watchman procedure she was taken off of Eliquis and continue with Plavix alone given her recent stent placement 07/2020. Since then, patient has required 2 hospital visits for infusions one was 2 weeks ago and required 2 units of transfusion and once yesterday with 1 unit transfusion. Patient reported that on 02/23 she did not take any of her diuretics nor did she take any on the day of admission 02/24. Patient was seen and examined at the bedside. Currently patient reports that she has had an uneventful evening. She denies any chest pain, shortness breath, palpitations. She is currently on nasal cannula at 3 L, however, saturating at 96%. She denies any abdominal pain, diarrhea, or urinary discomfort. HOSPITAL COURSE: Shortness of breath - likely 2/2 decompensated systolic CHF - Presented to the ER with complaints of shortness of breath; had reported that she had not taken diuretics for last 2 days - Has been improvement of fluid overload noted on physical exam - BNP slightly elevated - Imaging noted above - c/w strict ins and outs, daily weights and fluid restrictions - c/w Torsemide; s/p Furosemide; c/w spironolactone - Patient has been advised to remain compliant with diuretic therapy Right-sided pleural effusion - Will continue diuresis - See above Acute on Chronic systolic CHF (EF: 25%) - Will have outpatient follow-up with echocardiogram Acute on Chronic anemia - Patient has received infusions as an outpatient - Denies any dark colored stools or any active bleeding - Patient has had an EGD and colonoscopy completed recently. However, does not want to have any additional scopes done - has been advised of the risks and benefits will have outpatient follow- up with gastroenterology for possible capsule endoscopy if required - s/p 1 unit PRBC; hemoglobin has appeared to have improved appropriately after he equilibrating - Will have outpatient follow-up with primary care provider Blood culture (1 of 2) positive - Patient has not experience any fevers, chills, and has remained hemodynamically stable - No leukocytosis - Repeat blood cultures pending - Blood cultures currently are 1 of 2 positive after 2 days from initial draw likely a contaminant - Will have outpatient follow-up with primary care provider within the next 7 days CAD s/p stent - Most recent stent 07/2020 - c/w ASA, Rosuvastatin, Plavix SSS s/p Pacemaker HTN - BP well controlled - c/w Carvedilol / Spironolactone / Furosemide DLP - c/w Rosuvastatin Hx of CVA 2003 - c/w Rosuvastatin, ASA IDDM2 - c/w ISS and adjusted dose of Levemir (<50% of home dose) Chronic COPD - No evidence of exacerbation - c/w inhaled therapy as ordered Chronic hypoxic respiratory failure - Continue with nasal cannula at 3 L Hypothyroidism - c/w Levothyroxine Hx of Lyme disease Multiple skin cancers - s/p resection Osteoporosis GERD - c/w Protonix DVT prophylaxis - c/w TEDs/Sequentials DISCHARGE MEDICATIONS: Please see below. ALLERGIES: Please see below. PHYSICAL EXAMINATION ON DISCHARGE: Vitals (See below) General: Patient sitting up in bed, appears comfortable, not in any acute distress, is awake, alert and oriented 3 HEENT: NC, AT CVS: +S1S2 Lungs: Fair air entry b/l, faint crackles can be appreciated at bases. No wheezing or rhonchi Abdomen: Soft, nondistended and nontender Extremities: Her lower extremities reveal trace pitting edema bilaterally, - Calf tenderness LABORATORY DATA: Please see below. IMAGING: CXR 02/24: Bilateral airspace disease and right pleural effusion. Differential diagnosis includes CHF/pulmonary vascular congestion and infectious process. ACTIVITY: [As tolerated]. DISCHARGE PLAN: Follow-up with primary care provider, and cardiology within the next 7 days Remain compliant with treatment plan and medications Return to the ER if you experience any problems DISPOSITION: Home with services DISCHARGE CONDITION: [Stable]. TIME SPENT ON DISCHARGE: 35 minutes Vital Signs/I&Os Vital Signs Date Time Temp Pulse Resp B/P (MAP) Pulse Ox O2 Delivery O2 Flow Rate FiO2 02/26/21 12:00 96.8 95 18 124/54 (77) 97 Nasal Cannula 3.0 I&O- Last 24 Hours up to 6 AM 02/26/21 06:00 Intake Total 940 ml Output Total 1700 ml Balance -760 ml Laboratory Data Labs 24H Laboratory Tests 2 02/25/21 17:11: Bedside Glucose (Misc Panel) 99 02/25/21 19:58: Bedside Glucose (Misc Panel) 174H 02/26/21 05:16: Immature Granulocyte % (Auto) 0.5, Neutrophils (%) (Auto) 72.7H, Lymphocytes (%) (Auto) 11.9L, Monocytes (%) (Auto) 11.5H, Eosinophils (%) (Auto) 2.6, Basophils (%) (Auto) 0.8, Neutrophils # (Auto) 5.6, Lymphocytes # (Auto) 0.9L, Monocytes # (Auto) 0.9H, Eosinophils # (Auto) 0.2, Basophils # (Auto) 0.1, Nucleated Red Blood Cells % (auto) 0.0, Anion Gap 5L, Glomerular Filtration Rate 58.4, Calcium Level 9.7, Magnesium Level 2.2 02/26/21 07:18: Bedside Glucose (Misc Panel) 71L 02/26/21 11:38: Bedside Glucose (Misc Panel) 211H CBC/BMP Laboratory Tests 02/26/21 05:16 FSBS Laboratory Tests Test 02/25/21 17:11 02/25/21 19:58 02/26/21 07:18 02/26/21 11:38 Range/Units Bedside Glucose (Misc Panel) 99 174 71 211 83-110 MG/DL Microbiology Microbiology 02/26/21 Blood Culture, Received Pending 02/24/21 Blood Culture - Preliminary, Resulted 02/24/21 Blood Culture - Preliminary, Resulted No Growth after 48 hours. All Specime... Discharge Medications Scheduled Ascorbic Acid (Ascorbic Acid) 500 Mg Tab, 500 MG PO QHS, (Reported) Aspirin (Aspirin EC) 81 Mg Tablet.dr, 81 MG PO DAILY, (Reported) Budesonide/Formoterol (Symbicort 80-4.5 Mcg Inhaler) 6.9 Gm Hfa.aer.ad, 2 PUFF INH BID, (Reported) Carvedilol (Carvedilol) 3.125 Mg Tablet, 3.125 MG PO BID, (Reported) Clopidogrel Bisulfate (Plavix) 75 Mg Tablet, 75 MG PO DAILY, (Reported) Docusate Sodium (Docusate Sodium) 100 Mg Capsule, 200 MG PO QHS, (Reported) Insulin Glargine,Hum.rec.anlog (Toujeo Solostar) 300 Unit/Ml Inj, 20 UNIT SC BID Levothyroxine Sodium (Levothyroxine Sodium) 100 Mcg Tablet, 100 MCG PO DAILY, (Reported) Lisinopril (Lisinopril) 5 Mg Tablet, 5 MG PO DAILY, (Reported) Loratadine (Loratadine) 10 Mg Tablet, 10 MG PO DAILY, (Reported) Pantoprazole Sodium (Protonix) 40 Mg Tablet.dr, 40 MG PO QHS, (Reported) Rosuvastatin Calcium (Crestor) 40 Mg Tablet, 40 MG PO QHS, (Reported) Spironolactone (Spironolactone) 25 Mg Tablet, 12.5 MG PO DAILY, (Reported) Torsemide (Torsemide) 20 Mg Tablet, 20 MG PO DAILY, (Reported) Scheduled PRN Acetaminophen (Acetaminophen) 500 Mg Tablet, 1,000 MG PO Q6H PRN for PAIN / F EVER, (Reported) Albuterol Sulfate (Proair Hfa) 8.5 Gm Hfa.aer.ad, 2 PUFF INH Q4H PRN for SHORTNESS OF BREATH, (Reported) Ipratropium/Albuterol Sulfate (Iprat-Albut 0.5-3(2.5) mg/3 ml) 3 Ml Ampul.neb, 1 VIAL INH TID PRN for SOB/WHEEZING, (Reported) Meclizine HCl (Meclizine HCl) 25 Mg Tablet, 25 MG PO TID PRN for DIZZINESS, (Reported) Nitroglycerin (Nitrostat) 0.4 Mg Subl, 0.4 MG SL NITRO PRN for CHEST PAIN, (Reported) Nystatin (Nystatin Powder) 15 Gm Powder, 1 DOSE TOP BID PRN for RASH, (Reported) UNDER BREASTS AND STOMACH FOLDS Ondansetron HCl (Ondansetron HCl) 4 Mg Tablet, 4 MG PO Q4H PRN for NAUSEA OR VOMITING, (Reported) Allergies Coded Allergies: gemfibrozil (Verified Allergy, Intermediate, rash, 12/20/20) indapamide (Verified Allergy, Intermediate, rash, 12/20/20) tiotropium (Verified Allergy, Intermediate, rash, 12/20/20) amlodipine (Verified Allergy, Unknown, 12/20/20) amoxicillin (Verified Adverse Reaction, Mild, reddened skin/ HAS TOLERATED ZOSYN, 12/20/20) cephalexin (Verified Adverse Reaction, Mild, nausea, 12/20/20) hydrocodone (Verified Adverse Reaction, Mild, nausea, 12/28/19) Sulfa (Sulfonamide Antibiotics) (Verified Adverse Reaction, Unknown, FRED, 12/28/19) amiloride (Verified Adverse Reaction, Unknown, nausea, 12/28/19) canagliflozin (Verified Adverse Reaction, Unknown, DKA, 12/28/19) clindamycin (Verified Adverse Reaction, Unknown, gi upset, 12/28/19) codeine (Verified Adverse Reaction, Unknown, n/v, 12/28/19) doxycycline (Verified Adverse Reaction, Unknown, n/v, 12/28/19) erythromycin base (Verified Adverse Reaction, Unknown, gi upset, 12/28/19) lorazepam (Verified Adverse Reaction, Unknown, hallucinations, 12/28/19) morphine (Verified Adverse Reaction, Unknown, n/v, 12/28/19) pioglitazone (Verified Adverse Reaction, Unknown, edema; wieght gain, 12/28/19) sitagliptin (Verified Adverse Reaction, Unknown, nausea, 12/28/19) tetracycline (Verified Adverse Reaction, Unknown, gi, 12/28/19) JOSE ESQUIVEL MD February 26, 2021 13:23
--- NOTE | 2021-02-27 13:03 | ECHO ---
DATE OF PROCEDURE: 02/26/2021 Age: 75 Gender: Female Height: 157 cm Weight: 110 kg REFERRING PHYSICIAN: Anastasiya Lyons M.D. INDICATION: Dizziness. MEASUREMENTS: IVS 1.6 cm LV 5.2 cm LVPW 1.5 cm LA 4.1 cm Aorta 3.1 cm IVC 1.9 cm Mitral E wave velocity 92 cm/s Mitral A wave 71 cm/s E prime septal 4.1 cm/s E prime lateral 4.8 cm/s FINDINGS: This study is of really poor technical quality. It appears that there is underlying sinus rhythm with ventricular pacing. Left ventricle is normal size. Moderate left ventricular hypertrophy is present. Overall global hypokinesis with estimated EF in the neighborhood of 30% to 35%. Right ventricle appears to be grossly normal size, it was poorly visualized though. There is biatrial enlargement. Aortic valve is sclerotic, but it is tricuspid and has grossly preserved mobility. Mitral valve was poorly visualized. There are some mitral annular calcifications and some degree of thickening of the mitral leaflets. Tricuspid valve appeared grossly normal. Pulmonic valve was not well seen. Small pericardial effusion that is noncompressive is noted. There is an echo artifact in the right-sided heart chambers corresponding to pacemaker lead. Inferior vena cava is dilated and there is no appreciable collapse with inspiration indicative of high central venous pressure. Doppler interrogation of the aortic valve reveals no significant stenosis or insufficiency. There is approximately moderate mitral insufficiency and mild tricuspid insufficiency. Calculated pulmonary artery pressure is at minimum around 50 mmHg corresponding to moderate pulmonary hypertension. Evaluation of diastolic function reveals at least grade 2 diastolic dysfunction. CONCLUSIONS: 1. Study is of limited technical quality, patient is in sinus rhythm with ventricular paced rhythm. 2. Normal LV size with moderate LVH and global hypokinesis with estimated EF in the neighborhood of 30% to 35%. At least grade 2 diastolic dysfunction. 3. 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 4. Small pericardial effusion. 5. High central venous pressure. 6. At least moderate pulmonary hypertension. MTDD
== END 2021-02-26 16:10 | disposition home health service (06) | DRG 811 ==
LOC: EDBD 09:29 → M ED 09:29 → M ED INP 12:04 → M PCU 18:06
PROVIDERS: ADMIT Internal Medicine; ATTEND Internal Medicine
PROC: 30233N1 Transfusion of Nonautologous Red Blood Cells into Peripheral Vein, Percutaneous Approach (ICD-10-PCS; principal; 2021-02-24)
DX: D64.9 Anemia, unspecified (principal); I50.23 Acute on chronic systolic (congestive) heart failure; J96.11 Chronic respiratory failure with hypoxia; I49.5 Sick sinus syndrome; E78.5 Hyperlipidemia, unspecified; E11.9 Type 2 diabetes mellitus without complications; J44.9 Chronic obstructive pulmonary disease, unspecified; E03.9 Hypothyroidism, unspecified; K21.9 Gastro-esophageal reflux disease without esophagitis; M81.0 Age-related osteoporosis without current pathological fracture; I11.0 Hypertensive heart disease with heart failure; Z66 Do not resuscitate; Z85.828 Personal history of other malignant neoplasm of skin; Z95.0 Presence of cardiac pacemaker; Z90.49 Acquired absence of other specified parts of digestive tract; Z95.5 Presence of coronary angioplasty implant and graft; Z98.41 Cataract extraction status, right eye; Z98.42 Cataract extraction status, left eye; Z86.73 Personal history of transient ischemic attack (TIA), and cerebral infarction without residual deficits; Z20.822 Contact with and (suspected) exposure to COVID-19; Z79.82 Long term (current) use of aspirin; Z79.02 Long term (current) use of antithrombotics/antiplatelets; Z79.899 Other long term (current) drug therapy; Z79.4 Long term (current) use of insulin; Z88.1 Allergy status to other antibiotic agents; Z88.2 Allergy status to sulfonamides; Z88.8 Allergy status to other drugs, medicaments and biological substances; Z88.5 Allergy status to narcotic agent; Z88.0 Allergy status to penicillin

== ENCOUNTER → 2021-03-05 | Outpatient (CLI) | payer MEDICARE ==
[~2021-03-05] MED LIST changes: +ASPI-161 PO; +CARV3.12 PO; +LEVO100T5 PO; +LISI-898 PO; +ONDA-83 PO; +PLAV1TAB2 PO
--- NOTE | 2021-03-05 15:39 | REP ---
INDICATION: M54.5. COMPARISON: None. TECHNIQUE: Five views FINDINGS: The bones are somewhat demineralized. There is moderate degenerative disc space narrowing seen particularly posteriorly at every level. Vertebral body height and alignment is within normal limits. Degenerative facet joint changes are seen at every level bilaterally particularly L4-5 and L5-S1. There is minimal anterior lipping at every level. There is no spondylolysis or spondylolisthesis. The pedicles are intact bilaterally. IMPRESSION: Chronic changes as described above. <Electronically signed by Edgard Dennis > 03/05/21 [id number]
--- NOTE | 2021-03-05 15:40 | REP ---
INDICATION: M54.5. COMPARISON: None TECHNIQUE: AP FINDINGS: There is mild to moderate left greater than right rather symmetric appearing hip joint space narrowing without prominent marginal osteophytosis or buttressing. There is no acute fracture. Degenerative changes are seen involving the sacroiliac joints. IMPRESSION: Chronic changes as described above. <Electronically signed by Edgard Dennis > 03/05/21 [id number]
== END ==
LOC: M CLY 14:47
PROVIDERS: ATTEND Family Medicine
DX: M16.0 Bilateral primary osteoarthritis of hip (principal); M51.36 Other intervertebral disc degeneration, lumbar region; M51.37 Other intervertebral disc degeneration, lumbosacral region; M54.5 Low back pain

== ENCOUNTER → 2021-03-05 | Outpatient (REF) | payer MEDICARE ==
[2021-03-05 15:48] LABS: BASO % 0.4 % (0.0-1.0); EOS # 0.1 10^3/uL (0.0-0.5); EOS % 1.9 % (0.0-3.0); HEMATOCRIT 32.8 % (36.0-47.0); HEMOGLOBIN 8.9 g/dl (12.0-15.5); LYMPH # 0.6 10^3/uL (1.5-5.0); LYMPH % 9.3 % (24.0-44.0); MEAN CORPUSCULAR HEMOGLOBIN 25.4 pg (27.0-33.0); MEAN CORPUSCULAR HGB CONC 27.1 g/dl (32.0-36.5); MEAN CORPUSCULAR VOLUME 93.4 fl (80.0-96.0); MONO # 0.4 10^3/uL (0.0-0.8); MONO % 6.4 % (2.0-8.0); NEUTROPHILS # 5.6 10^3/uL (1.5-8.5); NEUTROPHILS % 81.4 % (36.0-66.0); PLATELET COUNT, AUTOMATED 247 10^3/uL (150-450); RED BLOOD COUNT 3.51 10^6/uL (4.00-5.40); WHITE BLOOD COUNT 6.9 10^3/uL (4.0-10.0)
[2021-03-05 16:24] LABS: CREATININE FOR GFR 0.99 MG/DL (0.55-1.30); FREE T4 0.83 NG/DL (0.76-1.46); GLOMERULAR FILTRATION RATE 58.4 (>39); POTASSIUM SERUM 4.4 MEQ/L (3.5-5.1); THYROID STIMULATING HORMONE 12.2 uIU/ML (0.358-3.740)
== END ==
LOC: M SFHCCLAY 09:35
PROVIDERS: ATTEND Family Medicine
DX: E03.9 Hypothyroidism, unspecified (principal); I50.33 Acute on chronic diastolic (congestive) heart failure; D50.0 Iron deficiency anemia secondary to blood loss (chronic)

== ENCOUNTER → 2021-04-25 | Outpatient (REF) | payer MEDICARE ==
[~2021-04-25] MED LIST changes: +OMEP40CA4 PO; -OMEP40CA97 PO
[2021-04-25 13:48] LABS: HEMATOCRIT 41.9 % (36.0-47.0); HEMOGLOBIN 12.5 g/dl (12.0-15.5); MEAN CORPUSCULAR HEMOGLOBIN 27.5 pg (27.0-33.0); MEAN CORPUSCULAR HGB CONC 29.8 g/dl (32.0-36.5); MEAN CORPUSCULAR VOLUME 92.3 fl (80.0-96.0); PLATELET COUNT, AUTOMATED 212 10^3/uL (150-450); RED BLOOD COUNT 4.54 10^6/uL (4.00-5.40); WHITE BLOOD COUNT 7.6 10^3/uL (4.0-10.0)
[2021-04-25 15:34] LABS: THYROID STIMULATING HORMONE 5.69 uIU/ML (0.358-3.740)
== END ==
LOC: M SFHCCLAY 09:21
PROVIDERS: ATTEND Family Medicine
DX: I50.33 Acute on chronic diastolic (congestive) heart failure (principal); D50.0 Iron deficiency anemia secondary to blood loss (chronic); E03.9 Hypothyroidism, unspecified

== ENCOUNTER → 2021-07-18 | Outpatient (REF) | payer MEDICARE ==
[2021-07-18 12:51] LABS: BASO # 0.1 10^3/uL (0.0-0.2); BASO % 0.6 % (0.0-1.0); EOS # 0.4 10^3/uL (0.0-0.5); EOS % 4.6 % (0.0-3.0); HEMATOCRIT 43.2 % (36.0-47.0); HEMOGLOBIN 13.3 g/dl (12.0-15.5); LYMPH # 1.4 10^3/uL (1.5-5.0); LYMPH % 16.8 % (24.0-44.0); MEAN CORPUSCULAR HEMOGLOBIN 28.4 pg (27.0-33.0); MEAN CORPUSCULAR HGB CONC 30.8 g/dl (32.0-36.5); MEAN CORPUSCULAR VOLUME 92.3 fl (80.0-96.0); MONO # 0.8 10^3/uL (0.0-0.8); MONO % 9.5 % (2.0-8.0); NEUTROPHILS # 5.6 10^3/uL (1.5-8.5); PLATELET COUNT, AUTOMATED 210 10^3/uL (150-450); RED BLOOD COUNT 4.68 10^6/uL (4.00-5.40); WHITE BLOOD COUNT 8.2 10^3/uL (4.0-10.0)
[2021-07-18 13:04] LABS: CALCIUM LEVEL 9.9 MG/DL (8.8-10.2); CREATININE FOR GFR 1.08 MG/DL (0.55-1.30); GLOMERULAR FILTRATION RATE 52.8 (>39)
[2021-07-18 13:25] LABS: HEMOGLOBIN A1c 8.9 %
== END ==
LOC: M SFHCCLAY 07:45
PROVIDERS: ATTEND Family Medicine
DX: Z00.00 Encounter for general adult medical examination without abnormal findings (principal); E03.9 Hypothyroidism, unspecified; D50.0 Iron deficiency anemia secondary to blood loss (chronic); Z95.5 Presence of coronary angioplasty implant and graft; I50.33 Acute on chronic diastolic (congestive) heart failure; E11.9 Type 2 diabetes mellitus without complications

== ENCOUNTER → 2021-07-18 | Outpatient (REF) | payer MEDICARE ==
[2021-07-18 14:04] LABS: ALBUMIN 3.2 GM/DL (3.2-5.2); BILIRUBIN,TOTAL 0.5 MG/DL (0.2-1.0); CALCIUM LEVEL 9.5 MG/DL (8.8-10.2); CHOLESTEROL RISK RATIO 3.627 (<5); CREATININE FOR GFR 1.08 MG/DL (0.55-1.30); GLOMERULAR FILTRATION RATE 52.8 (>39); MAGNESIUM LEVEL 2.1 MG/DL (1.8-2.4); THYROID STIMULATING HORMONE 10.1 uIU/ML (0.358-3.740); TOTAL PROTEIN 7.5 GM/DL (6.4-8.2)
== END ==
LOC: M LABDRAWC 12:42
PROVIDERS: ATTEND Internal Medicine Cardiovascular Disease
DX: I10 Essential (primary) hypertension (principal); E78.5 Hyperlipidemia, unspecified; I25.118 Atherosclerotic heart disease of native coronary artery with other forms of angina pectoris; E03.9 Hypothyroidism, unspecified

== ENCOUNTER → 2021-09-26 | Outpatient (REF) | payer MEDICARE ==
[~2021-09-26] MED LIST changes: +DECA4TAB PO; +FERR325T19 PO; +INCR1INH IN; +INCR1INH INH; +LEVO125T4 PO; -LISI-898 PO; +LISI5TAB11 PO; +SENN-122 PO; +SENN1TAB89 PO; +TIZA10TA PO; -TIZA4TAB4 PO; +med rec comment
[2021-09-26 16:39] LABS: FREE T4 1.11 NG/DL (0.76-1.46); THYROID STIMULATING HORMONE 5.45 uIU/ML (0.358-3.740)
== END ==
LOC: M SFHCCLAY 09:43
PROVIDERS: ATTEND Family Medicine
DX: E03.9 Hypothyroidism, unspecified (principal)

== ENCOUNTER 2021-11-24 18:09 | Observation (INO) | payer MEDICARE ==
[~2021-11-24] VITALS: Ht 157.5 cm; Wt 102.5 kg
[~2021-11-24 18:09] MED LIST changes: -INCR1INH IN; -INCR1INH INH; -SENN-122 PO
[2021-11-24 19:58] LABS: BASO % 0.2 % (0.0-1.0); EOS # 0.2 10^3/uL (0.0-0.5); EOS % 0.9 % (0.0-3.0); HEMATOCRIT 41.5 % (36.0-47.0); HEMOGLOBIN 13.2 g/dl (12.0-15.5); LYMPH # 0.5 10^3/uL (1.5-5.0); LYMPH % 2.9 % (24.0-44.0); MEAN CORPUSCULAR HEMOGLOBIN 28.6 pg (27.0-33.0); MEAN CORPUSCULAR HGB CONC 31.8 g/dl (32.0-36.5); MONO % 5.7 % (2.0-8.0); NEUTROPHILS # 15.8 10^3/uL (1.5-8.5); NEUTROPHILS % 89.7 % (36.0-66.0); PLATELET COUNT, AUTOMATED 217 10^3/uL (150-450); RED BLOOD COUNT 4.61 10^6/uL (4.00-5.40); WHITE BLOOD COUNT 17.6 10^3/uL (4.0-10.0)
[2021-11-24 20:00] LABS: ABG BASE EXCESS 0.9 (-2.0-2.0); ABG HCO3 25.4 MEQ/L (22.0-26.0); ABG O2 SATURATION 95.9 % (95.0-99.0); ABG PARTIAL PRESSURE CO2 39.9 mmHg (35.0-45.0); ABG PARTIAL PRESSURE O2 81.3 mmHg (75.0-100.0); ABG STANDARD HCO3 25.3 MEQ/L (22.0-26.0); ABG TOTAL CO2 26.6 MEQ/L (23.0-31.0); ABG pH (ARTERIAL) 7.421 UNITS (7.350-7.450)
[2021-11-24] MEDS: SYMBICORT 80/4.5MCG INHALER 6GM INH SCH (20:00)
[2021-11-24 20:22] LABS: CK-MB VALUE MASS < 1.0 NG/ML (<3.6); CPK CREATINE PHOSPHOKINASE 34 U/L (26-192); MB/CK RELATIVE INDEX 2.94 (< OR =4)
[2021-11-24 20:42] LABS: ALBUMIN 2.5 GM/DL (3.2-5.2); BILIRUBIN,DIRECT 0.2 MG/DL (0.0-0.2); BILIRUBIN,TOTAL 0.6 MG/DL (0.2-1.0); CREATININE FOR GFR 1.16 MG/DL (0.55-1.30); GLOMERULAR FILTRATION RATE 48.5 (>39); THYROID STIMULATING HORMONE 4.2 uIU/ML (0.358-3.740); TOTAL PROTEIN 6.9 GM/DL (6.4-8.2)
[2021-11-24] MEDS ORDERED: DEXTROSE 50% 50 ML SYRINGE IV STA (20:51)
[2021-11-24] MEDS ORDERED: COMBIVENT RESPIMAT 100-20MCG INHALER 4GM INH ONE (21:55)
[2021-11-24] MEDS ORDERED: HOME MED LIST COMPLETE! XX SCH (22:30)
[2021-11-24] MEDS ORDERED: DEXTROSE 50% 50 ML SYRINGE IV PRN (22:35)
[2021-11-24] MEDS ORDERED: GLUCAGON INJ 1MG VIAL SC PRN (22:35)
[2021-11-24] MEDS ORDERED: IPRATROPIUM 0.5MG/ALBUTEROL 2.5MG INH SOL UD 3ML (DUONEB) INH PRN (22:35)
[2021-11-24] MEDS ORDERED: ALBUTEROL 90 MCG/ACT 8GM HFA INHALER INH PRN (22:35)
[2021-11-24] MEDS ORDERED: GLUCOSE 4GM CHEW TABLET PO PRN (22:35)
[2021-11-24] MEDS ORDERED: NYSTATIN 100,000 UNITS/GM TOPICAL PWD 15 GM TOP PRN (22:35)
[2021-11-24] MEDS ORDERED: SENOKOT S TAB PO PRN (22:35)
[2021-11-24 22:49] LABS: FREE T4 1.4 NG/DL (0.76-1.46)
[2021-11-25] VITALS (7 sets, daily range): BP systolic 84–133; BP diastolic 43–82
[2021-11-25] MEDS ORDERED: UNRESOLVED CLARIFICATION ENTRY XX SCH (00:01)
[2021-11-25] MEDS ORDERED: SODIUM CHLORIDE 0.9% NASAL GEL 15GM (AYR) PRN (00:40)
[2021-11-25] MEDS ORDERED: FUROSEMIDE 40MG/4ML VIAL (J1940) IV STA (01:17)
[2021-11-25] MEDS: PANTOPRAZOLE 40MG TAB (PROTONIX) PO SCH ×2 (02:01→20:28)
[2021-11-25] MEDS: CARVedilol 3.125 MG TAB PO SCH ×2 (02:02→20:35)
[2021-11-25 04:21] LABS: RSV AMPLIFICATION NEGATIVE (NEGATIVE)
[2021-11-25] MEDS: LEVOTHYROXINE 125MCG TABLET (0.125MG) PO SCH (05:32)
[2021-11-25] MEDS ORDERED: NS 1,000 ML IV SCH (06:05)
[2021-11-25 07:12] LABS: BASO % 0.1 % (0.0-1.0); HEMOGLOBIN 13.6 g/dl (12.0-15.5); LYMPH # 0.4 10^3/uL (1.5-5.0); LYMPH % 3.7 % (24.0-44.0); MEAN CORPUSCULAR HEMOGLOBIN 28.7 pg (27.0-33.0); MEAN CORPUSCULAR HGB CONC 31.6 g/dl (32.0-36.5); MEAN CORPUSCULAR VOLUME 90.7 fl (80.0-96.0); MONO # 0.3 10^3/uL (0.0-0.8); MONO % 2.8 % (2.0-8.0); NEUTROPHILS # 10.5 10^3/uL (1.5-8.5); NEUTROPHILS % 92.9 % (36.0-66.0); PLATELET COUNT, AUTOMATED 194 10^3/uL (150-450); RED BLOOD COUNT 4.74 10^6/uL (4.00-5.40); WHITE BLOOD COUNT 11.3 10^3/uL (4.0-10.0)
[2021-11-25 07:34] LABS: CALCIUM LEVEL 9.4 MG/DL (8.8-10.2); CREATININE FOR GFR 1.19 MG/DL (0.55-1.30); GLOMERULAR FILTRATION RATE 47.1 (>39); POTASSIUM SERUM 4.3 MEQ/L (3.5-5.1)
[2021-11-25] MEDS: SYMBICORT 80/4.5MCG INHALER 6GM INH SCH ×2 (08:01→20:35)
[2021-11-25] MEDS: HumaLOG INSULIN (NovoLOG) PER UNIT SC SCH ×3 (08:18→17:12)
[2021-11-25] MEDS: ENOXAPARIN 40MG/0.4ML SYRINGE (J1650 PER 10MG) SC SCH (08:18)
[2021-11-25] MEDS: LORATADINE 10 MG TAB PO SCH (08:19)
[2021-11-25] MEDS: FERROUS SULFATE 325MG TAB PO SCH ×3 (08:19→20:28)
[2021-11-25] MEDS: TORSEMIDE 20 MG TAB PO SCH (08:19)
[2021-11-25] MEDS: lisinopriL 5 MG TAB PO SCH (08:20)
[2021-11-25] MEDS: ASPIRIN 81MG ENTERIC TABLET PO SCH (08:20)
[2021-11-25] MEDS: CLOPIDOGREL 75 MG TAB PO SCH (08:20)
[2021-11-25] MEDS ORDERED: SPIRONOLACTONE 12.5MG PER 1/2 TABLET PO SCH (09:00)
[2021-11-25] MEDS ORDERED: LEVEMIR (INSULIN DETEMIR) 1 UNITS/0.01ML SC SCH (09:00)
[2021-11-25] MEDS: LEVEMIR (INSULIN DETEMIR) 1 UNITS/0.01ML SC SCH (20:20)
[2021-11-25] MEDS ORDERED: HumaLOG INSULIN (NovoLOG) PER UNIT SC SCH (21:00)
[2021-11-25] MEDS ORDERED: ASCORBIC ACID 500 MG TAB PO SCH (21:00)
[2021-11-25] MEDS ORDERED: ROSUVASTATIN 10 MG TAB (CRESTOR) PO SCH (21:00)
[2021-11-26] MEDS: LEVOTHYROXINE 125MCG TABLET (0.125MG) PO SCH (05:14)
[2021-11-26 05:54] LABS: BASO % 0.2 % (0.0-1.0); EOS % 0.1 % (0.0-3.0); HEMATOCRIT 39.3 % (36.0-47.0); HEMOGLOBIN 12.3 g/dl (12.0-15.5); LYMPH # 0.7 10^3/uL (1.5-5.0); LYMPH % 4.4 % (24.0-44.0); MEAN CORPUSCULAR HEMOGLOBIN 28.7 pg (27.0-33.0); MEAN CORPUSCULAR HGB CONC 31.3 g/dl (32.0-36.5); MEAN CORPUSCULAR VOLUME 91.6 fl (80.0-96.0); MONO # 1.3 10^3/uL (0.0-0.8); MONO % 8.2 % (2.0-8.0); NEUTROPHILS # 13.4 10^3/uL (1.5-8.5); NEUTROPHILS % 86.6 % (36.0-66.0); PLATELET COUNT, AUTOMATED 214 10^3/uL (150-450); RED BLOOD COUNT 4.29 10^6/uL (4.00-5.40); WHITE BLOOD COUNT 15.5 10^3/uL (4.0-10.0)
[2021-11-26 06:00] VITALS: BP 104/65
[2021-11-26 06:15] LABS: CALCIUM LEVEL 8.4 MG/DL (8.8-10.2); CREATININE FOR GFR 1.45 MG/DL (0.55-1.30); GLOMERULAR FILTRATION RATE 37.5 (>39)
[2021-11-26 07:15] VITALS: BP 121/68
[2021-11-26] MEDS: SYMBICORT 80/4.5MCG INHALER 6GM INH SCH (07:22)
[2021-11-26] MEDS: LEVEMIR (INSULIN DETEMIR) 1 UNITS/0.01ML SC SCH (08:38)
[2021-11-26] MEDS: ENOXAPARIN 40MG/0.4ML SYRINGE (J1650 PER 10MG) SC SCH (08:38)
[2021-11-26] MEDS: ASPIRIN 81MG ENTERIC TABLET PO SCH (08:38)
[2021-11-26] MEDS: FERROUS SULFATE 325MG TAB PO SCH (08:39)
[2021-11-26] MEDS: HumaLOG INSULIN (NovoLOG) PER UNIT SC SCH ×2 (08:39→11:50)
[2021-11-26] MEDS: LORATADINE 10 MG TAB PO SCH (08:39)
[2021-11-26] MEDS: CLOPIDOGREL 75 MG TAB PO SCH (08:39)
[2021-11-26] MEDS: TORSEMIDE 20 MG TAB PO SCH (08:39)
[2021-11-26 08:41] VITALS: BP 118/62
[2021-11-26] MEDS: lisinopriL 5 MG TAB PO SCH (08:41)
[2021-11-26] MEDS ORDERED: INCR1INH IN (11:31)
[2021-11-26 12:17] LABS: HEMOGLOBIN A1c 9.5 %
== END 2021-11-26 14:30 | disposition home health service (06) ==
LOC: M ED 18:09 → M ED INP 18:10 → ENRESERV 11-25 00:08 → M MSPAV 11-25 01:10
PROVIDERS: ADMIT Internal Medicine; ATTEND Internal Medicine
DX: J44.9 Chronic obstructive pulmonary disease, unspecified (principal); Z99.81 Dependence on supplemental oxygen; E11.649 Type 2 diabetes mellitus with hypoglycemia without coma; E11.22 Type 2 diabetes mellitus with diabetic chronic kidney disease; I25.5 Ischemic cardiomyopathy; I50.40 Unspecified combined systolic (congestive) and diastolic (congestive) heart failure; G47.9 Sleep disorder, unspecified; K21.9 Gastro-esophageal reflux disease without esophagitis; Z86.16 Personal history of COVID-19; R06.02 Shortness of breath; D72.829 Elevated white blood cell count, unspecified; I13.10 Hypertensive heart and chronic kidney disease without heart failure, with stage 1 through stage 4 chronic kidney disease, or unspecified chronic kidney disease; I25.10 Atherosclerotic heart disease of native coronary artery without angina pectoris; N18.9 Chronic kidney disease, unspecified; R53.1 Weakness; E78.5 Hyperlipidemia, unspecified; E66.9 Obesity, unspecified; F41.9 Anxiety disorder, unspecified; Z86.73 Personal history of transient ischemic attack (TIA), and cerebral infarction without residual deficits; Z87.891 Personal history of nicotine dependence; Z95.0 Presence of cardiac pacemaker; Z95.5 Presence of coronary angioplasty implant and graft; Z91.14 Patient's other noncompliance with medication regimen; Z79.899 Other long term (current) drug therapy; Z79.82 Long term (current) use of aspirin; Z79.51 Long term (current) use of inhaled steroids; Z79.02 Long term (current) use of antithrombotics/antiplatelets; Z79.4 Long term (current) use of insulin; Z88.8 Allergy status to other drugs, medicaments and biological substances; Z88.0 Allergy status to penicillin; Z88.1 Allergy status to other antibiotic agents; Z88.5 Allergy status to narcotic agent; Z88.2 Allergy status to sulfonamides
CPT/HCPCS: 36415; 36600; 71045; 80048; 80076; 82140; 82550; 82553; 82803; 83036; 83605; 83880; 84145; 84439; 84443; 84484; 85025; 85379; 87040; 87631; 93005; 93041; 93970; 96361; 96372; 96374; 97161; 97530; 99285; G0378; J1650; J1940

== ENCOUNTER 2021-12-03 20:26 | Emergency (ER) | payer MEDICARE ==
[~2021-12-03] VITALS: Ht 157.5 cm; Wt 104.5 kg
[~2021-12-03 20:26] MED LIST changes: +INCR1INH IN
[2021-12-03] MEDS ORDERED: NS 1,000 ML IV SCH (20:50)
[2021-12-03] MEDS ORDERED: ACETAMINOPHEN 325 MG TAB PO ONE (20:50)
[2021-12-03] MEDS: ALBUTEROL SULFATE 2.5 MG/0.5 ML INH NEB SOLN INH SCH (21:08)
[2021-12-03 21:19] LABS: BASO % 0.2 % (0.0-1.0); EOS # 0.7 10^3/uL (0.0-0.5); EOS % 7.5 % (0.0-3.0); HEMATOCRIT 39.6 % (36.0-47.0); HEMOGLOBIN 12.3 g/dl (12.0-15.5); LYMPH # 0.5 10^3/uL (1.5-5.0); LYMPH % 5.9 % (24.0-44.0); MEAN CORPUSCULAR HEMOGLOBIN 28.3 pg (27.0-33.0); MEAN CORPUSCULAR HGB CONC 31.1 g/dl (32.0-36.5); MEAN CORPUSCULAR VOLUME 91.2 fl (80.0-96.0); MONO # 0.8 10^3/uL (0.0-0.8); MONO % 8.6 % (2.0-8.0); NEUTROPHILS # 6.8 10^3/uL (1.5-8.5); NEUTROPHILS % 77.5 % (36.0-66.0); PLATELET COUNT, AUTOMATED 222 10^3/uL (150-450); RED BLOOD COUNT 4.34 10^6/uL (4.00-5.40); WHITE BLOOD COUNT 8.8 10^3/uL (4.0-10.0)
[2021-12-03 21:26] LABS: ABG BASE EXCESS 0.4 (-2.0-2.0); ABG HCO3 24.9 MEQ/L (22.0-26.0); ABG O2 SATURATION 97.4 % (95.0-99.0); ABG PARTIAL PRESSURE CO2 39.6 mmHg (35.0-45.0); ABG PARTIAL PRESSURE O2 92.8 mmHg (75.0-100.0); ABG STANDARD HCO3 24.8 MEQ/L (22.0-26.0); ABG TOTAL CO2 26.1 MEQ/L (23.0-31.0); ABG pH (ARTERIAL) 7.416 UNITS (7.350-7.450)
[2021-12-03 21:45] LABS: CK-MB VALUE MASS < 1.0 NG/ML (<3.6); CPK CREATINE PHOSPHOKINASE 42 U/L (26-192); MB/CK RELATIVE INDEX 2.38 (< OR =4)
[2021-12-03 21:47] LABS: ALBUMIN 2.3 GM/DL (3.2-5.2); ALT/SGPT 16 U/L (12-78); BILIRUBIN,DIRECT 0.1 MG/DL (0.0-0.2); BILIRUBIN,TOTAL 0.4 MG/DL (0.2-1.0); BLOOD UREA NITROGEN 16 MG/DL (7-18); CARBON DIOXIDE LEVEL 27 MEQ/L (21-32); CHLORIDE LEVEL 106 MEQ/L (98-107); CREATININE FOR GFR 0.96 MG/DL (0.55-1.30); GLOMERULAR FILTRATION RATE > 60.0 (>39); GLUCOSE, FASTING 137 MG/DL (70-100); NT-PRO BNP 457 PG/ML (<450); POTASSIUM SERUM 4.7 MEQ/L (3.5-5.1); SODIUM LEVEL 138 MEQ/L (136-145)
[2021-12-03] MEDS ORDERED: LIDOCAINE 2% 5ML JELLY UROJET TOP ONE (22:00)
[2021-12-03] MEDS ORDERED: HOME MED LIST COMPLETE! XX SCH (22:15)
[2021-12-03] MEDS ORDERED: INCR1INH INH (22:15)
[2021-12-03] MEDS ORDERED: ALBU83IN INH (22:15)
[2021-12-03] MEDS ORDERED: SENN-122 PO (22:15)
[2021-12-03 23:16] VITALS: BP 98/55
== END 2021-12-04 00:41 | disposition home or self-care (01) ==
LOC: M ED 20:26
DX: B34.9 Viral infection, unspecified (principal); R53.83 Other fatigue; R53.81 Other malaise; I51.9 Heart disease, unspecified; E11.9 Type 2 diabetes mellitus without complications; I10 Essential (primary) hypertension; N18.9 Chronic kidney disease, unspecified; Z86.73 Personal history of transient ischemic attack (TIA), and cerebral infarction without residual deficits; Z95.0 Presence of cardiac pacemaker; Z79.4 Long term (current) use of insulin; Z79.82 Long term (current) use of aspirin; Z79.899 Other long term (current) drug therapy; Z88.2 Allergy status to sulfonamides; Z88.1 Allergy status to other antibiotic agents; Z88.0 Allergy status to penicillin; Z88.5 Allergy status to narcotic agent; Z88.8 Allergy status to other drugs, medicaments and biological substances

== ENCOUNTER → 2022-01-02 | Outpatient (REF) | payer MEDICARE ==
[~2022-01-02] MED LIST changes: +INCR1INH INH; +SENN-122 PO
[2022-01-02 11:36] LABS: BASO # 0.1 10^3/uL (0.0-0.2); BASO % 0.9 % (0.0-1.0); EOS # 0.5 10^3/uL (0.0-0.5); EOS % 7.2 % (0.0-3.0); HEMATOCRIT 36.3 % (36.0-47.0); HEMOGLOBIN 10.8 g/dl (12.0-15.5); LYMPH # 0.9 10^3/uL (1.5-5.0); LYMPH % 14.1 % (24.0-44.0); MEAN CORPUSCULAR HEMOGLOBIN 29.1 pg (27.0-33.0); MEAN CORPUSCULAR HGB CONC 29.8 g/dl (32.0-36.5); MEAN CORPUSCULAR VOLUME 97.8 fl (80.0-96.0); MONO # 0.6 10^3/uL (0.0-0.8); NEUTROPHILS # 4.3 10^3/uL (1.5-8.5); NEUTROPHILS % 67.3 % (36.0-66.0); PLATELET COUNT, AUTOMATED 213 10^3/uL (150-450); RED BLOOD COUNT 3.71 10^6/uL (4.00-5.40); WHITE BLOOD COUNT 6.4 10^3/uL (4.0-10.0)
[2022-01-02 11:45] LABS: BILIRUBIN,TOTAL 0.5 MG/DL (0.2-1.0); CALCIUM LEVEL 9.5 MG/DL (8.8-10.2); CHOLESTEROL RISK RATIO 2.88 (<5); CREATININE FOR GFR 1.11 MG/DL (0.55-1.30)
[2022-01-02 12:36] LABS: HEMOGLOBIN A1c 6.9 %
== END ==
LOC: M SFHCCLAY 08:41
PROVIDERS: ATTEND Family Medicine
DX: J45.909 Unspecified asthma, uncomplicated (principal); E11.9 Type 2 diabetes mellitus without complications

== ENCOUNTER → 2022-03-19 | Outpatient (REF) | payer MEDICARE | LOC: M SFHCCLAY 14:56 | PROVIDERS: ATTEND Physician Assistant | DX: R41.0 Disorientation, unspecified (principal) ==

== ENCOUNTER → 2022-03-27 | Outpatient (REF) | payer MEDICARE ==
[~2022-03-27] MED LIST changes: +ALBU2.5V10 INH; -ALBU83IN INH
== END ==
LOC: M SFHCCLAY 11:22
PROVIDERS: ATTEND Family Medicine
DX: R41.0 Disorientation, unspecified (principal)

== ENCOUNTER → 2022-04-02 | Outpatient (REF) | payer MEDICARE ==
[2022-04-02 16:03] LABS: HEMATOCRIT 45.8 % (36.0-47.0); HEMOGLOBIN 14.5 g/dl (12.0-15.5); MEAN CORPUSCULAR HGB CONC 31.7 g/dl (32.0-36.5); MEAN CORPUSCULAR VOLUME 91.6 fl (80.0-96.0); PLATELET COUNT, AUTOMATED 169 10^3/uL (150-450); WHITE BLOOD COUNT 7.1 10^3/uL (4.0-10.0)
[2022-04-02 16:33] LABS: CALCIUM LEVEL 10.1 MG/DL (8.8-10.2); CREATININE FOR GFR 1.14 MG/DL (0.55-1.30); FREE T4 0.47 NG/DL (0.76-1.46); GLOMERULAR FILTRATION RATE 49.5 (>39); POTASSIUM SERUM 3.6 MEQ/L (3.5-5.1); THYROID STIMULATING HORMONE 48.2 uIU/ML (0.358-3.740)
== END ==
LOC: M SFHCCLAY 10:10
PROVIDERS: ATTEND Family Medicine
DX: E11.22 Type 2 diabetes mellitus with diabetic chronic kidney disease (principal); I50.32 Chronic diastolic (congestive) heart failure

== ENCOUNTER → 2022-04-17 | Outpatient (REF) | payer MEDICARE ==
[2022-04-17 12:48] LABS: FREE T4 1.23 NG/DL (0.76-1.46); THYROID STIMULATING HORMONE 8.22 uIU/ML (0.358-3.740)
== END ==
LOC: M SFHCCLAY 08:08
PROVIDERS: ATTEND Family Medicine
DX: E11.9 Type 2 diabetes mellitus without complications (principal)

== ENCOUNTER 2022-05-12 22:45 | Inpatient (IN) | payer MEDICARE ==
[~2022-05-12] VITALS: Ht 160 cm; Wt 99.0 kg
[2022-05-13] VITALS (17 sets, daily range): BP systolic 122–136; BP diastolic 59–70; O2SAT 89–95
[2022-05-13] MEDS ORDERED: CARVedilol 3.125 MG TAB PO ONE (01:25)
[2022-05-13 01:44] LABS: BASO % 0.3 % (0.0-1.0); EOS # 0.1 10^3/uL (0.0-0.5); EOS % 0.8 % (0.0-3.0); HEMATOCRIT 39.4 % (36.0-47.0); HEMOGLOBIN 12.6 g/dl (12.0-15.5); LYMPH # 0.8 10^3/uL (1.5-5.0); LYMPH % 6.3 % (24.0-44.0); MEAN CORPUSCULAR HEMOGLOBIN 30.2 pg (27.0-33.0); MEAN CORPUSCULAR VOLUME 94.5 fl (80.0-96.0); MONO # 0.7 10^3/uL (0.0-0.8); MONO % 5.6 % (2.0-8.0); NEUTROPHILS # 10.3 10^3/uL (1.5-8.5); NEUTROPHILS % 86.6 % (36.0-66.0); PLATELET COUNT, AUTOMATED 189 10^3/uL (150-450); RED BLOOD COUNT 4.17 10^6/uL (4.00-5.40); WHITE BLOOD COUNT 11.9 10^3/uL (4.0-10.0)
[2022-05-13 02:17] LABS: ALBUMIN 3.2 GM/DL (3.2-5.2); BILIRUBIN,TOTAL 0.5 MG/DL (0.2-1.0); CALCIUM LEVEL 9.3 MG/DL (8.8-10.2); CREATININE FOR GFR 1.04 MG/DL (0.55-1.30); MAGNESIUM LEVEL 2.1 MG/DL (1.8-2.4); POTASSIUM SERUM 4.5 MEQ/L (3.5-5.1); THYROID STIMULATING HORMONE 4.53 uIU/ML (0.358-3.740); TOTAL PROTEIN 6.8 GM/DL (6.4-8.2)
[2022-05-13] MEDS ORDERED: HumuLIN R (REGULAR) INSULIN (NovoLIN R) **100U/ML** PER UNIT IV ONE (02:55)
[2022-05-13] MEDS ORDERED: TRAZ1TAB14 PO (03:20)
[2022-05-13] MEDS ORDERED: DEXTROSE 50% 50 ML SYRINGE IV PRN (03:20)
[2022-05-13] MEDS ORDERED: LISI5TAB11 PO (03:20)
[2022-05-13] MEDS ORDERED: GLUCAGON INJ 1MG VIAL SC PRN (03:20)
[2022-05-13] MEDS ORDERED: GLUCOSE 4GM CHEW TABLET PO PRN (03:20)
[2022-05-13] MEDS ORDERED: DULA3PEN SC (03:20)
[2022-05-13] MEDS ORDERED: TORS20TA2 PO (03:21)
[2022-05-13 03:52] LABS: RSV AMPLIFICATION NEGATIVE (NEGATIVE)
[2022-05-13 04:30] LABS: FREE T4 0.93 NG/DL (0.76-1.46)
[2022-05-13] MEDS ORDERED: HOME MED LIST COMPLETE! XX SCH (05:15)
[2022-05-13] MEDS ORDERED: NYST1POW9 TOP (05:18)
[2022-05-13] MEDS ORDERED: ALBUTEROL 90 MCG/ACT 8GM HFA INHALER INH PRN (05:20)
[2022-05-13] MEDS ORDERED: SENOKOT S TAB PO PRN (05:20)
[2022-05-13] MEDS ORDERED: ALBUTEROL SULFATE 2.5 MG/0.5 ML INH NEB SOLN INH PRN (05:20)
[2022-05-13 05:36] LABS: VENOUS BASE EXCESS 0.1 (-2.0-2.0); VENOUS HCO3 26.9 MEQ/L (23.0-27.0); VENOUS O2 SATURATION 56.9 % (60.0-80.0); VENOUS PARTIAL PRESSURE CO2 52.6 mmHg (38.0-50.0); VENOUS PARTIAL PRESSURE O2 31.5 mmHg (30.0-50.0); VENOUS PH 7.327 UNITS (7.330-7.430); VENOUS STANDARD HCO3 23.7 MEQ/L; VENOUS TOTAL CO2 28.5 MEQ/L (24.0-28.0)
[2022-05-13 06:02] LABS: CK-MB VALUE MASS 7.6 NG/ML (<3.6); MB/CK RELATIVE INDEX 2.5 (< OR =4)
[2022-05-13] MEDS: LEVOTHYROXINE 125MCG TABLET (0.125MG) PO SCH (06:34)
[2022-05-13] MEDS ORDERED: ALPRAZolam 0.5 MG TAB PO PRN (07:10)
[2022-05-13] MEDS: SYMBICORT 80/4.5MCG INHALER 6GM INH SCH ×2 (07:51→19:30)
[2022-05-13] MEDS: LORATADINE 10 MG TAB PO SCH (08:12)
[2022-05-13] MEDS: CLOPIDOGREL 75 MG TAB PO SCH (08:12)
[2022-05-13] MEDS: TORSEMIDE 20 MG TAB PO SCH (08:12)
[2022-05-13] MEDS: ASPIRIN 81MG ENTERIC TABLET PO SCH (08:12)
[2022-05-13] MEDS: CARVedilol 3.125 MG TAB PO SCH ×2 (08:13→21:18)
[2022-05-13] MEDS: FERROUS SULFATE 325MG TAB PO SCH ×3 (08:13→21:19)
[2022-05-13] MEDS: lisinopriL 5 MG TAB PO SCH (08:13)
[2022-05-13] MEDS: INSULIN LISPRO (NovoLOG) PER UNIT SC SCH ×4 (08:13→21:00)
[2022-05-13] MEDS: LEVEMIR (INSULIN DETEMIR) 1 UNITS/0.01ML SC SCH (08:14)
[2022-05-13] MEDS: ENOXAPARIN 40MG/0.4ML SYRINGE (J1650 PER 10MG) SC SCH (08:14)
[2022-05-13] MEDS: LIDOCAINE 5% (LIDODERM) PATCH TD SCH (08:15)
[2022-05-13] MEDS: NYSTATIN 100,000 UNITS/GM TOPICAL PWD 15 GM TOP SCH ×2 (08:15→21:20)
[2022-05-13 08:29] LABS: INR 1.04
[2022-05-13 08:30] LABS: PARTIAL THROMBOPLASTIN TIME 28.6 SECONDS (25.9-37.0)
[2022-05-13] MEDS ORDERED: ONDANSETRON 4MG 2ML VIAL IV PRN (17:05)
[2022-05-13] MEDS: ROSUVASTATIN 10 MG TAB (CRESTOR) PO SCH (21:18)
[2022-05-13] MEDS: traZODone 50 MG TAB PO SCH (21:18)
[2022-05-13] MEDS: PANTOPRAZOLE 40MG TAB (PROTONIX) PO SCH (21:19)
[2022-05-13] MEDS: ASCORBIC ACID 500 MG TAB PO SCH (21:19)
[2022-05-13] MEDS: **NOTE PATIENT COMMENT** MISC XX SCH (21:21)
[2022-05-14] VITALS (16 sets, daily range): BP systolic 103–135; BP diastolic 51–74; O2SAT 87–94
[2022-05-14] MEDS: LEVOTHYROXINE 125MCG TABLET (0.125MG) PO SCH (06:27)
[2022-05-14 06:32] LABS: HEMATOCRIT 39.6 % (36.0-47.0); HEMOGLOBIN 12.2 g/dl (12.0-15.5); MEAN CORPUSCULAR HEMOGLOBIN 29.8 pg (27.0-33.0); MEAN CORPUSCULAR HGB CONC 30.8 g/dl (32.0-36.5); MEAN CORPUSCULAR VOLUME 96.6 fl (80.0-96.0); PLATELET COUNT, AUTOMATED 205 10^3/uL (150-450); WHITE BLOOD COUNT 8.9 10^3/uL (4.0-10.0)
[2022-05-14 07:01] LABS: ALBUMIN 2.9 GM/DL (3.2-5.2); BILIRUBIN,TOTAL 0.6 MG/DL (0.2-1.0); CALCIUM LEVEL 9.6 MG/DL (8.8-10.2); CREATININE FOR GFR 1.06 MG/DL (0.55-1.30); GLOMERULAR FILTRATION RATE 53.8 (>39); TOTAL PROTEIN 6.3 GM/DL (6.4-8.2)
[2022-05-14] MEDS: SYMBICORT 80/4.5MCG INHALER 6GM INH SCH ×2 (07:17→19:09)
[2022-05-14] MEDS: INSULIN LISPRO (NovoLOG) PER UNIT SC SCH ×4 (07:30→21:00)
[2022-05-14] MEDS: ENOXAPARIN 40MG/0.4ML SYRINGE (J1650 PER 10MG) SC SCH (08:19)
[2022-05-14] MEDS: FERROUS SULFATE 325MG TAB PO SCH ×3 (08:19→21:00)
[2022-05-14] MEDS: ASPIRIN 81MG ENTERIC TABLET PO SCH (08:19)
[2022-05-14] MEDS: LORATADINE 10 MG TAB PO SCH (08:20)
[2022-05-14] MEDS: TORSEMIDE 20 MG TAB PO SCH (08:20)
[2022-05-14] MEDS: lisinopriL 5 MG TAB PO SCH (08:20)
[2022-05-14] MEDS: CARVedilol 3.125 MG TAB PO SCH ×2 (08:20→21:00)
[2022-05-14] MEDS: NYSTATIN 100,000 UNITS/GM TOPICAL PWD 15 GM TOP SCH ×2 (08:20→21:00)
[2022-05-14] MEDS: CLOPIDOGREL 75 MG TAB PO SCH (08:20)
[2022-05-14] MEDS: LIDOCAINE 5% (LIDODERM) PATCH TD SCH (08:21)
[2022-05-14] MEDS: LEVEMIR (INSULIN DETEMIR) 1 UNITS/0.01ML SC SCH (08:21)
[2022-05-14] MEDS ORDERED: LevoFLOXacin 500 MG TABLET PO ONE (10:00)
[2022-05-14 17:44] LABS: HEMOGLOBIN A1c 7.7 %
[2022-05-14] MEDS: **NOTE PATIENT COMMENT** MISC XX SCH (21:00)
[2022-05-14] MEDS: traZODone 50 MG TAB PO SCH (21:00)
[2022-05-14] MEDS: PANTOPRAZOLE 40MG TAB (PROTONIX) PO SCH (21:00)
[2022-05-14] MEDS: ASCORBIC ACID 500 MG TAB PO SCH (21:00)
[2022-05-14] MEDS: ROSUVASTATIN 10 MG TAB (CRESTOR) PO SCH (21:00)
[2022-05-15] VITALS (14 sets, daily range): BP systolic 91–126; BP diastolic 51–66; O2SAT 86–95
[2022-05-15 05:52] LABS: HEMATOCRIT 38.7 % (36.0-47.0); HEMOGLOBIN 11.9 g/dl (12.0-15.5); MEAN CORPUSCULAR HGB CONC 30.7 g/dl (32.0-36.5); MEAN CORPUSCULAR VOLUME 97.5 fl (80.0-96.0); PLATELET COUNT, AUTOMATED 185 10^3/uL (150-450); RED BLOOD COUNT 3.97 10^6/uL (4.00-5.40); WHITE BLOOD COUNT 8.4 10^3/uL (4.0-10.0)
[2022-05-15] MEDS: LevoFLOXacin 250 MG TABLET PO SCH (06:07)
[2022-05-15] MEDS: LEVOTHYROXINE 125MCG TABLET (0.125MG) PO SCH (06:07)
[2022-05-15 06:28] LABS: ALBUMIN 2.9 GM/DL (3.2-5.2); BILIRUBIN,TOTAL 0.5 MG/DL (0.2-1.0); CALCIUM LEVEL 9.2 MG/DL (8.8-10.2); CREATININE FOR GFR 1.17 MG/DL (0.55-1.30); POTASSIUM SERUM 3.9 MEQ/L (3.5-5.1); TOTAL PROTEIN 6.3 GM/DL (6.4-8.2)
[2022-05-15] MEDS: SYMBICORT 80/4.5MCG INHALER 6GM INH SCH ×2 (08:02→19:39)
[2022-05-15] MEDS: NYSTATIN 100,000 UNITS/GM TOPICAL PWD 15 GM TOP SCH ×2 (09:36→21:29)
[2022-05-15] MEDS: INSULIN LISPRO (NovoLOG) PER UNIT SC SCH ×4 (09:36→21:00)
[2022-05-15] MEDS: LEVEMIR (INSULIN DETEMIR) 1 UNITS/0.01ML SC SCH (09:36)
[2022-05-15] MEDS: ASPIRIN 81MG ENTERIC TABLET PO SCH (09:37)
[2022-05-15] MEDS: ENOXAPARIN 40MG/0.4ML SYRINGE (J1650 PER 10MG) SC SCH (09:37)
[2022-05-15] MEDS: FERROUS SULFATE 325MG TAB PO SCH ×3 (09:37→21:30)
[2022-05-15] MEDS: LIDOCAINE 5% (LIDODERM) PATCH TD SCH (09:37)
[2022-05-15] MEDS: TORSEMIDE 20 MG TAB PO SCH (09:38)
[2022-05-15] MEDS: CARVedilol 3.125 MG TAB PO SCH ×2 (09:38→21:29)
[2022-05-15] MEDS: CLOPIDOGREL 75 MG TAB PO SCH (09:38)
[2022-05-15] MEDS: LORATADINE 10 MG TAB PO SCH (09:38)
[2022-05-15] MEDS: lisinopriL 5 MG TAB PO SCH (09:39)
[2022-05-15] MEDS: PANTOPRAZOLE 40MG TAB (PROTONIX) PO SCH (21:29)
[2022-05-15] MEDS: ACETAMINOPHEN TAB 650MG DOSE (2X325MG) PO PRN (21:30)
[2022-05-15] MEDS: ASCORBIC ACID 500 MG TAB PO SCH (21:30)
[2022-05-15] MEDS: ROSUVASTATIN 10 MG TAB (CRESTOR) PO SCH (21:30)
[2022-05-15] MEDS: **NOTE PATIENT COMMENT** MISC XX SCH (21:33)
[2022-05-15] MEDS: traZODone 50 MG TAB PO SCH (23:00)
[2022-05-16 05:59] LABS: HEMATOCRIT 39.7 % (36.0-47.0); HEMOGLOBIN 12.3 g/dl (12.0-15.5); MEAN CORPUSCULAR VOLUME 96.8 fl (80.0-96.0); PLATELET COUNT, AUTOMATED 191 10^3/uL (150-450); WHITE BLOOD COUNT 8.2 10^3/uL (4.0-10.0)
[2022-05-16] MEDS: LevoFLOXacin 250 MG TABLET PO SCH (06:16)
[2022-05-16] MEDS: LEVOTHYROXINE 125MCG TABLET (0.125MG) PO SCH (06:16)
[2022-05-16 06:29] LABS: ALBUMIN 2.7 GM/DL (3.2-5.2); BILIRUBIN,TOTAL 0.6 MG/DL (0.2-1.0); CREATININE FOR GFR 1.06 MG/DL (0.55-1.30); GLOMERULAR FILTRATION RATE 53.8 (>39); POTASSIUM SERUM 3.3 MEQ/L (3.5-5.1); TOTAL PROTEIN 6.7 GM/DL (6.4-8.2)
[2022-05-16] MEDS: INSULIN LISPRO (NovoLOG) PER UNIT SC SCH ×4 (07:30→19:51)
[2022-05-16] MEDS: SYMBICORT 80/4.5MCG INHALER 6GM INH SCH ×2 (07:56→19:47)
[2022-05-16 08:06] VITALS: BP 127/74
[2022-05-16] MEDS: LEVEMIR (INSULIN DETEMIR) 1 UNITS/0.01ML SC SCH ×2 (09:00)
[2022-05-16] MEDS: LIDOCAINE 5% (LIDODERM) PATCH TD SCH (09:33)
[2022-05-16] MEDS: NYSTATIN 100,000 UNITS/GM TOPICAL PWD 15 GM TOP SCH ×2 (09:34→20:17)
[2022-05-16] MEDS: ENOXAPARIN 40MG/0.4ML SYRINGE (J1650 PER 10MG) SC SCH (09:34)
[2022-05-16] MEDS: CARVedilol 3.125 MG TAB PO SCH ×2 (09:35→20:16)
[2022-05-16] MEDS: LORATADINE 10 MG TAB PO SCH (09:35)
[2022-05-16] MEDS: FERROUS SULFATE 325MG TAB PO SCH ×3 (09:35→20:17)
[2022-05-16] MEDS: TORSEMIDE 20 MG TAB PO SCH (09:35)
[2022-05-16] MEDS: CLOPIDOGREL 75 MG TAB PO SCH (09:35)
[2022-05-16] MEDS: ASPIRIN 81MG ENTERIC TABLET PO SCH (09:35)
[2022-05-16] MEDS: lisinopriL 5 MG TAB PO SCH (09:35)
[2022-05-16 14:30] VITALS: BP 113/74
[2022-05-16] MEDS: ROSUVASTATIN 10 MG TAB (CRESTOR) PO SCH (20:13)
[2022-05-16] MEDS: PANTOPRAZOLE 40MG TAB (PROTONIX) PO SCH (20:14)
[2022-05-16] MEDS: traZODone 50 MG TAB PO SCH (20:17)
[2022-05-16] MEDS: ACETAMINOPHEN TAB 650MG DOSE (2X325MG) PO PRN (20:17)
[2022-05-16] MEDS: ASCORBIC ACID 500 MG TAB PO SCH (20:17)
[2022-05-16] MEDS: **NOTE PATIENT COMMENT** MISC XX SCH (20:26)
[2022-05-17] MEDS: LEVOTHYROXINE 125MCG TABLET (0.125MG) PO SCH (05:04)
[2022-05-17 06:00] VITALS: BP 142/63
[2022-05-17] MEDS: SYMBICORT 80/4.5MCG INHALER 6GM INH SCH ×2 (08:06→20:02)
[2022-05-17] MEDS ORDERED: LIDOCAINE 5% (LIDODERM) PATCH TD SCH (09:00)
[2022-05-17] MEDS: LORATADINE 10 MG TAB PO SCH (09:00)
[2022-05-17] MEDS: ASPIRIN 81MG ENTERIC TABLET PO SCH (10:07)
[2022-05-17] MEDS: FERROUS SULFATE 325MG TAB PO SCH ×3 (10:08→21:01)
[2022-05-17] MEDS: CLOPIDOGREL 75 MG TAB PO SCH (10:08)
[2022-05-17] MEDS: ACETAMINOPHEN TAB 650MG DOSE (2X325MG) PO PRN ×2 (10:08→15:12)
[2022-05-17] MEDS: lisinopriL 5 MG TAB PO SCH (10:08)
[2022-05-17] MEDS: TORSEMIDE 20 MG TAB PO SCH (10:08)
[2022-05-17] MEDS: ENOXAPARIN 40MG/0.4ML SYRINGE (J1650 PER 10MG) SC SCH (10:09)
[2022-05-17] MEDS: CARVedilol 3.125 MG TAB PO SCH ×2 (10:09→21:01)
[2022-05-17] MEDS: INSULIN LISPRO (NovoLOG) PER UNIT SC SCH ×4 (10:09→20:52)
[2022-05-17] MEDS: NYSTATIN 100,000 UNITS/GM TOPICAL PWD 15 GM TOP SCH ×2 (10:11→21:01)
[2022-05-17] MEDS: LIDOCAINE 5% (LIDODERM) PATCH TD SCH (10:14)
[2022-05-17] MEDS: LEVEMIR (INSULIN DETEMIR) 1 UNITS/0.01ML SC SCH (10:15)
[2022-05-17] MEDS: ASCORBIC ACID 500 MG TAB PO SCH (21:00)
[2022-05-17] MEDS: traZODone 50 MG TAB PO SCH (21:00)
[2022-05-17] MEDS: PANTOPRAZOLE 40MG TAB (PROTONIX) PO SCH (21:00)
[2022-05-17] MEDS: ROSUVASTATIN 10 MG TAB (CRESTOR) PO SCH (21:00)
[2022-05-17] MEDS: **NOTE PATIENT COMMENT** MISC XX SCH (21:01)
[2022-05-18] MEDS: RAMELTEON 8 MG TAB (ROZEREM) PO PRN (02:43)
[2022-05-18] MEDS: LEVOTHYROXINE 125MCG TABLET (0.125MG) PO SCH (05:31)
[2022-05-18 06:00] VITALS: BP 131/77
[2022-05-18 06:59] VITALS: O2SAT 92
[2022-05-18] MEDS: INSULIN LISPRO (NovoLOG) PER UNIT SC SCH ×5 (07:30→20:49)
[2022-05-18] MEDS: SYMBICORT 80/4.5MCG INHALER 6GM INH SCH ×2 (07:41→19:32)
[2022-05-18 08:30] VITALS: O2SAT 91
[2022-05-18] MEDS: FERROUS SULFATE 325MG TAB PO SCH ×3 (09:48→20:46)
[2022-05-18] MEDS: ENOXAPARIN 40MG/0.4ML SYRINGE (J1650 PER 10MG) SC SCH (09:48)
[2022-05-18] MEDS: CLOPIDOGREL 75 MG TAB PO SCH (09:48)
[2022-05-18] MEDS: TORSEMIDE 20 MG TAB PO SCH (09:48)
[2022-05-18] MEDS: LEVEMIR (INSULIN DETEMIR) 1 UNITS/0.01ML SC SCH (09:48)
[2022-05-18] MEDS: ASPIRIN 81MG ENTERIC TABLET PO SCH (09:48)
[2022-05-18] MEDS: LORATADINE 10 MG TAB PO SCH (09:49)
[2022-05-18] MEDS: CARVedilol 3.125 MG TAB PO SCH ×2 (09:49→20:48)
[2022-05-18] MEDS: lisinopriL 5 MG TAB PO SCH (09:49)
[2022-05-18] MEDS: NYSTATIN 100,000 UNITS/GM TOPICAL PWD 15 GM TOP SCH ×2 (09:49→20:49)
[2022-05-18] MEDS: LIDOCAINE 5% (LIDODERM) PATCH TD SCH (09:52)
[2022-05-18] MEDS ORDERED: MOM 30ML SUSPENSION UDC PO PRN (13:05)
[2022-05-18] MEDS: ROSUVASTATIN 10 MG TAB (CRESTOR) PO SCH (20:45)
[2022-05-18] MEDS: traZODone 50 MG TAB PO SCH (20:45)
[2022-05-18] MEDS: SENOKOT S TAB PO SCH (20:45)
[2022-05-18] MEDS: PANTOPRAZOLE 40MG TAB (PROTONIX) PO SCH (20:46)
[2022-05-18] MEDS: ASCORBIC ACID 500 MG TAB PO SCH (20:46)
[2022-05-18] MEDS: **NOTE PATIENT COMMENT** MISC XX SCH (20:50)
[2022-05-18] MEDS: ONDANSETRON 4MG ORAL DISINTEGRATING TAB PO PRN (20:53)
[2022-05-19 05:33] VITALS: BP 132/76
[2022-05-19] MEDS: LEVOTHYROXINE 125MCG TABLET (0.125MG) PO SCH (06:41)
[2022-05-19] MEDS: SYMBICORT 80/4.5MCG INHALER 6GM INH SCH ×2 (08:07→19:45)
[2022-05-19 08:30] LABS: HEMOGLOBIN 12.5 g/dl (12.0-15.5); MEAN CORPUSCULAR HEMOGLOBIN 31.1 pg (27.0-33.0); MEAN CORPUSCULAR HGB CONC 32.1 g/dl (32.0-36.5); PLATELET COUNT, AUTOMATED 216 10^3/uL (150-450); RED BLOOD COUNT 4.02 10^6/uL (4.00-5.40); WHITE BLOOD COUNT 10.3 10^3/uL (4.0-10.0)
[2022-05-19] MEDS: ASPIRIN 81MG ENTERIC TABLET PO SCH (08:46)
[2022-05-19] MEDS: ENOXAPARIN 40MG/0.4ML SYRINGE (J1650 PER 10MG) SC SCH (08:46)
[2022-05-19] MEDS: TORSEMIDE 20 MG TAB PO SCH (08:47)
[2022-05-19] MEDS: CARVedilol 3.125 MG TAB PO SCH ×2 (08:47→21:33)
[2022-05-19] MEDS: CLOPIDOGREL 75 MG TAB PO SCH (08:47)
[2022-05-19] MEDS: LORATADINE 10 MG TAB PO SCH (08:48)
[2022-05-19] MEDS: SENOKOT S TAB PO SCH ×2 (08:48→21:30)
[2022-05-19] MEDS: lisinopriL 5 MG TAB PO SCH (08:49)
[2022-05-19] MEDS: FERROUS SULFATE 325MG TAB PO SCH ×3 (08:49→21:29)
[2022-05-19] MEDS: LIDOCAINE 5% (LIDODERM) PATCH TD SCH (08:50)
[2022-05-19] MEDS: LEVEMIR (INSULIN DETEMIR) 1 UNITS/0.01ML SC SCH (08:51)
[2022-05-19] MEDS: INSULIN LISPRO (NovoLOG) PER UNIT SC SCH ×4 (08:52→21:00)
[2022-05-19 08:57] LABS: ALBUMIN 2.8 GM/DL (3.2-5.2); BILIRUBIN,TOTAL 0.6 MG/DL (0.2-1.0); CALCIUM LEVEL 9.4 MG/DL (8.8-10.2); CREATININE FOR GFR 1.16 MG/DL (0.55-1.30); GLOMERULAR FILTRATION RATE 48.5 (>39); POTASSIUM SERUM 3.5 MEQ/L (3.5-5.1); TOTAL PROTEIN 7.6 GM/DL (6.4-8.2)
[2022-05-19] MEDS: NYSTATIN 100,000 UNITS/GM TOPICAL PWD 15 GM TOP SCH ×2 (09:01→21:34)
[2022-05-19 10:17] VITALS: O2SAT 90
[2022-05-19] MEDS: ONDANSETRON 4MG ORAL DISINTEGRATING TAB PO PRN (11:31)
[2022-05-19] MEDS: ACETAMINOPHEN TAB 650MG DOSE (2X325MG) PO PRN (11:31)
[2022-05-19] MEDS: ASCORBIC ACID 500 MG TAB PO SCH (21:29)
[2022-05-19] MEDS: RAMELTEON 8 MG TAB (ROZEREM) PO PRN (21:30)
[2022-05-19] MEDS: ROSUVASTATIN 10 MG TAB (CRESTOR) PO SCH (21:30)
[2022-05-19] MEDS: traZODone 50 MG TAB PO SCH (21:30)
[2022-05-19] MEDS: PANTOPRAZOLE 40MG TAB (PROTONIX) PO SCH (21:30)
[2022-05-19] MEDS: **NOTE PATIENT COMMENT** MISC XX SCH (21:34)
[2022-05-20] VITALS (10 sets, daily range): BP systolic 78–125; BP diastolic 40–67; O2SAT 90–92
[2022-05-20] MEDS: LEVOTHYROXINE 125MCG TABLET (0.125MG) PO SCH (06:12)
[2022-05-20] MEDS: ACETAMINOPHEN TAB 650MG DOSE (2X325MG) PO PRN ×2 (06:12→23:15)
[2022-05-20 06:15] LABS: HEMATOCRIT 39.8 % (36.0-47.0); HEMOGLOBIN 12.3 g/dl (12.0-15.5); MEAN CORPUSCULAR HEMOGLOBIN 29.8 pg (27.0-33.0); MEAN CORPUSCULAR HGB CONC 30.9 g/dl (32.0-36.5); MEAN CORPUSCULAR VOLUME 96.4 fl (80.0-96.0); PLATELET COUNT, AUTOMATED 237 10^3/uL (150-450); RED BLOOD COUNT 4.13 10^6/uL (4.00-5.40); WHITE BLOOD COUNT 11.5 10^3/uL (4.0-10.0)
[2022-05-20 07:09] LABS: CREATININE FOR GFR 1.12 MG/DL (0.55-1.30); GLOMERULAR FILTRATION RATE 50.5 (>39)
[2022-05-20 07:10] LABS: ALBUMIN 2.7 GM/DL (3.2-5.2); BILIRUBIN,TOTAL 0.6 MG/DL (0.2-1.0); CALCIUM LEVEL 9.4 MG/DL (8.8-10.2); POTASSIUM SERUM 3.5 MEQ/L (3.5-5.1); TOTAL PROTEIN 7.6 GM/DL (6.4-8.2)
[2022-05-20] MEDS: INSULIN LISPRO (NovoLOG) PER UNIT SC SCH ×4 (07:30→21:00)
[2022-05-20] MEDS: SYMBICORT 80/4.5MCG INHALER 6GM INH SCH ×2 (07:36→20:16)
[2022-05-20] MEDS: LIDOCAINE 5% (LIDODERM) PATCH TD SCH (08:39)
[2022-05-20] MEDS: LORATADINE 10 MG TAB PO SCH (08:40)
[2022-05-20] MEDS: ENOXAPARIN 40MG/0.4ML SYRINGE (J1650 PER 10MG) SC SCH (08:40)
[2022-05-20] MEDS: CLOPIDOGREL 75 MG TAB PO SCH (08:40)
[2022-05-20] MEDS: SENOKOT S TAB PO SCH ×2 (08:40→21:21)
[2022-05-20] MEDS: FERROUS SULFATE 325MG TAB PO SCH ×3 (08:40→21:22)
[2022-05-20] MEDS: lisinopriL 5 MG TAB PO SCH (08:41)
[2022-05-20] MEDS: ASPIRIN 81MG ENTERIC TABLET PO SCH (08:42)
[2022-05-20] MEDS: TORSEMIDE 20 MG TAB PO SCH ×2 (08:42→09:00)
[2022-05-20] MEDS: LEVEMIR (INSULIN DETEMIR) 1 UNITS/0.01ML SC SCH (08:52)
[2022-05-20] MEDS: CARVedilol 3.125 MG TAB PO SCH (09:00)
[2022-05-20] MEDS: NYSTATIN 100,000 UNITS/GM TOPICAL PWD 15 GM TOP SCH ×2 (09:11→21:22)
[2022-05-20] MEDS ORDERED: NS 1,000 ML IV ONE (10:55)
[2022-05-20 11:22] LABS: ABG BASE EXCESS 4.2 (-2.0-2.0); ABG HCO3 28.7 MEQ/L (22.0-26.0); ABG O2 SATURATION 90.1 % (95.0-99.0); ABG PARTIAL PRESSURE CO2 42.7 mmHg (35.0-45.0); ABG PARTIAL PRESSURE O2 54.6 mmHg (75.0-100.0); ABG STANDARD HCO3 28.1 MEQ/L (22.0-26.0); ABG TOTAL CO2 30.1 MEQ/L (23.0-31.0); ABG pH (ARTERIAL) 7.446 UNITS (7.350-7.450)
[2022-05-20] MEDS: **NOTE PATIENT COMMENT** MISC XX SCH (21:16)
[2022-05-20] MEDS: RAMELTEON 8 MG TAB (ROZEREM) PO PRN (21:21)
[2022-05-20] MEDS: ROSUVASTATIN 10 MG TAB (CRESTOR) PO SCH (21:21)
[2022-05-20] MEDS: ASCORBIC ACID 500 MG TAB PO SCH (21:22)
[2022-05-20] MEDS: traZODone 50 MG TAB PO SCH (21:22)
[2022-05-20] MEDS: PANTOPRAZOLE 40MG TAB (PROTONIX) PO SCH (21:22)
[2022-05-21 05:54] VITALS: BP 115/52
[2022-05-21 06:00] VITALS: O2SAT 90
[2022-05-21 06:10] LABS: HEMOGLOBIN 11.2 g/dl (12.0-15.5); MEAN CORPUSCULAR HEMOGLOBIN 29.7 pg (27.0-33.0); MEAN CORPUSCULAR HGB CONC 31.1 g/dl (32.0-36.5); MEAN CORPUSCULAR VOLUME 95.5 fl (80.0-96.0); PLATELET COUNT, AUTOMATED 210 10^3/uL (150-450); RED BLOOD COUNT 3.77 10^6/uL (4.00-5.40); WHITE BLOOD COUNT 10.2 10^3/uL (4.0-10.0)
[2022-05-21] MEDS: LEVOTHYROXINE 125MCG TABLET (0.125MG) PO SCH (06:14)
[2022-05-21 06:36] LABS: ALBUMIN 2.5 GM/DL (3.2-5.2); BILIRUBIN,TOTAL 0.4 MG/DL (0.2-1.0); CALCIUM LEVEL 8.8 MG/DL (8.8-10.2); CREATININE FOR GFR 0.97 MG/DL (0.55-1.30); GLOMERULAR FILTRATION RATE 59.6 (>39); POTASSIUM SERUM 3.6 MEQ/L (3.5-5.1); TOTAL PROTEIN 6.3 GM/DL (6.4-8.2)
[2022-05-21] MEDS: SYMBICORT 80/4.5MCG INHALER 6GM INH SCH ×2 (07:30→19:49)
[2022-05-21] MEDS: INSULIN LISPRO (NovoLOG) PER UNIT SC SCH ×4 (08:28→21:00)
[2022-05-21] MEDS: LEVEMIR (INSULIN DETEMIR) 1 UNITS/0.01ML SC SCH (08:29)
[2022-05-21] MEDS: CARVedilol 3.125 MG TAB PO SCH ×2 (08:30→20:14)
[2022-05-21] MEDS: FERROUS SULFATE 325MG TAB PO SCH ×3 (08:30→20:14)
[2022-05-21] MEDS: LORATADINE 10 MG TAB PO SCH (08:30)
[2022-05-21] MEDS: ENOXAPARIN 40MG/0.4ML SYRINGE (J1650 PER 10MG) SC SCH (08:30)
[2022-05-21] MEDS: ASPIRIN 81MG ENTERIC TABLET PO SCH (08:30)
[2022-05-21] MEDS: CLOPIDOGREL 75 MG TAB PO SCH (08:31)
[2022-05-21] MEDS: LIDOCAINE 5% (LIDODERM) PATCH TD SCH (08:31)
[2022-05-21] MEDS: lisinopriL 5 MG TAB PO SCH (08:31)
[2022-05-21] MEDS: SENOKOT S TAB PO SCH ×2 (08:32→20:13)
[2022-05-21] MEDS: NYSTATIN 100,000 UNITS/GM TOPICAL PWD 15 GM TOP SCH ×2 (08:32→20:15)
[2022-05-21] MEDS: ACETAMINOPHEN TAB 650MG DOSE (2X325MG) PO PRN (12:02)
[2022-05-21 14:00] VITALS: BP 116/69
[2022-05-21] MEDS: traZODone 50 MG TAB PO SCH (20:13)
[2022-05-21] MEDS: ASCORBIC ACID 500 MG TAB PO SCH (20:13)
[2022-05-21] MEDS: PANTOPRAZOLE 40MG TAB (PROTONIX) PO SCH (20:13)
[2022-05-21] MEDS: ROSUVASTATIN 10 MG TAB (CRESTOR) PO SCH (20:13)
[2022-05-21] MEDS: RAMELTEON 8 MG TAB (ROZEREM) PO PRN (20:14)
[2022-05-21] MEDS: **NOTE PATIENT COMMENT** MISC XX SCH (20:15)
[2022-05-22 01:05] VITALS: O2SAT 90
[2022-05-22] MEDS: LEVOTHYROXINE 125MCG TABLET (0.125MG) PO SCH (05:18)
[2022-05-22 06:00] VITALS: BP 143/70
[2022-05-22 06:29] LABS: HEMOGLOBIN 11.1 g/dl (12.0-15.5); MEAN CORPUSCULAR HEMOGLOBIN 30.9 pg (27.0-33.0); MEAN CORPUSCULAR HGB CONC 31.7 g/dl (32.0-36.5); MEAN CORPUSCULAR VOLUME 97.5 fl (80.0-96.0); PLATELET COUNT, AUTOMATED 213 10^3/uL (150-450); RED BLOOD COUNT 3.59 10^6/uL (4.00-5.40); WHITE BLOOD COUNT 9.3 10^3/uL (4.0-10.0)
[2022-05-22 06:55] LABS: BLOOD UREA NITROGEN 21 MG/DL (7-18); CREATININE FOR GFR 0.86 MG/DL (0.55-1.30); GLUCOSE, FASTING 139 MG/DL (70-100)
[2022-05-22 06:56] LABS: ALBUMIN 2.5 GM/DL (3.2-5.2); ALT/SGPT 18 U/L (12-78); BILIRUBIN,TOTAL 0.5 MG/DL (0.2-1.0); CARBON DIOXIDE LEVEL 35 MEQ/L (21-32); CHLORIDE LEVEL 100 MEQ/L (98-107); GLOMERULAR FILTRATION RATE > 60.0 (>39); POTASSIUM SERUM 3.6 MEQ/L (3.5-5.1); SODIUM LEVEL 137 MEQ/L (136-145); TOTAL PROTEIN 6.6 GM/DL (6.4-8.2)
[2022-05-22] MEDS: SYMBICORT 80/4.5MCG INHALER 6GM INH SCH ×2 (07:36→19:27)
[2022-05-22] MEDS: INSULIN LISPRO (NovoLOG) PER UNIT SC SCH ×4 (08:16→21:00)
[2022-05-22] MEDS: LIDOCAINE 5% (LIDODERM) PATCH TD SCH (08:16)
[2022-05-22] MEDS: ENOXAPARIN 40MG/0.4ML SYRINGE (J1650 PER 10MG) SC SCH (08:17)
[2022-05-22] MEDS: FERROUS SULFATE 325MG TAB PO SCH ×3 (08:17→20:09)
[2022-05-22] MEDS: CLOPIDOGREL 75 MG TAB PO SCH (08:17)
[2022-05-22] MEDS: ASPIRIN 81MG ENTERIC TABLET PO SCH (08:17)
[2022-05-22] MEDS: CARVedilol 3.125 MG TAB PO SCH ×2 (08:17→20:10)
[2022-05-22] MEDS: lisinopriL 5 MG TAB PO SCH (08:18)
[2022-05-22] MEDS: SENOKOT S TAB PO SCH ×2 (08:18→20:09)
[2022-05-22] MEDS: LORATADINE 10 MG TAB PO SCH (08:18)
[2022-05-22] MEDS: NYSTATIN 100,000 UNITS/GM TOPICAL PWD 15 GM TOP SCH ×2 (08:19→21:44)
[2022-05-22] MEDS: LEVEMIR (INSULIN DETEMIR) 1 UNITS/0.01ML SC SCH (08:19)
[2022-05-22] MEDS: ROSUVASTATIN 10 MG TAB (CRESTOR) PO SCH (20:09)
[2022-05-22] MEDS: traZODone 50 MG TAB PO SCH (20:09)
[2022-05-22] MEDS: PANTOPRAZOLE 40MG TAB (PROTONIX) PO SCH (20:09)
[2022-05-22] MEDS: ASCORBIC ACID 500 MG TAB PO SCH (20:09)
[2022-05-22] MEDS: RAMELTEON 8 MG TAB (ROZEREM) PO PRN (20:09)
[2022-05-22] MEDS: **NOTE PATIENT COMMENT** MISC XX SCH (21:00)
[2022-05-23] MEDS: ACETAMINOPHEN TAB 650MG DOSE (2X325MG) PO PRN (02:06)
[2022-05-23] MEDS: LEVOTHYROXINE 125MCG TABLET (0.125MG) PO SCH (05:28)
[2022-05-23 06:00] VITALS: BP 124/61
[2022-05-23] MEDS: SYMBICORT 80/4.5MCG INHALER 6GM INH SCH (06:42)
[2022-05-23 07:32] LABS: HEMATOCRIT 35.1 % (36.0-47.0); MEAN CORPUSCULAR HEMOGLOBIN 30.6 pg (27.0-33.0); MEAN CORPUSCULAR HGB CONC 31.3 g/dl (32.0-36.5); MEAN CORPUSCULAR VOLUME 97.8 fl (80.0-96.0); PLATELET COUNT, AUTOMATED 227 10^3/uL (150-450); RED BLOOD COUNT 3.59 10^6/uL (4.00-5.40); WHITE BLOOD COUNT 8.6 10^3/uL (4.0-10.0)
[2022-05-23 07:54] LABS: ALBUMIN 2.4 GM/DL (3.2-5.2); ALT/SGPT 15 U/L (12-78); BILIRUBIN,TOTAL 0.4 MG/DL (0.2-1.0); BLOOD UREA NITROGEN 20 MG/DL (7-18); CALCIUM LEVEL 9.2 MG/DL (8.8-10.2); CARBON DIOXIDE LEVEL 30 MEQ/L (21-32); CHLORIDE LEVEL 102 MEQ/L (98-107); CREATININE FOR GFR 0.83 MG/DL (0.55-1.30); GLOMERULAR FILTRATION RATE > 60.0 (>39); GLUCOSE, FASTING 133 MG/DL (70-100); POTASSIUM SERUM 3.7 MEQ/L (3.5-5.1); SODIUM LEVEL 139 MEQ/L (136-145); TOTAL PROTEIN 6.4 GM/DL (6.4-8.2)
[2022-05-23] MEDS: INSULIN LISPRO (NovoLOG) PER UNIT SC SCH (08:41)
[2022-05-23] MEDS: ENOXAPARIN 40MG/0.4ML SYRINGE (J1650 PER 10MG) SC SCH (08:41)
[2022-05-23] MEDS: LEVEMIR (INSULIN DETEMIR) 1 UNITS/0.01ML SC SCH (08:41)
[2022-05-23] MEDS: lisinopriL 5 MG TAB PO SCH (08:42)
[2022-05-23] MEDS: LORATADINE 10 MG TAB PO SCH (08:42)
[2022-05-23] MEDS: LIDOCAINE 5% (LIDODERM) PATCH TD SCH (08:42)
[2022-05-23 08:43] VITALS: BP 142/68
[2022-05-23] MEDS: ASPIRIN 81MG ENTERIC TABLET PO SCH (08:43)
[2022-05-23] MEDS: CARVedilol 3.125 MG TAB PO SCH (08:43)
[2022-05-23] MEDS: CLOPIDOGREL 75 MG TAB PO SCH (08:43)
[2022-05-23] MEDS: FERROUS SULFATE 325MG TAB PO SCH (08:43)
[2022-05-23] MEDS: NYSTATIN 100,000 UNITS/GM TOPICAL PWD 15 GM TOP SCH (08:44)
[2022-05-23] MEDS: SENOKOT S TAB PO SCH (08:44)
[2022-05-23] MEDS ORDERED: TOUJ1.2I SC (08:48)
[2022-05-23] MEDS ORDERED: LIDO5TD TD (08:48)
== END 2022-05-23 10:09 | DRG 689 ==
LOC: M ED 22:45 → EDBD 22:45 → M ED INP 22:46 → M PCU 05-13 05:37 → OBSVTOIN 05-14 07:12 → M MSPAV 05-16 14:27
PROVIDERS: ADMIT Internal Medicine; ATTEND Internal Medicine
DX: N39.0 Urinary tract infection, site not specified (principal); J96.21 Acute and chronic respiratory failure with hypoxia; I50.22 Chronic systolic (congestive) heart failure; I13.0 Hypertensive heart and chronic kidney disease with heart failure and stage 1 through stage 4 chronic kidney disease, or unspecified chronic kidney disease; J98.11 Atelectasis; E11.22 Type 2 diabetes mellitus with diabetic chronic kidney disease; J44.9 Chronic obstructive pulmonary disease, unspecified; Z99.81 Dependence on supplemental oxygen; S60.212A Contusion of left wrist, initial encounter; W01.0XXA Fall on same level from slipping, tripping and stumbling without subsequent striking against object, initial encounter; Y92.009 Unspecified place in unspecified non-institutional (private) residence as the place of occurrence of the external cause; D72.829 Elevated white blood cell count, unspecified; R26.0 Ataxic gait; R07.89 Other chest pain; Z95.0 Presence of cardiac pacemaker; I25.10 Atherosclerotic heart disease of native coronary artery without angina pectoris; E78.5 Hyperlipidemia, unspecified; K21.9 Gastro-esophageal reflux disease without esophagitis; R91.1 Solitary pulmonary nodule; Z66 Do not resuscitate; Z20.822 Contact with and (suspected) exposure to COVID-19; Z87.891 Personal history of nicotine dependence; I27.20 Pulmonary hypertension, unspecified; I95.9 Hypotension, unspecified; T50.1X5A Adverse effect of loop [high-ceiling] diuretics, initial encounter; E03.9 Hypothyroidism, unspecified; Z79.890 Hormone replacement therapy; Z79.82 Long term (current) use of aspirin; Z79.4 Long term (current) use of insulin; Z79.899 Other long term (current) drug therapy; Z88.1 Allergy status to other antibiotic agents; Z88.2 Allergy status to sulfonamides; Z88.5 Allergy status to narcotic agent; Z88.8 Allergy status to other drugs, medicaments and biological substances; Z98.41 Cataract extraction status, right eye; Z98.42 Cataract extraction status, left eye; Z86.73 Personal history of transient ischemic attack (TIA), and cerebral infarction without residual deficits; Z95.5 Presence of coronary angioplasty implant and graft; N18.9 Chronic kidney disease, unspecified; F41.9 Anxiety disorder, unspecified; Z85.828 Personal history of other malignant neoplasm of skin; Z90.49 Acquired absence of other specified parts of digestive tract; Z90.79 Acquired absence of other genital organ(s)

== ENCOUNTER → 2023-08-13 | Outpatient (REF) | payer MEDICARE, MEDICAID ==
[~2023-08-13] MED LIST changes: +CLOP75TA99 PO; +DIPH-435 PO; -DIPH25CA32 PO; +DULA3PEN SC; -K-TA10TA2 PO; +LIDO5TD TD; +NYST-13 EXT; -NYST10CR EXT; -PLAV1TAB2 PO; +POTA-165 PO; +POTA-298 PO; -POTA1TAB14 PO; +SENN-134 PO; -SENN1TAB89 PO; +TRAZ1TAB14 PO
== END ==
LOC: M SFHCDERM 12:37
PROVIDERS: ATTEND Physician Assistant
DX: C44.41 Basal cell carcinoma of skin of scalp and neck (principal)

== ENCOUNTER → 2023-08-28 | Outpatient (REF) | payer MEDICARE, MEDICAID ==
[2023-08-28 12:45] LABS: BASO # 0.1 10^3/uL (0.0-0.2); BASO % 0.5 % (0.0-1.0); EOS # 0.3 10^3/uL (0.0-0.5); EOS % 2.7 % (0.0-3.0); HEMATOCRIT 38.7 % (36.0-47.0); HEMOGLOBIN 12.1 g/dl (12.0-15.5); LYMPH # 1.1 10^3/uL (1.5-5.0); LYMPH % 10.4 % (24.0-44.0); MEAN CORPUSCULAR HEMOGLOBIN 28.1 pg (27.0-33.0); MEAN CORPUSCULAR HGB CONC 31.3 g/dl (32.0-36.5); MEAN CORPUSCULAR VOLUME 89.8 fl (80.0-96.0); MONO # 1.1 10^3/uL (0.0-0.8); MONO % 10.7 % (2.0-8.0); NEUTROPHILS # 7.9 10^3/uL (1.5-8.5); NEUTROPHILS % 75.3 % (36.0-66.0); PLATELET COUNT, AUTOMATED 225 10^3/uL (150-450); RED BLOOD COUNT 4.31 10^6/uL (4.00-5.40); WHITE BLOOD COUNT 10.5 10^3/uL (4.0-10.0)
[2023-08-28 12:55] LABS: APPEARANCE, URINE CLEAR (CLEAR); BACTERIA, URINE AUTO NEGATIVE (NEGATIVE); BILIRUBIN, URINE AUTO NEGATIVE (NEGATIVE); BLOOD, URINE BLOOD NEGATIVE (NEGATIVE); COLOR, URINE YELLOW (YELLOW); GLUCOSE, URINE (UA) AUTO NEGATIVE (NEGATIVE); KETONE, URINE AUTO NEGATIVE (NEGATIVE); LEUKOCYTE ESTERASE, URINE AUTO TRACE (NEGATIVE); MUCUS, URINE SMALL (NEGATIVE); NITRITE, URINE AUTO NEGATIVE (NEGATIVE); PROTEIN, URINE AUTO 1+ mg/dL (NEGATIVE); RBC, URINE AUTO 2 /HPF (0-3); SPECIFIC GRAVITY URINE AUTO 1.017 (1.002-1.035); SQUAMOUS EPITHELIAL CELL UR AU 1 /HPF (0-6); UROBILINOGEN, URINE AUTO 0.2 mg/dL (0.0-2.0); WBC, URINE AUTO 10 /HPF (0-3)
[2023-08-28 12:58] LABS: CREATININE, URINE 65.7 MG/DL; MAU/CREAT RATIO 264.8 MCG/MG (0.0-30.0)
[2023-08-28 13:13] LABS: ALBUMIN 3.3 G/DL (3.2-5.2); ALKALINE PHOSPHATASE 83 U/L (46-116); ALT/SGPT 15 U/L (7.0-40); AST/SGOT < 8 U/L (<34); BILIRUBIN,TOTAL 0.4 MG/DL (0.3-1.2); BLOOD UREA NITROGEN 22 MG/DL (9-23); CARBON DIOXIDE LEVEL 31 MMOL/L (20-31); CHLORIDE LEVEL 104 MMOL/L (98-107); CHOLESTEROL LEVEL 146 MG/DL (<200); CHOLESTEROL RISK RATIO 3.13 (<5); CREATININE FOR GFR 1.01 MG/DL (0.55-1.30); GLOMERULAR FILTRATION RATE 56.7 (>39); GLUCOSE, FASTING 149 MG/DL (74-106); HDL CHOLESTEROL 46.5 MG/DL (>40); LDL CHOLESTEROL 77.9 MG/DL (<100); NON-HDL-C 99.5 MG/DL; POTASSIUM SERUM 4.1 MMOL/L (3.5-5.1); SODIUM LEVEL 140 MMOL/L (136-145); TOTAL PROTEIN 6.9 G/DL (5.7-8.2); TRIGLYCERIDES LEVEL 108 MG/DL (<150)
[2023-08-28 13:19] LABS: HEMOGLOBIN A1c 8.6 % (4.0-6.0)
== END ==
LOC: M SFHCCLAY 07:24
PROVIDERS: ATTEND Family Medicine
DX: E11.9 Type 2 diabetes mellitus without complications (principal); E03.9 Hypothyroidism, unspecified; I50.33 Acute on chronic diastolic (congestive) heart failure; K74.60 Unspecified cirrhosis of liver

== ENCOUNTER 2023-11-05 12:50 | Inpatient (IN) | payer MEDICARE, MEDICAID ==
[~2023-11-05] VITALS: Ht 157.5 cm; Wt 95.5 kg
[~2023-11-05 12:50] MED LIST changes: -BASA100I SQ; -NOVOINJ3 SQ; -POTA-298 SQ; -PROA1AER2 INH; -SEMA1PEN2 SQ; -SYNT100T PO; -VITA500T9 PO
[2023-11-05 13:58] LABS: BASO % 0.3 % (0.0-1.0); EOS # 0.2 10^3/uL (0.0-0.5); EOS % 2.2 % (0.0-3.0); HEMATOCRIT 28.3 % (36.0-47.0); HEMOGLOBIN 7.2 g/dl (12.0-15.5); LYMPH # 0.8 10^3/uL (1.5-5.0); LYMPH % 8.5 % (24.0-44.0); MEAN CORPUSCULAR HEMOGLOBIN 19.9 pg (27.0-33.0); MEAN CORPUSCULAR HGB CONC 25.4 g/dl (32.0-36.5); MEAN CORPUSCULAR VOLUME 78.4 fl (80.0-96.0); MONO % 10.7 % (2.0-8.0); NEUTROPHILS # 7.2 10^3/uL (1.5-8.5); NEUTROPHILS % 77.9 % (36.0-66.0); PLATELET COUNT, AUTOMATED 238 10^3/uL (150-450); RED BLOOD COUNT 3.61 10^6/uL (4.00-5.40); WHITE BLOOD COUNT 9.3 10^3/uL (4.0-10.0)
[2023-11-05 14:23] LABS: ALBUMIN 3.1 G/DL (3.2-5.2); ALKALINE PHOSPHATASE 72 U/L (46-116); ALT/SGPT 11 U/L (7.0-40); AST/SGOT < 8 U/L (<34); BILIRUBIN,DIRECT 0.3 MG/DL (<0.4); BILIRUBIN,TOTAL 0.7 MG/DL (0.3-1.2); BLOOD UREA NITROGEN 29 MG/DL (9-23); CALCIUM LEVEL 8.6 MG/DL (8.3-10.6); CARBON DIOXIDE LEVEL 27 MMOL/L (20-31); CHLORIDE LEVEL 105 MMOL/L (98-107); CREATININE FOR GFR 1.24 MG/DL (0.55-1.30); GLOMERULAR FILTRATION RATE 44.8 (>39); GLUCOSE, FASTING 182 MG/DL (74-106); POTASSIUM SERUM 4.8 MMOL/L (3.5-5.1); SODIUM LEVEL 138 MMOL/L (136-145); TOTAL PROTEIN 7.1 G/DL (5.7-8.2)
[2023-11-05] MEDS ORDERED: LABETALOL 100MG/20ML VIAL IV STA (14:34)
[2023-11-05] MEDS ORDERED: ISOVUE-370 76% 100ML VIAL As Ordered ONE (14:45)
[2023-11-05 14:59] LABS: FREE T4 0.81 NG/DL (0.89-1.76); THYROID STIMULATING HORMONE 14.028 uIU/ML (0.55-4.78)
[2023-11-05] MEDS ORDERED: FUROSEMIDE 40MG/4ML VIAL IV ONE (15:00)
[2023-11-05 15:08] LABS: CPK CREATINE PHOSPHOKINASE 52 U/L (34-145); MB/CK RELATIVE INDEX 1.92 (< OR =4)
[2023-11-05 15:44] LABS: INR 1.33; PROTHROMBIN TIME 16.1 SECONDS (12.5-14.5)
[2023-11-05 15:46] LABS: PARTIAL THROMBOPLASTIN TIME 29.9 SECONDS (24.8-34.2)
[2023-11-05 15:52] LABS: RSV AMPLIFICATION NEGATIVE (NEGATIVE)
[2023-11-05] MEDS ORDERED: MAALOX 30 ML SUSP *UDC PO PRN (17:15)
[2023-11-05] MEDS ORDERED: hydrALAZINE 20MG/ML 1ML VIAL IV PRN (17:15)
[2023-11-05] MEDS ORDERED: MOM 30ML SUSPENSION UDC PO PRN (17:15)
[2023-11-05] MEDS ORDERED: DEXTROSE 50% 50ML SYRINGE IV PRN (17:35)
[2023-11-05] MEDS ORDERED: GLUCOSE 4GM CHEW TABLET PO PRN (17:35)
[2023-11-05] MEDS ORDERED: GLUCAGON INJ 1MG VIAL SC PRN (17:35)
[2023-11-05] MEDS ORDERED: SYNT100T PO (18:45)
[2023-11-05] MEDS ORDERED: PROA1AER2 INH (18:45)
[2023-11-05 18:47] LABS: PERCENT SATURATION 3.6 % (13.2-45.0)
[2023-11-05 18:49] LABS: FOLATE 19.23 NG/ML (>5.4)
[2023-11-05 18:50] LABS: FERRITIN 7.2 NG/ML (7.3-270.7)
[2023-11-05] MEDS ORDERED: POTA-298 SQ (18:59)
[2023-11-05] MEDS ORDERED: NOVOINJ3 SQ (18:59)
[2023-11-05] MEDS ORDERED: VITA500T9 PO (18:59)
[2023-11-05] MEDS ORDERED: TORS20TA2 PO (18:59)
[2023-11-05] MEDS ORDERED: SEMA1PEN2 SQ (19:04)
[2023-11-05] MEDS ORDERED: BASA100I SQ (19:22)
[2023-11-05] MEDS ORDERED: HOME MED LIST COMPLETE! XX SCH (19:25)
[2023-11-05] MEDS ORDERED: NYSTATIN 100,000 UNITS/GM TOPICAL PWD 15GM TOP PRN (19:35)
[2023-11-05] MEDS ORDERED: NITROGLYCERIN 0.4MG SUBL TABLET SL PRN (19:35)
[2023-11-05] MEDS ORDERED: ALBUTEROL SULFATE 2.5MG/0.5ML INH NEB SOLN INH PRN (19:35)
[2023-11-05] MEDS ORDERED: SENOKOT S TAB PO PRN (19:35)
[2023-11-05] MEDS: SYMBICORT 80/4.5MCG INHALER 6GM INH SCH (20:00)
[2023-11-05] MEDS: INSULIN LISPRO (NovoLOG) PER UNIT SC SCH (21:00)
[2023-11-05] MEDS: traZODone 50 MG TAB PO SCH (21:36)
[2023-11-05] MEDS: ROSUVASTATIN 10 MG TAB (CRESTOR) PO SCH (21:37)
[2023-11-05] MEDS: CARVedilol 3.125 MG TAB PO SCH (21:37)
[2023-11-05] MEDS: DOCUSATE SODIUM 100MG CAPSULE PO SCH (21:38)
[2023-11-05] MEDS: LEVEMIR (INSULIN DETEMIR) 1 UNITS/0.01ML SC SCH (21:40)
[2023-11-05 22:16] VITALS: BP 130/61; TEMP 97.6; O2SAT 94
[2023-11-05] MEDS ORDERED: FUROSEMIDE 40MG/4ML VIAL IV SCH (23:00)
[2023-11-05 23:05] VITALS: BP 120/58; TEMP 97.8; O2SAT 98
[2023-11-06] VITALS (14 sets, daily range): BP systolic 105–158; BP diastolic 49–67; TEMP 97.2–98.9; O2SAT 2–95
[2023-11-06] MEDS ORDERED: LEVOTHYROXINE 100MCG TABLET (0.1MG) PO SCH (06:00)
[2023-11-06] MEDS: INSULIN LISPRO (NovoLOG) PER UNIT SC SCH ×4 (07:30→20:10)
[2023-11-06] MEDS: SYMBICORT 80/4.5MCG INHALER 6GM INH SCH ×2 (07:44→19:31)
[2023-11-06 09:40] LABS: CALCIUM LEVEL 8.2 MG/DL (8.3-10.6); CREATININE FOR GFR 1.2 MG/DL (0.55-1.30); GLOMERULAR FILTRATION RATE 46.5 (>39); MAGNESIUM LEVEL 2.1 MG/DL (1.8-2.4); POTASSIUM SERUM 3.8 MMOL/L (3.5-5.1)
[2023-11-06 10:09] LABS: BASO % 0.2 % (0.0-1.0); EOS # 0.3 10^3/uL (0.0-0.5); EOS % 2.8 % (0.0-3.0); HEMATOCRIT 34.4 % (36.0-47.0); LYMPH # 0.7 10^3/uL (1.5-5.0); MEAN CORPUSCULAR HEMOGLOBIN 22.1 pg (27.0-33.0); MEAN CORPUSCULAR HGB CONC 27.6 g/dl (32.0-36.5); MONO # 1.3 10^3/uL (0.0-0.8); MONO % 14.1 % (2.0-8.0); NEUTROPHILS # 7.1 10^3/uL (1.5-8.5); NEUTROPHILS % 75.3 % (36.0-66.0); PLATELET COUNT, AUTOMATED 174 10^3/uL (150-450); WHITE BLOOD COUNT 9.4 10^3/uL (4.0-10.0)
[2023-11-06 10:17] LABS: HEMOGLOBIN 9.5 g/dl (12.0-15.5)
[2023-11-06] MEDS: CARVedilol 3.125 MG TAB PO SCH ×2 (11:38→20:10)
[2023-11-06] MEDS: LORATADINE 10 MG TAB PO SCH (11:38)
[2023-11-06] MEDS: PANTOPRAZOLE 40MG TAB (PROTONIX) PO SCH (11:38)
[2023-11-06] MEDS: DOCUSATE SODIUM 100MG CAPSULE PO SCH ×2 (11:38→20:09)
[2023-11-06] MEDS: ASCORBIC ACID 500 MG TAB PO SCH (11:38)
[2023-11-06] MEDS: CLOPIDOGREL 75 MG TAB PO SCH (11:38)
[2023-11-06] MEDS: lisinopriL 5 MG TAB PO SCH (11:39)
[2023-11-06] MEDS ORDERED: FUROSEMIDE 40MG/4ML VIAL IV SCH (12:00)
[2023-11-06] MEDS: FUROSEMIDE 40MG/4ML VIAL IV SCH ×2 (14:30→21:04)
[2023-11-06] MEDS: HEPARIN SOD (PORCINE) 5000UNITS/ML 1ML VIAL/SYRINGE SQ SCH ×2 (14:36→21:05)
[2023-11-06] MEDS: ROSUVASTATIN 10 MG TAB (CRESTOR) PO SCH (20:09)
[2023-11-06] MEDS: LEVEMIR (INSULIN DETEMIR) 1 UNITS/0.01ML SC SCH (20:09)
[2023-11-06] MEDS: traZODone 50 MG TAB PO SCH (20:10)
[2023-11-07 01:08] VITALS: BP 121/57; TEMP 97.6; O2SAT 97
[2023-11-07 04:00] VITALS: BP 123/57; TEMP 97.8; O2SAT 95
[2023-11-07] MEDS: LEVOTHYROXINE 125MCG TABLET (0.125MG) PO SCH (05:44)
[2023-11-07] MEDS: FUROSEMIDE 40MG/4ML VIAL IV SCH (05:45)
[2023-11-07] MEDS: HEPARIN SOD (PORCINE) 5000UNITS/ML 1ML VIAL/SYRINGE SQ SCH ×3 (05:45→21:12)
[2023-11-07 06:29] LABS: BASO % 0.5 % (0.0-1.0); EOS # 0.2 10^3/uL (0.0-0.5); EOS % 2.5 % (0.0-3.0); HEMATOCRIT 30.6 % (36.0-47.0); HEMOGLOBIN 8.4 g/dl (12.0-15.5); LYMPH # 0.9 10^3/uL (1.5-5.0); MEAN CORPUSCULAR HEMOGLOBIN 21.9 pg (27.0-33.0); MEAN CORPUSCULAR HGB CONC 27.5 g/dl (32.0-36.5); MEAN CORPUSCULAR VOLUME 79.7 fl (80.0-96.0); MONO # 1.2 10^3/uL (0.0-0.8); NEUTROPHILS # 6.5 10^3/uL (1.5-8.5); NEUTROPHILS % 73.4 % (36.0-66.0); PLATELET COUNT, AUTOMATED 150 10^3/uL (150-450); RED BLOOD COUNT 3.84 10^6/uL (4.00-5.40); WHITE BLOOD COUNT 8.9 10^3/uL (4.0-10.0)
[2023-11-07 06:47] LABS: CALCIUM LEVEL 7.6 MG/DL (8.3-10.6); CREATININE FOR GFR 1.19 MG/DL (0.55-1.30); GLOMERULAR FILTRATION RATE 46.9 (>39); MAGNESIUM LEVEL 1.8 MG/DL (1.8-2.4); POTASSIUM SERUM 3.4 MMOL/L (3.5-5.1)
[2023-11-07] MEDS ORDERED: POTASSIUM CHLORIDE 10MEQ SR TABLET PO ONE ×2 (07:10→16:00)
[2023-11-07 07:41] VITALS: BP 137/60; TEMP 96.7; O2SAT 94
[2023-11-07] MEDS: SYMBICORT 80/4.5MCG INHALER 6GM INH SCH ×2 (08:09→19:39)
[2023-11-07] MEDS: PANTOPRAZOLE 40MG TAB (PROTONIX) PO SCH (08:19)
[2023-11-07] MEDS: DOCUSATE SODIUM 100MG CAPSULE PO SCH ×2 (08:19→21:13)
[2023-11-07] MEDS: lisinopriL 5 MG TAB PO SCH (08:19)
[2023-11-07] MEDS: LORATADINE 10 MG TAB PO SCH (08:19)
[2023-11-07] MEDS: CLOPIDOGREL 75 MG TAB PO SCH (08:19)
[2023-11-07] MEDS: ASCORBIC ACID 500 MG TAB PO SCH (08:19)
[2023-11-07] MEDS: CARVedilol 3.125 MG TAB PO SCH ×2 (08:19→21:13)
[2023-11-07] MEDS: INSULIN LISPRO (NovoLOG) PER UNIT SC SCH ×4 (08:20→21:00)
[2023-11-07 11:38] VITALS: BP 131/63; TEMP 97.5; O2SAT 97
[2023-11-07 12:01] LABS: HEMOGLOBIN 9.1 g/dl (12.0-15.5)
[2023-11-07] MEDS ORDERED: TORS20TA2 PO (12:30)
[2023-11-07] MEDS ORDERED: FERR325T3 PO (12:30)
[2023-11-07] MEDS ORDERED: FERRIC CARBOXYMALTOSE INJ 750 MG, VIAL MATE ADAPTER 1 EACH in NS 250 ML IV ONE (14:00)
[2023-11-07] MEDS ORDERED: LEVO125T4 PO (15:12)
[2023-11-07] MEDS: ACETAMINOPHEN TAB 650MG DOSE (2X325MG) PO PRN ×2 (15:17→23:33)
[2023-11-07 15:37] VITALS: BP 129/55; TEMP 97.5; O2SAT 96
[2023-11-07] MEDS: TORSEMIDE 20 MG TAB PO SCH (16:58)
[2023-11-07 20:55] VITALS: BP 115/53; TEMP 97.3; O2SAT 92
[2023-11-07] MEDS: LEVEMIR (INSULIN DETEMIR) 1 UNITS/0.01ML SC SCH (21:13)
[2023-11-07] MEDS: traZODone 50 MG TAB PO SCH (21:13)
[2023-11-07] MEDS: ROSUVASTATIN 10 MG TAB (CRESTOR) PO SCH (21:13)
[2023-11-08] MEDS: LEVOTHYROXINE 125MCG TABLET (0.125MG) PO SCH (05:22)
[2023-11-08] MEDS: HEPARIN SOD (PORCINE) 5000UNITS/ML 1ML VIAL/SYRINGE SQ SCH ×2 (05:22→14:00)
[2023-11-08] MEDS: ACETAMINOPHEN TAB 650MG DOSE (2X325MG) PO PRN (06:31)
[2023-11-08 06:49] LABS: BASO % 0.3 % (0.0-1.0); EOS # 0.2 10^3/uL (0.0-0.5); EOS % 2.2 % (0.0-3.0); HEMATOCRIT 31.1 % (36.0-47.0); HEMOGLOBIN 8.7 g/dl (12.0-15.5); LYMPH # 0.7 10^3/uL (1.5-5.0); LYMPH % 7.9 % (24.0-44.0); MEAN CORPUSCULAR HEMOGLOBIN 22.1 pg (27.0-33.0); MEAN CORPUSCULAR VOLUME 79.1 fl (80.0-96.0); MONO # 1.1 10^3/uL (0.0-0.8); MONO % 12.4 % (2.0-8.0); NEUTROPHILS # 6.8 10^3/uL (1.5-8.5); NEUTROPHILS % 76.5 % (36.0-66.0); PLATELET COUNT, AUTOMATED 137 10^3/uL (150-450); RED BLOOD COUNT 3.93 10^6/uL (4.00-5.40); WHITE BLOOD COUNT 8.9 10^3/uL (4.0-10.0)
[2023-11-08 07:36] LABS: CALCIUM LEVEL 8.4 MG/DL (8.3-10.6); CREATININE FOR GFR 1.16 MG/DL (0.55-1.30); GLOMERULAR FILTRATION RATE 48.4 (>39); MAGNESIUM LEVEL 1.8 MG/DL (1.8-2.4); POTASSIUM SERUM 3.3 MMOL/L (3.5-5.1)
[2023-11-08 07:58] VITALS: BP 156/66; TEMP 98.4; O2SAT 90
[2023-11-08] MEDS ORDERED: POTASSIUM CHLORIDE 10MEQ SR TABLET PO ONE ×2 (08:05→13:30)
[2023-11-08] MEDS: SYMBICORT 80/4.5MCG INHALER 6GM INH SCH (08:21)
[2023-11-08 09:00] VITALS: BP 156/66
[2023-11-08] MEDS: CARVedilol 3.125 MG TAB PO SCH (09:00)
[2023-11-08] MEDS: DOCUSATE SODIUM 100MG CAPSULE PO SCH (09:00)
[2023-11-08] MEDS: LORATADINE 10 MG TAB PO SCH (09:00)
[2023-11-08] MEDS: ASCORBIC ACID 500 MG TAB PO SCH (09:00)
[2023-11-08] MEDS: TORSEMIDE 20 MG TAB PO SCH (09:01)
[2023-11-08] MEDS: CLOPIDOGREL 75 MG TAB PO SCH (09:01)
[2023-11-08] MEDS: PANTOPRAZOLE 40MG TAB (PROTONIX) PO SCH (09:01)
[2023-11-08] MEDS: lisinopriL 5 MG TAB PO SCH (09:01)
[2023-11-08] MEDS: INSULIN LISPRO (NovoLOG) PER UNIT SC SCH ×2 (09:03→12:07)
[2023-11-08] MEDS ORDERED: METO25TA PO (15:11)
== END 2023-11-08 15:54 | disposition home health service (06) | DRG 811 ==
LOC: EDBD 12:50 → M ED 12:50 → M ED INP 17:15 → M PCU 22:31 → OBSVTOIN 11-06 11:17
PROVIDERS: ADMIT Internal Medicine; ATTEND Internal Medicine
PROC: 30233N1 Transfusion of Nonautologous Red Blood Cells into Peripheral Vein, Percutaneous Approach (ICD-10-PCS; principal; 2023-11-06)
PROC: B246ZZZ Ultrasonography of Right and Left Heart (ICD-10-PCS; 2023-11-07)
DX: D50.9 Iron deficiency anemia, unspecified (principal); I50.43 Acute on chronic combined systolic (congestive) and diastolic (congestive) heart failure; J91.8 Pleural effusion in other conditions classified elsewhere; E87.3 Alkalosis; Z66 Do not resuscitate; I11.0 Hypertensive heart disease with heart failure; I25.10 Atherosclerotic heart disease of native coronary artery without angina pectoris; J44.9 Chronic obstructive pulmonary disease, unspecified; E11.9 Type 2 diabetes mellitus without complications; G47.00 Insomnia, unspecified; E87.6 Hypokalemia; E78.5 Hyperlipidemia, unspecified; E03.9 Hypothyroidism, unspecified; K21.9 Gastro-esophageal reflux disease without esophagitis; Z95.0 Presence of cardiac pacemaker; Z95.5 Presence of coronary angioplasty implant and graft; Z90.49 Acquired absence of other specified parts of digestive tract; Z90.79 Acquired absence of other genital organ(s); Z87.891 Personal history of nicotine dependence; Z79.82 Long term (current) use of aspirin; Z79.4 Long term (current) use of insulin; Z79.890 Hormone replacement therapy; Z79.899 Other long term (current) drug therapy; Z88.0 Allergy status to penicillin; Z88.1 Allergy status to other antibiotic agents; Z88.2 Allergy status to sulfonamides; Z88.5 Allergy status to narcotic agent; Z88.8 Allergy status to other drugs, medicaments and biological substances; Z20.822 Contact with and (suspected) exposure to COVID-19

== ENCOUNTER → 2023-11-05 | Outpatient (REF) | payer MEDICARE, MEDICAID ==
[~2023-11-05] MED LIST changes: +BASA100I SQ; +NOVOINJ3 SQ; +POTA-298 SQ; +PROA1AER2 INH; +SEMA1PEN2 SQ; +SYNT100T PO; +VITA500T9 PO
== END ==
LOC: M SFHCCLAY 15:11
PROVIDERS: ATTEND Family Medicine
DX: I50.9 Heart failure, unspecified (principal); R06.02 Shortness of breath

== ENCOUNTER 2023-12-11 17:04 | Inpatient (IN) | payer MEDICAID, MEDICARE ==
[~2023-12-11] VITALS: Ht 157.5 cm; Wt 75.6 kg
[~2023-12-11 17:04] MED LIST changes: -ASPI-161 PO; +ASPI-615 PO; +BASA100I SQ; +FERR325T3 PO; +METO25TA PO; +NOVOINJ3 SQ; +POTA-298 SQ; +PROA1AER2 INH; +SEMA1PEN2 SQ; +SYNT100T PO; +VITA500T9 PO
[2023-12-11 18:14] LABS: CREATININE FOR GFR 3.62 MG/DL (0.55-1.30); POTASSIUM SERUM 4.2 MMOL/L (3.5-5.1)
[2023-12-11] MEDS: PANTOPRAZOLE 40MG VIAL IV ONE (18:19)
[2023-12-11] MEDS: PANTOPRAZOLE SODIUM 40 MG in D5W 50 ML IV SCH (18:30)
[2023-12-11] MEDS: NS 500 ML IV ONE (18:35)
[2023-12-11 18:50] LABS: BASO % 0.1 % (0.0-1.0); EOS # 0.1 10^3/uL (0.0-0.5); EOS % 0.4 % (0.0-3.0); HEMATOCRIT 39.7 % (36.0-47.0); HEMOGLOBIN 12.4 g/dl (12.0-15.5); LYMPH # 0.7 10^3/uL (1.5-5.0); MEAN CORPUSCULAR HEMOGLOBIN 28.8 pg (27.0-33.0); MEAN CORPUSCULAR HGB CONC 31.2 g/dl (32.0-36.5); MEAN CORPUSCULAR VOLUME 92.1 fl (80.0-96.0); MONO # 1.2 10^3/uL (0.0-0.8); MONO % 8.1 % (2.0-8.0); NEUTROPHILS # 12.6 10^3/uL (1.5-8.5); NEUTROPHILS % 85.9 % (36.0-66.0); PLATELET COUNT, AUTOMATED 175 10^3/uL (150-450); RED BLOOD COUNT 4.31 10^6/uL (4.00-5.40); WHITE BLOOD COUNT 14.6 10^3/uL (4.0-10.0)
[2023-12-11] MEDS ORDERED: POTA-150 PO (21:19)
[2023-12-11] MEDS ORDERED: FERR1TAB8 PO (21:19)
[2023-12-11] MEDS ORDERED: SEMA2PEN SQ (21:19)
[2023-12-11] MEDS ORDERED: MED REC CURRENTLY UNOBTAINABLE XX SCH (21:20)
[2023-12-11] MEDS ORDERED: HOME MED LIST COMPLETE! XX SCH (21:35)
[2023-12-11] MEDS: NS 1,000 ML IV ONE (22:22)
[2023-12-11] MEDS ORDERED: GLUCAGON INJ 1MG VIAL SC PRN (23:00)
[2023-12-11] MEDS ORDERED: DEXTROSE 50% 50ML SYRINGE IV PRN (23:00)
[2023-12-11] MEDS ORDERED: GLUCOSE 4GM CHEW TABLET PO PRN (23:00)
[2023-12-11 23:30] LABS: PROCALCITONIN 0.33 ng/ml
[2023-12-12] MEDS: ROSUVASTATIN 10 MG TAB (CRESTOR) PO SCH (00:17)
[2023-12-12] MEDS: traZODone 50 MG TAB PO SCH (00:17)
[2023-12-12] MEDS: CARVedilol 3.125 MG TAB PO SCH (00:18)
[2023-12-12] MEDS: NS 1,000 ML IV SCH (00:18)
[2023-12-12 01:44] VITALS: BP 106/54; TEMP 98.1; O2SAT 93
[2023-12-12] MEDS: traMADol 50 MG TAB PO PRN (02:01)
[2023-12-12 04:27] VITALS: BP 108/44
[2023-12-12 05:13] VITALS: BP 126/57; TEMP 97.7; O2SAT 90
[2023-12-12] MEDS: HEPARIN SOD (PORCINE) 5000UNITS/ML 1ML VIAL/SYRINGE SC SCH (05:49)
[2023-12-12] MEDS: LEVOTHYROXINE 125MCG TABLET (0.125MG) PO SCH (05:49)
[2023-12-12] MEDS: INSULIN LISPRO (NovoLOG) PER UNIT SC SCH ×2 (07:30→20:47)
[2023-12-12] MEDS ORDERED: PANTOPRAZOLE 40MG VIAL IV SCH (09:00)
[2023-12-12] MEDS ORDERED: CLOPIDOGREL 75 MG TAB PO SCH (09:00)
[2023-12-12] MEDS: PANTOPRAZOLE 40MG VIAL IV SCH (09:05)
[2023-12-12] MEDS: NYSTATIN 100,000 UNITS/GM TOPICAL PWD 15GM TOP SCH (09:06)
[2023-12-12] MEDS: ONDANSETRON 4MG 2ML VIAL IV PRN (09:27)
[2023-12-12 09:56] LABS: BASO % 0.2 % (0.0-1.0); EOS # 0.1 10^3/uL (0.0-0.5); HEMATOCRIT 38.1 % (36.0-47.0); HEMOGLOBIN 11.9 g/dl (12.0-15.5); LYMPH # 0.6 10^3/uL (1.5-5.0); LYMPH % 6.3 % (24.0-44.0); MEAN CORPUSCULAR HEMOGLOBIN 28.7 pg (27.0-33.0); MEAN CORPUSCULAR HGB CONC 31.2 g/dl (32.0-36.5); MONO # 0.8 10^3/uL (0.0-0.8); MONO % 8.4 % (2.0-8.0); NEUTROPHILS # 8.2 10^3/uL (1.5-8.5); NEUTROPHILS % 83.7 % (36.0-66.0); PLATELET COUNT, AUTOMATED 142 10^3/uL (150-450); RED BLOOD COUNT 4.14 10^6/uL (4.00-5.40); WHITE BLOOD COUNT 9.8 10^3/uL (4.0-10.0)
[2023-12-12 10:18] LABS: CALCIUM LEVEL 7.8 MG/DL (8.3-10.6); CREATININE FOR GFR 2.75 MG/DL (0.55-1.30); GLOMERULAR FILTRATION RATE 17.8 (>39); MAGNESIUM LEVEL 2.2 MG/DL (1.8-2.4); POTASSIUM SERUM 3.4 MMOL/L (3.5-5.1)
[2023-12-12] MEDS: METOCLOPRAMIDE INJ 10MG/2ML VIAL IV ONE (11:02)
[2023-12-12 14:00] VITALS: BP 139/76; TEMP 97.5; O2SAT 93
[2023-12-12] MEDS: KCL 10MEQ/100ML SWI (KRUN) 10 MEQ in IV 1 EA IV SCH (15:37)
[2023-12-12 20:40] VITALS: TEMP 97.9; O2SAT 90
[2023-12-13] MEDS: METOCLOPRAMIDE INJ 10MG/2ML VIAL IV ONE (03:17)
[2023-12-13 03:37] LABS: EOS # 0.1 10^3/uL (0.0-0.5); EOS % 1.4 % (0.0-3.0); HEMATOCRIT 37.9 % (36.0-47.0); HEMOGLOBIN 11.8 g/dl (12.0-15.5); LYMPH # 0.4 10^3/uL (1.5-5.0); LYMPH % 4.5 % (24.0-44.0); MEAN CORPUSCULAR HEMOGLOBIN 28.9 pg (27.0-33.0); MEAN CORPUSCULAR HGB CONC 31.1 g/dl (32.0-36.5); MEAN CORPUSCULAR VOLUME 92.9 fl (80.0-96.0); MONO # 0.7 10^3/uL (0.0-0.8); MONO % 7.8 % (2.0-8.0); NEUTROPHILS # 7.4 10^3/uL (1.5-8.5); PLATELET COUNT, AUTOMATED 129 10^3/uL (150-450); RED BLOOD COUNT 4.08 10^6/uL (4.00-5.40); WHITE BLOOD COUNT 8.6 10^3/uL (4.0-10.0)
[2023-12-13 04:04] LABS: ALBUMIN 2.5 G/DL (3.2-5.2); BILIRUBIN,TOTAL 0.5 MG/DL (0.3-1.2); CALCIUM LEVEL 8.1 MG/DL (8.3-10.6); CREATININE FOR GFR 2.1 MG/DL (0.55-1.30); GLOMERULAR FILTRATION RATE 24.3 (>39); POTASSIUM SERUM 3.9 MMOL/L (3.5-5.1); TOTAL PROTEIN 5.8 G/DL (5.7-8.2)
[2023-12-13 04:56] VITALS: BP 128/77; TEMP 97.9; O2SAT 91
[2023-12-13] MEDS ORDERED: METOCLOPRAMIDE INJ 10MG/2ML VIAL IV PRN (07:55)
[2023-12-13 08:12] LABS: C REACTIVE PROTEIN QUANTITATIV 2.3 MG/DL (<1.0)
[2023-12-13 14:00] VITALS: BP 126/62; TEMP 97.7; O2SAT 94
[2023-12-13] MEDS: ACETAMINOPHEN TAB 650MG DOSE (2X325MG) PO PRN (14:22)
[2023-12-13 20:13] VITALS: BP 124/51; TEMP 97.9; O2SAT 95
[2023-12-14 05:43] VITALS: BP 136/68; TEMP 98.2; O2SAT 97
[2023-12-14 08:00] VITALS: BP 122/58; TEMP 96.9; O2SAT 95
[2023-12-14 08:15] LABS: CALCIUM LEVEL 7.9 MG/DL (8.3-10.6); CREATININE FOR GFR 1.71 MG/DL (0.55-1.30); GLOMERULAR FILTRATION RATE 30.8 (>39); MAGNESIUM LEVEL 1.9 MG/DL (1.8-2.4); POTASSIUM SERUM 3.5 MMOL/L (3.5-5.1)
[2023-12-14 14:00] VITALS: BP 114/55; TEMP 97; O2SAT 99
[2023-12-14 20:00] VITALS: BP 99/46; TEMP 97.7; O2SAT 95
[2023-12-14 20:40] VITALS: BP 114/47
[2023-12-15] MEDS: RAMELTEON 8 MG TAB (ROZEREM) PO PRN (02:41)
[2023-12-15 05:55] VITALS: BP 137/61; TEMP 97.9; O2SAT 96
[2023-12-15 06:00] VITALS: BP 139/76; TEMP 97.9; O2SAT 96
[2023-12-15 06:07] LABS: EOS # 0.1 10^3/uL (0.0-0.5); HEMATOCRIT 36.3 % (36.0-47.0); HEMOGLOBIN 11.5 g/dl (12.0-15.5); LYMPH # 0.7 10^3/uL (1.5-5.0); LYMPH % 11.5 % (24.0-44.0); MEAN CORPUSCULAR HGB CONC 31.7 g/dl (32.0-36.5); MEAN CORPUSCULAR VOLUME 91.4 fl (80.0-96.0); MONO # 0.7 10^3/uL (0.0-0.8); NEUTROPHILS # 4.4 10^3/uL (1.5-8.5); PLATELET COUNT, AUTOMATED 110 10^3/uL (150-450); RED BLOOD COUNT 3.97 10^6/uL (4.00-5.40); WHITE BLOOD COUNT 5.9 10^3/uL (4.0-10.0)
[2023-12-15 06:36] LABS: CALCIUM LEVEL 7.9 MG/DL (8.3-10.6); CREATININE FOR GFR 1.54 MG/DL (0.55-1.30); GLOMERULAR FILTRATION RATE 34.8 (>39); MAGNESIUM LEVEL 1.7 MG/DL (1.8-2.4)
[2023-12-15] MEDS: SYMBICORT 80/4.5MCG INHALER 6GM INH SCH (08:00)
[2023-12-15] MEDS: MAG SULF 1GM/100ML (MAG RUN) 1 GM in IV 1 EA IV SCH (08:13)
[2023-12-15] MEDS: POTASSIUM CHLORIDE 10MEQ SR TABLET PO SCH (08:14)
[2023-12-15] MEDS ORDERED: LORATADINE 10 MG TAB PO PRN (13:05)
[2023-12-15 14:10] VITALS: BP 128/60; TEMP 98.2; O2SAT 98
[2023-12-16 04:21] VITALS: BP 118/77; TEMP 97.9; O2SAT 94
[2023-12-16] MEDS: FERROUS SULFATE 325MG TAB PO SCH (08:28)
[2023-12-16] MEDS: PANTOPRAZOLE 40MG TAB (PROTONIX) PO SCH (08:28)
[2023-12-16] MEDS: ASCORBIC ACID 500 MG TAB PO SCH (08:28)
[2023-12-16] MEDS: DULoxetine 20MG CAP (CYMBALTA) PO SCH (11:59)
[2023-12-16 19:35] VITALS: BP 125/49; TEMP 98.1; O2SAT 92
[2023-12-16] MEDS: RAMELTEON 8 MG TAB (ROZEREM) PO SCH (20:12)
[2023-12-17] MEDS: MIRALAX *UNIT DOSE* 17GM PACKET PO ONE (00:50)
[2023-12-17 06:01] VITALS: BP 170/79; TEMP 98.1; O2SAT 92
[2023-12-17 06:14] VITALS: BP 142/58
[2023-12-17 12:25] LABS: HEMATOCRIT 35.9 % (36.0-47.0); HEMOGLOBIN 11.6 g/dl (12.0-15.5); MEAN CORPUSCULAR HEMOGLOBIN 29.3 pg (27.0-33.0); MEAN CORPUSCULAR HGB CONC 32.3 g/dl (32.0-36.5); MEAN CORPUSCULAR VOLUME 90.7 fl (80.0-96.0); PLATELET COUNT, AUTOMATED 104 10^3/uL (150-450); RED BLOOD COUNT 3.96 10^6/uL (4.00-5.40); WHITE BLOOD COUNT 7.9 10^3/uL (4.0-10.0)
[2023-12-17 12:54] LABS: CALCIUM LEVEL 8.2 MG/DL (8.3-10.6); CREATININE FOR GFR 1.15 MG/DL (0.55-1.30); GLOMERULAR FILTRATION RATE 48.7 (>39); POTASSIUM SERUM 3.2 MMOL/L (3.5-5.1)
[2023-12-17] MEDS: LIDOCAINE 5% (LIDODERM) PATCH TD SCH (13:40)
[2023-12-17] MEDS: lisinopriL 5 MG TAB PO SCH (13:43)
[2023-12-17] MEDS: POTASSIUM CHLORIDE 10MEQ SR TABLET PO SCH (13:43)
[2023-12-17 14:42] LABS: INR 1.05; PROTHROMBIN TIME 13.4 SECONDS (12.5-14.5)
[2023-12-17 14:43] LABS: PARTIAL THROMBOPLASTIN TIME 31.4 SECONDS (24.8-34.2)
[2023-12-17] MEDS: TORSEMIDE 20 MG TAB PO SCH (17:39)
[2023-12-17] MEDS: RIVAROXABAN 10MG TAB (XARELTO) PO SCH (17:39)
[2023-12-18 04:40] VITALS: BP 162/84; TEMP 97.9; O2SAT 93
[2023-12-18 06:21] VITALS: BP 148/62
[2023-12-18] MEDS: MIRALAX *UNIT DOSE* 17GM PACKET PO SCH (08:24)
[2023-12-18] MEDS ORDERED: CYMB1CAP5 PO (09:40)
[2023-12-18] MEDS ORDERED: MIRA3350 PO (09:40)
[2023-12-18] MEDS ORDERED: POTA-150 PO (09:43)
[2023-12-18] MEDS: MOM 30ML SUSPENSION UDC PO PRN (09:49)
[2023-12-18 09:52] VITALS: BP 138/66
== END 2023-12-18 12:00 | disposition home or self-care (01) | DRG 683 ==
LOC: M ED 17:04 → M ED INP 22:32 → ENRESERV 23:31 → M MSPAV 12-12 01:20
PROVIDERS: ADMIT Family Medicine; ATTEND Student in an Organized Health Care Education/Training Program
DX: N17.9 Acute kidney failure, unspecified (principal); I50.42 Chronic combined systolic (congestive) and diastolic (congestive) heart failure; Z66 Do not resuscitate; I25.10 Atherosclerotic heart disease of native coronary artery without angina pectoris; E11.22 Type 2 diabetes mellitus with diabetic chronic kidney disease; J44.9 Chronic obstructive pulmonary disease, unspecified; E11.43 Type 2 diabetes mellitus with diabetic autonomic (poly)neuropathy; K31.84 Gastroparesis; E78.5 Hyperlipidemia, unspecified; E03.9 Hypothyroidism, unspecified; R54 Age-related physical debility; K21.9 Gastro-esophageal reflux disease without esophagitis; F03.90 Unspecified dementia, unspecified severity, without behavioral disturbance, psychotic disturbance, mood disturbance, and anxiety; E87.6 Hypokalemia; E83.42 Hypomagnesemia; D50.9 Iron deficiency anemia, unspecified; R26.89 Other abnormalities of gait and mobility; D69.59 Other secondary thrombocytopenia; T45.515A Adverse effect of anticoagulants, initial encounter; N18.32 Chronic kidney disease, stage 3b; G47.00 Insomnia, unspecified; F32.A Depression, unspecified; Z79.4 Long term (current) use of insulin; Z79.890 Hormone replacement therapy; Z79.899 Other long term (current) drug therapy; Z87.891 Personal history of nicotine dependence; Z88.0 Allergy status to penicillin; Z88.1 Allergy status to other antibiotic agents; Z88.2 Allergy status to sulfonamides; Z88.5 Allergy status to narcotic agent; Z88.8 Allergy status to other drugs, medicaments and biological substances; Z11.52 Encounter for screening for COVID-19; Z95.5 Presence of coronary angioplasty implant and graft; Z95.0 Presence of cardiac pacemaker; Z90.49 Acquired absence of other specified parts of digestive tract; Z90.79 Acquired absence of other genital organ(s)

== ENCOUNTER → 2024-03-29 | Outpatient (REF) | payer MEDICARE, MEDICAID ==
[~2024-03-29] MED LIST changes: +CYMB1CAP5 PO; +MIRA3350 PO; +POTA-150 PO; +SEMA2PEN SQ
[2024-03-30 14:14] LABS: FREE T4 1.08 NG/DL (0.89-1.76)
[2024-03-30 14:15] LABS: THYROID STIMULATING HORMONE 6.155 uIU/ML (0.55-4.78)
[2024-03-30 14:18] LABS: CALCIUM LEVEL 9.1 MG/DL (8.3-10.6); CREATININE FOR GFR 1.05 MG/DL (0.55-1.30); GLOMERULAR FILTRATION RATE 54.1 (>39); POTASSIUM SERUM 4.4 MMOL/L (3.5-5.1)
[2024-03-30 14:22] LABS: HEMOGLOBIN A1c 8.2 % (4.0-6.0)
== END ==
LOC: M SFHCCLAY 15:23
PROVIDERS: ATTEND Family Medicine
DX: E11.22 Type 2 diabetes mellitus with diabetic chronic kidney disease (principal); I50.9 Heart failure, unspecified

== ENCOUNTER → 2024-06-17 | Outpatient (REF) ==
[~2024-06-17] MED LIST changes: +METH85CR6 TOP; -MUSCCRE9 TOP
== END ==
LOC: SKLAB5 13:55
PROVIDERS: ATTEND Family Medicine
DX: J44.9 Chronic obstructive pulmonary disease, unspecified (principal); Z95.0 Presence of cardiac pacemaker

== ENCOUNTER → 2024-06-18 | Outpatient (REF) ==
[2024-06-18 07:18] LABS: HEMATOCRIT 35.4 % (36.0-47.0); HEMOGLOBIN 10.8 g/dl (12.0-15.5); MEAN CORPUSCULAR HEMOGLOBIN 27.8 pg (27.0-33.0); MEAN CORPUSCULAR HGB CONC 30.5 g/dl (32.0-36.5); MEAN CORPUSCULAR VOLUME 91.2 fl (80.0-96.0); PLATELET COUNT, AUTOMATED 236 10^3/uL (150-450); RED BLOOD COUNT 3.88 10^6/uL (4.00-5.40); WHITE BLOOD COUNT 6.5 10^3/uL (4.0-10.0)
[2024-06-18 07:42] LABS: HEMOGLOBIN A1c 6.7 % (4.0-6.0)
[2024-06-18 07:44] LABS: ALBUMIN 2.1 G/DL (3.2-5.2); ALKALINE PHOSPHATASE 156 U/L (46-116); ALT/SGPT 11 U/L (7.0-40); AST/SGOT 11 U/L (<34); BILIRUBIN,TOTAL 0.3 MG/DL (0.3-1.2); BLOOD UREA NITROGEN 17 MG/DL (9-23); CALCIUM LEVEL 8.5 MG/DL (8.3-10.6); CARBON DIOXIDE LEVEL 32 MMOL/L (20-31); CHLORIDE LEVEL 103 MMOL/L (98-107); CHOLESTEROL LEVEL 106 MG/DL (<200); CHOLESTEROL RISK RATIO 3.86 (<5); CREATININE FOR GFR 0.84 MG/DL (0.55-1.30); GLOMERULAR FILTRATION RATE > 60.0 (>39); GLUCOSE, FASTING 145 MG/DL (74-106); HDL CHOLESTEROL 27.4 MG/DL (>40); LDL CHOLESTEROL 49.6 MG/DL (<100); NON-HDL-C 78.6 MG/DL; POTASSIUM SERUM 3.4 MMOL/L (3.5-5.1); SODIUM LEVEL 135 MMOL/L (136-145); TOTAL PROTEIN 5.9 G/DL (5.7-8.2); TRIGLYCERIDES LEVEL 145 MG/DL (<150)
[2024-06-18 07:47] LABS: THYROID STIMULATING HORMONE 11.877 uIU/ML (0.55-4.78)
== END ==
LOC: SKLAB5 06-17 13:09
PROVIDERS: ATTEND Family Medicine
DX: E03.9 Hypothyroidism, unspecified (principal); E11.9 Type 2 diabetes mellitus without complications; E78.5 Hyperlipidemia, unspecified; I10 Essential (primary) hypertension

== ENCOUNTER → 2024-06-27 | Outpatient (REF) | payer MEDICAID, MEDICARE, OTHER | LOC: EDSTATUS 08:19 → SKLAB5 11:51 → EDSTATUS 11:57 → M RAD 12:01 | PROVIDERS: ATTEND Internal Medicine | DX: M10.9 Gout, unspecified (principal); M19.041 Primary osteoarthritis, right hand; M19.031 Primary osteoarthritis, right wrist ==

== ENCOUNTER → 2024-07-01 | Outpatient (REF) | LOC: SKLAB5 08:32 | PROVIDERS: ATTEND Family Medicine | DX: Z53.8 Procedure and treatment not carried out for other reasons (principal) ==

== ENCOUNTER → 2024-07-01 | Outpatient (REF) | payer MEDICARE | LOC: M RAD 13:06 → EDSTATUS 07-04 08:44 | PROVIDERS: ATTEND Nurse Practitioner Family | DX: M25.551 Pain in right hip (principal) ==

== ENCOUNTER → 2024-07-21 | Outpatient (REF) ==
[2024-07-21 11:00] LABS: CALCIUM LEVEL 9.5 MG/DL (8.3-10.6); GLOMERULAR FILTRATION RATE 57.2 (>39); POTASSIUM SERUM 3.8 MMOL/L (3.5-5.1)
[2024-07-21 11:02] LABS: THYROID STIMULATING HORMONE 1.779 uIU/ML (0.55-4.78)
== END ==
LOC: SKLAB5 08:22
PROVIDERS: ATTEND Family Medicine
DX: E87.6 Hypokalemia (principal); E03.9 Hypothyroidism, unspecified

== ENCOUNTER → 2024-08-05 | Outpatient (REF) | payer MEDICARE | LOC: M RAD 13:04 → EDSTATUS 08-08 09:28 | PROVIDERS: ATTEND Family Medicine | DX: S72.141D Displaced intertrochanteric fracture of right femur, subsequent encounter for closed fracture with routine healing (principal); M85.851 Other specified disorders of bone density and structure, right thigh ==

== ENCOUNTER → 2024-10-07 | Outpatient (REF) | payer MEDICARE, MEDICAID, OTHER ==
[~2024-10-07] MED LIST changes: +NYST1POW3 TOP; -NYST1POW9 TOP
[2024-10-07 07:46] LABS: BASO # 0.1 10^3/uL (0.0-0.2); BASO % 0.6 % (0.0-1.0); EOS # 0.3 10^3/uL (0.0-0.5); EOS % 4.1 % (0.0-3.0); HEMATOCRIT 33.7 % (36.0-47.0); HEMOGLOBIN 10.5 g/dl (12.0-15.5); LYMPH # 1.5 10^3/uL (1.5-5.0); LYMPH % 18.2 % (24.0-44.0); MEAN CORPUSCULAR HEMOGLOBIN 27.5 pg (27.0-33.0); MEAN CORPUSCULAR HGB CONC 31.2 g/dl (32.0-36.5); MEAN CORPUSCULAR VOLUME 88.2 fl (80.0-96.0); MONO # 0.8 10^3/uL (0.0-0.8); MONO % 9.4 % (2.0-8.0); NEUTROPHILS # 5.5 10^3/uL (1.5-8.5); NEUTROPHILS % 67.2 % (36.0-66.0); PLATELET COUNT, AUTOMATED 244 10^3/uL (150-450); RED BLOOD COUNT 3.82 10^6/uL (4.00-5.40); WHITE BLOOD COUNT 8.2 10^3/uL (4.0-10.0)
[2024-10-07 08:12] LABS: IRON (FE) 33 UG/DL (50-170); PERCENT SATURATION 11.9 % (13.2-45.0); TOTAL IRON BINDING CAPACITY 278 UG/DL (250-425)
[2024-10-07 08:13] LABS: ALBUMIN 2.3 G/DL (3.2-5.2); ALKALINE PHOSPHATASE 116 U/L (35-104); ALT/SGPT 15 U/L (7.0-40); AST/SGOT < 8 U/L (<34); BILIRUBIN,TOTAL 0.3 MG/DL (0.3-1.2); BLOOD UREA NITROGEN 29 MG/DL (9-23); CALCIUM LEVEL 9.1 MG/DL (8.3-10.6); CARBON DIOXIDE LEVEL 28 MMOL/L (20-31); CHLORIDE LEVEL 102 MMOL/L (98-107); CREATININE FOR GFR 1.22 MG/DL (0.55-1.30); GLOMERULAR FILTRATION RATE 45.5 (>39); GLUCOSE, FASTING 300 MG/DL (74-106); MAGNESIUM LEVEL 2.1 MG/DL (1.8-2.4); POTASSIUM SERUM 4.2 MMOL/L (3.5-5.1); SODIUM LEVEL 135 MMOL/L (136-145); TOTAL PROTEIN 6.4 G/DL (5.7-8.2)
[2024-10-07 08:14] LABS: THYROID STIMULATING HORMONE 1.109 uIU/ML (0.55-4.78)
[2024-10-07 08:15] LABS: FERRITIN 23.4 NG/ML (7.3-270.7); VITAMIN B12 LEVEL 584 PG/ML (211-911)
[2024-10-07 09:14] LABS: HEMOGLOBIN A1c 10.8 % (4.0-6.0)
== END ==
LOC: SKLAB3 07:05
PROVIDERS: ATTEND Family Medicine
DX: F03.918 Unspecified dementia, unspecified severity, with other behavioral disturbance (principal); E83.42 Hypomagnesemia; D64.9 Anemia, unspecified; E11.9 Type 2 diabetes mellitus without complications

== ENCOUNTER → 2024-11-08 | Outpatient (REF) | payer MEDICARE, MEDICAID, OTHER ==
[2024-11-08 13:21] LABS: BASO # 0.1 10^3/uL (0.0-0.2); BASO % 0.6 % (0.0-1.0); EOS # 0.3 10^3/uL (0.0-0.5); EOS % 2.8 % (0.0-3.0); HEMATOCRIT 41.9 % (36.0-47.0); HEMOGLOBIN 12.9 g/dl (12.0-15.5); LYMPH # 1.6 10^3/uL (1.5-5.0); LYMPH % 17.2 % (24.0-44.0); MEAN CORPUSCULAR HEMOGLOBIN 28.2 pg (27.0-33.0); MEAN CORPUSCULAR HGB CONC 30.8 g/dl (32.0-36.5); MEAN CORPUSCULAR VOLUME 91.7 fl (80.0-96.0); MONO # 0.9 10^3/uL (0.0-0.8); MONO % 9.1 % (2.0-8.0); NEUTROPHILS # 6.6 10^3/uL (1.5-8.5); NEUTROPHILS % 69.9 % (36.0-66.0); PLATELET COUNT, AUTOMATED 281 10^3/uL (150-450); RED BLOOD COUNT 4.57 10^6/uL (4.00-5.40); WHITE BLOOD COUNT 9.5 10^3/uL (4.0-10.0)
[2024-11-08 13:31] LABS: CALCIUM LEVEL 9.4 MG/DL (8.3-10.6); CREATININE FOR GFR 0.98 MG/DL (0.55-1.30); GLOMERULAR FILTRATION RATE 58.6 (>39); POTASSIUM SERUM 3.9 MMOL/L (3.5-5.1)
== END ==
LOC: SKLAB3 12:22
PROVIDERS: ATTEND Internal Medicine
DX: R07.82 Intercostal pain (principal)

== ENCOUNTER → 2024-11-08 | Outpatient (CLI) | payer MEDICARE, MEDICAID, OTHER | LOC: M RAD 13:51 | PROVIDERS: ATTEND Nurse Practitioner Family | DX: R07.81 Pleurodynia (principal); J98.11 Atelectasis ==

== ENCOUNTER → 2024-11-15 | Outpatient (CLI) | payer MEDICARE, MEDICAID | LOC: M RAD 15:22 | PROVIDERS: ATTEND Orthopaedic Surgery | DX: M25.551 Pain in right hip (principal); S72.141D Displaced intertrochanteric fracture of right femur, subsequent encounter for closed fracture with routine healing; M16.11 Unilateral primary osteoarthritis, right hip ==

== ENCOUNTER → 2024-12-13 | Outpatient (REF) | payer MEDICARE, MEDICAID ==
[2024-12-13 09:08] LABS: CHOLESTEROL RISK RATIO 3.02 (<5); HDL CHOLESTEROL 41.7 MG/DL (>40); LDL CHOLESTEROL 62.9 MG/DL (<100); NON-HDL-C 84.3 MG/DL
== END ==
LOC: SKLAB3 07:00
PROVIDERS: ATTEND Internal Medicine
DX: E78.5 Hyperlipidemia, unspecified (principal)

== ENCOUNTER → 2025-01-03 | Outpatient (REF) | payer MEDICARE, MEDICAID ==
[2025-01-03 09:35] LABS: ALKALINE PHOSPHATASE 102 U/L (35-104); ALT/SGPT 15 U/L (7.0-40); AST/SGOT 10 U/L (<34); BILIRUBIN,TOTAL 0.3 MG/DL (0.3-1.2); BLOOD UREA NITROGEN 23 MG/DL (9-23); CALCIUM LEVEL 9.1 MG/DL (8.3-10.6); CARBON DIOXIDE LEVEL 27 MMOL/L (20-31); CHLORIDE LEVEL 105 MMOL/L (98-107); GLOMERULAR FILTRATION RATE > 60.0 (>39); GLUCOSE, FASTING 210 MG/DL (74-106); POTASSIUM SERUM 4.2 MMOL/L (3.5-5.1); SODIUM LEVEL 140 MMOL/L (136-145); TOTAL PROTEIN 7.4 G/DL (5.7-8.2)
[2025-01-03 09:37] LABS: THYROID STIMULATING HORMONE 0.583 uIU/ML (0.55-4.78)
[2025-01-03 09:55] LABS: HEMOGLOBIN A1c 6.6 % (4.0-6.0)
== END ==
LOC: SKLAB3 08:28
PROVIDERS: ATTEND Internal Medicine
DX: I50.9 Heart failure, unspecified (principal); E03.9 Hypothyroidism, unspecified; E11.9 Type 2 diabetes mellitus without complications

== ENCOUNTER → 2025-01-10 | Outpatient (REF) | payer MEDICARE, MEDICAID ==
[2025-01-10 08:03] LABS: BLOOD UREA NITROGEN 22 MG/DL (9-23); CALCIUM LEVEL 8.8 MG/DL (8.3-10.6); CARBON DIOXIDE LEVEL 27 MMOL/L (20-31); CHLORIDE LEVEL 104 MMOL/L (98-107); CREATININE FOR GFR 0.95 MG/DL (0.55-1.30); GLOMERULAR FILTRATION RATE > 60.0 (>39); GLUCOSE, FASTING 105 MG/DL (74-106); POTASSIUM SERUM 4.2 MMOL/L (3.5-5.1); SODIUM LEVEL 141 MMOL/L (136-145)
== END ==
LOC: SKLAB3 07:00
PROVIDERS: ATTEND Internal Medicine
DX: I50.9 Heart failure, unspecified (principal)

== ENCOUNTER → 2025-02-13 | Outpatient (REF) | payer MEDICARE, MEDICAID ==
[2025-02-13 10:17] LABS: CREATININE FOR GFR 1.09 MG/DL (0.55-1.30); POTASSIUM SERUM 4.2 MMOL/L (3.5-5.1)
== END ==
LOC: SKLAB3 08:48
PROVIDERS: ATTEND Internal Medicine
DX: I50.9 Heart failure, unspecified (principal)

== ENCOUNTER → 2025-06-20 | Outpatient (REF) | payer MEDICARE, MEDICAID ==
[~2025-06-20] MED LIST changes: +AMLO-751 PO; -AMLO10TA PO; -NYST-13 EXT; +NYST0.1C EXT
[2025-06-20 09:45] LABS: PLATELET COUNT, AUTOMATED 227 10^3/uL (150-450)
[2025-06-20 10:02] LABS: ESTIMATED AVERAGE GLUCOSE 140.0 MG/DL (60-110)
[2025-06-20 10:16] LABS: ALT/SGPT 15.0 U/L (7.0-40); AST/SGOT 10.0 U/L (<34); CALCIUM LEVEL 9.4 MG/DL (8.3-10.6); CARBON DIOXIDE LEVEL 31.0 MMOL/L (20-31); CHLORIDE LEVEL 102.0 MMOL/L (98-107); CHOLESTEROL LEVEL 130.0 MG/DL (<200); CHOLESTEROL RISK RATIO 2.98 (<5); CREATININE FOR GFR 0.96 MG/DL (0.55-1.30); GLOMERULAR FILTRATION RATE 60.6 (>39); LDL CHOLESTEROL 66.2 MG/DL (<100); NON-HDL-C 86.4 MG/DL; POTASSIUM SERUM 4.0 MMOL/L (3.5-5.1); SODIUM LEVEL 141.0 MMOL/L (136-145); TRIGLYCERIDES LEVEL 101.0 MG/DL (<150)
== END ==
LOC: SKLAB3 07:00
PROVIDERS: ATTEND Internal Medicine
DX: E11.9 Type 2 diabetes mellitus without complications (principal); Z79.899 Other long term (current) drug therapy